=== PATIENT | male | born 1955 | race Caucasian/White ===

== ENCOUNTER → 2016-06-01 | Outpatient (CLI) | payer OTHER ==
[~2016-06-01] MED LIST: AMLO-114 PO; ATOR-22 PO; CEPH500C2 PO; FERR325T18 PO; FURO-85 PO; GABA-113 PO; GLC/500 PO; LBT100 PO; LISI40TA PO; LSX20 PO; MELO7.5T5 PO; MULT-506 PO; MULT-589 PO; POLYSOL4 OP; PRD/1 PO; PRED-301 PO; PRLSR20 PO
[2016-06-01 12:21] LABS: BASO % 0.1 %; BASO ABS # 0.01 K/uL (0-0.2); COMPLETE YES; EOS % 3.1 %; HEMATOCRIT 32.4 % (42-52); IG% 0.1 %; LYMPH % 35.5 %; LYMPH ABS # 2.44 K/uL (1.2-3.4); MEAN CELL VOLUME 89.5 fL (80-100); MEAN CORPUSCULAR HEMOGLOBIN 28.7 pg (25-34); MEAN CORPUSCULAR HGB CONC 32.1 g/dl (32-36); MEAN PLATELET VOLUME 10.7 fL (7.4-10.4); MONO % 9.6 %; NEUT % 51.6 %; PLATELET COUNT 181 K/uL (130-400); RED BLOOD COUNT 3.62 M/uL (4.7-6.1); WHITE BLOOD COUNT 6.88 K/uL (4.8-10.8)
[2016-06-01 12:30] LABS: URINE APPEARANCE CLEAR (CLEAR); URINE BILIRUBIN NEG (NEG); URINE COLOR YELLOW; URINE EPITHELIAL CELL AUTO 0-5 /lpf (0-5); URINE NITRITE NEG (NEG); URINE SPECIFIC GRAVITY 1.018 (1.000-1.030); UROBILINOGEN NEG (NEG); ZZUR CULT IF INDIC CLEAN CATCH NO
[2016-06-01 12:39] LABS: ALT/SGPT 19 U/L (12-78); BLOOD UREA NITROGEN 24 mg/dl (7-18); BUN/CREATININE RATIO 24.2 (10-20); CALCIUM 8.8 mg/dl (8.5-10.1); CARBON DIOXIDE 30 mmol/L (21-32); CHLORIDE 102 mmol/L (98-107); CHOLESTEROL 146 mg/dl (0-200); GLUCOSE 94 mg/dl (70-99); POTASSIUM 4.5 mmol/L (3.5-5.1); SODIUM 138 mmol/L (136-145); TRIGLYCERIDES 91 mg/dl (0-150); VERY LOW DENSITY LIPOPROT CALC 18 mg/dl
[2016-06-01 12:43] LABS: MANUAL MICROSCOPIC REQUIRED? NO; REVIEW REQ? NO
[2016-06-01 12:46] LABS: ESTIMATED AVERAGE GLUCOSE 123 mg/dl; HA1C FLAG Normal (Normal)
[2016-06-01 12:50] LABS: ALB/GLOB RATIO 1.1 (0.9-2); ALKALINE PHOSPHATASE 95 U/L (45-117); AST/SGOT 9 U/L (15-37); CHOLESTEROL/HDL RATIO 2.6; HDL CHOLESTEROL 57 mg/dl; LDL CHOLESTEROL CALCULATED 71 mg/dl; PROSTATE SPECIFIC ANTIGEN 0.506 ng/ml (0.000-4.000)
== END | disposition home or self-care (01) ==
LOC: C.LABBFT 09:03
PROVIDERS: ATTEND Internal Medicine
DX: E78.5 Hyperlipidemia, unspecified (principal); C67.9 Malignant neoplasm of bladder, unspecified; E11.9 Type 2 diabetes mellitus without complications; N52.9 Male erectile dysfunction, unspecified; Z12.5 Encounter for screening for malignant neoplasm of prostate; M35.3 Polymyalgia rheumatica

== ENCOUNTER → 2016-06-08 | Outpatient (CLI) | payer OTHER ==
[2016-06-08 17:35] LABS: RETHE 30.2 PG (28.2-36.6)
[2016-06-08 17:56] LABS: FERRITIN 7.4 ng/ml (8.0-388.0)
== END | disposition home or self-care (01) ==
LOC: C.LABBFT 12:49
PROVIDERS: ATTEND Internal Medicine
DX: D64.9 Anemia, unspecified (principal)

== ENCOUNTER → 2016-06-27 | Outpatient (CLI) | payer OTHER ==
--- NOTE | 2016-06-27 14:42 | DIAGNOSTIC IMAGING REPORT ---
LEFT TIBIA/FIBULA 2 VIEWS ROUTINE CLINICAL HISTORY: M35.3 Polymyalgia [id number] Pain in the shins COMPARISON: None. DISCUSSION: There are vascular calcifications present. No fractures are visualized. No destructive lesions are evident. There are no areas of periostitis. Degenerative changes are present within the knee. IMPRESSION: 1. No evidence of acute fracture 2. No evidence of periostitis. Electronically signed by: Nba Rider M.D. 06/27/2016 2:40 PM Dictated Date/Time: 06/27/2016 2:40 PM
--- NOTE | 2016-06-27 14:47 | DIAGNOSTIC IMAGING REPORT ---
RIGHT TIBIA/FIBULA 2 VIEWS ROUTINE CLINICAL HISTORY: M35.3 Polymyalgia [id number] Pain in the shins Right pain COMPARISON: None. DISCUSSION: The bones and joint spaces appear intact. There is no evidence of fracture, dislocation or bony disease. Minimal pretibial soft tissue edema IMPRESSION: No acute bony abnormality. Minimal soft tissue edema anterior to the tibia Electronically signed by: Vic Deluna M.D. 06/27/2016 2:45 PM Dictated Date/Time: 06/27/2016 2:45 PM
== END | disposition home or self-care (01) ==
LOC: C.RAD1850 14:25
PROVIDERS: ATTEND Internal Medicine Rheumatology
DX: M35.3 Polymyalgia rheumatica (principal); M79.661 Pain in right lower leg; M79.662 Pain in left lower leg; Z79.52 Long term (current) use of systemic steroids

== ENCOUNTER → 2016-07-04 | Outpatient (CLI) | payer OTHER | END | disposition home or self-care (01) | LOC: C.PATHSPEC 14:04 | PROVIDERS: ATTEND Dermatology | DX: L85.8 Other specified epidermal thickening (principal); L30.9 Dermatitis, unspecified ==

== ENCOUNTER → 2016-09-26 | Day surgery (SDC) | payer OTHER ==
[2016-09-20 10:04] VITALS: Ht 172.7 cm; Wt 99.1 kg
[~2016-09-26] VITALS: Ht 172.7 cm; Wt 99.1 kg
[~2016-09-26] MED LIST changes: +ATROPINE SULFATE 0.1 MG/ML 5ML SYR IV PRN; -CEPH500C2 PO; +EpHEDrine SULFATE INJ 50 MG/ML AMP IV PRN; +FENTANYL CITRATE INJ 50 MCG/1 ML 2 ML VIAL ONE; -LBT100 PO; +LIDOCAINE HCL 2% 2 ML VIAL (20MG/ML) ONE; -LSX20 PO; -MULT-589 PO; +PROPOFOL IV EMULSION 10 MG/ML 20 ML VIAL IV ONE; +SODIUM CHLORIDE 0.9% 500ML 500 ML IV ONE
--- NOTE | 2016-09-26 09:02 | Endo History and Physical ---
History & Physical Date of Service: Sep 26, 2016. Chief Complaint: Hx polyps Referring Physician: Omar Diallo History of Present Illness 61 yo CM who presents for colonoscopy secondary to history of colon polyps. Past Medical History Diabetes, Arthritis, Cancer, Hypertension Past Surgical History Hx Cardiac Surgery: No Hx Internal Defibrillator: No Hx Pacemaker: No Hx Abdominal Surgery: Yes (UMBILICAL HERNIA) Hx of Implantable Prosthesis: No Hx Post-Op Nausea and Vomiting: No Hx Cancer Surgery: Yes (BLADDER TUMOR REMOVED) Hx Thoracic Surgery: No Hx Orthopedic: No Hx Urinary Tract Surgery: No Social History Smoking Status: Former Smoker Hx Substance Use: No Hx Alcohol Use: No ("QUIT 12/2015") Allergies Coded Allergies: Sulfamethoxazole w/Trimethoprim (Unverified Allergy, Mild, ITCHY BACK, ) Current Medications Reported Home Medications Medications Dose Route/Sig Max Daily Dose Days Date Category Mobic (Meloxicam) 7.5 Mg Tab 7.5 Mg PO DAILY 09/26/16 Reported Multivitamin (Multivitamins) Tab 1 Tab PO QAM 09/20/16 Reported Systane (Polyethylene Glycol-Propylene) 1 Kate Kate 1 Drops OP QID PRN 09/20/16 Reported Prednisone 5 Mg Tab 5 Mg PO QAM 09/20/16 Reported Prilosec (Omeprazole) 20 Mg Capcr 20 Mg PO QPM 09/20/16 Reported Zestril (Lisinopril) 40 Mg Tab 40 Mg PO QAM 09/20/16 Reported Neurontin (Gabapentin) 300 Mg Cap 300 Mg PO BID 09/20/16 Reported Lasix (Furosemide) 20 Mg Tab 20 Mg PO QAM 09/20/16 Reported Ferrous Gluconate 324 Mg Tab 324 Mg PO 3XWK 09/20/16 Reported Norvasc (Amlodipine Besylate) 10 Mg Tab 10 Mg PO DAILY AFTERNOON 09/20/16 Reported Lipitor (Atorvastatin Calcium) 20 Mg Tab 20 Mg PO HS 01/31/16 Reported Glucophage (Metformin Hcl) 500 Mg Tab 500 Mg PO BID 10/21/12 Reported Vital Signs Weight (Kilograms): 99.09 Height (Feet): 5 Height (Inches): 8 Date Time Temp Pulse Resp B/P (MAP) Pulse Ox O2 Delivery O2 Flow Rate FiO2 09/26/16 08:42 37.3 65 18 159/72 (101) 94 Room Air Physical Exam General Appearance: WD/WN, no apparent distress Respiratory/Chest: Auscultation: breath sounds normal Cardiovascular: Heart Auscultation: RRR Abdomen: Bowel Sounds: normal Inspection & Palpation: soft, non-distended, no tenderness, guarding & rebound Assessment and Plan Assessment: 61 yo CM who presents for colonoscopy secondary to history of colon polyps. Plan: Proceed with colonoscopy.
--- NOTE | 2016-09-26 09:52 | GI REPORT ---
Procedure Date: 09/26/2016 8:56 AM Procedure: Colonoscopy Indications: High risk colon cancer surveillance: Personal history of colonic polyps Medicines: Monitored Anesthesia Care Complications: No immediate complications. Estimated Blood Loss: Estimated blood loss: none. Procedure: Pre-Anesthesia Assessment: - Prior to the procedure, a History and Physical was performed, and patient medications and allergies were reviewed. The patient's tolerance of previous anesthesia was also reviewed. The risks and benefits of the procedure and the sedation options and risks were discussed with the patient. All questions were answered, and informed consent was obtained. Prior Anticoagulants: The patient has taken no previous anticoagulant or antiplatelet agents. ASA Grade Assessment: II - A patient with mild systemic disease. After reviewing the risks and benefits, the patient was deemed in satisfactory condition to undergo the procedure. After I obtained informed consent, the scope was passed under direct vision. Throughout the procedure, the patient's blood pressure, pulse, and oxygen saturations were monitored continuously. The scope was introduced through the anus and advanced to the terminal ileum. The colonoscopy was performed without difficulty. The patient tolerated the procedure well. The quality of the bowel preparation was good. The terminal ileum, ileocecal valve, appendiceal orifice, and rectum were photographed. Findings: Two sessile polyps were found in the sigmoid colon and in the ascending colon. The polyps were 2 to 3 mm in size. These polyps were removed with a cold biopsy forceps. Resection and retrieval were complete. A 4 mm polyp was found in the transverse colon. The polyp was sessile. The polyp was removed with a cold snare. Resection and retrieval were complete. A tattoo was seen in the sigmoid colon. A post-polypectomy scar was found at the tattoo site. Multiple small-mouthed diverticula were found in the sigmoid colon. Non-bleeding internal hemorrhoids were found during retroflexion. The hemorrhoids were small. Impression: - Two 2 to 3 mm polyps in the sigmoid colon and in the ascending colon, removed with a cold biopsy forceps. Resected and retrieved. - One 4 mm polyp in the transverse colon, removed with a cold snare. Resected and retrieved. - A tattoo was seen in the sigmoid colon. A post-polypectomy scar was found at the tattoo site. - Diverticulosis in the sigmoid colon. - Non-bleeding internal hemorrhoids. Recommendation: - Resume previous diet. - Continue present medications. - Repeat colonoscopy for surveillance based on pathology results. - Return to primary care physician as previously scheduled. Collins Marshall, DO 09/26/2016 9:30:09 AM This report has been signed electronically. Note Initiated On: 09/26/2016 8:56 AM I attest to the content of the Intraoperative Record and orders documented therein, exceptions below
[2016-09-26 09:57] VITALS: BP 131/64; PULSE 58; O2SAT 95
--- NOTE | 2016-09-26 09:58 | Discharge Instructions ---
Endoscopy Patient Instructions Date / Procedure(s) Performed Sep 26, 2016. Colonoscopy Allergy Information Coded Allergies: Sulfamethoxazole w/Trimethoprim (Unverified Allergy, Mild, ITCHY BACK, ) Discharge Date / Findings Sep 26, 2016. Colon polyps Diverticulosis Internal hemorrhoids Medication Instructions Stopped Medication(s): Metformin OK to resume all medications today as prescribed Medications Dose Route/Sig Max Daily Dose Days Date Category Mobic (Meloxicam) 7.5 Mg Tab 7.5 Mg PO DAILY 09/26/16 Reported Multivitamin (Multivitamins) Tab 1 Tab PO QAM 09/20/16 Reported Systane (Polyethylene Glycol-Propylene) 1 Kate Kate 1 Drops OP QID PRN 09/20/16 Reported Prednisone 5 Mg Tab 5 Mg PO QAM 09/20/16 Reported Prilosec (Omeprazole) 20 Mg Capcr 20 Mg PO QPM 09/20/16 Reported Zestril (Lisinopril) 40 Mg Tab 40 Mg PO QAM 09/20/16 Reported Neurontin (Gabapentin) 300 Mg Cap 300 Mg PO BID 09/20/16 Reported Lasix (Furosemide) 20 Mg Tab 20 Mg PO QAM 09/20/16 Reported Ferrous Gluconate 324 Mg Tab 324 Mg PO 3XWK 09/20/16 Reported Norvasc (Amlodipine Besylate) 10 Mg Tab 10 Mg PO DAILY AFTERNOON 09/20/16 Reported Lipitor (Atorvastatin Calcium) 20 Mg Tab 20 Mg PO HS 01/31/16 Reported Glucophage (Metformin Hcl) 500 Mg Tab 500 Mg PO BID 10/21/12 Reported Provider Instructions Activity Restrictions - No exercising or heavy lifting for 24 hours. - Do not drink alcohol the day of the procedure. - Do not drive a car or operate machinery until the day after the procedure. - Do not make any important decisions or sign important papers in 24 hours after the procedure. Following Day: - Return to full activity which may include returning to work/school. Diet Start your diet with liquids and light foods (jello, soup, juice, toast). Then eat your usual diet if not nauseated. Treatment For Common After Affects For mild abdominal pain, bloating, or excessive gas: - Rest - Eat lightly - Lie on right side Follow-Up Information Follow-up with Omar Diallo as scheduled Anesthesia Information What You Should Know You have had a procedure that required some medicine to reduce anxiety and discomfort. This treatment is called moderate sedation. After receiving the treatment, you may be sleepy, but you will be able to breathe on your own. The effects of the treatment may last for several hours. Follow these instructions along with Activity/Diet recommendations noted above: * Do NOT do anything where dizziness or clumsiness would be dangerous. * Rest quietly at home today, then you can be up and about tomorrow. * Have a responsible person stay with you the rest of today. * You may have had an I.V. today. If so, you may take the dressing off later today. Recommendations Call your doctor if: * Trouble breathing * Continuous vomiting for more than 24 hours * Temperature above 101 degrees * Severe abdominal pain or bloating * Pain not relieved by pain medicine ordered * There is increased drainage or redness from any incision * A large amount of rectal bleeding greater than 2-3 tablespoons. (If you had a polyp/s removed or have hemorrhoids, a small amount of blood - from the rectum is to be expected.) * You have any unanswered questions or concerns. IN THE EVENT OF A SERIOUS EMERGENCY, GO TO THE NEAREST EMERGENCY ROOM Your discharge instructions were prepared by provider Collins Marshall. Patient Instructions Signature Page Dillon Aguila Patient (or Guardian) Signature/Date: I have read and understand the instructions given to me by my caregivers. Caregiver/RN/Doctor Signature/Date: The above-named patient and/or guardian has received patient instructions on this date. + Original Patient Signature Page (only) stays with chart. Please make copy for patient.
--- NOTE | 2016-09-26 10:02 | Anesthesiology Progress Note ---
Anesthesia Post Op Note Date & Time Sep 26, 2016 at 10:02 Vital Signs Vital Signs Past 12 Hours Date Time Temp Pulse Resp B/P (MAP) Pulse Ox O2 Delivery O2 Flow Rate FiO2 09/26/16 09:57 58 18 131/64 (86) 95 Room Air 09/26/16 09:42 57 18 140/68 (92) 95 Room Air 09/26/16 09:27 37.0 64 18 118/59 (78) 95 Room Air 09/26/16 08:42 37.3 65 18 159/72 (101) 94 Room Air Notes Mental Status: alert / awake / arousable, participated in evaluation Pt Amnestic to Procedure: Yes Nausea / Vomiting: adequately controlled Pain: adequately controlled Airway Patency, RR, SpO2: stable & adequate BP & HR: stable & adequate Hydration State: stable & adequate Anesthetic Complications: no major complications apparent
== END | disposition home or self-care (01) ==
LOC: C.GI 08:16
PROVIDERS: ATTEND Internal Medicine
DX: Z12.11 Encounter for screening for malignant neoplasm of colon (principal); D12.2 Benign neoplasm of ascending colon; D12.3 Benign neoplasm of transverse colon; D12.5 Benign neoplasm of sigmoid colon; K57.30 Diverticulosis of large intestine without perforation or abscess without bleeding; K64.8 Other hemorrhoids; Z86.010 Personal history of colon polyps; I10 Essential (primary) hypertension; E11.9 Type 2 diabetes mellitus without complications; Z87.891 Personal history of nicotine dependence; Z79.84 Long term (current) use of oral hypoglycemic drugs; Z79.899 Other long term (current) drug therapy

== ENCOUNTER → 2016-10-03 | Outpatient (CLI) | payer OTHER ==
[~2016-10-03] MED LIST changes: -ATROPINE SULFATE 0.1 MG/ML 5ML SYR IV PRN; -EpHEDrine SULFATE INJ 50 MG/ML AMP IV PRN; -FENTANYL CITRATE INJ 50 MCG/1 ML 2 ML VIAL ONE; -LIDOCAINE HCL 2% 2 ML VIAL (20MG/ML) ONE; -PROPOFOL IV EMULSION 10 MG/ML 20 ML VIAL IV ONE; -SODIUM CHLORIDE 0.9% 500ML 500 ML IV ONE
[2016-10-03 17:36] LABS: BASO % 0.2 %; BASO ABS # 0.01 K/uL (0-0.2); COMPLETE YES; EOS % 0.8 %; HEMATOCRIT 31.5 % (42-52); IG% 0.5 %; LYMPH % 18.1 %; LYMPH ABS # 1.11 K/uL (1.2-3.4); MEAN CELL VOLUME 92.6 fL (80-100); MEAN CORPUSCULAR HGB CONC 32.4 g/dl (32-36); MEAN PLATELET VOLUME 10.2 fL (7.4-10.4); MONO % 7.3 %; NEUT % 73.1 %; PLATELET COUNT 167 K/uL (130-400); WHITE BLOOD COUNT 6.13 K/uL (4.8-10.8)
[2016-10-03 17:53] LABS: FERRITIN 15.9 ng/ml (8.0-388.0); RHEUMATOID FACTOR < 10.0 U/mL (0-15); TOTAL IRON BINDING CAPACITY 394 mcg/dl (250-450)
[2016-10-04 06:16] LABS: ESTIMATED AVERAGE GLUCOSE 123 mg/dl; HA1C FLAG Normal (Normal)
== END | disposition home or self-care (01) ==
LOC: C.LABBFT 10:15
PROVIDERS: ATTEND Internal Medicine Rheumatology
DX: D64.9 Anemia, unspecified (principal); M35.3 Polymyalgia rheumatica; M25.539 Pain in unspecified wrist; E11.9 Type 2 diabetes mellitus without complications; E55.9 Vitamin D deficiency, unspecified

== ENCOUNTER → 2016-11-23 | Outpatient (CLI) | payer OTHER ==
[~2016-11-23] VITALS: Ht 172.7 cm; Wt 98.6 kg
[~2016-11-23] MED LIST changes: -PRED-301 PO
[2016-11-23 16:10] VITALS: BP 121/68; PULSE 75; Ht 172.7 cm; Wt 98.6 kg
== END | disposition home or self-care (01) ==
LOC: C.NEUR 15:08
PROVIDERS: ATTEND Internal Medicine Pulmonary Disease
DX: G47.33 Obstructive sleep apnea (adult) (pediatric) (principal)

== ENCOUNTER → 2016-11-24 | Day surgery (SDC) | payer OTHER ==
[2016-11-20 10:08] VITALS: Ht 172.7 cm; Wt 99.1 kg
[~2016-11-24] VITALS: Ht 172.7 cm; Wt 99.1 kg
[~2016-11-24] MED LIST changes: +LIDOCAINE HCL 2% 2 ML VIAL (20MG/ML) ONE; +PROPOFOL IV EMULSION 10 MG/ML 20 ML VIAL IV ONE; +SODIUM CHLORIDE 0.9% 500ML 500 ML IV ONE
--- NOTE | 2016-11-24 11:48 | Endo History and Physical ---
History & Physical Date of Service: Nov 24, 2016. Chief Complaint: Anemia Referring Physician: Dr Diallo History of Present Illness 61 yo CM who presents for EGD secondary to anemia. Past Medical History Diabetes, Arthritis, Cancer, Hypertension Past Surgical History Hx Cardiac Surgery: No Hx Internal Defibrillator: No Hx Pacemaker: No Hx Abdominal Surgery: Yes (UMBILICAL HERNIA) Hx of Implantable Prosthesis: No Hx Post-Op Nausea and Vomiting: No Hx Cancer Surgery: Yes (BLADDER TUMOR REMOVED) Hx Thoracic Surgery: No Hx Orthopedic: No Hx Urinary Tract Surgery: No Family History None Social History Smoking Status: Former Smoker Hx Substance Use: No Hx Alcohol Use: No ("QUIT 12/2015") Allergies Coded Allergies: Sulfamethoxazole w/Trimethoprim (Verified Allergy, Mild, ITCHY BACK, ) Current Medications Reported Home Medications Medications Dose Route/Sig Max Daily Dose Days Date Category Prednisone 1 Mg Tab 4 Mg PO QAM 11/20/16 Reported Multivitamin (Multivitamins) Tab 1 Tab PO QAM 09/20/16 Reported Systane (Polyethylene Glycol-Propylene) 1 Kate Kate 1 Drops OP QID PRN 09/20/16 Reported Prilosec (Omeprazole) 20 Mg Capcr 20 Mg PO QPM 09/20/16 Reported Zestril (Lisinopril) 40 Mg Tab 40 Mg PO QAM 09/20/16 Reported Neurontin (Gabapentin) 300 Mg Cap 300 Mg PO BID 09/20/16 Reported Lasix (Furosemide) 20 Mg Tab 20 Mg PO QAM 09/20/16 Reported Ferrous Gluconate 324 Mg Tab 324 Mg PO 3XWK 09/20/16 Reported Norvasc (Amlodipine Besylate) 10 Mg Tab 10 Mg PO DAILY AFTERNOON 09/20/16 Reported Lipitor (Atorvastatin Calcium) 20 Mg Tab 20 Mg PO HS 01/31/16 Reported Glucophage (Metformin Hcl) 500 Mg Tab 500 Mg PO BID 10/21/12 Reported Vital Signs Weight (Kilograms): 99.09 Height (Feet): 5 Height (Inches): 8 Date Time Temp Pulse Resp B/P (MAP) Pulse Ox O2 Delivery O2 Flow Rate FiO2 11/24/16 11:29 36.7 73 20 156/67 (96) 95 Room Air Physical Exam General Appearance: WD/WN, no apparent distress Respiratory/Chest: Auscultation: breath sounds normal Cardiovascular: Heart Auscultation: RRR Abdomen: Bowel Sounds: normal Inspection & Palpation: soft, non-distended, no tenderness, guarding & rebound Assessment and Plan Assessment: 61 yo CM who presents for EGD secondary to anemia. Plan: Proceed with EGD.
--- NOTE | 2016-11-24 12:30 | Discharge Instructions ---
Endoscopy Patient Instructions Date / Procedure(s) Performed Nov 24, 2016. EGD Allergy Information Coded Allergies: Sulfamethoxazole w/Trimethoprim (Verified Allergy, Mild, ITCHY BACK, ) Discharge Date / Findings Nov 24, 2016. Ulcerated gastric mass s/p biopsies Medication Instructions Stopped Medication(s): Metformin OK to resume all medications today as prescribed Reported Home Medications Medications Dose Route/Sig Max Daily Dose Days Date Category Prednisone 1 Mg Tab 4 Mg PO QAM 11/20/16 Reported Multivitamin (Multivitamins) Tab 1 Tab PO QAM 09/20/16 Reported Systane (Polyethylene Glycol-Propylene) 1 Kate Kate 1 Drops OP QID PRN 09/20/16 Reported Prilosec (Omeprazole) 20 Mg Capcr 20 Mg PO QPM 09/20/16 Reported Zestril (Lisinopril) 40 Mg Tab 40 Mg PO QAM 09/20/16 Reported Neurontin (Gabapentin) 300 Mg Cap 300 Mg PO BID 09/20/16 Reported Lasix (Furosemide) 20 Mg Tab 20 Mg PO QAM 09/20/16 Reported Ferrous Gluconate 324 Mg Tab 324 Mg PO 3XWK 09/20/16 Reported Norvasc (Amlodipine Besylate) 10 Mg Tab 10 Mg PO DAILY AFTERNOON 09/20/16 Reported Lipitor (Atorvastatin Calcium) 20 Mg Tab 20 Mg PO HS 01/31/16 Reported Glucophage (Metformin Hcl) 500 Mg Tab 500 Mg PO BID 10/21/12 Reported Provider Instructions Activity Restrictions - No exercising or heavy lifting for 24 hours. - Do not drink alcohol the day of the procedure. - Do not drive a car or operate machinery until the day after the procedure. - Do not make any important decisions or sign important papers in 24 hours after the procedure. Following Day: - Return to full activity which may include returning to work/school. Diet Start your diet with liquids and light foods (jello, soup, juice, toast). Then eat your usual diet if not nauseated. Treatment For Common After Affects For mild abdominal pain, bloating, or excessive gas: - Rest - Eat lightly - Lie on right side Follow-Up Information Follow-up with Dr Diallo as scheduled Anesthesia Information What You Should Know You have had a procedure that required some medicine to reduce anxiety and discomfort. This treatment is called moderate sedation. After receiving the treatment, you may be sleepy, but you will be able to breathe on your own. The effects of the treatment may last for several hours. Follow these instructions along with Activity/Diet recommendations noted above: * Do NOT do anything where dizziness or clumsiness would be dangerous. * Rest quietly at home today, then you can be up and about tomorrow. * Have a responsible person stay with you the rest of today. * You may have had an I.V. today. If so, you may take the dressing off later today. Recommendations Call your doctor if: * Trouble breathing * Continuous vomiting for more than 24 hours * Temperature above 101 degrees * Severe abdominal pain or bloating * Pain not relieved by pain medicine ordered * There is increased drainage or redness from any incision * A large amount of rectal bleeding greater than 2-3 tablespoons. (If you had a polyp/s removed or have hemorrhoids, a small amount of blood - from the rectum is to be expected.) * You have any unanswered questions or concerns. IN THE EVENT OF A SERIOUS EMERGENCY, GO TO THE NEAREST EMERGENCY ROOM Your discharge instructions were prepared by provider Collins Marshall. Patient Instructions Signature Page Dillon Aguila Patient (or Guardian) Signature/Date: I have read and understand the instructions given to me by my caregivers. Caregiver/RN/Doctor Signature/Date: The above-named patient and/or guardian has received patient instructions on this date. + Original Patient Signature Page (only) stays with chart. Please make copy for patient.
--- NOTE | 2016-11-24 12:39 | GI REPORT ---
Procedure Date: 11/24/2016 12:04 PM Procedure: Upper GI endoscopy Indications: Iron deficiency anemia Medicines: Monitored Anesthesia Care Complications: No immediate complications. Estimated Blood Loss: Estimated blood loss: none. Procedure: Pre-Anesthesia Assessment: - Prior to the procedure, a History and Physical was performed, and patient medications and allergies were reviewed. The patient's tolerance of previous anesthesia was also reviewed. The risks and benefits of the procedure and the sedation options and risks were discussed with the patient. All questions were answered, and informed consent was obtained. Prior Anticoagulants: The patient has taken no previous anticoagulant or antiplatelet agents. ASA Grade Assessment: III - A patient with severe systemic disease. After reviewing the risks and benefits, the patient was deemed in satisfactory condition to undergo the procedure. After obtaining informed consent, the endoscope was passed under direct vision. Throughout the procedure, the patient's blood pressure, pulse, and oxygen saturations were monitored continuously. The scope was introduced through the mouth, and advanced to the second part of duodenum. The upper GI endoscopy was accomplished without difficulty. The patient tolerated the procedure well. Findings: The examined esophagus was normal. A medium-sized, ulcerated, non-circumferential mass with no bleeding and no stigmata of recent bleeding was found in the gastric antrum. Biopsies were taken with a cold forceps for histology. The examined duodenum was normal. Impression: - Normal esophagus. - Rule out malignancy, gastric tumor in the gastric antrum. Biopsied. - Normal examined duodenum. Recommendation: - Resume previous diet. - Continue present medications. - Await pathology results. - Return to primary care physician as previously scheduled. - Perform an upper endoscopic ultrasound (UEUS) at appointment to be scheduled. Collins Marshall, 11/24/2016 12:38:23 PM This report has been signed electronically. Note Initiated On: 11/24/2016 12:04 PM I attest to the content of the Intraoperative Record and orders documented therein, exceptions below
--- NOTE | 2016-11-24 12:41 | Anesthesiology Progress Note ---
Anesthesia Post Op Note Date & Time Nov 24, 2016 at 12:40 Vital Signs Pain Intensity: 2 Vital Signs Past 12 Hours Date Time Temp Pulse Resp B/P (MAP) Pulse Ox O2 Delivery O2 Flow Rate FiO2 11/24/16 12:28 70 12 112/41 (64) 95 Room Air 11/24/16 11:29 36.7 73 20 156/67 (96) 95 Room Air Notes Mental Status: alert / awake / arousable, participated in evaluation Pt Amnestic to Procedure: Yes Nausea / Vomiting: adequately controlled Pain: adequately controlled Airway Patency, RR, SpO2: stable & adequate BP & HR: stable & adequate Hydration State: stable & adequate Anesthetic Complications: no major complications apparent
[2016-11-24 13:00] VITALS: BP 146/81; PULSE 66; O2SAT 93
== END | disposition home or self-care (01) ==
LOC: C.GI 11:00
PROVIDERS: ATTEND Internal Medicine
DX: D50.9 Iron deficiency anemia, unspecified (principal); K31.89 Other diseases of stomach and duodenum; E11.9 Type 2 diabetes mellitus without complications; Z87.891 Personal history of nicotine dependence; I10 Essential (primary) hypertension; Z79.899 Other long term (current) drug therapy; M19.90 Unspecified osteoarthritis, unspecified site

== ENCOUNTER → 2016-12-26 | Outpatient (CLI) | payer OTHER ==
[~2016-12-26] MED LIST changes: -LIDOCAINE HCL 2% 2 ML VIAL (20MG/ML) ONE; -MELO7.5T5 PO; -PROPOFOL IV EMULSION 10 MG/ML 20 ML VIAL IV ONE; -SODIUM CHLORIDE 0.9% 500ML 500 ML IV ONE
--- NOTE | 2016-12-26 13:16 | DIAGNOSTIC IMAGING REPORT ---
RIGHT WRIST MIN 3 VIEWS ROUTINE CLINICAL HISTORY: M25.539 Wrist joint painM25.511 Right shoulder [id number] Right COMPARISON: None. DISCUSSION: There is an age-indeterminate fracture of the scaphoid. There is a large cystic lesion within the hamate measuring 11 mm. Arthritic changes are present within the radiocarpal joint. There is borderline widening of the radius scaphoid distance. No radial or ulnar fractures are visualized. IMPRESSION: 1. Arthritic changes within the radiocarpal joint 2. Age-indeterminate scaphoid fracture 3. 11 mm cystic lesion within the hamate 4. Possible disruption of the scapholunate ligament with mild capitate subsidence Electronically signed by: Nba Rider M.D. 12/26/2016 1:15 PM Dictated Date/Time: 12/26/2016 1:08 PM
--- NOTE | 2016-12-26 13:52 | DIAGNOSTIC IMAGING REPORT ---
RIGHT SHOULDER MIN 2 VIEWS ROUTINE CLINICAL HISTORY: Right shoulder pain. COMPARISON: None FINDINGS: Alignment of the right shoulder is anatomic. There is no fracture or suspicious lesion. Multiple calcific densities which measure up to 9 mm are noted along the superolateral aspect of the right humeral head adjacent to the greater tuberosity. There is moderate osteoarthrosis of the right acromioclavicular joint. IMPRESSION: 1. No acute fracture or dislocation of the right shoulder. 2. Calcific tendinitis of the right rotator cuff. 3. Moderate osteoarthritis of the right acromioclavicular joint. Electronically signed by: Javi Decker M.D. 12/26/2016 1:51 PM Dictated Date/Time: 12/26/2016 1:49 PM
== END | disposition home or self-care (01) ==
LOC: C.RAD1850 11:41
PROVIDERS: ATTEND Internal Medicine Rheumatology
DX: M75.31 Calcific tendinitis of right shoulder (principal); M19.011 Primary osteoarthritis, right shoulder; S62.001A Unspecified fracture of navicular [scaphoid] bone of right wrist, initial encounter for closed fracture; M89.8X3 Other specified disorders of bone, forearm; X58.XXXA Exposure to other specified factors, initial encounter

== ENCOUNTER → 2017-01-25 | Outpatient (CLI) | payer OTHER | END | disposition home or self-care (01) | LOC: C.LABBFT 11:11 | PROVIDERS: ATTEND Internal Medicine Rheumatology | DX: M35.3 Polymyalgia rheumatica (principal); Z79.52 Long term (current) use of systemic steroids; M25.539 Pain in unspecified wrist ==

== ENCOUNTER → 2017-05-17 | Outpatient (CLI) | payer OTHER ==
[~2017-05-17] VITALS: Ht 172.7 cm; Wt 100.0 kg
[2017-05-17 10:23] VITALS: BP 122/73; PULSE 75; Ht 172.7 cm; Wt 100.0 kg
== END | disposition home or self-care (01) ==
LOC: C.NEUR 10:08
PROVIDERS: ATTEND Internal Medicine Pulmonary Disease
DX: G47.33 Obstructive sleep apnea (adult) (pediatric) (principal); Z88.1 Allergy status to other antibiotic agents

== ENCOUNTER → 2017-07-18 | Outpatient (CLI) | payer OTHER ==
--- NOTE | 2017-07-18 09:35 | DIAGNOSTIC IMAGING REPORT ---
CT LUNG SCREENING, LOW DOSE WITH COMPUTER-AIDED DETECTION (CAD) CLINICAL HISTORY: 62 years-old Male presenting with PERSONAL HX OF TOBACCO USE. CT DOSE (mGy.cm): The estimated cumulative dose is 91.31 mGy.cm. TECHNIQUE: Multidetector CT imaging of the chest was performed without the use of intravenous contrast. IV contrast: None. A dose lowering technique was used consistent with the principles of ALARA (as low as reasonably achievable). Additional postprocessing was performed on a separate [employer] workstation by the radiologist for computer-aided detection and 3-D volumetric segmentation of pulmonary nodules. COMPARISON: None. FINDINGS: Lace Sewer topogram: Unremarkable. On soft tissue windows, normal thyroid and thoracic inlet. No axillary, supraclavicular, or mediastinal lymphadenopathy. Evaluation of the jennifer limited without intravenous contrast. Atherosclerosis of the aorta. Top normal heart size. Moderate three-vessel coronary artery calcification. Aortic valve calcification. No pericardial or pleural effusion. Upper abdomen normal. On lung windows, minimal dependent changes likely atelectasis. No other focal nodule or infiltrate. Airways patent. On bone windows, degenerative changes of the spine. CAD FINDINGS: Overall Lung RADS Category: 1 Lung RADS Management Recommendation: Continue annual lung cancer screening. Lung RADS Follow Up Date: 2018-07-18 Lung RADS Nodule ID: IMPRESSION: 1. No suspicious pulmonary nodule or mass. Continue annual lung cancer screening. 2. Moderate three-vessel coronary artery calcification. Electronically signed by: Spencer Mckay M.D. 07/18/2017 9:34 AM Dictated Date/Time: 07/18/2017 9:27 AM
== END | disposition home or self-care (01) ==
LOC: C.CTS 09:04
PROVIDERS: ATTEND Internal Medicine
DX: Z87.891 Personal history of nicotine dependence (principal)

== ENCOUNTER → 2017-08-17 | Outpatient (CLI) | payer OTHER ==
[2017-08-17 12:13] LABS: BASO % 0.5 %; BASO ABS # 0.03 K/uL (0-0.2); EOS % 2.2 %; EOS ABS # 0.14 K/uL (0-0.5); HEMATOCRIT 35.4 % (42-52); HEMOGLOBIN 11.2 g/dL (14.0-18.0); IG# 0.02 K/uL (0.00-0.02); LYMPH % 33.3 %; LYMPH ABS # 2.11 K/uL (1.2-3.4); MEAN CELL VOLUME 93.2 fL (80-100); MEAN CORPUSCULAR HEMOGLOBIN 29.5 pg (25-34); MEAN CORPUSCULAR HGB CONC 31.6 g/dl (32-36); MEAN PLATELET VOLUME 10.5 fL (7.4-10.4); MONO % 10.4 %; MONO ABS # 0.66 K/uL (0.11-0.59); NEUT % 53.3 %; NEUT ABS # 3.38 K/uL (1.4-6.5); PLATELET COUNT 174 K/uL (130-400); RED CELL DISTRIBUTION WIDTH SD 47.7 fL (36.4-46.3); WHITE BLOOD COUNT 6.34 K/uL (4.8-10.8)
[2017-08-17 12:37] LABS: HEMOGLOBIN A1C 5.9 % (4.5-5.6)
[2017-08-17 12:43] LABS: ALBUMIN 3.8 gm/dl (3.4-5.0); ALT/SGPT 21 U/L (12-78); AST/SGOT 12 U/L (15-37); BLOOD UREA NITROGEN 27 mg/dl (7-18); CALCIUM 8.8 mg/dl (8.5-10.1); CARBON DIOXIDE 28 mmol/L (21-32); CHOLESTEROL 148 mg/dl (0-200); CREATININE 1.18 mg/dl (0.60-1.40); GLUCOSE 94 mg/dl (70-99); POTASSIUM 4.5 mmol/L (3.5-5.1); SODIUM 140 mmol/L (136-145)
[2017-08-17 12:47] LABS: ALKALINE PHOSPHATASE 86 U/L (45-117); LDL CHOLESTEROL CALCULATED 60 mg/dl; TOTAL PROTEIN 6.9 gm/dl (6.4-8.2); TRANSFERRIN 342 mg/dl (200-360)
[2017-08-17 13:32] LABS: CREATININE RANDOM URINE 90.6 mg/dl
== END | disposition home or self-care (01) ==
LOC: C.LABBFT 08:14
PROVIDERS: ATTEND Internal Medicine
DX: E11.9 Type 2 diabetes mellitus without complications (principal); E78.5 Hyperlipidemia, unspecified; D64.9 Anemia, unspecified; E55.9 Vitamin D deficiency, unspecified; Z12.5 Encounter for screening for malignant neoplasm of prostate

== ENCOUNTER → 2017-10-24 | Outpatient (CLI) | payer OTHER ==
[2017-10-23 11:11] LABS: BLOOD UREA NITROGEN 24 mg/dl (7-18); CREATININE 1.05 mg/dl (0.60-1.40)
[~2017-10-24] MED LIST changes: -AMLO-114 PO; +AMLO10TA3 PO; +OPTIRAY 300 IV PRN
--- NOTE | 2017-10-24 14:23 | DIAGNOSTIC IMAGING REPORT ---
IVP W/OR W/O TOMOGRAMS CLINICAL HISTORY: 62 years-old Male presenting with C67.9. TECHNIQUE: Initially, an abdominal professional sports scout radiograph was obtained. Subsequently, an intravenous pyelogram was performed following administration of 100 mL of Optiray 300 with tomographic images acquired in the corticomedullary and excretory phases of enhancement. Overhead views of the renal collecting system and bladder were obtained in multiple obliquities both pre and post voiding. COMPARISON: None. FINDINGS: Initial professional sports scout radiograph demonstrates calcification projecting over the right upper quadrant likely indicating cholelithiasis. Mild stool burden in the colon. Nonobstructive bowel gas pattern. No gross pneumoperitoneum allowing for supine technique. Allowing for bowel gas and stool, no evidence of nephrolithiasis. No radiographic evidence of ureteral calculi. Degenerative changes of the lumbar spine. After intravenous contrast administration, symmetric enhancement of the kidneys. There is prompt excretion into the bilateral renal collecting systems, which are nondilated. No hydronephrosis or hydroureter. There is suboptimal opacification of the urinary collecting system due to prompt filling of the urinary bladder. Allowing for this, no focal filling defect within the urinary collecting systems. The bladder distends normally. No filling defect within the bladder. Post void imaging demonstrates a small post residual volume. IMPRESSION: 1. No radiographic evidence of renal or ureteral calculi. 2. No suspicious filling defect within the urinary collecting systems or bladder. 3. Small post void residual volume. 4. Suspected cholelithiasis. Electronically signed by: Spencer Mckay M.D. 10/24/2017 2:13 PM Dictated Date/Time: 10/24/2017 2:10 PM
== END | disposition home or self-care (01) ==
LOC: C.RAD 12:13
PROVIDERS: ATTEND Urology
DX: C67.9 Malignant neoplasm of bladder, unspecified (principal); E11.9 Type 2 diabetes mellitus without complications

== ENCOUNTER → 2017-10-26 | Outpatient (CLI) | payer OTHER ==
[~2017-10-26] MED LIST changes: -OPTIRAY 300 IV PRN
[2017-10-26 15:06] LABS: BLOOD UREA NITROGEN 25 mg/dl (7-18); CREATININE 1.02 mg/dl (0.60-1.40)
== END | disposition home or self-care (01) ==
LOC: C.LAB 12:55
PROVIDERS: ATTEND Urology
DX: C67.9 Malignant neoplasm of bladder, unspecified (principal); E11.9 Type 2 diabetes mellitus without complications

== ENCOUNTER 2021-06-25 22:43 | Inpatient (IN) ==
[2021-06-25] MEDS ORDERED: ONDANSETRON INJ 2 MG/ML 2 ML VIAL IV STA (23:06)
[2021-06-25] MEDS ORDERED: HYDROmorphone INJ 0.5 MG/0.5 ML SYR IV STA (23:06)
--- NOTE | 2021-06-25 23:15 | Emergency Department Note ---
Impression & Plan Cellulitis of left lower extremity, Acute kidney injury Admit to the [facility] ED Provider Note NAME: FLORIN GAMBLE AGE: 66 SEX: M ARRIVES VIA: Walk-In INFORMANT: Patient ED PROVIDER(S): Mandi Mishra DO CHIEF COMPLAINT: Left leg edema and pain PLAN: Disposition: Admit to the [facility] Condition: Fair MEDICAL DECISION MAKING: This is a 66-year-old male patient with history of type 2 diabetes who presents to the emergency department with pain, edema, and erythema to the left lower extremity for the past 6 hours. Concerned that he has cellulitis. Patient has mild leukocytosis. Doppler of the left lower extremity is negative for DVT. There is an elevated BUN/creatinine. The patient was treated with IV crystalloid and IV daptomycin. The patient received IV analgesia with significant relief of his pain. I discussed the case with the [facility] Hospitalist and they will evaluate for further management. Triage Nursing notes reviewed and agree with them. Additional history obtained from patient's is at the bedside Vital Signs: reviewed and unremarkable Differential diagnosis: Sepsis, cellulitis, DVT ER treatment provided: IV Dilaudid IV Zofran Diagnostics interpreted by me: Cardiac Monitoring: Normal sinus rhythm at a rate of 64 Laboratory studies: As below Imaging studies: As per stat rad Lower extremity Doppler: No ultrasonographic evidence of DVT of the left lower extremity Lymph nodes in the left inguinal region largest measuring 2.5 cm suggestive of lymphadenopathy, etiology indeterminate. Cystic area seen in the popliteal fossa suggestive of small popliteal cyst measuring 2.7 cm. HPI: 66/M arrives for evaluation of pain and swelling in the left leg. Patient noticed some pain and swelling in the left lower extremity approximately 36 hours while he was doing some work outside. The symptoms seem to worsen and his noticed that the left calf and entire tib-fib area was red tonight. They came to the emergency department for evaluation. The patient has a history of previous episode of cellulitis in his toe was concerned the same thing could be happening. Does complain of some weakness and nausea. The patient is a type II diabetic. He had taken 3 Motrin earlier for the pain. ROS: See above HPI for pertinent positives & negatives. A total of 10 systems reviewed and were otherwise negative. PAST MEDICAL HISTORY:See Below PAST SURGICAL HISTORY:See Below FAMILY HISTORY:See Below SOCIAL HISTORY:See Below HOME MEDICATIONS:See list ALLERGIES:See list VITALS:See Below PHYSICAL EXAMINATION: HEENT: Head - normocephalic and atraumatic. Pupils are equal, round, and reactive to light. Extraocular eye muscles are intact, and sclera are anicteric. Nose - moist nasal mucosa without discharge. Mouth - moist buccal mucosa. Oropharynx is nonerythematous and there is no tonsillar exudate or edema noted. Neck: Supple; no JVD or cervical lymphadenopathy Heart: Regular rate and rhythm. There is a normal S1 and S2 with no 4/6 systolic ejection murmur, no clicks, or gallops appreciated. Lungs: Clear to auscultation bilaterally with no wheezes, rales, or rhonchi. Abdomen: Soft, completely nontender but protuberant. With good bowel sounds. There are no palpable pulsatile masses or hepatosplenomegaly. There is no guarding, rigidity, or rebound noted. Extremities: Significant erythema and edema of the left lower extremity that was quite painful to touch. The erythema outlined and looks consistent with cellulitis Skin: warm and dry with good turgor and no rashes. ED COURSE: Times/Reassessments: 225: The patient was evaluated in room C 11. A complete history and physical was performed including a septic work-up which included blood cultures and lactic acid. An order was placed for continuous cardiac monitoring. The patient was in a normal sinus rhythm at a rate of 64. The patient will go for ultrasound of the left lower extremity to rule out DVT. The patient was given IV Dilaudid and Zofran for his pain and nausea. I reviewed the results of the ultrasound with the patient and his . He had significant relief of his pain with the above IV analgesia. The patient was given a dose of IV daptomycin for the cellulitis. I discussed the case with the [facility] hospitalist. Mandi Mishra DO Past Med/Surg History Medical History (Updated 06/26/21 @ 05:08 by Mandi Mishra DO) Bladder cancer Cervical spine fracture Degenerative joint disease of wrist History of gastric ulcer History of osteomyelitis left foot Surgical History History of cystoscopy History of mandibular surgery History of jaw surgery History of umbilical hernia repair Family History Unknown Diabetes Hypertension Father Bone cancer Mother Hearing loss Sinusitis Other No family history of adverse response to anesthesia No family history of bleeding disorder Denies family history of Colon cancer Ovarian cancer Prostate cancer Myocardial infarction Breast cancer Social History Smoking Status: Former smoker Cigarettes Per Day: 20; Second Hand Exposure: No; Do You Dip or Chew Tobacco: No; Hx Alcohol Use: No Hx Substance Use: No Preferred Language: Citizen Of [place] Communication Ability: Effective Manager Wound Care Required: No Beliefs That Will Affect Care: None marital status: Current Living Situation: Spouse 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al status: employed 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: [employer] Other Information That Helps Us Care for You: No Feels Safe at Home: Yes Safety Concerns: Feels Safe At This Time Assistive Devices: CPAP and Glasses Allergies Allergies Allergy/AdvReac Type Severity Reaction Status Date / Time Bactrim Allergy Mild ITCHY BACK Verified 11/24/16 12:10 sulfamethoxazole Allergy Mild ITCHY BACK Verified 06/25/21 23:11 trimethoprim Allergy Mild ITCHY BACK Verified 06/25/21 23:11 Home Meds Home Medications Medication Instructions Recorded Confirmed aspirin 81 mg tablet,delayed 81 mg PO DAILY 10/25/18 06/25/21 release (Adult Aspirin Regimen) blood sugar diagnostic #10 ea 10/25/18 12/01/20 lancets #50 ea 10/25/18 12/01/20 peg 400-propylene glycol 0.4 %-0.3 1 drops OP DAILY PRN 10/25/18 06/25/21 % eye drops (Systane (propylene glycol)) ferrous sulfate 325 mg (65 mg 325 mg PO 2XWK tab 11/30/20 06/25/21 iron) tablet (Iron (ferrous sulfate)) gabapentin 300 mg capsule 300 mg PO BID cap 11/30/20 06/25/21 furosemide 20 mg tablet 20 mg PO QAM 06/25/21 06/25/21 Previous Rx's Medication Instructions Recorded atorvastatin 40 mg tablet 40 mg PO QPM #30 tab 09/25/19 sildenafil (pulm.hypertension) 20 20 - 100 mg PO ONCE PRN #90 tab 02/04/20 mg tablet prednisone 5 mg tablet 5 mg PO DAILY #90 tab 02/18/20 ketoconazole 2 % topical cream 1 applic TOP BID #30 gm 07/14/20 triamcinolone acetonide 0.1 % 1 applic TOPICAL BID #30 g 07/14/20 topical cream lisinopril 40 mg tablet 40 mg PO DAILY #90 tab 08/23/20 metformin 500 mg tablet 500 mg PO BID #180 tab 09/20/20 amlodipine 10 mg tablet 10 mg PO DAILY #90 tab 11/17/20 Results & Data (ED) Vital Signs Vital Signs - 24 hr 06/25/21 22:44 06/26/21 00:53 Temperature 36.2 C L Temperature Source Temporal Artery Scan Pulse Rate 82 Pulse Rate [Finger] 66 Respiratory Rate 18 20 Respiratory Depth Normal Blood Pressure 111/62 Blood Pressure [Right Arm] 102/49 L Blood Pressure Mean 78 Blood Pressure Mean [Right Arm] 66 Pulse Oximetry 92 97 Oxygen Delivery Method Room Air Nasal Cannula Oxygen Flow Rate 2 Sepsis Recent Fever Within 48 Hours No Sepsis New/Unexplained Change in Mental Status N/A Sepsis Action Taken by Nursing No Action Required Laboratory Data Result diagrams: 06/25/21 23:24 06/25/21 23:24 Lab Results 06/25/21 06/25/21 06/25/21 Range/Units 23:24 23:24 23:24 WBC 12.31 H (4.8-10.8) K/uL RBC 3.19 L (4.7-6.1) M/uL Hgb 10.6 L (14.0-18.0) g/dL Hct 31.3 L (42-52) % MCV 98.1 (80-100) fL MCH 33.2 (25-34) pg MCHC 33.9 (32-36) g/dL RDW Std Deviation 51.7 H (36.4-46.3) fL RDW Coeff of Mikel 14.4 (11.5-14.5) % Plt Count 127 L (130-400) K/uL MPV 10.5 H (7.4-10.4) fL Immature Gran % (Auto) 0.4 % Neut % (Auto) 86.3 % Lymph % (Auto) 8.3 % Ransom % (Auto) 4.1 % Eos % (Auto) 0.8 % Baso % (Auto) 0.1 % Neut # (Auto) 10.63 H (1.4-6.5) K/uL Lymph # (Auto) 1.02 L (1.2-3.4) K/uL Ransom # (Auto) 0.50 (0.11-0.59) K/uL Eos # (Auto) 0.10 (0-0.5) K/uL Baso # (Auto) 0.01 (0-0.2) K/uL Immature Gran # (Auto) 0.05 H (0.00-0.02) K/uL Sodium 135 L (136-145) mmol/L Potassium 4.3 (3.5-5.1) mmol/L Chloride 101 (98-107) mmol/L Carbon Dioxide 26 (21-32) mmol/L Anion Gap 8 (3-11) BUN 42 H (6-23) mg/dl Creatinine 1.72 H (0.6-1.4) mg/dl Est Cr Clr Drug Dosing 43.3 ml/min Est GFR ( Amer) 46.3 ml/min Est GFR (Non-Af Amer) 40.0 ml/min BUN/Creatinine Ratio 24.4 H (10-20) Glucose 101 H (70-99(Fasting)) mg/dl Lactate 0.9 (0.4-2.0) mmol/L Calcium 8.6 (8.5-10.1) mg/dl Total Bilirubin 0.7 (0.2-1.0) mg/dl AST 15 (13-39) U/L ALT 19 (7-52) U/L Alkaline Phosphatase 58 (34-104) U/L Total Protein 5.7 L (6.0-8.3) gm/dl Albumin 3.3 L (3.4-5.0) gm/dl Globulin 2.4 L (2.5-4.0) gm/dl Albumin/Globulin Ratio 1.4 (0.9-2) SARS-CoV-2, RNA, NAAT (NEGATIVE) 06/26/21 Range/Units 01:34 WBC (4.8-10.8) K/uL RBC (4.7-6.1) M/uL Hgb (14.0-18.0) g/dL Hct (42-52) % MCV (80-100) fL MCH (25-34) pg MCHC (32-36) g/dL RDW Std Deviation (36.4-46.3) fL RDW Coeff of Mikel (11.5-14.5) % Plt Count (130-400) K/uL MPV (7.4-10.4) fL Immature Gran % (Auto) % Neut % (Auto) % Lymph % (Auto) % Ransom % (Auto) % Eos % (Auto) % Baso % (Auto) % Neut # (Auto) (1.4-6.5) K/uL Lymph # (Auto) (1.2-3.4) K/uL Ransom # (Auto) (0.11-0.59) K/uL Eos # (Auto) (0-0.5) K/uL Baso # (Auto) (0-0.2) K/uL Immature Gran # (Auto) (0.00-0.02) K/uL Sodium (136-145) mmol/L Potassium (3.5-5.1) mmol/L Chloride (98-107) mmol/L Carbon Dioxide (21-32) mmol/L Anion Gap (3-11) BUN (6-23) mg/dl Creatinine (0.6-1.4) mg/dl Est Cr Clr Drug Dosing ml/min Est GFR ( Amer) ml/min Est GFR (Non-Af Amer) ml/min BUN/Creatinine Ratio (10-20) Glucose (70-99(Fasting)) mg/dl Lactate (0.4-2.0) mmol/L Calcium (8.5-10.1) mg/dl Total Bilirubin (0.2-1.0) mg/dl AST (13-39) U/L ALT (7-52) U/L Alkaline Phosphatase (34-104) U/L Total Protein (6.0-8.3) gm/dl Albumin (3.4-5.0) gm/dl Globulin (2.5-4.0) gm/dl Albumin/Globulin Ratio (0.9-2) SARS-CoV-2, RNA, NAAT NEGATIVE (NEGATIVE) Administered Medications Sodium Chloride (1/2 Nss) 1,000 mls @ 100 mls/hr IV .Q10H ELIER Stop: 06/26/21 14:48 Last Admin: 06/26/21 05:02 Dose: 100 mls/hr Documented by: [id number] Discontinued Medications Hydromorphone HCl (Hydromorphone Inj 0.5 Mg/0.5 Ml Syr) 0.5 mg IV NOW STA Stop: 06/25/21 23:07 Last Admin: 06/25/21 23:31 Dose: 0.5 mg Documented by: [id number] Sodium Chloride (Nss 1000ml) 1,000 mls @ 999 mls/hr IV .Q1H1M ONE Stop: 06/26/21 01:46 Last Infusion: 06/26/21 01:54 Dose: 0 mls/hr Documented by: [id number] Admin: 06/26/21 00:53 Dose: 999 mls/hr Documented by: [id number] Daptomycin 400 mg/ Syringe 8 mls @ 4 mls/min IV ONE ONE; Protocol Stop: 06/26/21 01:15 Last Admin: 06/26/21 01:30 Dose: 4 mls/min Documented by: [id number] Ondansetron HCl (Ondansetron Inj 2 Mg/Ml 2 Ml Vial) 4 mg IV NOW STA Stop: 06/25/21 23:07 Last Admin: 06/25/21 23:31 Dose: 4 mg Documented by: [id number] Discharge Plan Visit Data Chief Complaint: Swelling/Edema to Extremity Stated Complaint: L LEG SWOLLEN AND RED ED Provider: Mandi Mishra Discharge Problem: Cellulitis of left lower extremity, Acute kidney injury Patient Disposition: Admitted As Inpatient Discharge Instructions Interventions: ED Discharge Assessment Last Done: 06/26/21 04:33
[2021-06-25 23:35] LABS: Basophils # (auto) 0.01 K/uL (0-0.2); Basophils % (auto) 0.1 %; Eosinophils % (auto) 0.8 %; Hematocrit (blood only) 31.3 % (42-52); Hemoglobin 10.6 g/dL (14.0-18.0); Immature Granulocytes # (auto) 0.05 K/uL (0.00-0.02); Immature Granulocytes % (auto) 0.4 %; Lymphocytes # (auto) 1.02 K/uL (1.2-3.4); Lymphocytes % (auto) 8.3 %; Mean Corpuscular Hemoglobin 33.2 pg (25-34); Mean Corpuscular Hgb Conc 33.9 g/dL (32-36); Mean Corpuscular Volume 98.1 fL (80-100); Mean Platelet Volume 10.5 fL (7.4-10.4); Monocytes % (auto) 4.1 %; Neutrophils # (auto) 10.63 K/uL (1.4-6.5); Neutrophils % (auto) 86.3 %; Platelet Count 127 K/uL (130-400); RDW Coefficient of Variation 14.4 % (11.5-14.5); RDW Standard Deviation 51.7 fL (36.4-46.3); Red Blood Count 3.19 M/uL (4.7-6.1); White Blood Count 12.31 K/uL (4.8-10.8)
[2021-06-25 23:59] LABS: Albumin Globulin Ratio 1.4 (0.9-2); Albumin Level 3.3 gm/dl (3.4-5.0); BUN Creatinine Ratio 24.4 (10-20); Bilirubin,Total 0.7 mg/dl (0.2-1.0); Calcium 8.6 mg/dl (8.5-10.1); Creatinine Clr Calc Pharmacy 43.3 ml/min; Est GFR (African American) 46.3 ml/min; Globulin 2.4 gm/dl (2.5-4.0); Potassium 4.3 mmol/L (3.5-5.1); Total Protein 5.7 gm/dl (6.0-8.3)
[2021-06-26] MEDS ORDERED: SODIUM CHLORIDE 0.9% 1000ML 1,000 ML IV ONE (00:46)
[2021-06-26] MEDS ORDERED: DAPTOmycin 400 MG in SYRINGE 0 ML IV ONE (01:14)
--- NOTE | 2021-06-26 04:17 | History and Physical Report ---
DATE OF ADMISSION: 06/26/2021. CHIEF COMPLAINT: Left leg cellulitis. HISTORY OF PRESENT ILLNESS: This is a 66-year-old male with past medical history significant for type 2 diabetes, history of hyperlipidemia, sleep apnea on CPAP, hypertension, hemangioma of liver, CAD, asymptomatic stenosis of right carotid artery, moderate aortic stenosis, mitral valve regurgitation, polymyalgia rheumatica on prednisone, osteoarthritis of both knees, bilateral sciatica, history of alcohol abuse in remission, spinal stenosis, history of bladder cancer, lives at home, presents with left leg cellulitis. The patient and were working in the yard on Sunday and after that he noticed pain in the leg, thought he might have pulled his muscle; but on Sunday, he had noticed swelling in the leg and erythematous changes when he came to the hospital. Denies any fevers or chills. He has chronic pains. He is chronically on prednisone 5 mg daily, recently on prednisone taper because of his cervical neck pain. Denies any headache. No blurred visions, no earache, no runny nose, no sore throat, no cough, no difficulty swallowing. Appetite is okay. No chest pain, no shortness of breath, no nausea, no vomiting, no abdominal pain. Normal bowel and bladder movements. Patient state he was able to walk but having lot of pain when he is walking in the left leg. ALLERGIES: BACTRIM. PAST MEDICAL HISTORY: As mentioned above. PAST SURGICAL HISTORY: Colonoscopy, cystoscopy/urethroscopy treated the bladder tumor, EGDs, wisdom tooth removal, umbilical hernia, cataracts, tonsillectomy. MEDICATIONS: The patient is on amlodipine 10 mg p.o. daily, aspirin 81 mg p.o. daily, atorvastatin 40 mg p.o. daily, furosemide 20 mg p.o. a.m., gabapentin 300 mg p.o. b.i.d., lisinopril 40 mg p.o. daily, metformin 500 mg p.o. b.i.d., prednisone 5 mg p.o. daily. FAMILY HISTORY: Significant for mother had brain cancer, eye problems. Father had bone cancer, maternal grandmother had cancer. SOCIAL HISTORY: , former smoker, quit in 2006, smoked 1 pack a day. Quit alcohol in 2015. No drug use. REVIEW OF SYSTEMS: As per HPI. Rest of the review of systems is negative. PHYSICAL EXAMINATION: GENERAL: The patient is of moderate build, not in acute distress. VITAL SIGNS: Temperature 36.2, pulse 66, respiratory rate 20, blood pressure 102/49, oxygen 97% on 2 liters. HEENT: Pupils equal, round and reactive to light. Oral mucosa moist. NECK: No JVD. No neck masses. CARDIOVASCULAR: S1 and S2 heard. Ejection systolic murmur heard. Regular rate and rhythm. RESPIRATORY SYSTEM: Normal AP diameter. No accessory muscle use. No wheezing, no crackles. ABDOMEN: Soft, bowel sounds present, nontender, no distention. CENTRAL NERVOUS SYSTEM: Cranial nerves II-XII grossly nonfocal. EXTREMITIES: Left lower extremity is edematous, erythematous. LABORATORY DATA: WBC 12.3, hemoglobin 10.6, hematocrit 31.3, platelets 127. Sodium 135, potassium 4.3, chloride 101, bicarbonate 26, BUN 42, creatinine 1.72. Serum glucose 101, lactate 0.9, calcium 8.6, total bilirubin 0.7, AST 15, ALT 19, alkaline phosphatase 58. SARS-CoV-2 rapid test negative. IMAGING DATA: Venous Doppler study preliminary report no DVT. ASSESSMENT AND PLAN: This 66-year-old male presents with left leg cellulitis. 1. Left leg cellulitis. ER started daptomycin, which we will continue. We will hold atorvastatin while the patient is on daptomycin. Follow the cultures. Follow the response. Monitor in the medical floor. 2. History of diabetes: Hold his metformin, place him on insulin sliding scale. Follow the blood sugars. 3. History of polymyalgia rheumatica, on prednisone. Follow with Rheumatology. 4. History of hypertension on amlodipine. Holding lisinopril. IV hydralazine p.r.n. Monitor the blood pressure. 5. Acute kidney injury. Current creatinine of 1.7, baseline creatinine around 11.1-1.2. Holding lisinopril and lasix.. Avoid nephrotoxic agents. Getting fluids. , follow the repeat labs in the a.m. 6. History of moderate aortic stenosis, possible diastolic congestive heart failure, holding the Lasix and lisinopril for acute kidney injury, getting gentle fluids, monitor for any volume overload. 7. Hyperlipidemia. Holding statin because of daptomycin. 8. History of coronary artery disease on aspirin. Holding statin for above reasons. 9. History of sleep apnea: CPAP at bedtime. 10.Mild thrombocytopenia platelets of 127. Follow the repeat labs. 11. Anemia, hemoglobin 10.6, he has some chronic anemia possibly from chronic disease. We will follow the repeat labs.Will do hemeoccult.Followup with pcp 12. Deep venous thrombosis prophylaxis: Placed on Lovenox. DISPOSITION: Admit to medical floor. PT/OT prior to discharge. Social service to help with discharge planning. Expect to discharge home and follow with family doctor. Job ID: [id number] MERLY
[2021-06-26] MEDS ORDERED: hydrALAZINE HCL 20 MG/ML VIAL IV PRN (04:49)
[2021-06-26] MEDS ORDERED: SODIUM CHLORIDE 0.45 % 1,000 ML IV SCH (04:49)
[2021-06-26] MEDS ORDERED: POLYETHYLENE (MIRALAX) 17 GM PACK PO PRN (04:49)
[2021-06-26] MEDS ORDERED: ARTIFICIAL TEARS OP PRN (06:10)
[2021-06-26] MEDS ORDERED: DEXTROSE 50% 50 ML SYRINGE IV PRN (06:15)
[2021-06-26] MEDS ORDERED: GLUCAGON FOR INJ 1 MG VIAL IM PRN (06:15)
[2021-06-26] MEDS ORDERED: GLUCOSE 10 TABS/TUBE PO PRN (06:15)
[2021-06-26] MEDS ORDERED: CARBOHYDRATES FOR HYPOGLYCEMIA PO PRN (06:15)
[2021-06-26] MEDS ORDERED: GLUCOSE 40% GEL 15 GM TUBE PO PRN (06:15)
--- NOTE | 2021-06-26 06:21 | Ultrasound Report ---
ULTRASOUND LEFT LOWER EXTREMITY VENOUS CLINICAL HISTORY: Left leg pain. COMPARISON STUDY: Left lower extremity venous ultrasound dated [birth year]/26/1911. TECHNIQUE: Real-time, grayscale, and color Doppler sonography of the deep veins of the left lower ext remity was performed from the inguinal crease to the calf. Compression and augmentation were utilized . FINDINGS: There is no sonographic evidence of deep venous thrombosis identified in the left lower ext remity. The common femoral, superficial femoral, and popliteal veins are patent and normally compress ible. The greater saphenous vein and the profunda femoris vein at the junction with the common femora l vein are clear. The visualized calf veins are patent. Prominent lymph nodes are noted in the left g roin. A popliteal cyst measures 5.7 x 1.7 x 2.8 cm. IMPRESSION: 1. There is no sonographic evidence of deep venous thrombosis identified in the left lower extremity. 2. Popliteal cyst. 3. Prominent left inguinal lymph nodes are likely reactive. Clinical correlation will be required. ACT 112: Negative or not required by law. Electronically signed by: Miguel Eastman M.D. 06/26/2021 6:19 AM
[2021-06-26 07:06] LABS: Basophils # (auto) 0.01 K/uL (0-0.2); Basophils % (auto) 0.1 %; Eosinophils # (auto) 0.09 K/uL (0-0.5); Eosinophils % (auto) 0.9 %; Hematocrit (blood only) 30.3 % (42-52); Immature Granulocytes # (auto) 0.02 K/uL (0.00-0.02); Immature Granulocytes % (auto) 0.2 %; Lymphocytes # (auto) 1.31 K/uL (1.2-3.4); Lymphocytes % (auto) 13.1 %; Mean Platelet Volume 10.1 fL (7.4-10.4); Monocytes # (auto) 0.43 K/uL (0.11-0.59); Monocytes % (auto) 4.3 %; Neutrophils # (auto) 8.17 K/uL (1.4-6.5); Neutrophils % (auto) 81.4 %; Platelet Count 108 K/uL (130-400); RDW Coefficient of Variation 14.7 % (11.5-14.5); RDW Standard Deviation 54.1 fL (36.4-46.3); Red Blood Count 3.03 M/uL (4.7-6.1); White Blood Count 10.03 K/uL (4.8-10.8)
[2021-06-26 07:30] LABS: BUN Creatinine Ratio 24.8 (10-20); Calcium 8.1 mg/dl (8.5-10.1); Creatinine Clr Calc Pharmacy 50.6 ml/min; Est GFR (African American) 50.2 ml/min; Est GFR (Non-African American) 43.3 ml/min; Potassium 4.6 mmol/L (3.5-5.1)
[2021-06-26] MEDS: INSULIN ASPART PER UNIT SC SCH ×4 (08:57→23:09)
[2021-06-26] MEDS ORDERED: FUROSEMIDE 20 MG TAB PO SCH (09:00)
[2021-06-26] MEDS: amLODIPine BESYLATE 5 MG TAB PO SCH (09:21)
[2021-06-26] MEDS: TRIAMCINOLONE ACET 0.1% CR 15 GM TUBE TOP SCH ×2 (09:47→21:18)
[2021-06-26] MEDS: ENOXAPARIN INJ 40 MG/0.4 ML SYR SQ SCH (09:47)
[2021-06-26] MEDS: predniSONE 5 MG TAB PO SCH (09:47)
[2021-06-26] MEDS: GABAPENTIN 300 MG CAP PO SCH ×2 (09:47→21:18)
[2021-06-26] MEDS: ASPIRIN 81 MG ECTAB PO SCH (09:47)
[2021-06-26] MEDS: SODIUM CHLORIDE 0.9% 1000ML 1,000 ML IV SCH (12:14)
[2021-06-26] MEDS: ACETAMINOPHEN 325 MG TAB PO PRN (14:35)
[2021-06-26] MEDS: oxyCODONE HCL IR 5 MG TAB (IMMEDIATE RELEASE) PO PRN (15:23)
--- NOTE | 2021-06-26 15:47 | Hospitalist Progress Note ---
Date of Service June 26, 2021 Assessment & Plan (1) Cellulitis of left lower extremity: Plan: ASSESSMENT AND PLAN: This 66-year-old male presents with left leg cellulitis. 1. Left leg cellulitis. Risk factors: Dry skin, chronic prednisone use Afebrile, leukocytosis resolved CT left lower extremity: Pending Blood cultures: Pending Continue daptomycin IV day #1 Continue to monitor closely 2. History of diabetes: Insulin sliding scale Continue to monitor BSG's 3. History of polymyalgia rheumatica, on prednisone. Follow with Rheumatology. 4. History of hypertension Hold lisinopril in light of acute kidney injury Continue monitoring Monitor BP 5. Acute kidney injury. Current creatinine of 1.7, baseline creatinine around 11.1-1.2. Creatinine 1.6 Hold lisinopril, Lasix Monitor closely 6. History of moderate aortic stenosis, possible diastolic congestive heart failure -- holding the Lasix and lisinopril for acute kidney injury, getting gentle fluids, monitor for any volume overload. 7. Hyperlipidemia. Holding statin because of daptomycin. 8. History of coronary artery disease on aspirin. Holding statin for above reasons. 9. History of sleep apnea: CPAP at bedtime. 10.Mild thrombocytopenia platelets of 127. Platelet 108 No signs of bleeding Monitor 11. Anemia, hemoglobin 10.6, he has some chronic anemia possibly from chronic disease. Hemoglobin 10.0 Monitor 12. Deep venous thrombosis prophylaxis: Placed on Lovenox. Admission and Anticipated Discharge Date Admission Date: June 26, 2021 Subjective Follow-up for left leg cellulitis, etc. Seen resting in bed, comfortable, not distressed States left leg pain and redness about the same as yesterday Denies fevers or chills, nausea vomiting, abdominal pain, headache, dizziness, chest pain, shortness of breath Voiding with no problems No diarrhea Appetite is good No other symptom Review of Systems Review of Systems: all noted and negative except for above Physical Exam Physical Exam: General- oriented x 3, not in distress, speaks in sentences with no effort or accessory muscle use Head- atraumatic Eyes- PERRL, EOMI, anicteric ENT- oropharynx clear Neck- supple, no JVD, no adenopathy, no thyromegaly; carotids +2/2, no bruits appreciated Lungs- clear to auscultation bilaterally, no rales/wheezes Heart- normal rate, regular rhythm; no murmur, no gallop, no rub appreciated Abdomen- normal bowel sounds, nondistended, soft, nontender, no masses or hepatosplenomegaly Extremities- no pretibial edema, no calf tenderness; peripheral pulses intact Left leg: Mild erythema and warmth on the medial aspect of the thigh Moderate erythema, warmth, mild tenderness on the lower leg mostly on the lower 3/4 section Neuro- alert, oriented x 3; CN 2-12 grossly intact; motor 5/5 bilaterally;sensation 100% on all extremities; no other gross focal neurologic deficits Skin- warm & dry Results & Data Results & Data ([facility]) Vital Signs (Past 12 Hours) Vital Signs Temp Pulse Pulse Resp BP Pulse Ox 06/26/21 15:20 37.6 C H 06/26/21 14:28 37.4 C 82 18 114/67 90 06/26/21 08:23 68 108/64 06/26/21 07:31 36.5 C 67 18 95/56 L 95 06/26/21 05:55 79 12 95 06/26/21 04:30 36.5 C 63 16 139/74 100 06/26/21 04:00 60 18 91/57 L 96 all noted and reviewed including below
--- NOTE | 2021-06-26 17:01 | CT Scan Report ---
CT SCAN OF THE LEFT FEMUR WITHOUT IV CONTRAST CLINICAL HISTORY: Cellulitis. COMPARISON STUDY: No priors. TECHNIQUE: CT scan of the left femur is performed from the bony pelvis to the proximal tibia. Images are reviewed in the axial, sagittal, and coronal planes. IV contrast was not administered for this ex amination. A dose lowering technique was utilized adhering to the principles of ALARA. Note that the examination is suboptimal without IV contrast. FINDINGS: The skeletal structures are osteopenic. There is no evidence of left femoral fracture. The visualized left hemipelvis appears intact. There is avascular necrosis of the left femoral head. No l ytic or blastic lesion is seen. There is no bony erosion or periostitis. The hip and knee joints are grossly maintained. There is atherosclerotic calcification of the left femoral artery. Mild subcutane ous soft tissue edema is seen throughout the left thigh. No organized fluid collection is seen to sug gest abscess on this unenhanced examination. Superficial venous varicosities are present in both thig hs, right greater than left. A left popliteal cyst is incidentally noted. There is a small joint effu srinivas of the left knee. The regional musculature is grossly unremarkable noting mild generalized atrop hy. Prominent left inguinal lymph nodes measure up to 15 mm in short axis. These are likely reactive. No soft tissue gas is identified. Partially visualized pelvic viscera is grossly unremarkable. IMPRESSION: 1. No acute bony abnormality is seen involving the left femur. 2. There is avascular necrosis of the left femoral head. 3. Mild diffuse soft tissue edema is present throughout the left thigh. 4. There is no evidence of organized fluid collection on this unenhanced examination. 5. Popliteal cyst and small joint effusion of the left knee. 6. Prominent left inguinal lymph nodes are likely reactive. ACT 112: Negative or not required by law. Dictated: 06/26/2021 11:58 AM Transcribed: 06/26/2021 12:21 PM Yessy [id number] [email or web address] Electronically signed by: Miguel Eastman M.D. 06/26/2021 5:00 PM
--- NOTE | 2021-06-26 17:01 | CT Scan Report ---
CT SCAN OF THE LEFT TIBIA AND FIBULA WITH IV CONTRAST CLINICAL HISTORY: Cellulitis. COMPARISON STUDY: Radiographs of the left tibia and fibula dated 06/27/2016. TECHNIQUE: CT scan of the left tibia and fibula is performed from the knee to the ankle. Images are r eviewed in the axial, sagittal, and coronal planes. IV contrast was not administered for this examina tion. A dose lowering technique was utilized adhering to the principles of ALARA. Note that the exami nation was performed in suboptimal fashion without IV contrast. CT DOSE: 831.32 mGy.cm FINDINGS: The skeletal structures are osteopenic. There is no evidence of left tibial or fibular frac ture. There is no bony erosion or periostitis. The knee and ankle joints are grossly maintained. Ther e is a small joint effusion of the left knee. A small popliteal cyst is incidentally noted. There is atherosclerotic calcification of the regional arteries. The regional musculature is grossly unremarka ble noting generalized atrophy. Soft tissue edema and subcutaneous fluid is seen throughout the left calf. No organized/drainable fluid collection is identified on this unenhanced examination. No soft t issue gas is seen. Superficial venous varicosities are present throughout the calf. IMPRESSION: 1. No acute bony abnormality is seen involving the left tibia or fibula. 2. Soft tissue edema is seen throughout the calf. Correlate clinically for evidence of cellulitis. 3. There is no evidence of organized/drainable fluid collection on this unenhanced examination. ACT 112: Negative or not required by law. Dictated: 06/26/2021 12:04 PM Transcribed: 06/26/2021 12:17 PM Yessy [id number] [email or web address] Electronically signed by: Miguel Eastman M.D. 06/26/2021 5:00 PM
[2021-06-26] MEDS: DAPTOmycin 275 MG in SYRINGE 0 ML IV SCH (21:17)
[2021-06-27] MEDS: SODIUM CHLORIDE 0.9% 1000ML 1,000 ML IV SCH ×2 (00:15→12:41)
[2021-06-27 07:23] LABS: Estimated Average Glucose 123 mg/dl; Hemoglobin A1C 5.9 % (4.5-5.6)
[2021-06-27] MEDS: ACETAMINOPHEN 325 MG TAB PO PRN (07:29)
[2021-06-27] MEDS: INSULIN ASPART PER UNIT SC SCH ×4 (09:06→20:09)
[2021-06-27] MEDS: amLODIPine BESYLATE 5 MG TAB PO SCH (09:07)
[2021-06-27] MEDS: GABAPENTIN 300 MG CAP PO SCH ×2 (09:07→20:04)
[2021-06-27] MEDS: ASPIRIN 81 MG ECTAB PO SCH (09:07)
[2021-06-27] MEDS: predniSONE 5 MG TAB PO SCH (09:07)
[2021-06-27] MEDS: ENOXAPARIN INJ 40 MG/0.4 ML SYR SQ SCH (09:08)
[2021-06-27] MEDS: TRIAMCINOLONE ACET 0.1% CR 15 GM TUBE TOP SCH ×2 (09:08→20:05)
[2021-06-27 10:16] LABS: Basophils # (auto) 0.01 K/uL (0-0.2); Basophils % (auto) 0.1 %; Eosinophils # (auto) 0.08 K/uL (0-0.5); Eosinophils % (auto) 1.1 %; Hematocrit (blood only) 33.1 % (42-52); Hemoglobin 10.8 g/dL (14.0-18.0); Immature Granulocytes # (auto) 0.02 K/uL (0.00-0.02); Immature Granulocytes % (auto) 0.3 %; Lymphocytes # (auto) 1.41 K/uL (1.2-3.4); Lymphocytes % (auto) 19.1 %; Mean Corpuscular Hemoglobin 32.5 pg (25-34); Mean Corpuscular Hgb Conc 32.6 g/dL (32-36); Mean Corpuscular Volume 99.7 fL (80-100); Mean Platelet Volume 10.7 fL (7.4-10.4); Monocytes # (auto) 0.45 K/uL (0.11-0.59); Monocytes % (auto) 6.1 %; Neutrophils # (auto) 5.43 K/uL (1.4-6.5); Neutrophils % (auto) 73.3 %; Platelet Count 119 K/uL (130-400); RDW Coefficient of Variation 14.4 % (11.5-14.5); RDW Standard Deviation 52.2 fL (36.4-46.3); Red Blood Count 3.32 M/uL (4.7-6.1)
[2021-06-27 10:46] LABS: BUN Creatinine Ratio 23.1 (10-20); Calcium 8.6 mg/dl (8.5-10.1); Creatinine Clr Calc Pharmacy 67.3 ml/min; Est GFR (African American) 70.9 ml/min; Est GFR (Non-African American) 61.1 ml/min; Potassium 4.1 mmol/L (3.5-5.1)
[2021-06-27 11:27] LABS: Ferritin 139.5 ng/ml (8-388)
--- NOTE | 2021-06-27 15:22 | Hospitalist Progress Note ---
Date of Service June 27, 2021 Assessment & Plan (1) Cellulitis of left lower extremity: Plan: ASSESSMENT AND PLAN: This 66-year-old male presents with left leg cellulitis. 1. Left leg cellulitis. Risk factors: Dry skin, chronic prednisone use Afebrile, leukocytosis resolved CT left lower extremity: no abscess 1. No acute bony abnormality is seen involving the left femur. 2. There is avascular necrosis of the left femoral head. 3. Mild diffuse soft tissue edema is present throughout the left thigh. 4. There is no evidence of organized fluid collection on this unenhanced examination. 5. Popliteal cyst and small joint effusion of the left knee. 6. Prominent left inguinal lymph nodes are likely reactive. Blood cultures: Pending overall gradually improving Continue daptomycin IV day #2 leg elevation PT Continue to monitor closely 2. History of diabetes: Insulin sliding scale Continue to monitor BSG's 3. History of polymyalgia rheumatica, on prednisone. Follow with Rheumatology. 4. History of hypertension held lisinopril in light of acute kidney injury BP stable monitor 5. Acute kidney injury. Current creatinine of 1.7, baseline creatinine around 11.1-1.2. Creatinine 1.6 Held lisinopril, Lasix given IV fluids crea back to baseline- 1.2 resume Lasix tomorrow 6. History of moderate aortic stenosis, possible diastolic congestive heart failure -- holding the Lasix and lisinopril for acute kidney injury, getting gentle fluids, monitor for any volume overload. -- euvolemic resume Lasix tomorrow 7. Hyperlipidemia. Holding statin because of daptomycin. 8. History of coronary artery disease on aspirin. Holding statin for above reasons. 9. History of sleep apnea: CPAP at bedtime. 10.Mild thrombocytopenia platelets of 127. Platelet 119 No signs of bleeding Monitor 11. Anemia, hemoglobin 10.6, he has some chronic anemia possibly from chronic disease. Hemoglobin 10.8 Monitor 12. Deep venous thrombosis prophylaxis: Placed on Lovenox. plan of care discussed with patient in detail and at length all questions answered he is understanding, agreeable, comfortable with the plan of care Admission and Anticipated Discharge Date Admission Date: June 26, 2021 Subjective ff up for left leg cellulitis, etc seen resting in bed, comfortable states he feels slightly better today left leg pain slightly improved no chest pain, dyspnea, palpitations, dizziness no fever/chills no problems voiding no other symptoms Review of Systems Review of Systems: all noted and negative except for above Physical Exam Physical Exam: General- oriented x 3, not in distress, speaks in sentences with no effort or accessory muscle use Eyes- anicteric Neck- no JVD Lungs- clear breath sounds bilaterally, no rales/wheezes Heart- normal rate, regular rhythm; no murmurs Abdomen- normal bowel sounds, nondistended, soft, nontender Extremities- R LE: essentially normal L LE: less erythema, less edema by at least 25% minimal tenderness Neuro- alert, oriented x 3; no gross focal neurologic deficits Skin- warm & dry Results & Data Results & Data ([facility]) Vital Signs (Past 12 Hours) Vital Signs Temp Pulse Resp BP Pulse Ox 06/27/21 07:59 93 06/27/21 07:27 36.6 C 71 16 107/65 93 all noted and reviewed including below
[2021-06-27] MEDS: oxyCODONE HCL IR 5 MG TAB (IMMEDIATE RELEASE) PO PRN (18:24)
[2021-06-27] MEDS: DAPTOmycin 275 MG in SYRINGE 0 ML IV SCH (20:04)
[2021-06-28] MEDS: amLODIPine BESYLATE 5 MG TAB PO SCH ×2 (09:07→10:00)
[2021-06-28] MEDS: ASPIRIN 81 MG ECTAB PO SCH (09:07)
[2021-06-28] MEDS: GABAPENTIN 300 MG CAP PO SCH ×2 (09:07→19:55)
[2021-06-28] MEDS: predniSONE 5 MG TAB PO SCH (09:07)
[2021-06-28] MEDS: ENOXAPARIN INJ 40 MG/0.4 ML SYR SQ SCH (09:07)
[2021-06-28] MEDS: TRIAMCINOLONE ACET 0.1% CR 15 GM TUBE TOP SCH ×2 (09:08→19:58)
[2021-06-28] MEDS: INSULIN ASPART PER UNIT SC SCH ×4 (09:13→23:14)
[2021-06-28] MEDS: ACETAMINOPHEN 325 MG TAB PO PRN (09:14)
[2021-06-28] MEDS ORDERED: diphenhydrAMINE Capsule 25 MG CAP PO ONE (10:09)
[2021-06-28 10:41] LABS: BUN Creatinine Ratio 17.1 (10-20); Calcium 8.9 mg/dl (8.5-10.1); Creatinine Clr Calc Pharmacy 73.4 ml/min; Est GFR (African American) 78.7 ml/min; Est GFR (Non-African American) 67.9 ml/min; Potassium 4.1 mmol/L (3.5-5.1)
[2021-06-28] MEDS: FUROSEMIDE 20 MG TAB PO SCH (10:44)
--- NOTE | 2021-06-28 18:20 | Hospitalist Progress Note ---
Date of Service June 28, 2021 Assessment & Plan (1) Cellulitis of left lower extremity: Plan: (1) Cellulitis of left lower extremity: Plan: ASSESSMENT AND PLAN: This 66-year-old male presents with left leg cellulitis. 1. Left leg cellulitis. Risk factors: Dry skin, chronic prednisone use Afebrile, leukocytosis resolved CT left lower extremity: no abscess 1. No acute bony abnormality is seen involving the left femur. 2. There is avascular necrosis of the left femoral head. 3. Mild diffuse soft tissue edema is present throughout the left thigh. 4. There is no evidence of organized fluid collection on this unenhanced examination. 5. Popliteal cyst and small joint effusion of the left knee. 6. Prominent left inguinal lymph nodes are likely reactive. Blood cultures: Negative x48 hours overall gradually improving Patient today noted erythematous rash over the anterior neck and upper chest wall with mild pruritus Given Benadryl p.o. Improving Possible daptomycin allergy Transition to cefazolin 2 g IV every 8 hours plus doxycycline milligrams twice daily (antibiotic day #3) Monitor closely leg elevation PT Upon discharge recommend Augmentin twice daily plus doxycycline twice daily to complete 10-day course 2. History of diabetes: Insulin sliding scale Continue to monitor BSG's 3. History of polymyalgia rheumatica, on prednisone. Follow with Rheumatology. 4. History of hypertension held lisinopril in light of acute kidney injury Resume lisinopril tomorrow next 5. Acute kidney injury. Current creatinine of 1.7, baseline creatinine around 11.1-1.2. Creatinine 1.6 Held lisinopril, Lasix given IV fluids crea back to baseline- 1.2 Lasix resumed 6. History of moderate aortic stenosis, possible diastolic congestive heart failure -- holding the Lasix and lisinopril for acute kidney injury, getting gentle fluids, monitor for any volume overload. -- euvolemic Lasix resumed 7. Hyperlipidemia. --Held statin as patient was receiving daptomycin 8. History of coronary artery disease on aspirin. Holding statin for above reasons. 9. History of sleep apnea: CPAP at bedtime. 10.Mild thrombocytopenia platelets of 127. Platelet 119 No signs of bleeding Monitor 11. Anemia, hemoglobin 10.6, he has some chronic anemia possibly from chronic disease. Hemoglobin 10.8 Monitor 12. Deep venous thrombosis prophylaxis: Placed on Lovenox. Disposition Anticipate discharge to home in 1 to 2 days with continued improvement of left lower extremity cellulitis on oral Augmentin and doxycycline plan of care discussed with patient in detail and at length all questions answered he is understanding, agreeable, comfortable with the plan of care Admission and Anticipated Discharge Date Admission Date: June 26, 2021 Subjective Follow-up for left lower extremity cellulitis, etc. Seen resting in bedside chair, not in distress Reports developing rash around his neck after shaving, also has noticed rash on upper chest, with mild pruritus Denies any other rash, itching, tongue or lip swelling, shortness of breath Feels lower extremity swelling and pain is improving No fevers or chills Able to ambulate better Review of Systems Review of Systems: all noted and negative except for above Physical Exam Physical Exam: General- oriented x 3, not in distress, speaks in sentences with no effort or accessory muscle use Eyes- anicteric Neck- no JVD Positive mild erythematous rash on the anterior neck, lower jaw region Lungs- clear breath sounds bilaterally, no rales/wheezes Positive mild small area of erythematous rash on the upper chest wall Heart- normal rate, regular rhythm; no murmurs Abdomen- normal bowel sounds, nondistended, soft, nontender Extremities-left lower extremity: Moderate edema, erythema, warmth-improving compared to yesterday Right lower extremity: Essentially normal Neuro- alert, oriented x 3; no gross focal neurologic deficits Skin- warm & dry Results & Data Results & Data ([facility]) Vital Signs (Past 12 Hours) Vital Signs Temp Pulse Resp BP Pulse Ox 06/28/21 15:05 36.8 C 75 18 132/70 95 06/28/21 07:29 36.9 C 67 18 122/66 95 all noted and reviewed including below
[2021-06-28] MEDS: DOXYCYCLINE HYCLATE 100 MG CAP PO SCH (20:03)
[2021-06-28] MEDS: ceFAZolin 2000MG 2,000 MG/15 ML SYR IV SCH (20:03)
[2021-06-29] MEDS: ceFAZolin 2000MG 2,000 MG/15 ML SYR IV SCH ×3 (03:06→20:09)
[2021-06-29 08:03] LABS: BUN Creatinine Ratio 17.7 (10-20); Calcium 9.2 mg/dl (8.5-10.1); Creatinine Clr Calc Pharmacy 84.9 ml/min; Est GFR (African American) 93.8 ml/min; Est GFR (Non-African American) 80.9 ml/min; Potassium 4.2 mmol/L (3.5-5.1)
[2021-06-29] MEDS: INSULIN ASPART PER UNIT SC SCH ×4 (08:15→20:44)
[2021-06-29] MEDS: ASPIRIN 81 MG ECTAB PO SCH (08:20)
[2021-06-29] MEDS: GABAPENTIN 300 MG CAP PO SCH ×2 (08:20→20:04)
[2021-06-29] MEDS: FUROSEMIDE 20 MG TAB PO SCH (08:20)
[2021-06-29] MEDS: DOXYCYCLINE HYCLATE 100 MG CAP PO SCH ×2 (08:20→20:04)
[2021-06-29] MEDS: ENOXAPARIN INJ 40 MG/0.4 ML SYR SQ SCH (08:20)
[2021-06-29] MEDS: predniSONE 5 MG TAB PO SCH (08:21)
[2021-06-29] MEDS: TRIAMCINOLONE ACET 0.1% CR 15 GM TUBE TOP SCH ×2 (08:21→20:06)
--- NOTE | 2021-06-29 19:20 | Hospitalist Progress Note ---
Date of Service June 29, 2021 Assessment & Plan (1) Cellulitis of left lower extremity: Plan: 1. Left leg cellulitis. Risk factors: Dry skin, chronic prednisone use Afebrile, leukocytosis resolved CT left lower extremity: no abscess 1. No acute bony abnormality is seen involving the left femur. 2. There is avascular necrosis of the left femoral head. 3. Mild diffuse soft tissue edema is present throughout the left thigh. 4. There is no evidence of organized fluid collection on this unenhanced examination. 5. Popliteal cyst and small joint effusion of the left knee. 6. Prominent left inguinal lymph nodes are likely reactive. Blood cultures: Negative x48 hours overall gradually improving, has rash over anterior neck/ pruritus w/ Daptomycin, hence changed to cefazolin 2 g IV Q8H plus doxy PO Benadryl prn for itching/rash c/w ATB, leg elevation, PT/OT. Can use Augmentin twice daily plus doxycycline twice daily to complete 10-day course upon DC. #. IWONA Admitting creatinine of 1.6, resolved. #. Other chronic medical conditions: Diabetes [on sliding scale], PMR [on prednisone], HTN, moderate aortic stenosis/possible diastolic CHF, HLD, CAD on aspirin, sleep apnea on CPAP Continue with/resume home medications as and when appropriate. 10.Mild thrombocytopenia: platelets of 127 at presentation No signs of bleeding Monitor 11. Anemia, hemoglobin 10.6 at presentation, he has some chronic anemia possibly from chronic disease. Hemoglobin around 10, monitor. 12. Deep venous thrombosis prophylaxis: Placed on Lovenox. Disposition Anticipate discharge to home in 1 to 2 days with continued improvement of left lower extremity cellulitis, will be dc on oral Augmentin and doxycycline Admission and Anticipated Discharge Date Admission Date: June 26, 2021 Subjective Patient seen and examined at bedside as a follow-up of left lower extremity cellulitis. Patient was sitting up in chair, on room air, NAD, no new acute events overnight. Patient reports feeling better and also reports his rash getting better. Patient denies any fever/headache/chills/chest pain/palpitations/belly pain/other review of symptoms. Patient reports eating okay. Physical Exam Physical Exam: GENERAL: Alert and oriented x3. NAD, on RA. HEENT: No pallor, no icterus. Pupils equal, round and reactive to light. Oral mucosa moist. NECK: No JVD, no neck masses. HEART: S1 and S2 heard. Regular rate and rhythm. systolic murmur over aortic and pulmonic area, no gallop. RESPIRATORY SYSTEM: Normal AP diameter. No accessory muscle use. No wheezing, no crackles. ABDOMEN: Soft, bowel sounds present, nontender, no distention. CENTRAL NERVOUS SYSTEM: No facial droop. Speech is clear. Obeys simple commands. Moves extremities. EXTREMITIES: No edema, no erythema seen LLE; RLE erythema better per pt. Minimal. RLE w/ varicose veins noted. Results & Data Results & Data ([facility]) Vital Signs (Past 12 Hours) Vital Signs Temp Pulse Resp BP Pulse Ox 06/29/21 16:33 36.7 C 70 16 130/72 96 06/29/21 07:27 36.8 C 67 16 111/65 97
[2021-06-30] MEDS: ceFAZolin 2000MG 2,000 MG/15 ML SYR IV SCH ×2 (03:45→13:19)
[2021-06-30] MEDS ORDERED: lisinopril 40 MG TAB PO SCH (09:00)
[2021-06-30 09:01] LABS: BUN Creatinine Ratio 20.6 (10-20); Calcium 9.3 mg/dl (8.5-10.1); Est GFR (African American) 92.6 ml/min; Est GFR (Non-African American) 79.9 ml/min; Potassium 4.1 mmol/L (3.5-5.1)
[2021-06-30] MEDS: predniSONE 5 MG TAB PO SCH (09:03)
[2021-06-30] MEDS: DOXYCYCLINE HYCLATE 100 MG CAP PO SCH (09:03)
[2021-06-30] MEDS: FUROSEMIDE 20 MG TAB PO SCH (09:03)
[2021-06-30] MEDS: GABAPENTIN 300 MG CAP PO SCH (09:03)
[2021-06-30] MEDS: amLODIPine BESYLATE 5 MG TAB PO SCH (09:03)
[2021-06-30] MEDS: TRIAMCINOLONE ACET 0.1% CR 15 GM TUBE TOP SCH (09:04)
[2021-06-30] MEDS: ENOXAPARIN INJ 40 MG/0.4 ML SYR SQ SCH (09:04)
[2021-06-30] MEDS: INSULIN ASPART PER UNIT SC SCH ×2 (09:06→13:15)
[2021-06-30] MEDS: ACETAMINOPHEN 325 MG TAB PO PRN (09:08)
[2021-06-30] MEDS: ASPIRIN 81 MG ECTAB PO SCH (09:09)
--- NOTE | 2021-06-30 13:24 | Discharge Summary ---
Date of Service June 30, 2021 Admission HPI Per Admitting Provider CHIEF COMPLAINT: Left leg cellulitis. HISTORY OF PRESENT ILLNESS: This is a 66-year-old male with past medical history significant for type 2 diabetes, history of hyperlipidemia, sleep apnea on CPAP, hypertension, hemangioma of liver, CAD, asymptomatic stenosis of right carotid artery, moderate aortic stenosis, mitral valve regurgitation, polymyalgia rheumatica on prednisone, osteoarthritis of both knees, bilateral sciatica, history of alcohol abuse in remission, spinal stenosis, history of bladder cancer, lives at home, presents with left leg cellulitis. The patient and were working in the yard on Sunday and after that he noticed pain in the leg, thought he might have pulled his muscle; but on Sunday, he had noticed swelling in the leg and erythematous changes when he came to the hospital. Denies any fevers or chills. He has chronic pains. He is chronically on prednisone 5 mg daily, recently on prednisone taper because of his cervical neck pain. Denies any headache. No blurred visions, no earache, no runny nose, no sore throat, no cough, no difficulty swallowing. Appetite is okay. No chest pain, no shortness of breath, no nausea, no vomiting, no abdominal pain. Normal bowel and bladder movements. Patient state he was able to walk but having lot of pain when he is walking in the left leg. ALLERGIES: BACTRIM. PAST MEDICAL HISTORY: As mentioned above. PAST SURGICAL HISTORY: Colonoscopy, cystoscopy/urethroscopy treated the bladder tumor, EGDs, wisdom tooth removal, umbilical hernia, cataracts, tonsillectomy. MEDICATIONS: The patient is on amlodipine 10 mg p.o. daily, aspirin 81 mg p.o. daily, atorvastatin 40 mg p.o. daily, furosemide 20 mg p.o. a.m., gabapentin 300 mg p.o. b.i.d., lisinopril 40 mg p.o. daily, metformin 500 mg p.o. b.i.d., prednisone 5 mg p.o. daily. FAMILY HISTORY: Significant for mother had brain cancer, eye problems. Father had bone cancer, maternal grandmother had cancer. SOCIAL HISTORY: , former smoker, quit in 2006, smoked 1 pack a day. Quit alcohol in 2015. No drug use. REVIEW OF SYSTEMS: As per HPI. Rest of the review of systems is negative. Admission Exam Per Admitting Provider GENERAL: The patient is of moderate build, not in acute distress. VITAL SIGNS: Temperature 36.2, pulse 66, respiratory rate 20, blood pressure 102/49, oxygen 97% on 2 liters. HEENT: Pupils equal, round and reactive to light. Oral mucosa moist. NECK: No JVD. No neck masses. CARDIOVASCULAR: S1 and S2 heard. Ejection systolic murmur heard. Regular rate and rhythm. RESPIRATORY SYSTEM: Normal AP diameter. No accessory muscle use. No wheezing, no crackles. ABDOMEN: Soft, bowel sounds present, nontender, no distention. CENTRAL NERVOUS SYSTEM: Cranial nerves II-XII grossly nonfocal. EXTREMITIES: Left lower extremity is edematous, erythematous. Principal Diagnosis Left leg cellulitis Discharge Exam GENERAL: Alert and oriented x3. NAD, on RA. HEENT: No pallor, no icterus. Pupils equal, round and reactive to light. Oral mucosa moist. NECK: No JVD, no neck masses. HEART: S1 and S2 heard. Regular rate and rhythm. systolic murmur over aortic and pulmonic area, no gallop. RESPIRATORY SYSTEM: Normal AP diameter. No accessory muscle use. No wheezing, no crackles. ABDOMEN: Soft, bowel sounds present, nontender, no distention. CENTRAL NERVOUS SYSTEM: No facial droop. Speech is clear. Obeys simple commands. Moves extremities. EXTREMITIES: No edema, no erythema seen RLE; LLE erythema better. Minimal. RLE w/ varicose veins noted. Discharge Data Allergies Allergy/AdvReac Type Severity Reaction Status Date / Time daptomycin Allergy Intermediate RASHES Verified 06/28/21 19:59 Bactrim Allergy Mild ITCHY BACK Verified 11/24/16 12:10 sulfamethoxazole Allergy Mild ITCHY BACK Verified 06/25/21 23:11 trimethoprim Allergy Mild ITCHY BACK Verified 06/25/21 23:11 Consultations 06/26/21 01:20 ED Decision to Admit Stat Ordered Studies 06/25/21 23:05 US venous doppler LE LT Urgent 06/26/21 11:07 CT femur LT wo con Routine CT tib/fib LT wo con Routine Hospital Course (1) Cellulitis of left lower extremity: 66 yo M was managed for the following while in hospital: 1. Left leg cellulitis. Risk factors: Dry skin, chronic prednisone use Afebrile, leukocytosis resolved CT left lower extremity: no abscess 1. No acute bony abnormality is seen involving the left femur. 2. There is avascular necrosis of the left femoral head. 3. Mild diffuse soft tissue edema is present throughout the left thigh. 4. There is no evidence of organized fluid collection on this unenhanced examination. 5. Popliteal cyst and small joint effusion of the left knee. 6. Prominent left inguinal lymph nodes are likely reactive. Blood cultures: Negative x48 hours, negative on the day of Discharge. overall gradually improving, had rash over anterior neck/ pruritus w/ Daptomycin, hence changed to cefazolin 2 g IV Q8H plus doxy PO Benadryl prn for itching/rash. Rash improved. c/w ATB, leg elevation, PT/OT. Compression stockings as discussed at bedside. Augmenting BID, Doxy BID and Probiotic upon DC. #. IWONA Admitting creatinine of 1.6, resolved. #. Other chronic medical conditions: Diabetes [on sliding scale], PMR [on prednisone], HTN, moderate aortic stenosis/possible diastolic CHF, HLD, CAD on aspirin, sleep apnea on CPAP Continue with/resume home medications as and when appropriate. 10.Mild thrombocytopenia: platelets of 127 at presentation No signs of bleeding Monitor 11. Anemia, hemoglobin 10.6 at presentation, he has some chronic anemia possibly from chronic disease. Hemoglobin around 10, monitor. 12. Deep venous thrombosis prophylaxis: Placed on Lovenox. Patient being discharged home with following instructions at the point of discharge: Follow-up with your primary care physician within a week time. Use compression stockings at home as discussed at the bedside. For your chronic on and off left ankle pain, you can use Voltaren gel [id number] when needed. You are being discharged on oral antibiotics for 8 more days, also probiotics has been added for 10 days. Take medications as prescribed. Total Time Total Time Spent Total Time Spent (In Minutes): 35 Discharge Plan Discharge Items Patient Disposition: Home - Self-Care Reason For Visit: L LEG SWOLLEN AND PAIN Discharge Diagnosis: Left leg cellulitis Activity: Resume your previous activity Non-emergency contact: Primary Care Provider Call non-emergency contact if: you have any medication questions, your symptoms worsen, your pain is not controlled and your temperature is above 101 Follow-up/Referrals: Spencer Smith MD [Primary Care Provider] - (Date & Time 07/06/2021 2:40 PM Provider Spencer Smith MD Department [facility] ) Diet: Carb Consistent or DM2 Addtl Attending Provider Instructions: Follow-up with your primary care physician within a week time. Use compression stockings at home as discussed at the bedside. For your chronic on and off left ankle pain, you can use Voltaren gel [id number] when needed. You are being discharged on oral antibiotics for 8 more days, also probiotics has been added for 10 days. Take medications as prescribed. Pending Studies at Discharge: Yes (Admitting blood culture final results.) Stand-Alone Forms: My [facility] [employer], Smoking Cessation Medications and DC Order Prescriptions: New doxycycline hyclate 100 mg Capsule 100 mg PO BID 8 Days Qty: 16 RF: 0 amoxicillin-pot clavulanate 875-125 mg tablet 1 tab PO BID 8 Days Qty: 16 RF: 0 Probiotic 3 billion cell capsule 3,000 mmu cells PO DAILY 10 Days Qty: 10 RF: 0 diclofenac sodium 1 % gel 2 g topical QID Qty: 100 RF: 0 Continued atorvastatin 40 mg tablet 40 mg PO QPM Qty: 30 RF: 6 sildenafil (pulm.hypertension) 20 mg tablet 20 - 100 mg PO ONCE PRN (Reason: sexual activity) Qty: 90 RF: 0 prednisone 5 mg tablet 5 mg PO DAILY Qty: 90 RF: 3 lisinopril 40 mg tablet 40 mg PO DAILY Qty: 90 RF: 1 metformin 500 mg tablet 500 mg PO BID Qty: 180 RF: 0 amlodipine 10 mg tablet 10 mg PO DAILY Qty: 90 RF: 3 aspirin [Adult Aspirin Regimen] 81 mg tablet,delayed release (DR/EC) 81 mg PO DAILY RF: 0 Systane (propylene glycol) 0.4-0.3 % drops 1 drops OP DAILY PRN (Reason: Dry Eyes) RF: 0 (DME) lancets misc See Dose Instructions .ROUTE .MEDSUPPLY Qty: 50 RF: 0 (DME) blood sugar diagnostic strip See Dose Instructions .ROUTE .MEDSUPPLY Qty: 10 RF: 0 ferrous sulfate [Iron (ferrous sulfate)] 325 mg (65 mg iron) tablet 325 mg PO 2XWK RF: 0 gabapentin 300 mg capsule 300 mg PO BID RF: 0 triamcinolone acetonide 0.1 % cream 1 applic topical BID Qty: 30 RF: 1 ketoconazole 2 % cream 1 applic TOP BID Qty: 30 RF: 0 furosemide 20 mg tablet 20 mg PO QAM RF: 0 Discharge Orders: Discharge Order (Routine); Ordered 06/30/21 Ordered By: Malika Bush Admission Data Admit Date/Time: 06/26/21 01:59 Attending Provider: Malika Bush Admit Provider: Fabio Gabriel Primary Care Provider: Spencer Smith Other Providers: Fabio Gabriel
== END 2021-06-30 16:20 | disposition home or self-care (01) | DRG 603 ==
LOC: ED 22:43 → 3W 06-26 01:59 → SUATTDRO 06-26 01:59 → 3W 06-26 04:33

== ENCOUNTER 2023-03-19 08:24 | Observation (INO) ==
--- NOTE | 2023-01-24 10:50 | PAT Medication Instructions ---
Medication Instructions Date of Service January 24, 2023 Home Medications Medication Instructions Recorded atorvastatin 40 mg tablet 40 mg PO QPM #30 tabs 09/25/19 metformin 500 mg tablet 500 mg PO BID #180 tabs 09/20/20 aspirin 81 mg tablet,delayed release (Adult Aspirin Regimen) 81 mg PO QAM peg 400-propylene glycol 0.4 %-0.3 % eye drops (Systane (propylene glycol)) 1 drops ophthalmic (eye) DAILY PRN Dry Eyes atorvastatin 40 mg tablet 40 mg PO QPM metformin 500 mg tablet 500 mg PO BID ferrous sulfate 325 mg (65 mg iron) tablet (Iron (ferrous sulfate)) 325 mg PO UD gabapentin 300 mg capsule 300 mg PO BID furosemide 20 mg tablet 20 mg PO QAM multivitamin 1 tab PO QAM metoprolol succinate 25 mg tablet,extended release 24 hr 25 mg PO QAM triamcinolone acetonide 0.1 % topical cream 1 applic topical BID PRN flaring STOP taking 24 hours before surgery triamcinolone acetonide 0.1 % topical cream 1 applic topical BID PRN flaring DO NOT take the morning of surgery metformin 500 mg tablet 500 mg PO BID ferrous sulfate 325 mg (65 mg iron) tablet (Iron (ferrous sulfate)) 325 mg PO UD furosemide 20 mg tablet 20 mg PO QAM multivitamin 1 tab PO QAM Take morning of surgery With a small sip of water, OTHERWISE NOTHING TO EAT OR DRINK AFTER MIDNIGHT: aspirin 81 mg tablet,delayed release (Adult Aspirin Regimen) 81 mg PO QAM (continue as normal unless told otherwise by surgeon) peg 400-propylene glycol 0.4 %-0.3 % eye drops (Systane (propylene glycol)) 1 drops ophthalmic (eye) DAILY PRN Dry Eyes (if needed) gabapentin 300 mg capsule 300 mg PO BID metoprolol succinate 25 mg tablet,extended release 24 hr 25 mg PO QAM Take evening before surgery peg 400-propylene glycol 0.4 %-0.3 % eye drops (Systane (propylene glycol)) 1 drops ophthalmic (eye) DAILY PRN Dry Eyes (if needed) atorvastatin 40 mg tablet 40 mg PO QPM metformin 500 mg tablet 500 mg PO BID gabapentin 300 mg capsule 300 mg PO BID Other Notes If you have any questions please call us at [phone] or [phone] or [phone] or [phone]
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
[~2023-03-19 08:24] MED LIST changes: +ACETAMINOPHEN 500 MG TAB PO SCH; -AMLO10TA3 PO; -ATOR-22 PO; +BUPIVACAINE 0.25% PF 30 ML VIAL ONE; +BUPIVACAINE 0.5 % 5 MG/1 ML PF 10ML VIAL ONE; +FAMOTIDINE 20 MG TAB PO SCH; -FERR325T18 PO; -FURO-85 PO; -GABA-113 PO; +GABAPENTIN 300 MG CAP PO SCH; -GLC/500 PO; +Ketorolac (*for OR use only*) 30 MG, dexAMETHasone 4 MG, KETAMINE HCL (**OR use only) 1... INFIL SCH; -LISI40TA PO; +LR 500ML BOLUS, THEN 15ML/HR IV SCH; +LR 60ML/HR IV SCH; +MIDAZOLAM HCL 1 MG/ML 2ML VIAL ONE; -MULT-506 PO; +ORTHO JOINT MIX INFIL SCH; -POLYSOL4 OP; -PRD/1 PO; -PRLSR20 PO; +TRANEXAMIC ACID 1,000 MG **IV Intra-op IV SCH; +TRANEXAMIC ACID 1,000 MG **IV Pre-op IV SCH; +ceFAZolin 2000MG 2,000 MG/15 ML SYR IV SCH; +dexAMETHasone 4 MG TAB PO SCH
[2023-03-19] MEDS ORDERED: MIDAZOLAM HCL 1 MG/ML 2ML VIAL ONE (08:32)
[2023-03-19] MEDS ORDERED: PROPOFOL IV EMULSION 10 MG/ML 20 ML VIAL IV ONE ×2 (09:13→10:50)
[2023-03-19] MEDS ORDERED: GLYCOPYRROLATE 0.2 MG/ML VIAL ONE (09:13)
[2023-03-19] MEDS ORDERED: LIDOCAINE 2% 2 ML VIAL/AMP(20MG/ML) INFIL ONE (09:13)
[2023-03-19] MEDS ORDERED: ONDANSETRON INJ 2 MG/ML 2 ML VIAL ONE (09:13)
--- NOTE | 2023-03-19 09:21 | History & Physical Bridge Note ---
Date of Service March 19, 2023 History & Physical Bridge Note I have examined the patient, reviewed the History & Physical and in the interval since the performance of the History & Physical I have noted the following changes of clinical significance: no changes noted
--- OUTSIDE RECORDS SUMMARY | 2023-03-19 09:34 | External Medical Summary | Summary of Care ---
Author Name Unknown Organization [facility] Address [address] [place] [address] Phone [phone] Care Team Providers Care Db2 Dba Name Role Phone Spencer Smith MD Primary Care Provider + Encounter Details Date Type Department Care Team (Late st Contact Info) Description 02/27/2023 Population Health External Data Unspecified Department Allergies Active Allergy Reactions Criticality Noted Date Comments Bactrim 08/22/2013 Itching Daptomycin High 05/18/2022 Other reaction(s): RASHES Trimethoprim Low 05/18/2022 Other reaction(s): ITCHY BACK documented as of this encounter (statuses as of 02/27/2023) Medications Medication Sig Dispensed Refills Start Date End Date Status ONETOUCH ULTRA SYSTEM W/DEVICE KITIndications:DM type 2, goal A1c below 7 Use up to four times a day -Type II diabetes- #250.00 1 Kit 0 04/06/2011 Active SYSTANE 0.4-0.3 % OP SOLN one drop both eyes as needed 0 Active Glucose Blood (ONETOUCH ULTRA BLUE) STRP Dx: E11.9 100 Strip 11 03/21/2016 Active ONETOUCH ULTRASOFT LANCETS MISC Use up to four times a day -Type II diabetes- Dx: E11.9 1 Box Dosing Unit 11 03/21/2016 Active Aspirin 81 MG Oral Tablet Delayed Release Take 1 Tablet by mouth in the morning. 0 Active Multivitamin Adult Oral Tablet Take by mouth. 0 Active CPAP every night at bedtime. 0 Active Famotidine 20 MG Oral Tablet (Pepcid) Take 1 Tablet by mouth in the morning. For 30 days then stop. 30 Tablet 0 09/10/2022 Active Additional Information Patient not taking.Reported on 02/14/2023 Tamsulosin HCl 0.4 MG Oral Capsule (Flomax) Take 1 Capsule by mouth in the morning. 30 Capsule 1 09/10/2022 Active Additional Information Patient not taking.Reported on 02/14/2023 metFORMIN HCl 500 MG Oral Tablet (Glucophage)Indicati ons:Type 2 diabetes mellitus with hemoglobin A1c goal of less than 7.0% (HCC) TAKE ONE TABLET BY MOUTH TWICE A DAY WITH FOOD 180 Tablet 2 08/14/2022 4 Active Furosemide 20 MG Oral Tablet (Lasix)Indications:E rosanne TAKE 1 TABLET BY MOUTH DAILY 100 Tablet 2 07/18/2022 4 Active Atorvastatin Calcium 40 MG Oral Tablet (Lipitor) TAKE ONE TABLET BY MOUTH EVERY DAY 90 Tablet 2 06/28/2022 4 Active Gabapentin 300 MG Oral Capsule (Neurontin)Indicatio ns:Diabetic polyneuropathy associated with type 2 diabetes mellitus (HCC) TAKE 1 CAPSULE BY MOUTH TWICE A DAY 180 Capsule 1 11/03/2022 4 Active Allopurinol 300 MG Oral Tablet (Zyloprim) Take 1 Tablet by mouth in the morning. 30 Tablet 5 12/26/2022 Active Sildenafil Citrate 20 MG Oral Tablet (Revatio) Take 1-5 Tablets by mouth daily as needed for Erectile Dysfunction. 60 Tablet 11 01/23/2023 Active Additional Information Patient not taking.Reported on 02/14/2023 Metoprolol Succinate ER 25 MG Oral Tablet Extended Release 24 Hour (toPROL XL) Take 1 Tablet by mouth in the morning. 100 Tablet 0 02/02/2023 Active documented as of this encounter (statuses as of 02/27/2023) Active Problems Problem Noted Date Diagnosed Date Generalized osteoarthritis 12/26/2022 S/P AVR (aortic valve replacement) 09/20/2022 S/P CABG (coronary artery bypass graft) 09/21/19 23 Gouty arthropathy 03/27/2022 Cervical spinal stenosis 06/30/2021 Overview: 06/28 MRI Erectile dysfunction due to diseases classified elsewhere 07/26/2020 Type 2 diabetes mellitus wit h diabetic neuropathy, without long-term current use of insulin 05/12/2020 Type 2 diabetes mellitus wit h microalbuminuria, without long-term current use of insulin 02/08/2020 Primary osteoarthritis of both knees 02/03/2020 Bilateral sciatica 02/03/2020 Well adult exam 02/03/2020 Overview: Previous Dr Arevalo, then Dr Diallo [facility] PCP (insurance change). 06/08/22 Cardiac cath Severe early-mid RCA stenosis. Dr Rajat Harris @[facility] 05/01 TTE [facility] --Reviewed [facility] TTE 04/12/22. Normal ejection fraction 50-55%, grade 1 diastolic dysfunction, severe valvular aortic stenosis : ALONSO 0.74 centimeter squared, max pg 61 mm per mercury, mean pg 34 mm per mercury, left LV wall motion, moderate concentric LVH, borderline dilated left ventricle, moderate mitral annular calcification, mild mitral regurgitation. 06/27 C5-6 stenosis OA 12/28 colon mult polyps: PATH adenoma dominick 3y 02/26 mammo/US Wnl-dominick May 2020 clinical [facility] uro yearly--considering follow Dr Villauneva to [place]. Request colon, echo, carotid US, reports. Needs DEXA Lung CA screen 10/25 [facility]--rec yearly through 2021. (15y post quit date)_ Colon 10/18/16 [facility] +adenoma dominick 5y. EKGD 11/23 antral mass benign. EUS [facility] 01/23 hyperplastic gastric fold-removal Coronary artery disease invo lving [place] coronary artery of [place] heart with angina pectoris 02/03/2020 Overview: [address]. 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 05/27 History of bladder cancer 01/04/2015 Alcohol abuse, in remission 10/07/2014 Hemangioma of liver 02/25/2014 JACK on CPAP 09/28/2011 Overview: 09/27/11 -- CPAP 10-13 cwp 08/2011 -- CPAP 8-15 cwp 07/2011 PSG -- AHI 55/hr Care Plus Oxygen Type 2 diabetes mellitus wit h hemoglobin A1c goal of less than 7.0% 04/15/2011 Overview: ICD-10 update of inactive term Spinal stenosis of lumbar re gion without neurogenic claudication 07/22/2010 HTN, goal below 140/90 04/15/2010 Dyslipidemia, goal LDL below 100 06/02/2009 5 cm segment right liver mass 11/21/2007 Overview: fna indeterminate documented as of this encounter (statuses as of 02/27/2023) Resolved Problems Problem Noted Date Diagnosed Date Resolved Date Severe aortic stenosis 05/04/202209/20 Malignant neoplasm of urinary bladder 07/26/2020 06/07/2021 Nonrheumatic aortic valve stenosis 02/03/2020 09/20/2022 Benign neoplasm of colon 07/19/201009/2015 Overview: adenomatous/repeat colnooscopy in 3 yra Spasm of muscle 09/01/2009 03/14/2016 TUBULAR ADENOMA POLYP (2) of colon 06/25/2009 02/03/2020 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 10/25/2007 11/21/2007 Elevated blood pressure, situational 10/02/2007 04/15/2010 Joint pain 10/25/2006 03/14/2016 documented as of this encounter (statuses as of 02/27/2023) Immunizations Name Administration Dates Next Due COVID-19 mRNA, LNP-s, No Pre serve, 2-Dose Series (Moderna) 01/31/2021,06/07/2020,05/03/2020 COVID-19, mRNA, LNP-s, PF, B ooster, 100mcg/0.5mg (Moderna) 08/17/2021 Covid-19, Mrna, Lnp-s, Pf, B ivalent, 50 Mcg, IM, 12 yrs and above (Moderna) 01/12/2022 Pneumococcal Conjugate Vacc, 13 Valent (Prevnar) 02/03/2020 Pneumococcal Polysaccharide PPV23 (Pneumovax) 11/10/2020,05/05/2011 Season Influenza, Quad, PF, Adjuvanted, 65+ Yrs, IM (FLUAD) 02/03/2020 Seasonal Influenza, Quadriva lent Hd, 65+ Yrs 01/07/2022,02/21/2021 Seasonal Influenza, Quadriva lent, No Preserve, IM 02/08/2016 Seasonal Influenza, Split, I IV3, With Preserve, Inj 12/11/2014,01/08/2014,04/06/2011,04/15 TDAP (age 11 and older)(Adacel) 08/25/2010 Varicella Zoster Vaccine (Adult) 01/08/2014 documented as of this encounter Social History Tobacco Use Types Packs/Day Years Used Date Smoking Tobacco: Former Cigarettes 1 38 Q uit: 06/07/2006 Passive Smoke Exposure: Never Smokeless Tobacco: Never Comments:starting smoking la te teen, smokes 5-6 cigs per wk; peak use was one ppd , Alcohol Use Standard Drinks/Week Comments No 11.7 (1 standard drink = 0.6 oz pure alcohol) quit 2015 Sex and Gender Information Value Date Recorded Sex Assigned at Male 05/12/2020 12:21 PM EST Gender Identity Male 05/12/2020 12:21 PM EST Sexual Orientation Straight 05/12/2020 12 :21 PM EST Job Start Date Occupation Industry Not on file Not on file Not on file documented as of this encounter Functional Status Functional Status Response Date of Assess ment Are you deaf or do you have serious difficulty h earing? No 09/05/2022 Are you blind or do you have serious difficulty seeing, even when wearing glasses? No 09/05/2022 Do you have serious difficul ty walking or climbing stairs? (5 years old or older) No 09/05/2022 Do you have difficulty dress ing or bathing? (5 years old or older) No 09/05/2022 Because of a physical, menta l, or emotional condition, do you have difficulty doing errands alone such as visiting a doctor s office or shopping? (15 years old or older) No 09/06/19 Cognitive Status Response Date of Assessm ent Because of a physical, menta l, or emotional condition, do you have serious difficulty concentrating, remembering, or making decisions? (5 years old or older) No 09/05/2022 documented as of this encounter Plan of Treatment Upcoming Encounters Date Type Department Care Team (Surekha Contact Info) Description 01/07/2024 10:40 AM EDT Office Visit Rheumatology [facility] [address] [place] [address] William Devine MD [address] [place] [address] Scheduled Procedures Name Priority Associated Diagnoses Date/Ti me COLONOSCOPY FLEXIBLE PROXIMAL DIAGNOSTIC Recall History of colon polyps Health Maintenance Due Date Last Done Comments Hepatitis B (1 of 3 - Risk 3-dose series) 2013 Zoster Vaccines (1 of 2) 03/05/2014 01/08/2014 Depression Screening 03/14/2017 03/14/2016 AAA Screening 2018 08/20/2009 DTaP,Tdap,and Td Vaccines (2 - Td or Tdap) 08/25/2020 08/25/2010, 01/05/2005, 10/07/1997 Diabetic Foot Exam 05/12/2021 05/12/2020, 0 12/11/2014, 01/08/2014, Additional history exists HbA1c 2023 08/17/2022, 03/09, 11/03/2020, Additional history exists B-12 09/21/2023 09/20/2022, 08/07, 03/25/2022, Additional history exists GFR 09/21/2023 09/20/2022, 06/0 07/2022, 09/09/2022, Additional history exists Diabetic Eye Exam 10/13/2023 10/12/2022, , 05/12/2020, Additional history exists COLONOSCOPY-EVERY 3 YRS AGES 18-100 01/01/2024 12/31/2020, 12/31/2020, 03/20/2013, Additional history exists Albumin/Creatinine Ratio 02/23/202402/22/ 023, 02/03/2020, 03/17/2015, Additional history exists Pneumococcal Vaccine: 65+ Years Completed 11/10/2020, 02/03/2020, 05/05/2011 COLONOSCOPY-EVERY 5 YRS AGES 18-100 Discontinued 12/31/2020, 12/31/2020, 03/20/2013, Additional history exists COVID-19 Vaccine Completed 01/11/2023, 09/2021, 08/17/2021, Additional history exists Influenza Vaccine (FLU shot) Completed 02/09/2023, 01/07/2022, 02/21/2021, Additional history exists GARDASIL-HPV IMMUNIZATION SERIES Aged Out No longer eligible based on patient's age to complete this topic MENINGOCOCCAL (MENACTRA/MENVEO) Aged Out No longer eligible based on patient's age to complete this topic documented as of this encounter Medical Devices Implanted Type Area Gas Jockey Device Identifier Shelf Expiration Date Model / Serial / Lot Lens 19.0 Sn60wf - [id number] Implanted:Qty: 1 on 03/11/2014 by Nakul Benz MD at OR [facility] Left: Eye [employer] 12/07/2018 SN60WF.190 / [id number] / Lens 20.0 Sn60wf - [id number] - [id number] Implanted:Qty: 1 on 03/24/2016 by Tommy العلي MD at OR [facility] Right: Eye ERIN : SURGICAL 12/07/2020 SN60WF.2 00 / [id number] / Marker Coronary - [id number] Implanted:Qty: 1 on 09/05/2022 by Bandar Estrada MD [place] [facility] [place]/A: Heart [employer] 07/07/2025 AM-[facility] / / [id number] documented as of this encounter Advance Directives Latest Code Status on File Code Status Date Activated Date Inactivated Comments Full Code 09/05/2022 1:30 PM 09/10/2022 3:16 PM Question Answer Comments Discussion of Advance Directives occurred with: Not Discussed due to patient's condition Code Status History Code Status Date Activated Date Inactivated Comments Full Code 03/24/2016 9:01 AM 03/24/2016 3:15 PM Thi s order reflects the patients wishes and were consensually agreed upon. Full Code 03/11/2014 11:06 AM 03/11/2014 5:17 PM This order reflects the patients wishes and were consensually agreed upon. Full Code 06/08/2010 7:01 AM 06/08/2010 3:26 PM This or jesusita reflects the patients wishes and were consensually agreed upon. Full Code 02/16/2010 9:33 AM 02/16/2010 7:14 PM Thi s order reflects the patients wishes and were consensually agreed upon. Care Teams Db2 Dba Relationship Specialty Start Date End Date Spencer Smith MD [address] [place] [address] PCP - General Family Medicine 02/03/20 documented as of this encounter
--- OUTSIDE RECORDS SUMMARY | 2023-03-19 09:34 | External Medical Summary | Summary of Care ---
Author Name Unknown Organization [facility] Address [address] [place] [address] Phone [phone] Care Team Providers Care Associate Professor Of Literacy Name Role Phone Spencer Smith MD Primary Care Provider + Reason for Visit * Reason Comments Cardiac Rehab Encounter Details Date Type Department Care Team (Late st Contact Info) Description 02/14/2023 8:00 AM EST Telemedicine Cardiac Rehab [facility] Virtual [address] [place] [address] [place] [address] [facility] [address] [place] [address] [place] [address] S/P CABG (coronary artery bypass graft)* Allergies Active Allergy Reactions Criticality Noted Date Comments Bactrim 08/22/2013 Itching Daptomycin High 05/18/2022 Other reaction(s): RASHES Trimethoprim Low 05/18/2022 Other reaction(s): ITCHY BACK documented as of this encounter (statuses as of 02/21/2023) Medications Medication Sig Dispensed Refills Start Date [...] as of this encounter (statuses as of 02/21/2023) Active Problems Problem Noted Date Diagnosed Date Generalized osteoarthritis 12/26/2022 S/P AVR (aortic valve replacement) 09/20/2022 S/P CABG (coronary artery bypass graft) 09/21/19 Gouty arthropathy 03/27/2022 Cervical spinal stenosis 06/30/2021 [...] Overview: Previous Dr Arevalo, then Dr Diallo [facility] PCP (insurance change). 06/08/22 Cardiac cath Severe early-mid RCA stenosis. Dr Rajat Harris @[facility] 05/01 TTE [facility] --Reviewed [facility] TTE 04/12/22. Normal ejection fraction 50-55%, grade 1 diastolic dysfunction, severe valvular aortic stenosis : ALONSO 0.74 centimeter squared, max pg 61 mm per mercury, mean pg 34 mm per mercury, left LV wall motion, moderate concentric LVH, borderline dilated left ventricle, moderate mitral annular calcification, mild mitral regurgitation. 06/27 C5-6 stenosis OA 12/28 colon mult polyps: PATH adenoma dominick 3y 02/26 mammo/US Wnl-domniick May 2020 clinical [facility] uro yearly--considering follow Dr Villanueva to [place]. Request colon, echo, carotid US, reports. Needs DEXA Lung CA screen 10/25 [facility]--rec yearly through 2021. (15y post quit date)_ Colon 10/18/16 [facility] +adenoma dominick 5y. EKGD 11/23 antral mass benign. EUS [facility] 01/23 hyperplastic gastric fold-removal Coronary artery disease invo lving [place] coronary artery of [place] heart with angina pectoris 02/03/2020 Overview: [address]. 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 (5 years old or older) No 09/05/2022 documented as of this encounter Progress Notes * Ramandeep Mendoza EPC - 02/21/2023 9:10 AM EST Session Encounter: Patient is participating in [facility]'s Intensive Cardiac Rehab Program in partnership with [employer] is a specialized [employer] that specializes in providing virtual cardiac rehab services. Session #17 completed. Please refer to scan document for session details. Session type: Exercise Individual Session duration: 35 minutes documented in this encounter Plan of Treatment Upcoming Encounters Date Type Department Care Team (Late st Contact Info) Description 01/07/2024 10:40 AM EDT Office Visit Rheumatology [place] [id number] [place] [address] William Devine MD [address] [place], [place] [address] Scheduled Procedures Name Priority Associated Diagnoses Date/Ti me COLONOSCOPY FLEXIBLE PROXIMAL DIAGNOSTIC Recall History of colon polyps Health Maintenance Due Date Last Done Comments Hepatitis B (1 of 3 - Risk 3-dose series) 2013 Zoster Vaccines (1 of 2) 03/05/2014 01/08/2014 Depression Screening 03/14/2017 03/14/2016 AAA Screening 2018 08/20/2009 DTaP,Tdap,and Td Vaccines (2 - Td or Tdap) 08/25/2020 08/25/2010, 01/05/2005, 10/07/1997 Albumin/Creatinine Ratio 02/02/2021 020, 03/17/2015, 08/20/2013, Additional history exists Diabetic Foot Exam 05/12/2021 05/12/2020, 0 12/11/2014, 01/08/2014, Additional history exists HbA1c 2023 08/17/2022, 03/09, 11/03/2020, Additional history exists B-12 09/21/2023 09/20/2022, 08/07, 03/25/2022, Additional history exists GFR 09/21/2023 09/20/2022, 0607/2022, 09/09/2022, Additional history exists Diabetic Eye Exam 10/13/2023 10/12/2022, , 05/12/2020, Additional history exists COLONOSCOPY-EVERY 3 YRS AGES 18-100 01/01/2024 12/31/2020, 12/31/2020, 03/20/2013, Additional history exists Pneumococcal Vaccine: 65+ Years [...] this encounter Medical Devices Implanted Type Area Medical Van Driver Device Identifier Shelf Expiration Date Model / Serial / Lot Lens 19.0 Sn60wf - [id number] Implanted:Qty: 1 on 03/11/2014 by Nakul Benz MD at OR [facility] Left: Eye [employer] 12/07/2018 SN60WF.190 / [id number] / Lens 20.0 Sn60wf - [id number] - [id number] Implanted:Qty: 1 on 03/24/2016 by Tommy العلي MD at OR [facility] Right: Eye ERIN : SURGICAL 12/07/2020 SN60WF.2 00 / [id number] / Marker Coronary - [id number] Implanted:Qty: 1 on 09/05/2022 by Bandar Estrada MD at OR [facility] N/A: Heart [employer] 07/07/2025 [facility] / / [id number] documented as of this encounter Visit Diagnoses Diagnosis S/P CABG (coronary artery bypass graft)- Primary Postsurgical aortocoronary bypass status documented in this encounter Advance Directives Latest Code Status [...] and were consensually agreed upon. Care Teams Associate Professor Of Literacy Relationship Specialty Start Date End Date Spenecr Smith MD [address] [place] [address] PCP - General Family Medicine 02/03/20 documented as of this encounter
--- OUTSIDE RECORDS SUMMARY | 2023-03-19 09:34 | External Medical Summary | Summary of Care ---
Author Name Unknown Organization [facility] Address [address] [place] [address] Phone [phone] Care Team Providers Care Supervisor Electronics Processing Name Role Phone Spencer Smith MD Primary Care Provider + Reason for Visit * Reason Comments Cardiac Rehab Encounter Details Date Type Department Care Team (Late st Contact Info) Description 03/07/2023 8:00 AM EST Telemedicine Cardiac Rehab [facility] [address] [place] [address] [place] [address] [facility], [facility] Re[facility] [address] [place] [address] [place] [address] S/P CABG (coronary artery bypass graft)* Allergies Active Allergy Reactions Criticality Noted Date Comments Bactrim 08/22/2013 Itching Daptomycin High 05/18/2022 Other reaction(s): RASHES Trimethoprim Low 05/18/2022 Other reaction(s): ITCHY BACK documented as of this encounter (statuses as of 03/13/2023) Medications Medication Sig Dispensed Refills Start Date [...] as of this encounter (statuses as of 03/13/2023) Active Problems Problem Noted Date Diagnosed Date [...] then Dr Diallo [facility] PCP (insurance change). 06/08/22 Cardiac cath Severe early-mid RCA stenosis. Dr Rajat Harris @[facility] 05/01 TTE [facility] --Reviewed [facility] TTE 04/12/22. Normal ejection fraction 50-55%, grade [...] 3y 02/26 mammo/US Wnl-dominick May 2020 clinical [facility] uro yearly--considering follow Dr Villanueva to [place]. Request colon, echo, carotid US, reports. Needs DEXA Lung CA screen 10/25 [facility]--rec yearly through 2021. (15y post quit date)_ Colon 10/18/16 [facility] +adenoma dominick 5y. EKGD 11/23 antral mass benign. EUS [facility] 01/23 hyperplastic gastric fold-removal Coronary artery disease invo lving [place] coronary artery of [place] heart with angina pectoris 02/03/2020 Overview: [address]. Asymptomatic stenosis of right carotid artery Overview: [facility] Nonrheumatic mitral valve regurgitation 02/03/20 20 PMR (polymyalgia rheumatica) 05/27/2015 [facility] current use of systemic steroids 05/27 History [...] as of this encounter (statuses as of 03/13/2023) Resolved Problems Problem Noted Date Diagnosed Date [...] as of this encounter (statuses as of 03/13/2023) Immunizations Name Administration Dates Next Due COVID-19 [...] Progress Notes * Ramandeep Mendoza EPC - 03/13/2023 8:50 PM EST Session Encounter: Patient is participating in [facility]'s Intensive Cardiac Rehab Program in partnership with [employer] is a specialized [employer] that specializes in providing virtual cardiac rehab services. Session #21 completed. Please refer to scan document for session details. Session type: Exercise Individual Session duration: 35 minutes documented in this encounter Plan of Treatment Upcoming Encounters Date Type Department Care Team (Late st Contact Info) Description 01/07/2024 10:40 AM EDT Office Visit Rheumatology [place] [phone] [place], [place] [address] William Devine MD [address] [place], [place] [address] Scheduled Procedures Name Priority Associated Diagnoses Date/Ti [...] 12/31/2020, 03/20/2013, Additional history exists Albumin/Creatinine Ratio 02/23/2024 023, 02/03/2020, 03/17/2015, Additional history exists Pneumococcal [...] this encounter Medical Devices Implanted Type Area Radio Program Director Device Identifier Shelf Expiration Date Model / Serial / Lot Lens 19.0 Sn60wf - [id number] Implanted:Qty: 1 on 03/11/2014 by Nakul Benz MD at OR [facility] Left: Eye [employer] 12/07/2018 SN60WF.190 / [id number] / Lens 20.0 Sn60wf - [id number] - [id number] Implanted:Qty: 1 on 03/24/2016 by Tommy العلي MD at OR [facility] Right: Eye ERIN : SURGICAL 12/07/2020 SN60WF.2 00 / [id number] / Marker Coronary - [id number] Implanted:Qty: 1 on 09/05/2022 by Bandar Estrada [place] [facility]A: Heart [employer] 07/07/2025 [facility] / / [id number] documented as of this encounter Visit Diagnoses [...] and were consensually agreed upon. Care Teams Supervisor Electronics Processing Relationship Specialty Start Date End Date Spencer Smith MD [address] [place] [address] PCP - General Family Medicine 02/03/20 documented as of this encounter
--- OUTSIDE RECORDS SUMMARY | 2023-03-19 09:34 | External Medical Summary | Summary of Care ---
Author Name Unknown Organization [facility] Address [address] [place] [address] Phone [phone] Care Team Providers Care Correctional Supervisor Name Role Phone Spencer Smith MD Primary Care Provider + Reason for Visit * Reason Comments Cardiac Rehab Encounter Details Date Type Department Care Team (Late st Contact Info) Description 03/05/2023 8:00 AM EST Telemedicine Cardiac Rehab Advanced, Virtual [address] [place] [address] [place] [address] Advanced, Virtual Cardiac Rehab [address] [place] [address] [place] [address] S/P CABG (coronary artery bypass graft)* Allergies [...] Overview: Previous Dr Arevalo, then Dr Diallo [facility] PCP (insurance change). 06/08/22 Cardiac cath Severe early-mid RCA stenosis. Dr Rajat Harris @[facility] 05/01 TTE [facility] --Reviewed [facility] TTE 04/12/22. Normal ejection fraction 50-55%, grade [...] 3y 02/26 mammo/US Wnl-dominick May 2020 clinical [facility] uro yearly--considering follow Dr Villanueva to [place]. Request colon, echo, carotid US, reports. Needs DEXA Lung CA screen 10/25 [facility]--rec yearly through 2021. 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 EKGD 11/23 antral mass benign. 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 Asymptomatic stenosis of right carotid artery Overview: [facility] Nonrheumatic mitral valve regurgitation 02/03/20 20 PMR (polymyalgia rheumatica) 05/27/2015 [facility] current use of systemic steroids 05/27 History [...] Notes * Ramandeep Mendoza EPC - 03/13/2023 8:51 PM EST Session Encounter: Patient is participating in [facility]'s Intensive Cardiac Rehab Program in partnership with [employer] is a specialized [employer] that specializes in providing virtual cardiac rehab services. Session #20 completed. Please refer to scan document for session details. Session type: Exercise Individual Session duration: 35 minutes documented in this encounter Plan of Treatment Upcoming Encounters Date Type Department Care Team (Late st Contact Info) Description 01/07/2024 10:40 AM EDT Office Visit Rheumatology [place] [id number] [place], [place] [address] William Devine MD [address] [employer] [place], [place] [address] Scheduled Procedures Name Priority Associated Diagnoses Date/Ti [...] this encounter Medical Devices Implanted Type Area Special Delivery Mail Carrier Device Identifier Shelf Expiration Date Model / Serial / Lot Lens 19.0 Sn60wf - [id number] Implanted:Qty: 1 on 03/11/2014 by Nakul Benz MD at OR [facility] Left: Eye [employer] 12/07/2018 SN60WF.190 / [id number] / Lens 20.0 Sn60wf - [id number] - [id number] Implanted:Qty: 1 on 03/24/2016 by Tommy العلي MD at OR [facility] Right: Eye ERIN : SURGICAL 12/07/2020 SN60WF.2 00 / [id number] / Marker Coronary - [id number] Implanted:Qty: 1 on 09/05/2022 by Bandar Estrada [place] [facility] [place]/A: Heart [employer] 07/07/2025 [facility] / / [id number] documented as of this encounter Visit Diagnoses [...] and were consensually agreed upon. Care Teams Correctional Supervisor Relationship Specialty Start Date End Date Spencer Smith MD [address] [place] [address] PCP - General Family Medicine 02/03/20 documented as of this encounter
--- OUTSIDE RECORDS SUMMARY | 2023-03-19 09:34 | External Medical Summary | Summary of Care ---
Author Name Unknown Organization [facility] Address [address] [place] [address] Phone [phone] Care Team Providers Care Vp Product Marketing Name Role Phone Spencer Smith MD Primary Care Provider + Reason for Visit * Reason Comments Outpatient Testing Encounter Details Date Type Department Care Team (Late st Contact Info) Description 02/22/2023 11:00 AM EST Laboratory Laboratory, [facility] [address] [place] [place] [address] [facility] [address] [facility] [address] Elevated TSH; HTN, goal below 140/90 Allergies Active Allergy Reactions Criticality Noted Date Comments Bactrim 08/22/2013 Itching Daptomycin High 05/18/2022 Other reaction(s): RASHES Trimethoprim Low 05/18/2022 Other reaction(s): ITCHY BACK documented as of this encounter (statuses as of 02/22/2023) Medications Medication Sig Dispensed Refills Start Date End Date Status SideTourTOUCH ULTRA SYSTEM W/DEVICE KITIndications:DM type 2, goal [...] as of this encounter (statuses as of 02/22/2023) Active Problems Problem Noted Date Diagnosed Date [...] Overview: Previous Dr Arevalo, then Dr Diallo [facility] PCP (insurance change). 06/08/22 Cardiac cath Severe early-mid RCA stenosis. Dr Rjaat Harris @[facility] 05/01 TTE [facility] --Reviewed [facility] TTE 04/12/22. Normal ejection fraction 50-55%, grade [...] 3y 02/26 mammo/US Wnl-dominick May 2020 clinical [facility] uro yearly--considering follow Dr Villanueva to [place]. Request colon, echo, carotid US, reports. Needs DEXA Lung CA screen 10/25 [facility]--rec yearly through 2021. (15y post quit date)_ Colon 10/18/16 [facility] +adenoma dominick 5y. EKGD 11/23 antral mass benign. 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 Asymptomatic stenosis of right carotid artery Overview: [facility] Nonrheumatic mitral valve regurgitation 02/03/20 20 PMR (polymyalgia rheumatica) 05/27/2015 [employer] current use of systemic steroids 05/27 History [...] as of this encounter (statuses as of 02/22/2023) Resolved Problems Problem Noted Date Diagnosed Date [...] as of this encounter (statuses as of 02/22/2023) Immunizations Name Administration Dates Next Due COVID-19 [...] 01/07/2024 10:40 AM EDT Office Visit Rheumatology [facility] [address] [place] [address] William Devine MD [address] [place] [address] Pending Results Name Type Priority Associated Diagnoses Date /Time TSH WITH FREE T4 IF INDICATED Lab Routine Elevated TSH 02/22/2023 11:05 AM EST ALBUMIN / CREATININE RATIO, URINE Lab Routine HTN, goal below 140/90 02/22/2023 11:08 AM EST Scheduled Procedures Name Priority Associated Diagnoses Date/Ti [...] 03/25/2022, Additional history exists GFR 09/21/2023 09/20/2022, 07/2022, 09/09/2022, Additional history exists Diabetic Eye [...] this encounter Medical Devices Implanted Type Area Recordist Chief Device Identifier Shelf Expiration Date Model / Serial / Lot Lens 19.0 Sn60wf - [id number] Implanted:Qty: 1 on 03/11/2014 by Nakul Benz MD at OR [facility] Left: Eye [employer] 12/07/2018 SN60WF.190 / [id number] / Lens 20.0 Sn60wf - [id number] - [id number] Implanted:Qty: 1 on 03/24/2016 by Tommy العلي MD at OR [facility] Right: Eye ERIN : SURGICAL 12/07/2020 SN60WF.2 00 / [id number] / Marker Coronary - [id number] Implanted:Qty: 1 on 09/05/2022 by Bandar Estrada MD at [place] [facility] N/A: Heart [employer] 07/07/2025 [facility] / / [id number] documented as of this encounter Visit Diagnoses Diagnosis Elevated TSH Other abnormal blood chemistry HTN, goal below 140/90 Unspecified essential hypertension documented in this encounter Advance Directives Latest [...] and were consensually agreed upon. Care Teams Vp Product Marketing Relationship Specialty Start Date End Date Spencer Smith MD [address] [facility] [place] [address] PCP - General Family Medicine 02/03/20 documented as of this encounter
--- OUTSIDE RECORDS SUMMARY | 2023-03-19 09:34 | External Medical Summary | Summary of Care ---
Author Name Unknown Organization [facility] Address [address] [place] [address] Phone [phone] Care Team Providers Care Cutting Tool Sharpener Name Role Phone Spencer Smith MD Primary Care Provider + Reason for Visit * Reason Comments Cardiac Rehab Encounter Details Date Type Department Care Team (Late st Contact Info) Description 02/19/2023 8:00 AM EST Telemedicine Cardiac Rehab Advanced, Virtual [address] [place] [address] [place] [address] Advanced, Virtual Cardiac Rehab [address] [place] [address] [place] [address] S/P CABG (coronary artery bypass graft)* Allergies Active Allergy Reactions Criticality Noted Date Comments Bactrim 08/22/2013 Itching Daptomycin High 05/18/2022 Other reaction(s): RASHES Trimethoprim Low 05/18/2022 Other reaction(s): ITCHY BACK documented as of this encounter (statuses as of 02/28/2023) Medications Medication Sig Dispensed Refills Start Date [...] as of this encounter (statuses as of 02/28/2023) Active Problems Problem Noted Date Diagnosed Date [...] Overview: Previous Dr Arevalo, then Dr Diallo [facility] PCP (insurance change). 06/08/22 Cardiac cath Severe early-mid RCA stenosis. Dr Rajat Harris @[facility] 05/01 TTE [facility] --Reviewed [facility] TTE 04/12/22. Normal ejection fraction 50-55%, [...] 3y 02/26 mammo/US Wnl-dominick May 2020 clinical [facility] uro yearly--considering follow Dr Villanueva to [place]. Request colon, echo, carotid US, reports. Needs DEXA Lung CA screen 10/25 [facility]--rec yearly through 2021. (15y post quit date)_ Colon 10/18/16 [facility] +adenoma dominick 5y. EKGD 11/23 antral mass benign. 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 Asymptomatic stenosis of right carotid artery Overview: [facility] Nonrheumatic mitral valve regurgitation 02/03/20 20 [...] as of this encounter (statuses as of 02/28/2023) Resolved Problems Problem Noted Date Diagnosed Date [...] as of this encounter (statuses as of 02/28/2023) Immunizations Name Administration Dates Next Due COVID-19 [...] Progress Notes * Ramandeep Mendoza EPC - 02/28/2023 10:58 AM EST Session Encounter: Patient is participating in [facility]'s Intensive Cardiac Rehab Program in partnership with [employer] is a specialized [employer] that specializes in providing virtual cardiac rehab services. Session #18 completed. Please refer to scan document for session details. Session type: Exercise Individual Session duration: 35 minutes documented in this encounter Plan of Treatment Upcoming Encounters Date Type Department Care Team (Late st Contact Info) Description 01/07/2024 10:40 AM EDT Office Visit Rheumatology [place] [address] [employer] [place], [place] [address] William Devine MD [address] [place], [place] [address] Scheduled Procedures Name Priority Associated Diagnoses Date/Ti [...] this encounter Medical Devices Implanted Type Area Xray Tech Device Identifier Shelf Expiration Date Model / Serial / Lot Lens 19.0 Sn60wf - [id number] Implanted:Qty: 1 on 03/11/2014 by Nakul Benz MD at OR [facility] Left: Eye [employer] 12/07/2018 SN60WF.190 / [id number] / Lens 20.0 Sn60wf - [id number] - [id number] Implanted:Qty: 1 on 03/24/2016 by Tommy العلي MD at OR [facility] Right: Eye ERIN : SURGICAL 12/07/2020 SN60WF.2 00 / [id number] / Marker Coronary - [id number] Implanted:Qty: 1 on 09/05/2022 by Bandar Estrada MD at OR [facility] N/A: Heart [employer] 07/07/2025 [facility] / / [id number] documented as of this encounter Visit Diagnoses [...] and were consensually agreed upon. Care Teams Cutting Tool Sharpener Relationship Specialty Start Date End Date Spencer Smith MD [address] [place] [address] PCP - General Family Medicine 02/03/20 documented as of this encounter
--- OUTSIDE RECORDS SUMMARY | 2023-03-19 09:34 | External Medical Summary | Summary of Care ---
Author Name Unknown Organization [facility] Address [address] [place] [address] Phone [phone] Care Team Providers Care Interpretive Program Coordinator Name Role Phone Spencer Smith MD Primary Care Provider + Reason for Visit * Reason Comments Cardiac Rehab Encounter Details Date Type Department Care Team (Late st Contact Info) Description 02/21/2023 8:00 AM EST Telemedicine Cardiac Rehab Advanced, Virtual [address] [place] [address] [place] [address] Advanced, Virtual Cardiac Rehab [address] [place] [address] [place] [address] S/P CABG (coronary artery bypass graft)* Allergies [...] Overview: Previous Dr Arevalo, then Dr Diallo [facility] PCP (insurance change). 06/08/22 Cardiac cath Severe early-mid RCA stenosis. Dr Rajat Harris @[facility] 05/01 TTE [facility] --Reviewed [facility] TTE 04/12/22. Normal ejection fraction [...] 3y 02/26 mammo/US Wnl-dominick May 2020 clinical [facility] uro yearly--considering follow Dr Villanueva to [place]. Request colon, echo, carotid US, reports. Needs DEXA Lung CA screen 10/25 [facility]--rec yearly through 2021. (15y post quit date)_ Colon 10/18/16 [facility] +adenoma dominick 5y. EKGD 11/23 antral mass benign. 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 Asymptomatic stenosis of right carotid artery Overview: [facility] Nonrheumatic mitral valve regurgitation 02/03/20 20 PMR (polymyalgia rheumatica) 05/27/2015 [employer] current use of systemic steroids 05/27 History [...] Notes * Ramandeep Mendoza EPC - 02/28/2023 10:57 AM EST Session Encounter: Patient is participating in [facility]'s Intensive Cardiac Rehab Program in partnership with [employer] is a specialized [employer] that specializes in providing virtual cardiac rehab services. Session #19 completed. Please refer to scan document for session details. Session type: Exercise Individual Session duration: 35 minutes documented in this encounter Plan of Treatment Upcoming Encounters Date Type Department Care Team (Late st Contact Info) Description 01/07/2024 10:40 AM EDT Office Visit Rheumatology [place] [id number] [employer] [place], [place] [address] William Devine MD [address] [place], [place] [address] Scheduled Procedures Name Priority Associated Diagnoses Date/Ti [...] this encounter Medical Devices Implanted Type Area Civil Drafter Device Identifier Shelf Expiration Date Model / Serial / Lot Lens 19.0 Sn60wf - [id number] Implanted:Qty: 1 on 03/11/2014 by Nakul Benz MD at OR [facility] Left: Eye [employer] 12/07/2018 SN60WF.190 / [id number] / Lens 20.0 Sn60wf - [id number] - [id number] Implanted:Qty: 1 on 03/24/2016 by Tommy العلي MD at OR [facility] Right: Eye ERIN : SURGICAL 12/07/2020 SN60WF.2 00 / [id number] / Marker Coronary - [id number] Implanted:Qty: 1 on 09/05/2022 by Bandar Estrada MD at OR [facility] N/A: Heart [employer] 07/07/2025 [facility] / / [id number] documented as of this encounter Visit Diagnoses [...] and were consensually agreed upon. Care Teams Interpretive Program Coordinator Relationship Specialty Start Date End Date Spencer Smith MD [address] [place] [address] PCP - General Family Medicine 02/03/20 documented as of this encounter
--- OUTSIDE RECORDS SUMMARY | 2023-03-19 09:34 | External Medical Summary ---
Author Name Unknown Address Unknown Organization K01:[facility] [address] [place] [address] Laboratory Report Ordering Provider Test Date Status KONSTANTIN LEDEZMA 02/22/2023 11:05:35 Final Observation Date Value Abnormality Reference (Units ) Status TSH 02/22/2023 11:05:35 3.18 0.27-4.20 (uIU/mL) Final Performing Location LABORATORY C - [address] [place] [address]
--- OUTSIDE RECORDS SUMMARY | 2023-03-19 09:35 | External Medical Summary | Summary of Care ---
Author Name Unknown Organization [facility] Address [address] [place] [address] Phone [phone] Care Team Providers Care Sales Facilitator Name Role Phone Spencer Smith MD Primary Care Provider + Reason for Visit * Reason Comments Medication Discussion Encounter Details Date Type Department Care Team (Late st Contact Info) Description 02/14/2023 9:30 AM [facility] Pharmacy Pharmacy Call Center [address] [place] [address] Wb, Ccps [phone] [place] [address] Encounter for medication review* Allergies Active Allergy Reactions Criticality Noted Date Comments Bactrim 08/22/2013 Itching Daptomycin High 05/18/2022 Other reaction(s): RASHES Trimethoprim Low 05/18/2022 Other reaction(s): ITCHY BACK documented as of this encounter (statuses as of 02/14/2023) Medications Medication Sig Dispensed Refills Start Date [...] as of this encounter (statuses as of 02/14/2023) Active Problems Problem Noted Date Diagnosed Date [...] then Dr Diallo [facility] PCP (insurance change). 06/08/22 Cardiac cath Severe early-mid RCA stenosis. Dr Rajat Harris @[facility] 05/01 TTE [facility] --Reviewed [facility] TTE 04/12/22. Normal ejection fraction 50-55%, grade [...] May 2020 clinical [facility] uro yearly--considering follow Dr Villanueva to [place]. Request colon, echo, carotid US, reports. Needs DEXA Lung CA screen 10/25 [facility]--rec yearly through 2021. 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 EKGD 11/23 antral mass benign. 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 (5 years old or older No 09/05/2022 documented as of this encounter Progress Notes * Rebekah Fung [facility] - 02/14/2023 2:36 PM EST Agree with plan as documented. Rebekah Fung [facility] Clinical Pharmacist 02/14/2023, 2:37 PM * Carole Bey, PHARM Student - 02/14/2023 2:14 PM EST Images from the original note were not included. PHARMACY MTM PROGRESS NOTE [facility] ([facility]) [address] [place] [address] Unless the attending has added an attestation supporting use of this note to document a billable service, the signature of the Licensed Professional on this note only acknowledges the presence of thestudent's note within the patient record and the Licensed Professional's note should be referred tofor clinical information and recommendations. Service Delivery Delivery Method: Phone Outcome: [facility] Completed Health Profile Current Conditions: Diabetes, Gout, High Blood Pressure, and High Cholesterol Drug allergies & side effects: Review of patient's allergies indicates: Allergen Reactions Daptomycin Other reaction(s): RASHES Bactrim Itching Trimethoprim Other reaction(s): ITCHY BACK Med List Home Medications Provider Allopurinol 300 MG Oral Tablet (Zyloprim) William Devine MD Take 1 Tablet by mouth in the morning. Associated Diagnoses: -- Aspirin 81 MG Oral Tablet Delayed Release Patient, History Per Associated Diagnoses: -- Atorvastatin Calcium 40 MG Oral Tablet (Lipitor) Spencer Smith MD TAKE ONE TABLET BY MOUTH EVERY DAY Associated Diagnoses: -- CPAP Patient, History Per Associated Diagnoses: -- Furosemide 20 MG Oral Tablet (Lasix) Spencer Smith MD TAKE 1 TABLET BY MOUTH DAILY Associated Diagnoses: Edema Gabapentin 300 MG Oral Capsule (Neurontin) Spencer Smith MD TAKE 1 CAPSULE BY MOUTH TWICE A DAY Associated Diagnoses: Diabetic polyneuropathy associated with type 2 diabetes mellitus (HCC) Glucose Blood (ONETOUCH ULTRA BLUE) STRP Jocy Arevalo MD Dx: E11.9 Associated Diagnoses: -- metFORMIN HCl 500 MG Oral Tablet (Glucophage) Spencer Smith MD TAKE ONE TABLET BY MOUTH TWICE A DAY WITH FOOD Associated Diagnoses: Type 2 diabetes mellitus with hemoglobin A1c goal of less than 7.0% (HCC) Metoprolol Succinate ER 25 MG Oral Tablet Extended Release 24 Hour (toPROL XL) Spencer Smith MD Take 1 Tablet by mouth in the morning. Associated Diagnoses: -- Multivitamin Adult Oral Tablet Patient, History Per Associated Diagnoses: -- ONETOUCH ULTRA SYSTEM W/DEVICE KIT Jocy Arevalo MD Use up to four times a day -Type II diabetes- #250.00 Associated Diagnoses: DM type 2, goal A1c below 7 ONETOUCH ULTRASOFT LANCETS MISC Jocy Arevalo MD Use up to four times a day -Type II diabetes- Dx: E11.9 Associated Diagnoses: -- TIPs None Action Plan 1. What type of item is this? Patient needs drug therapy Describe the item for the patient takeaway: Shingles vaccine Describe what the patient should do (for the patient takeaway): Getting the shingles shot is a great way to protect yourself against the shingles virus. The shingles virus is contagious and causes painful blisters on your body. The CDC recommends adults over 50 years old should get this vaccine to stay healthy. If you had or did not have the chicken pox, it is still recommended to get the shot tostay well. talk to your doctor or pharmacist about getting this vaccine. Takeaway Service Information Date CMR was completed: 02/14/2023 Who was the recipient of the CMR service: Patient Was the patient in a correction care (LTC) facility when the CMR was completed? No Pharmacist's availability for questions: Sunday-Sunday 8:00am-4:30pm Takeaway Information Will the Patient Takeaway be sent to the Patient or someone else? Patient Language Template for the Patient Takeaway: Bhutanese Additional notes for the Patient Takeaway (optional): none I attest that I have reviewed and updated the patient's conditions, allergies, and medications to the best of my ability. Patient Access: Is patient utilizing [facility]? Yes Is patient utilizing [facility]? Yes Additional Call Notes 20 minute CMR Patient appears to be adherent and addresses no concerns TSH was high in September of 2022 will order repeat lab. Also due for albumin/creatinine will order. Carole Bey, PHARM Student [facility] ([facility]) 02/14/2023, 2:14 PM * Karie Nieves, PHARM Student - 02/14/2023 9:34 AM EST Images from the original note were not included. PHARMACY MTM PROGRESS NOTE [facility] ([facility]) [address] [place] [address] Unless the attending has added an attestation supporting use of this note to document a billable service, the signature of the Licensed Professional on this note only acknowledges the presence of thestudent's note within the patient record and the Licensed Professional's note should be referred tofor clinical information and recommendations. Health Profile Current Conditions: Drug allergies & side effects: Review of patient's allergies indicates: Allergen Reactions Daptomycin Other reaction(s): RASHES Bactrim Itching Trimethoprim Other reaction(s): ITCHY BACK Med List Home Medications Provider Aspirin 81 MG Oral Tablet Delayed Release Patient, History Per Take 1 tablet by mouth once daily Associated Diagnoses: -Heart Avery Atorvastatin Calcium 40 MG Oral Tablet (Lipitor) Spencer Smith MD TAKE ONE TABLET BY MOUTH EVERY DAY Associated Diagnoses: Cholesterol CPAP Patient, History Per Associated Diagnoses: Sleep Apnea Furosemide 20 MG Oral Tablet (Lasix) Spencer Smith MD TAKE 1 TABLET BY MOUTH DAILY Associated Diagnoses: Water Retention Gabapentin 300 MG Oral Capsule (Neurontin) Spencer Smith MD TAKE 1 CAPSULE BY MOUTH TWICE A DAY Associated Diagnoses: Diabetic polyneuropathy Glucose Blood (ONETOUCH ULTRA BLUE) STRP Jocy Arevalo MD Dx: E11.9 Patient not taking: Reported on 09/20/2022 Associated Diagnoses: -- metFORMIN HCl 500 MG Oral Tablet (Glucophage) Spencer Smith MD TAKE ONE TABLET BY MOUTH TWICE A DAY WITH FOOD Associated Diagnoses: Type 2 diabetes mellitus Metoprolol Succinate ER 25 MG Oral Tablet Extended Release 24 Hour (toPROL XL) Spencer Smith MD Take 1 Tablet by mouth in the morning. Associated Diagnoses: Blood pressure Multivitamin Adult Oral Tablet Patient, History Per Take 1 tablet by mouth once daily Associated Diagnoses: General Health ONETOUCH ULTRA SYSTEM W/DEVICE KIT Jocy Arevalo MD Use up to four times a day -Type II diabetes- #250.00 Patient not taking: Reported on 09/20/2022 Associated Diagnoses: DM type 2, goal A1c below 7 ONETOUCH ULTRASOFT LANCETS MISC Jocy Arevalo MD Use up to four times a day -Type II diabetes- Dx: E11.9 Patient not taking: Reported on 09/20/2022 Associated Diagnoses: -- Allopurinol 300 MG Oral Tablet (Zyloprim) William Devine MD Take 1 Tablet by mouth in the morning. Associated Diagnoses: Gout Additional Call Notes 10 minute CMR Spoke with patient about shingles vaccine Karie Nieves, PHARM Student Clinical Pharmacist [facility] ([facility]) 02/14/2023, 9:35 AM documented in this encounter Plan of Treatment Upcoming Encounters Date Type Department Care Team (Late st Contact Info) Description 01/07/2024 10:40 AM EDT Office Visit Rheumatology [address] [place] [address] William Devine MD [facility] [place] [address] Scheduled Procedures Name Priority Associated Diagnoses Date/Ti [...] this encounter Medical Devices Implanted Type Area Cad Manager Device Identifier Shelf Expiration Date Model / Serial / Lot Lens 19.0 Sn60wf - [id number] Implanted:Qty: 1 on 03/11/2014 by Nakul Benz MD at OR [facility] Left: Eye [employer] 12/07/2018 SN60WF.190 / [id number] / Lens 20.0 Sn60wf - [id number] - [id number] Implanted:Qty: 1 on 03/24/2016 by Tommy العلي MD at OR [facility] Right: Eye ERIN : SURGICAL 12/07/2020 SN60WF.2 00 / [id number] / Marker Coronary - [id number] Implanted:Qty: 1 on 09/05/2022 by Bandar Estrada MD at OR [facility] N/A: Heart [employer] 07/07/2025 [facility] / / [id number] documented as of this encounter Visit Diagnoses Diagnosis Encounter for medication review- Primary Encounter for long-term (current) use of other medications documented in this encounter Advance Directives Latest [...] and were consensually agreed upon. Care Teams Sales Facilitator Relationship Specialty Start Date End Date Spencer Smith MD [address] [place] [address] PCP - General Family Medicine 02/03/20 documented as of this encounter
--- OUTSIDE RECORDS SUMMARY | 2023-03-19 09:35 | External Medical Summary | Summary of Care ---
Author Name Unknown Organization [facility] Address [address] [place] [address] Phone [phone] Care Team Providers Care Fiscal Manager Name Role Phone Spencer Smith MD Primary Care Provider + Encounter Details Date Type Department Care Team (Late st Contact Info) Description 02/14/2023 Telephone Pharmacy Call Center [address] [place] [address] [facility] [address] [place] [address] Allergies Active Allergy Reactions Criticality Noted Date [...] Overview: Previous Dr Arevalo, then Dr Diallo [facility] PCP (insurance change). 06/08/22 Cardiac cath Severe early-mid RCA stenosis. Dr Rajat Harris @[facility] 05/01 TTE [facility] --Reviewed [facility] TTE 04/12/22. Normal ejection fraction 50-55%, [...] 1y 02/26 mammo/US Wnl-dominick May 2020 clinical [facility] uro yearly--considering follow Dr Villanueva to [place]. Request colon, echo, carotid US, reports. Needs DEXA Lung CA screen 10/25 [facility]--rec yearly through 2021. (15y post quit date)_ Colon 10/18/16 [facility] +adenoma dominick 5y. EKGD 11/23 antral mass benign. 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 Ok to eat * Telephone Encounter - Rebekah Fung RPh - 02/14/2023 2:[address] Smith, I completed an annual medication review for Mr. Aguila today and he is due for a repeat TSH, givenlast was elevated, along with UACR. Pended below. Thanks! documented in this encounter Plan of Treatment Upcoming Encounters Date Type Department Care Team (Late st Contact Info) Description 01/07/2024 10:40 AM EDT Office Visit Rheumatology [address] [place] [address] William Devine MD [address] [place] [address] [place] [address] Scheduled Orders Name Type Priority Associated Diagnoses Orde r Schedule TSH WITH FREE T4 IF INDICATED Lab Routine Elevated TSH Expected: 03/16/2023, Expires: 02/15/2024 ALBUMIN / CREATININE RATIO, URINE Lab Routine HTN, goal below 140/90 Expected: 03/16/2023, Expires: 02/15/2024 Scheduled Procedures Name Priority Associated Diagnoses Date/Ti [...] this encounter Medical Devices Implanted Type Area Specialist Physicians Device Identifier Shelf Expiration Date Model / Serial / Lot Lens 19.0 Sn60wf - [id number] Implanted:Qty: 1 on 03/11/2014 by Nakul Benz MD at OR [facility] Left: Eye [employer] 12/07/2018 SN60WF.190 / [id number] / Lens 20.0 Sn60wf - [id number] - [id number] Implanted:Qty: 1 on 03/24/2016 by Tommy العلي MD at OR [facility] Right: Eye ERIN : SURGICAL 12/07/2020 SN60WF.2 00 / [id number] / Marker Coronary - [id number] Implanted:Qty: 1 on 09/05/2022 by Bandar Estrada MD at [place] [facility] N/A: Heart [employer] 07/07/2025 [facility] / / [id number] documented as of this encounter Visit Diagnoses Diagnosis Elevated TSH- Primary Other abnormal blood chemistry HTN, goal below [...] and were consensually agreed upon. Care Teams Fiscal Manager Relationship Specialty Start Date End Date Spencer Smith MD [address] [place] [address] PCP - General Family Medicine 02/03/20 documented as of this encounter
--- OUTSIDE RECORDS SUMMARY | 2023-03-19 09:35 | External Medical Summary | Summary of Care ---
Author Name Unknown Organization [facility] Address [address] [place] [address] Phone [phone] Care Team Providers Care Scheduling Coordinator Name Role Phone Spencer Smith MD Primary Care Provider + Encounter Details Date Type Department Care Team (Late st Contact Info) Description 02/14/2023 Telephone Pharmacy Call Center [address] [place] [address] [facility] [address] [place] [address] Allergies Active Allergy Reactions Criticality Noted Date [...] Overview: Previous Dr Arevalo, then Dr Diallo [facility] PCP (insurance change). 06/08/22 Cardiac cath Severe early-mid RCA stenosis. Dr Rajat Harris @[facility] 05/01 TTE [facility] --Reviewed [facility] TTE 04/12/22. Normal ejection fraction [...] 1y 02/26 mammo/US Wnl-dominick May 2020 clinical [facility] uro yearly--considering follow Dr Villanueva to [place]. Request colon, echo, carotid US, reports. Needs DEXA Lung CA screen 10/25 [facility]--rec yearly through 2021. (15y post quit date)_ Colon 10/18/16 [facility] +adenoma dominick 3y. EKGD 11/23 antral mass benign. 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 Pt said he recently had labs done that were ordered by hisortho provider. He will check with their office and see about having the results sent over. I gave him the specific labs we are ordering, if he didn't do them already, he agreed to come in and get them done at our lab. * Telephone Encounter - Spencer Smith MD [...] 01/07/2024 10:40 AM EDT Office Visit Rheumatology [place] [id number] [facility] [place] [address] William Devine MD [address] [facility] [place] [address] Scheduled Orders Name Type Priority Associated Diagnoses [...] this encounter Medical Devices Implanted Type Area Record Changer Tester Device Identifier Shelf Expiration Date Model / Serial / Lot Lens 19.0 Sn60wf - [id number] Implanted:Qty: 1 on 03/11/2014 by Nakul Benz MD at OR [facility] Left: Eye [employer] 12/07/2018 SN60WF.190 / [id number] / Lens 20.0 Sn60wf - [id number] - [id number] Implanted:Qty: 1 on 03/24/2016 by Tommy العلي MD at OR [facility] Right: Eye ERIN : SURGICAL 12/07/2020 SN60WF.2 00 / [id number] / Marker Coronary - [id number] Implanted:Qty: 1 on 09/05/2022 by Bandar Estrada [place] [facility] N/A: Heart [employer] 07/07/2025 [facility] / / [id number] documented as of this encounter Visit Diagnoses [...] and were consensually agreed upon. Care Teams Scheduling Coordinator Relationship Specialty Start Date End Date Spencer Smith MD [address] [place] [address] PCP - General Family Medicine 02/03/20 documented as of this encounter
--- OUTSIDE RECORDS SUMMARY | 2023-03-19 09:35 | External Medical Summary | Summary of Care ---
Author Name Unknown Organization [facility] Address [address] [place] [address] Phone [phone] Care Team Providers Care Marketing Communication Manager Name Role Phone Spencer Smith MD Primary Care Provider + Reason for Visit * Reason Comments Cardiac Rehab Encounter Details Date Type Department Care Team (Late st Contact Info) Description 02/07/2023 8:00 AM EDT Telemedicine Cardiac Rehab [facility], Virtual [address] [place] [address] [place] [address] Advanced, Virtual Cardiac Rehab [address] [place] [address] [place] [address] S/P CABG (coronary artery bypass graft)* Allergies [...] Previous Dr Arevalo, then Dr Diallo [facility] PCP (insurance change). 06/08/22 Cardiac cath Severe early-mid RCA stenosis. Dr Rajat Harris @[facility] 05/01 TTE [facility] --Reviewed [facility] TTE 04/12/22. Normal ejection fraction 50-55%, grade [...] 02/26 mammo/US Wnl-dominick May 2020 clinical [facility] uro yearly--considering follow Dr Villanueva to [place]. Request colon, echo, carotid US, reports. Needs DEXA Lung CA screen 10/25 [facility]--rec yearly through 2021. (15y post quit date)_ Colon 10/18/16 [facility] +adenoma dominick 5y. EKGD 11/23 antral mass benign. 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 Session #15 completed. Please refer to scan document for session details. Session type: Exercise Individual Session duration: 35 minutes documented in this encounter Plan of Treatment Upcoming Encounters Date Type Department Care Team (Late st Contact Info) Description 01/07/2024 10:40 AM EDT Office Visit Rheumatology [place] [address] [place] [address] William Devine MD [address] [place] [address] Scheduled Procedures Name Priority Associated Diagnoses Date/Ti [...] this encounter Medical Devices Implanted Type Area Barbering Teacher Device Identifier Shelf Expiration Date Model / Serial / Lot Lens 19.0 Sn60wf - [id number] Implanted:Qty: 1 on 03/11/2014 by Nakul Benz MD at OR [facility] Left: Eye [employer] 12/07/2018 SN60WF.190 / [id number] / Lens 20.0 Sn60wf - [id number] - [id number] Implanted:Qty: 1 on 03/24/2016 by Tommy العلي MD at OR [facility] Right: Eye ERIN : SURGICAL 12/07/2020 SN60WF.2 00 / [id number] / Marker Coronary - [id number] Implanted:Qty: 1 on 09/05/2022 by Bandar Estrada MD at OR [facility] N/A: Heart [employer] 07/07/2025 [facility] / / [id number] documented as of this encounter Visit Diagnoses [...] and were consensually agreed upon. Care Teams Marketing Communication Manager Relationship Specialty Start Date End Date Spencer Smith MD [address] [place] [address] PCP - General Family Medicine 02/03/20 documented as of this encounter
--- OUTSIDE RECORDS SUMMARY | 2023-03-19 09:35 | External Medical Summary | Summary of Care ---
Author Name Unknown Organization [facility] Address [address] [place] [address] Phone [phone] Care Team Providers Care Acquisition Marketing Manager Name Role Phone Spencer Smith MD Primary Care Provider + Reason for Visit * Reason Comments Cardiac Rehab Encounter Details Date Type Department Care Team (Late st Contact Info) Description 02/05/2023 8:00 AM EDT Telemedicine Cardiac Rehab Advanced, Virtual [address] [place] [address] [place] [address] Advanced, Virtual Cardiac Rehab [address] [place] [address] [place] [address] S/P CABG (coronary artery bypass graft)* Allergies Active Allergy Reactions Criticality Noted Date Comments Bactrim 08/22/2013 Itching Daptomycin High 05/18/2022 Other reaction(s): RASHES Trimethoprim Low 05/18/2022 Other reaction(s): ITCHY BACK documented as of this encounter (statuses as of 02/14/2023) Medications Medication Sig Dispensed Refills Start Date End Date Status NetskopeTOUCH ULTRA SYSTEM W/DEVICE KITIndications:DM type 2, goal A1c below 7 Use up to four times a day -Type II diabetes- #250.00 1 Kit 0 04/06/2011 Active Additional Information Patient not taking.Reported on 09/20/2022 SYSTANE 0.4-0.3 % OP SOLN one drop both eyes as needed 0 Active Glucose Blood (ONETOUCH ULTRA BLUE) STRP Dx: E11.9 100 Strip 11 03/21/2016 Active Additional Information Patient not taking.Reported on 09/20/2022 ONETOUCH ULTRASOFT LANCETS MISC Use up to four times a day -Type II diabetes- Dx: E11.9 1 Box Dosing Unit 11 03/21/2016 Active Additional Information Patient not taking.Reported on 09/20/2022 Aspirin 81 MG Oral Tablet Delayed Release Take 1 Tablet by mouth in the morning. 0 Active Multivitamin Adult Oral Tablet Take by mouth. 0 Active CPAP every night at bedtime. 0 Active Famotidine 20 MG Oral Tablet (Pepcid) Take 1 Tablet by mouth in the morning. For 30 days then stop. 30 Tablet 0 09/10/2022 Active Tamsulosin HCl 0.4 MG Oral Capsule (Flomax) Take 1 Capsule by mouth in the morning. 30 Capsule 1 09/10/2022 Active metFORMIN HCl 500 MG Oral Tablet (Glucophage)Indicati [...] Erectile Dysfunction. 60 Tablet 11 01/23/2023 Active Metoprolol Succinate ER 25 MG Oral Tablet [...] Overview: Previous Dr Arevalo, then Dr Diallo [facility] PCP (insurance change). 06/08/22 Cardiac cath Severe early-mid RCA stenosis. Dr Rajat Harris @[facility] 05/01 TTE [facility] --Reviewed [facility] TTE 04/12/22. Normal ejection fraction 50-55%, grade [...] 3y 02/26 mammo/US Wnl-dominick May 2020 clinical [facility] uro yearly--considering follow Dr Villanueva to [place]. Request colon, echo, carotid US, reports. Needs DEXA Lung CA screen 10/25 [facility]--rec yearly through 2021. (15y post quit date)_ Colon 10/18/16 [facility] +adenoma dominick 5y. EKGD 11/23 antral mass benign. 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 Asymptomatic stenosis of right carotid artery Overview: [facility] Nonrheumatic mitral valve regurgitation 02/03/20 20 PMR (polymyalgia rheumatica) 05/27/2015 longterm current use of systemic steroids 05/27 History [...] Notes * Ramandeep Mendoza EPC - 02/14/2023 8:02 AM EST Session Encounter: Patient is participating in [facility]'s Intensive Cardiac Rehab Program in partnership with [employer] is a specialized [employer] that specializes in providing virtual cardiac rehab services. Session #14 completed. Please refer to scan document for session details. Session type: Exercise Individual Session duration: 35 minutes documented in this encounter Plan of Treatment Upcoming Encounters Date Type Department Care Team (Late st Contact Info) Description 01/07/2024 10:40 AM EDT Office Visit Rheumatology [place] [id number] [place] [address] William Devine MD [address] [place] [address] Scheduled Procedures Name Priority Associated Diagnoses Date/Ti [...] this encounter Medical Devices Implanted Type Area Finisher Machine Device Identifier Shelf Expiration Date Model / Serial / Lot Lens 19.0 Sn60wf - [id number] Implanted:Qty: 1 on 03/11/2014 by Nakul Benz MD at OR [facility] Left: Eye [employer] 12/07/2018 SN60WF.190 / [id number] / Lens 20.0 Sn60wf - [id number] - [id number] Implanted:Qty: 1 on 03/24/2016 by Tommy العلي MD at OR [facility] Right: Eye ERIN : SURGICAL 12/07/2020 SN60WF.2 00 / [id number] / Marker Coronary - [id number] Implanted:Qty: 1 on 09/05/2022 by Bandar Estrada MD at [place] [facility] N/A: Heart [employer] 07/07/2025 [facility] / / [id number] documented as of this encounter Visit Diagnoses [...] and were consensually agreed upon. Care Teams Acquisition Marketing Manager Relationship Specialty Start Date End Date Spencer Smith MD [address] [place] [address] PCP - General Family Medicine 02/03/20 documented as of this encounter
--- OUTSIDE RECORDS SUMMARY | 2023-03-19 09:35 | External Medical Summary | Summary of Care ---
Author Name Unknown Organization [facility] Address [address] [place] [address] Phone [phone] Care Team Providers Care Boiler Plant Worker Name Role Phone Spencer Smith MD Primary Care Provider + Reason for Visit * Reason Comments Cardiac Rehab Encounter Details Date Type Department Care Team (Late st Contact Info) Description 02/12/2023 8:00 AM EST Telemedicine Cardiac Rehab Advanced, Virtual [address] [place] [address] [place] Owens [address] Advanced, Virtual Cardiac Rehab [address] [place] [address] [place] Dacosta [address] S/P CABG (coronary artery bypass graft)* Allergies [...] Overview: Previous Dr Arevalo, then Dr Diallo [facility] PCP (insurance change). 06/08/22 Cardiac cath Severe early-mid RCA stenosis. Dr Rajat Harris @[facility] 05/01 TTE [facility] --Reviewed [facility] TTE 04/12/22. Normal ejection fraction [...] 3y 02/26 mammo/US Wnl-dominick May 2020 clinical [facility] uro yearly--considering follow Dr Villanueva to [place]. Request colon, echo, carotid US, reports. Needs DEXA Lung CA screen 10/25 [facility]--rec yearly through 2021. (15y post quit date)_ Colon 10/18/16 [facility] +adenoma dominick 5y. EKGD 11/23 antral mass benign. 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 Session #16 completed. Please refer to scan document for session details. Session type: Exercise Individual Session duration: 35 minutes documented in this encounter Plan of Treatment Upcoming Encounters Date Type Department Care Team (Late st Contact Info) Description 01/07/2024 10:40 AM EDT Office Visit Rheumatology [place] [address] [place] [address] William Devine MD [address] [place], [place] [address] Scheduled Procedures Name Priority Associated Diagnoses Date/Ti [...] this encounter Medical Devices Implanted Type Area Financial Sales Advisor Device Identifier Shelf Expiration Date Model / Serial / Lot Lens 19.0 Sn60wf - [id number] Implanted:Qty: 1 on 03/11/2014 by Nakul Benz MD at OR [facility] Left: Eye [employer] 12/07/2018 SN60WF.190 / [id number] / Lens 20.0 Sn60wf - [id number] - [id number] Implanted:Qty: 1 on 03/24/2016 by Tommy العلي MD at OR [facility] Right: Eye ERIN : SURGICAL 12/07/2020 SN60WF.2 00 / [id number] / Marker Coronary - [id number] Implanted:Qty: 1 on 09/05/2022 by Bandar Estrada MD at OR [facility] N/A: Heart [employer] 07/07/2025 [facility] / / [id number] documented as of this encounter Visit Diagnoses [...] and were consensually agreed upon. Care Teams Boiler Plant Worker Relationship Specialty Start Date End Date Spencer Smith MD [address] [place] [address] PCP - General Family Medicine 02/03/20 documented as of this encounter
--- OUTSIDE RECORDS SUMMARY | 2023-03-19 09:36 | External Medical Summary | Summary of Care ---
Author Name Unknown Organization [facility] Address [address] [place] [address] Phone [phone] Care Team Providers Care Cardiac Technologist Name Role Phone Spencer Smith MD Primary Care Provider + Reason for Visit * Reason Comments Cardiac Rehab Encounter Details Date Type Department Care Team Description 01/17/2023 Telemedicine Cardiac Rehab Advanced, Virtual [address] [place] [address] [place] Owens [address] Advanced, Virtual Cardiac Rehab [address] [place] [address] [place]ac[place] [address] S/P CABG (coronary artery bypass graft)* Allergies Active Allergy Reactions Severity Noted Date Comments Bactrim 08/22/2013 Itching Daptomycin High 05/18/2022 Other reaction(s): RASHES Trimethoprim Low 05/18/2022 Other reaction(s): ITCHY BACK documented as of this encounter (statuses as of 01/24/2023) Medications Medication Sig Dispensed Refills Start Date [...] not taking.Reported on 09/20/2022 [facility]FT [facility]ETS [facility] Use up to four times a day [...] DAY 90 Tablet 2 06/28/2022 4 Active Metoprolol Succinate ER 25 MG Oral Tablet Extended Release 24 Hour (toPROL XL) Take 1 Tablet by mouth in the morning. 100 Tablet 0 10/31/2022 Active Gabapentin 300 MG Oral Capsule (Neurontin)Indicatio ns:Diabetic polyneuropathy associated with type 2 diabetes mellitus (HCC) TAKE 1 CAPSULE BY MOUTH TWICE A DAY 180 Capsule 1 11/03/2022 4 Active Allopurinol 300 MG Oral Tablet (Zyloprim) Take 1 Tablet by mouth in the morning. 30 Tablet 5 12/26/2022 Active documented as of this encounter (statuses as of 01/24/2023) Active Problems Problem Noted Date Generalized osteoarthritis 12/26/2022 S/P AVR (aortic valve replacement) 09/20 S/P CABG (coronary artery bypass graft) 09/20/2022 Gouty arthropathy 03/27/2022 Cervical spinal stenosis 06/30/2021 Overview: 06/28 MRI Erectile dysfunction due to diseases cla ssified elsewhere 07/26/2020 Type 2 diabetes mellitus wit h diabetic neuropathy, without long-term current use of insulin 05/12/2020 Type 2 diabetes mellitus wit h microalbuminuria, without long-term current use of insulin 02/08/2020 Primary osteoarthritis of both knees Bilateral sciatica 02/03/2020 Well adult exam 02/03/2020 Overview: Previous Dr Arevalo, then Dr Diallo [facility] PCP (insurance change). 06/08/22 Cardiac cath Severe early-mid RCA stenosis. Dr Rajat Harris @[facility] 05/01 TTE [facility] --Reviewed [facility] TTE 04/12/22. Normal ejection fraction 50-55%, grade [...] 3y 02/26 mammo/US Wnl-dominick May 2020 clinical [facility] uro yearly--considering follow Dr Villanueva to [place]. Request colon, echo, carotid US, reports. Needs DEXA Lung CA screen 10/25 [facility]--rec yearly through 2021. (15y post quit date)_ Colon 10/18/16 [facility] +adenoma dominick 5y. EKGD 11/23 antral mass benign. 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 05/27/2015 History of bladder cancer 01/04/2015 Alcohol abuse, in remission 10/07/2014 Hemangioma of liver 02/25/2014 JACK on CPAP 09/28/2011 Overview: 09/27/11 -- CPAP 10-13 cwp 08/2011 -- CPAP 8-15 cwp 07/2011 PSG -- AHI 55/hr Care Plus Oxygen Type 2 diabetes mellitus with hemoglobin A1c goal of less than 7.0% 04/15/2011 Overview: ICD-10 update of inactive term Spinal stenosis of lumbar region without neurogenic claudication 07/22/2010 HTN, goal below 140/90 04/15/2010 Dyslipidemia, goal LDL below 100 010 5 cm segment right liver mass 008 Overview: fna indeterminate documented as of this encounter (statuses as of 01/24/2023) Resolved Problems Problem Noted Date Resolved Date Severe aortic stenosis 05/04/2022 Malignant neoplasm of urinary bladder 07/26/2020 06/07/2021 Nonrheumatic aortic valve stenosis 02/03/2020 09/20/2022 Benign neoplasm of colon 07/19/2010 016 Overview: adenomatous/repeat colnooscopy in 3 yra Spasm of muscle 09/01/2009 03/14/2016 TUBULAR ADENOMA POLYP (2) of colon 06/25/2009 02/03/2020 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 10/25/2007 11/21/2007 Elevated blood pressure, situational 10/02/2007 04/15/2010 Joint pain 10/25/2006 03/14/2016 documented as of this encounter (statuses as of 01/24/2023) Immunizations Name Administration Dates Next Due COVID-19 [...] 0.6 oz pure alcohol) quit 2015 Sex Assigned at Date Recorded Male 05/12/2020 12:21 PM EST Job Start Date Occupation Industry [...] as of this encounter Progress Notes * CHELY Garza - 01/24/2023 8:56 AM EDT Session Encounter: Patient is participating in [facility]'s Intensive Cardiac Rehab Program in partnership with [employer] is a specialized company that specializes in providing virtual cardiac rehab services. Session #12 completed. Please refer to scan document for session details. Session type: Exercise Individual Session duration: 35 minutes documented in this encounter Plan of Treatment Upcoming Encounters Date Type Specialty Care Team Description 01/07/2024 Office Visit Rheumatology William Devine MD [address] [place] [address] Scheduled Procedures Name Priority Associated Diagnoses Date/Ti me COLONOSCOPY FLEXIBLE PROXIMAL DIAGNOSTIC Recall History of colon polyps Health Maintenance Due Date Last Done Comments Zoster Vaccines (1 of 2) 03/05/2014 01/08/2014 Depression Screening 03/14/2017 03/14/2016 AAA Screening 2018 08/20/2009 DTaP,Tdap,and Td Vaccines (2 - Td or Tdap) 08/25/2020 08/25/2010, 01/05/2005, 10/07/1997 Albumin/Creatinine Ratio 02/02/2021 020, 03/17/2015, 08/20/2013, Additional history exists Diabetic Foot Exam 05/12/2021 05/12/2020, 0 12/11/2014, 01/08/2014, Additional history exists Influenza Vaccine (FLU shot) (#1) 2022 01/07/2022, 02/21/2021, 02/03/2020, Additional history exists HbA1c 2023 08/17/2022, 03/09, 11/03/2020, Additional history exists B-12 09/21/2023 09/20/2022, 08/07, 03/25/2022, Additional history exists GFR 09/21/2023 09/20/2022, 06/0 07/2022, 09/09/2022, Additional history exists DIABETES-EYE EXAM 10/13/2023 10/12/2022, , 05/12/2020, Additional history exists COLONOSCOPY-EVERY 3 YRS AGES 18-100 01/01/2024 12/31/2020, 12/31/2020, 03/20/2013, Additional history exists Pneumococcal Vaccine: 65+ Years Completed 11/10/2020, 02/03/2020, 05/05/2011 COLONOSCOPY-EVERY 5 YRS AGES 18-100 Discontinued 12/31/2020, 12/31/2020, 03/20/2013, Additional history exists COVID-19 Vaccine Completed 01/11/2023, 09/2021, 08/17/2021, Additional history exists GARDASIL-HPV IMMUNIZATION SERIES Aged Out No longer eligible based on patient's age to complete this topic Hepatitis B Aged Out No longer eligi ble based on patient's age to complete this topic MENINGOCOCCAL (MENACTRA/MENVEO) Aged Out No longer eligible based on patient's age to complete this topic documented as of this encounter Medical Devices Implanted Type Area Tie Carrier Device Identifier Shelf Expiration Date Model / Serial / Lot Lens 19.0 Sn60wf - [id number] Implanted:Qty: 1 on 03/11/2014 by Nakul Benz MD at OR [facility] Left: Eye [employer] 12/07/2018 SN60WF.190 / [id number] / Lens 20.0 Sn60wf - [id number] - [id number] Implanted:Qty: 1 on 03/24/2016 by Tommy العلي MD at OR [facility] Right: Eye ERIN : SURGICAL 12/07/2020 SN60WF.2 00 / [id number] / Marker Coronary - [id number] Implanted:Qty: 1 on 09/05/2022 by Bandar Estrada MD at [place] [facility] N/A: Heart [employer] 07/07/2025 [facility] / / [id number] documented as of this encounter Visit Diagnoses [...] and were consensually agreed upon. Care Teams Cardiac Technologist Relationship Specialty Start Date End Date Spencer Smith MD [address] [place] [address] PCP - General Family Medicine 02/03/20 documented as of this encounter
--- OUTSIDE RECORDS SUMMARY | 2023-03-19 09:36 | External Medical Summary | Summary of Care ---
Author Name Unknown Organization [facility] Address [address] [place] [address] Phone [phone] Care Team Providers Care Production Quality Manager Name Role Phone Spencer Smith MD Primary Care Provider + Reason for Visit * Reason Onset Date Comments Test Results 01/12/2023 IVP scheduled @ [facility], obtain results prior to office visit Encounter Details Date Type Department Care Team Description 01/12/2023 Telephone Urology, [facility] [address] [facility] [place] [address] Patric Villanueva MD 27 [facility] [address] [place] [address] Test Results (IVP scheduled 01/17 @ [facility], ... Allergies Active Allergy Reactions Severity Noted Date Comments Bactrim 08/22/2013 Itching Daptomycin High 05/18/2022 Other reaction(s): RASHES Trimethoprim Low 05/18/2022 Other reaction(s): ITCHY BACK documented as of this encounter (statuses as of 01/18/2023) Medications Medication Sig Dispensed Refills Start Date End Date Status [employer] SYSTEM W/DEVICE KITIndications:DM type 2, goal A1c [...] CPAP every night at bedtime. 0 Active Sildenafil Citrate 20 MG Oral Tablet (Revatio) Take by mouth 1-5 Tablets daily as needed for Erectile Dysfunction. 60 Tablet 6 01/17/2022 Active Additional Information Patient not taking.Reported on 09/20/2022 Famotidine 20 MG Oral Tablet (Pepcid) Take [...] as of this encounter (statuses as of 01/18/2023) Active Problems Problem Noted Date Generalized osteoarthritis [...] Overview: Previous Dr Arevalo, then Dr Diallo [facility] PCP (insurance change). 06/08/22 Cardiac cath Severe early-mid RCA stenosis. Dr Rajat Harris @[facility] 05/01 TTE [facility] --Reviewed [facility] TTE 04/12/22. Normal ejection fraction 50-55%, [...] 3y 02/26 mammo/US Wnl-dominick May 2020 clinical [facility] uro yearly--considering follow Dr Rich Stoo. Request colon, echo, carotid US, reports. Needs DEXA Lung CA screen 10/25 [facility]--rec yearly through 2021. (15y post quit date)_ Colon 10/18/16 [facility] +adenoma dominick 5y. EKGD 11/23 antral mass benign. 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 Kulwant (radiology, [facility]) will push images over. * Telephone Encounter - Vicki Lara LPN - 01/17/2023 9:09 AM EDT IVP is scheduled today, 01/17 at 1PM will contact [facility] tomorrow for results. * Telephone Encounter - JACK Hansen - 01/15/2023 2:47 PM EDT Test scheduled for tomorrow * Telephone Encounter - JACK Conway - 01/15/2023 1:38 PM EDT Shaheen Hurley called back to speak to Jozef concerning XR LVP. They received orders and are waiting for a call to schedule. * Telephone Encounter - JACK Hansen - 01/12/2023 9:51 AM EDT Spoke with patient and he will call [facility] Central Scheduling to schedule XR IVP. Order has been faxed to [facility] again and phone number was provide for scheduling to the patient. * Telephone Encounter - Vicki Lara LPN - 01/12/2023 9:28 AM EDT Patient was to have IVP prior to upcoming appointment. Checked [facility], test was not done or scheduled at [facility]. Please contact patient to help arrange. Thank you Belkis documented in this encounter Plan of Treatment Upcoming Encounters Date Type Specialty Care Team Description 01/23/2023 Procedure Only Urology Patric Villanueva MD [address] [facility] [address] [place] [phone] 01/07/2024 Office Visit Rheumatology William Devine MD [address] [place] [address] Scheduled Procedures Name Priority Associated Diagnoses Date/Ti [...] 09/21/2023 09/20/2022, 07/2022, 09/09/2022, Additional history exists DIABETES-EYE EXAM [...] this encounter Medical Devices Implanted Type Area Cullet Washer Device Identifier Shelf Expiration Date Model / Serial / Lot Lens 19.0 Sn60wf - [id number] Implanted:Qty: 1 on 03/11/2014 by Nakul Benz MD at OR [facility] Left: Eye [employer] 12/07/2018 SN60WF.190 / [id number] / Lens 20.0 Sn60wf - [id number] - [id number] Implanted:Qty: 1 on 03/24/2016 by Tommy العلي MD at OR [facility] Right: Eye ERIN : SURGICAL 12/07/2020 SN60WF.2 00 / [id number] / Marker Coronary - [id number] Implanted:Qty: 1 on 09/05/2022 by Bandar Estrada MD at OR [facility] N/A: Heart [employer] 07/07/2025 [facility] / / [id number] documented as of this encounter Advance Directives [...] and were consensually agreed upon. Care Teams Production Quality Manager Relationship Specialty Start Date End Date Spencer Smith MD [address] [place] [address] PCP - General Family Medicine 02/03/20 documented as of this encounter
--- OUTSIDE RECORDS SUMMARY | 2023-03-19 09:36 | External Medical Summary | Summary of Care ---
Author Name Unknown Organization [facility] Address [address] [place] [address] Phone [phone] Care Team Providers Care Vice President Of Procurement Name Role Phone Spencer Smith MD Primary Care Provider + Reason for Visit * Reason Onset Date Comments Test Results 01/12/2023 IVP scheduled @ [facility], obtain results prior to office visit Encounter Details Date Type Department Care Team Description 01/12/2023 Telephone Urology, [facility] [address] [facility] [place] [address] Patric Villanueva MD 27 [facility] [address] [place] [address] Test Results (IVP scheduled 01/17 @ [facility], ... Allergies Active Allergy Reactions Severity Noted Date Comments Bactrim 08/22/2013 Itching Daptomycin High 05/18/2022 Other reaction(s): RASHES Trimethoprim Low 05/18/2022 Other reaction(s): ITCHY BACK documented as of this encounter (statuses as of 01/17/2023) Medications Medication Sig Dispensed Refills Start Date End Date Status QBE SYSTEM W/DEVICE KITIndications:DM type 2, goal A1c [...] as of this encounter (statuses as of 01/17/2023) Active Problems Problem Noted Date Generalized osteoarthritis [...] Previous Dr Arevalo, then Dr Diallo [facility] PCP (insurance change). 06/08/22 Cardiac cath Severe early-mid RCA stenosis. Dr Rajat Harris @[facility] 05/01 TTE [facility] --Reviewed [facility] TTE 04/12/22. Normal ejection fraction 50-55%, grade [...] 02/26 mammo/US Wnl-dominick May 2020 clinical [facility] uro yearly--considering follow Dr Rich Soto. Request colon, echo, carotid US, reports. Needs DEXA Lung CA screen 10/25 [facility]--rec yearly through 2021. 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 EKGD 11/23 antral mass benign. 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 * Telephone Encounter - JACK Hansen - 01/15/2023 2:47 PM EDT Test scheduled for tomorrow * Telephone Encounter - JACK Conway - 01/15/2023 1:38 PM EDT Mo Xavi called back to speak to Jozef concerning XR LVP. They received orders and are waiting for a call to schedule. * Telephone Encounter - JACK Hansen - 01/12/2023 9:51 AM EDT Spoke with patient and he will call [facility] Central Scheduling to schedule XR IVP. Order has been faxed to [facility] again and phone number was provide for scheduling to the patient. * Telephone Encounter - Vicki Lara LPN - 01/12/2023 9:28 AM EDT Patient was to have IVP prior to upcoming appointment. Checked meditech, test was not done or scheduled at [facility]. Please contact patient to help arrange. Thank you Belkis documented in this encounter Plan of Treatment Upcoming Encounters Date Type Specialty Care Team Description 01/23/2023 Procedure Only Urology Patric Villanueva MD [address] [place] [address] 01/07/2024 Office Visit Rheumatology William Devine MD [address] [place] [address] Scheduled Procedures Name Priority Associated Diagnoses [...] 03/25/2022, Additional history exists GFR 09/21/2023 09/20/2022, 06/07/2022, 09/09/2022, Additional history exists DIABETES-EYE EXAM 10/13/2023 [...] encounter Medical Devices Implanted Type Area Finisher Accordion Device Identifier Shelf Expiration Date Model / Serial / Lot Lens 19.0 Sn60wf - [id number] Implanted:Qty: 1 on 03/11/2014 by Nakul Benz MD at OR [facility] Left: Eye [employer] 12/07/2018 SN60WF.190 / [id number] / Lens 20.0 Sn60wf - [id number] - [id number] Implanted:Qty: 1 on 03/24/2016 by Tommy العلي MD at OR [facility] Right: Eye ERIN : SURGICAL 12/07/2020 SN60WF.2 00 / [id number] / Marker Coronary - [id number] Implanted:Qty: 1 on 09/05/2022 by Bandar Estrada MD at OR [facility] N/A: Heart [employer] 07/07/2025 [facility] / / [id number] documented as of this encounter Advance Directives [...] and were consensually agreed upon. Care Teams Vice President Of Procurement Relationship Specialty Start Date End Date Spencer Smith MD [address] [place] [address] PCP - General Family Medicine 02/03/20 documented as of this encounter
--- OUTSIDE RECORDS SUMMARY | 2023-03-19 09:36 | External Medical Summary | Summary of Care ---
Author Name Unknown Organization [facility] Address [address] [place] [address] Phone [phone] Care Team Providers Care Lapel Baster Name Role Phone Spencer Smith MD Primary Care Provider + Reason for Visit * Reason Comments Cardiac Rehab Encounter Details Date Type Department Care Team (Late st Contact Info) Description 01/24/2023 8:00 AM EDT Telemedicine Cardiac Rehab Advanced, Virtual [address] [place] [address] [place] [address] Advanced, Virtual Cardiac Rehab [address] [place] [address] [place] [address] S/P CABG (coronary artery bypass graft)* Allergies Active Allergy Reactions Criticality Noted Date Comments Bactrim 08/22/2013 Itching Daptomycin High 05/18/2022 Other reaction(s): RASHES Trimethoprim Low 05/18/2022 Other reaction(s): ITCHY BACK documented as of this encounter (statuses as of 01/30/2023) Medications Medication Sig Dispensed Refills Start Date End Date Status MemberPassTOUCH ULTRA SYSTEM W/DEVICE KITIndications:DM type 2, goal [...] Erectile Dysfunction. 60 Tablet 11 01/23/2023 Active documented as of this encounter (statuses as of 01/30/2023) Active Problems Problem Noted Date Diagnosed Date [...] Overview: Previous Dr Arevalo, then Dr Diallo [facility] PCP (insurance change). 06/08/22 Cardiac cath Severe early-mid RCA stenosis. Dr Rajat Harris @[facility] 05/[address] [facility] --Reviewed [facility] TTE 04/12/22. Normal ejection fraction 50-55%, [...] 3y 02/26 mammo/US Wnl-dominick May [address] [facility] uro yearly--considering follow Dr Villanueva to [place]. Request colon, echo, carotid US, reports. Needs DEXA Lung CA screen 10/25 [facility]--rec yearly through 2021. 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 +adenoma dominick 5y. EKGD 11/23 antral mass benign. 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 Asymptomatic stenosis of right carotid artery Overview: [facility] Nonrheumatic mitral valve regurgitation 02/03/20 20 PMR (polymyalgia rheumatica) 05/27/2015 assisted current use of systemic steroids 05/27 History [...] as of this encounter (statuses as of 01/30/2023) Resolved Problems Problem Noted Date Diagnosed Date [...] as of this encounter (statuses as of 01/30/2023) Immunizations Name Administration Dates Next Due COVID-19 [...] encounter Progress Notes * CHELY Garza - 01/30/2023 10:32 PM EDT Session Encounter: Patient is participating in [facility]'s Intensive Cardiac Rehab Program in partnership with [employer] is a specialized [employer] that specializes in providing virtual cardiac rehab services. Session #13 completed. Please refer to scan document for session details. Session type: Exercise Individual Session duration: 35 minutes documented in this encounter Plan of Treatment Upcoming Encounters Date Type Department Care Team (Late st Contact Info) Description 01/07/2024 10:40 AM EDT Office Visit Rheumatology [address] [place] [address] William Devine MD [address] [place] [address] Scheduled Procedures Name Priority Associated Diagnoses Date/Ti [...] 09/21/2023 09/20/2022, 0607/2022, 09/09/2022, Additional history exists DIABETES-EYE EXAM 10/13/2023 [...] this encounter Medical Devices Implanted Type Area Plant Science Professor Device Identifier Shelf Expiration Date Model / Serial / Lot Lens 19.0 Sn60wf - [id number] Implanted:Qty: 1 on 03/11/2014 by Nakul Benz MD at OR [facility] Left: Eye [employer] 12/07/2018 SN60WF.190 / [id number] / Lens 20.0 Sn60wf - [id number] - [id number] Implanted:Qty: 1 on 03/24/2016 by Tommy العلي MD at OR [facility] Right: Eye ERIN : SURGICAL 12/07/2020 SN60WF.2 00 / [id number] / Marker Coronary - [id number] Implanted:Qty: 1 on 09/05/2022 by Bandar Estrada MD at [place] [facility] N/A: Heart [employer] 07/07/2025 [facility] / / [id number] documented as of this encounter Visit Diagnoses [...] and were consensually agreed upon. Care Teams Lapel Baster Relationship Specialty Start Date End Date Spencer Smith MD [address] [place] [address] PCP - General Family Medicine 02/03/20 documented as of this encounter
--- OUTSIDE RECORDS SUMMARY | 2023-03-19 09:36 | External Medical Summary | Summary of Care ---
Author Name Unknown Organization [facility] Address [address] [place] [address] Phone [phone] Care Team Providers Care Emergency Services Director Name Role Phone Spencer Smith MD Primary Care Provider + Reason for Visit * Reason Onset Date Comments Test Results 01/12/2023 IVP scheduled @ [facility], obtain results prior to office visit Encounter Details Date Type Department Care Team Description 01/12/2023 Telephone Urology, [facility] 132 [facility] [place] [address] Patric Villanueva MD 27 [facility] [address] [place] [address] Test Results (IVP scheduled 01/17 @ [facility], ... Allergies Active Allergy Reactions Severity Noted Date Comments Bactrim 08/22/2013 Itching Daptomycin High 05/18/2022 Other reaction(s): RASHES Trimethoprim Low 05/18/2022 Other reaction(s): ITCHY BACK documented as of this encounter (statuses as of 01/18/2023) Medications Medication Sig Dispensed Refills Start Date End Date Status Bsmark SYSTEM W/DEVICE KITIndications:DM type 2, goal A1c [...] Previous Dr Arevalo, then Dr Diallo [facility] PCP (insurance change). 06/08/22 Cardiac cath Severe early-mid RCA stenosis. Dr Rajat Harris @[facility] 05/01 TTE [facility] --Reviewed [facility] TTE 04/12/22. Normal ejection fraction 50-55%, [...] 02/26 mammo/US Wnl-dominick May 2020 clinical [facility] uro yearly--considering follow Dr Rich Soto. Request colon, echo, carotid US, reports. Needs DEXA Lung CA screen 10/25 [facility]--rec yearly through 2021. 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 EKGD 11/23 antral mass benign. 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 * Telephone Encounter - JACK Hansen - 01/15/2023 2:47 PM EDT Test scheduled for tomorrow * Telephone Encounter - JACK Conway - 01/15/2023 1:38 PM EDT Mi Xavi called back to speak to Jozef concerning XR LVP. They received orders and are waiting for a call to schedule. * Telephone Encounter - JACK Hansen - 01/12/2023 9:51 AM EDT Spoke with patient and he will call [facility] Central Scheduling to schedule XR IVP. Order has been faxed to [facility] again and phone number was provide for scheduling to the patient. * Telephone Encounter - Vicki Lara LPN - 01/12/2023 9:28 AM EDT Patient was to have IVP prior to upcoming appointment. Checked meditech, test was not done or scheduled at [facility]. Please contact patient to help arrange. Thank you Belkis documented in this encounter Plan of Treatment Upcoming Encounters Date Type Specialty Care Team Description 01/23/2023 Procedure Only Urology Patric Villanueva MD [address] [place] [address] 01/07/2024 Office Visit Rheumatology William Devine MD [address] [place] [address] Scheduled Procedures Name Priority Associated Diagnoses [...] this encounter Medical Devices Implanted Type Area Photogrammetric Stereo Compiler Device Identifier Shelf Expiration Date Model / Serial / Lot Lens 19.0 Sn60wf - [id number] Implanted:Qty: 1 on 03/11/2014 by Nakul Benz MD at OR [facility] Left: Eye [employer] 12/07/2018 SN60WF.190 / [id number] / Lens 20.0 Sn60wf - [id number] - [id number] Implanted:Qty: 1 on 03/24/2016 by Tommy العلي MD at OR [facility] Right: Eye ERIN : SURGICAL 12/07/2020 SN60WF.2 00 / [id number] / Marker Coronary - [id number] Implanted:Qty: 1 on 09/05/2022 by Bandar Estrada MD at [place] [facility] N/A: Heart [employer] 07/07/2025 [facility] / / [id number] documented as of this encounter Advance Directives [...] and were consensually agreed upon. Care Teams Emergency Services Director Relationship Specialty Start Date End Date Spencer Smith MD [address] [place] [address] PCP - General Family Medicine 02/03/20 documented as of this encounter
--- OUTSIDE RECORDS SUMMARY | 2023-03-19 09:36 | External Medical Summary | Summary of Care ---
Author Name Unknown Organization [facility] Address [address] [place] [address] Phone [phone] Care Team Providers Care Lard Renderer Name Role Phone Spencer Smith MD Primary Care Provider + Encounter Details Date Type Department Care Team Description 01/17/2023 Orders Only Urology [place] [address] [place] [address] Patric Villanueva MD [address] [place] [address] Allergies Active Allergy Reactions Severity Noted Date Comments Bactrim 08/22/2013 Itching Daptomycin High 05/18/2022 Other reaction(s): RASHES Trimethoprim Low 05/18/2022 Other reaction(s): ITCHY BACK documented as of this encounter (statuses as of 01/19/2023) Medications Medication Sig Dispensed Refills Start Date [...] Active Furosemide 20 MG Oral Tablet (Lasix)Indications:E rosnane TAKE 1 TABLET BY MOUTH DAILY 100 [...] as of this encounter (statuses as of 01/19/2023) Active Problems Problem Noted Date Generalized osteoarthritis [...] Overview: Previous Dr Arevalo, then Dr Diallo [facility] PCP (insurance change). 06/08/22 Cardiac cath Severe early-mid RCA stenosis. Dr Rajat Harris @[facility] 05/01 TTE [facility] --Reviewed [facility] TTE 04/12/22. Normal ejection [...] 3y 02/26 mammo/US Wnl-dominick May 2020 clinical [facility] uro yearly--considering follow Dr Villanueva to [place]. Request colon, echo, carotid US, reports. Needs DEXA Lung CA screen 10/25 [facility]--rec yearly through 2021. 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 EKGD 11/23 antral mass benign. 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 05/27/2015 [...] as of this encounter (statuses as of 01/19/2023) Resolved Problems Problem Noted Date Resolved Date [...] as of this encounter (statuses as of 01/19/2023) Immunizations Name Administration Dates Next Due COVID-19 [...] [address] [place] [address] 01/07/2024 Office Visit Rheumatology William Devine MD [address] [facility] [place] [address] Scheduled Procedures Name Priority Associated Diagnoses Date/Ti [...] this encounter Medical Devices Implanted Type Area Motor Room Controller Device Identifier Shelf Expiration Date Model / Serial / Lot Lens 19.0 Sn60wf - [id number] Implanted:Qty: 1 on 03/11/2014 by Nakul Benz MD at OR [facility] Left: Eye [employer] 12/07/2018 SN60WF.190 / [id number] / Lens 20.0 Sn60wf - [id number] - [id number] Implanted:Qty: 1 on 03/24/2016 by Tommy العلي MD at OR [facility] Right: Eye ERIN : SURGICAL 12/07/2020 SN60WF.2 00 / [id number] / Marker Coronary - [id number] Implanted:Qty: 1 on 09/05/2022 by Bandar Estrada MD at OR [facility] N/A: Heart [employer] 07/07/2025 [facility] / / [id number] documented as of this encounter Procedures Procedure Name Priority Date/Time Associated Diagnosis Comments RADIOLOGY EXAM - GENERAL RAD (IMAGES ONLY,NO REPORT) Routine 01/17/2023 1:15 PM EDT documented in this encounter Results * RADIOLOGY EXAM - GENERAL RAD (IMAGES ONLY,NO REPORT) (01/17/2023 1:15 PM EDT) 01/17/2023 1:11 PM EDT Narrative Scheduling, Silent - 01/19/2023 10:28 AM EDT This is an imaging study not interpreted or resulted by a [facility] or [facility] contracted radiologist. Patric Villanueva MD RADIOLOGY (RAD G ENERAL) documented in this encounter Advance Directives Latest [...] and were consensually agreed upon. Care Teams Lard Renderer Relationship Specialty Start Date End Date Spencer Smith MD [address] [place] [address] PCP - General Family Medicine 02/03/20 documented as of this encounter
--- OUTSIDE RECORDS SUMMARY | 2023-03-19 09:36 | External Medical Summary | Summary of Care ---
Author Name Unknown Organization [facility] Address [address] [place] [address] Phone [phone] Care Team Providers Care Solar Crew Member Name Role Phone Spencer Smith MD Primary Care Provider + Encounter Details Date Type Department Care Team Description 01/17/2023 Hospital Encounter Radiology Film File [address] [place] [address] Arrived Allergies Active Allergy Reactions Severity Noted Date Comments Bactrim 08/22/2013 Itching Daptomycin High 05/18/2022 Other reaction(s): RASHES Trimethoprim Low 05/18/2022 Other reaction(s): ITCHY BACK documented as of this encounter (statuses as of 01/20/2023) Medications Medication Sig Dispensed Refills Start Date [...] as of this encounter (statuses as of 01/20/2023) Active Problems Problem Noted Date Generalized osteoarthritis [...] Overview: Previous Dr Arevalo, then Dr Diallo [facility] PCP (insurance change). 06/08/22 Cardiac cath Severe early-mid RCA stenosis. Dr Rajat Harris @[facility] 05/01 TTE [facility] --Reviewed [facility] TTE 04/12/22. Normal ejection fraction 50-55%, [...] 3y 02/26 mammo/US Wnl-dominick May 2020 clinical [facility] uro yearly--considering follow Dr Villanueva to [place]. Request colon, echo, carotid US, reports. Needs DEXA Lung CA screen 10/25 [facility]--rec yearly through 2021. 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 EKGD 11/23 antral mass benign. 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 Asymptomatic stenosis of right carotid a rtery 02/03/2020 Overview: [facility] Nonrheumatic mitral valve regurgitation 02/03/2020 PMR (polymyalgia rheumatica) 05/27/2015 snf current use of systemic steroi ds 05/27/2015 [...] as of this encounter (statuses as of 01/20/2023) Resolved Problems Problem Noted Date Resolved Date [...] as of this encounter (statuses as of 01/20/2023) Immunizations Name Administration Dates Next Due COVID-19 [...] MD [address] [place] [address] 01/07/2024 Office Visit Rheumatology William Devine MD [address] [place] [address] Scheduled Procedures Name Priority Associated Diagnoses Date/Ti [...] this encounter Medical Devices Implanted Type Area Grommet Machine Operator Device Identifier Shelf Expiration Date Model / Serial / Lot Lens 19.0 Sn60wf - [id number] Implanted:Qty: 1 on 03/11/2014 by Nakul Benz MD at OR [facility] Left: Eye [employer] 12/07/2018 SN60WF.190 / [id number] / Lens 20.0 Sn60wf - [id number] - [id number] Implanted:Qty: 1 on 03/24/2016 by Tommy العلي MD at OR [facility] Right: Eye ERIN : SURGICAL 12/07/2020 SN60WF.2 00 / [id number] / Marker Coronary - [id number] Implanted:Qty: 1 on 09/05/2022 by Bandar Estrada MD at [place] [facility] N/A: Heart [employer] 07/07/2025 [facility] / / [id number] documented as of this encounter Procedures Procedure [...] study not interpreted or resulted by a [facility] or [facility] contracted radiologist. Patric Villanueva MD RADIOLOGY (RAD [...] and were consensually agreed upon. Care Teams Solar Crew Member Relationship Specialty Start Date End Date Spencer Smith MD [address] [place] [address] PCP - General Family Medicine 02/03/20 documented as of this encounter
--- OUTSIDE RECORDS SUMMARY | 2023-03-19 09:36 | External Medical Summary | Summary of Care ---
Author Name Unknown Organization [facility] Address [address] [place] [address] Phone [phone] Care Team Providers Care Christian Ministries Professor Name Role Phone Spencer Smith MD Primary Care Provider + Reason for Visit * Reason Comments Cardiac Rehab Encounter Details Date Type Department Care Team Description 01/15/2023 Telemedicine Cardiac Rehab Advanced, Virtual [address] [place] [address] [place] [id number] Advanced, Virtual Cardiac Rehab [address] [place] [address] [place] [address] S/P CABG (coronary artery bypass graft)* Allergies [...] not taking.Reported on 09/20/2022 ONETOUCH ULTRASOFT LANCETS [facility] Use up to four times a day [...] Overview: Previous Dr Arevalo, then Dr Diallo [facility] PCP (insurance change). 06/08/22 Cardiac cath Severe early-mid RCA stenosis. Dr Rajat Harris @[facility] 05/01 TTE [facility] --Reviewed [facility] TTE 04/12/22. Normal ejection fraction [...] 3y 02/26 mammo/US Wnl-dominick May 2020 clinical [facility] uro yearly--considering follow Dr Villanueva to [place]. Request colon, echo, carotid US, reports. Needs DEXA Lung CA screen 10/25 [facility]--rec yearly through 2021. (15y post quit date)_ Colon 10/18/16 [facility] +adenoma dominick 5y. EKGD 11/23 antral mass benign. EUS 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 Session #11 completed. Please refer to scan document for session details. Session type: Exercise Individual Session duration: 35 minutes documented in this encounter Plan of Treatment Upcoming Encounters Date Type Specialty Care Team Description 01/07/2024 Office Visit Rheumatology William Devine MD [address] [place] [address] Scheduled Procedures Name Priority Associated Diagnoses [...] this encounter Medical Devices Implanted Type Area Chemical Plant Operator Device Identifier Shelf Expiration Date Model / Serial / Lot Lens 19.0 Sn60wf - [id number] Implanted:Qty: 1 on 03/11/2014 by Nakul Benz MD at OR [facility] Left: Eye [employer] 12/07/2018 SN60WF.190 / [id number] / Lens 20.0 Sn60wf - [id number] - [id number] Implanted:Qty: 1 on 03/24/2016 by Tommy العلي MD at OR [facility] Right: Eye ERIN : SURGICAL 12/07/2020 SN60WF.2 00 / [id number] / Marker Coronary - [id number] Implanted:Qty: 1 on 09/05/2022 by Bandar Estrada MD at OR [facility] N/A: Heart [employer] 07/07/2025 [facility] / / [id number] documented as of this encounter Visit Diagnoses [...] and were consensually agreed upon. Care Teams Christian Ministries Professor Relationship Specialty Start Date End Date Spencer Smith MD [address] [place] [address] PCP - General Family Medicine 02/03/20 documented as of this encounter
--- OUTSIDE RECORDS SUMMARY | 2023-03-19 09:36 | External Medical Summary | Summary of Care ---
Author Name Unknown Organization [facility] Address [address] [place] [address] Phone [phone] Care Team Providers Care Account Resolution Specialist Name Role Phone Spencer Pryor MD Primary Care Provider + Reason for Visit * Reason Comments Medication Refill Encounter Details Date Type Department Care Team (Late st Contact Info) Description 02/02/2023 Refill Family Practice [facility] [address] [place] [address] Spencer Pryor MD [address] [place] [address] Allergies Active Allergy Reactions Criticality Noted Date Comments Bactrim 08/22/2013 Itching Daptomycin High 05/18/2022 Other reaction(s): RASHES Trimethoprim Low 05/18/2022 Other reaction(s): ITCHY BACK documented as of this encounter (statuses as of 02/02/2023) Medications Medication Sig Dispensed Refills Start Date [...] Active metFORMIN HCl 500 MG Oral Tablet (Glucophage)Indicat ions:Type 2 diabetes mellitus with hemoglobin A1c goal of less than 7.0% (HCC) TAKE ONE TABLET BY MOUTH TWICE A DAY WITH FOOD 180 Tablet 2 08/14/2022 08/14/19 24 Active Furosemide 20 MG Oral Tablet (Lasix)Indications: Edema TAKE 1 TABLET BY MOUTH DAILY 100 Tablet 2 07/18/2022 07/18/19 24 Active Atorvastatin Calcium 40 MG Oral Tablet (Lipitor) TAKE ONE TABLET BY MOUTH EVERY DAY 90 Tablet 2 06/28/2022 06/28/19 24 Active Gabapentin 300 MG Oral Capsule (Neurontin)Indicati ons:Diabetic polyneuropathy associated with type 2 diabetes mellitus (HCC) TAKE 1 CAPSULE BY MOUTH TWICE A DAY 180 Capsule 1 11/03/2022 11/03/19 24 Active Allopurinol 300 MG Oral Tablet (Zyloprim) [...] the morning. 100 Tablet 0 02/02/2023 Active Metoprolol Succinate ER 25 MG Oral Tablet Extended Release 24 Hour (toPROL XL) Take 1 Tablet by mouth in the morning. 100 Tablet 0 10/31/2022 02/03/20 23 Discontinu ed(Refill) documented as of this encounter (statuses as of 02/02/2023) Active Problems Problem Noted Date Diagnosed Date [...] Overview: Previous Dr Arevalo, then Dr Diallo [facility] PCP (insurance change). 06/08/22 Cardiac cath Severe early-mid RCA stenosis. Dr Rajat Harris @[facility] 05/01 TTE [facility] --Reviewed [facility] TTE 04/12/22. Normal ejection fraction 50-55%, [...] 3y 02/26 mammo/US Wnl-dominick May 2020 clinical [facility] uro yearly--considering follow Dr Villanueva to [place]. Request colon, echo, carotid US, reports. Needs DEXA Lung CA screen 10/25 [facility]--rec yearly through 2021. 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 EKGD 11/23 antral mass benign. 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 Asymptomatic stenosis of right carotid artery Overview: [facility] Nonrheumatic mitral valve regurgitation 02/03/20 20 PMR (polymyalgia rheumatica) 05/27/2015 halfway current use of systemic steroids 05/27 History [...] as of this encounter (statuses as of 02/02/2023) Resolved Problems Problem Noted Date Diagnosed Date [...] as of this encounter (statuses as of 02/02/2023) Immunizations Name Administration Dates Next Due COVID-19 [...] encounter Miscellaneous Notes * Telephone Encounter - Sariah Bustos [facility] - 02/02/2023 5:36 AM EDT Signed Prescriptions: Disp Refills Metoprolol Succinate ER 25 MG Oral Tablet *100 Ta*0 Sig: Take 1 Tablet by mouth in the morning.Authorizing Provider: SPENCER PRYOR User: SARIAH BUSTOS documented in this encounter Plan of Treatment Upcoming Encounters Date Type Department Care Team (Late st Contact Info) Description 01/07/2024 10:40 AM EDT Office Visit Rheumatology [address] [place] [address] William Devine MD [address] [place] [address] [place] [address] Scheduled Procedures Name Priority Associated Diagnoses Date/Ti [...] this encounter Medical Devices Implanted Type Area Court Supervisor Device Identifier Shelf Expiration Date Model / Serial / Lot Lens 19.0 Sn60wf - [id number] Implanted:Qty: 1 on 03/11/2014 by Nakul Benz MD at OR [facility] Left: Eye [employer] 12/07/2018 SN60WF.190 / [id number] / Lens 20.0 Sn60wf - [id number] - [id number] Implanted:Qty: 1 on 03/24/2016 by Tommy العلي MD at OR [facility] Right: Eye ERIN : SURGICAL 12/07/2020 SN60WF.2 00 / [id number] / Marker Coronary - [id number] Implanted:Qty: 1 on 09/05/2022 by Bandar Estrada MD at OR [facility] N/A: Heart [employer] 07/07/2025 [facility] / / [id number] documented as of this encounter Advance Directives [...] and were consensually agreed upon. Care Teams Account Resolution Specialist Relationship Specialty Start Date End Date Spencer Pryor MD [address] [facility] [place] [address] PCP - General Family Medicine 02/03/20 documented as of this encounter
--- OUTSIDE RECORDS SUMMARY | 2023-03-19 09:36 | External Medical Summary | Summary of Care ---
Author Name Unknown Organization [facility] Address [address] [place] [address] Phone [phone] Care Team Providers Care Crew Scheduler Name Role Phone Spencer Smith MD Primary Care Provider + Reason for Visit * Reason Onset Date Comments Test Results 01/12/2023 IVP scheduled @ [facility], obtain results prior to office visit Encounter Details Date Type Department Care Team Description 01/12/2023 Telephone Urology, [facility] [address] [facility] [place] [address] Patric Villanueva MD [address] [facility] [place] [address] Test Results (IVP scheduled 01/17 @ [facility], ... Allergies Active Allergy Reactions Severity Noted Date Comments Bactrim 08/22/2013 Itching Daptomycin High 05/18/2022 Other reaction(s): RASHES Trimethoprim Low 05/18/2022 Other reaction(s): ITCHY BACK documented as of this encounter (statuses as of 01/18/2023) Medications Medication Sig Dispensed Refills Start Date End Date Status DotProduct SYSTEM W/DEVICE KITIndications:DM type 2, goal A1c [...] Previous Dr Arevalo, then Dr Diallo [facility] PCP (insurance change). 06/08/22 Cardiac cath Severe early-mid RCA stenosis. Dr Rajat Harris @[facility] 05/01 TTE [facility] --Reviewed [facility] TTE 04/12/22. Normal ejection fraction 50-55%, [...] 02/26 mammo/US Wnl-dominick May 2020 clinical [facility] uro yearly--considering follow Dr Rich Soto. Request colon, echo, carotid US, reports. Needs DEXA Lung CA screen 10/25 [facility]--rec yearly through 2021. 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 EKGD 11/23 antral mass benign. EUS 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 * Telephone Encounter - JACK Hansen - 01/15/2023 2:47 PM EDT Test scheduled for tomorrow * Telephone Encounter - JACK Conway - 01/15/2023 1:38 PM EDT Ca Xavi called back to speak to Jozef concerning XR LVP. They received orders and are waiting for a call to schedule. * Telephone Encounter - JACK Hansen - 01/12/2023 9:51 AM EDT Spoke with patient and he will call [facility] Central Scheduling to schedule XR IVP. Order has been faxed to [facility] again and phone number was provide for scheduling to the patient. * Telephone Encounter - Vicki Lraa LPN - 01/12/2023 9:28 AM EDT Patient was to have IVP prior to upcoming appointment. Checked meditech, test was not done or scheduled at [facility]. Please contact patient to help arrange. Thank you Belkis documented in this encounter Plan of Treatment Upcoming Encounters Date Type Specialty Care Team Description 01/23/2023 Procedure Only Urology Patric Villanueva MD [address] [employer] [address] [place] [address] 01/07/2024 Office Visit Rheumatology William Devine MD [address] [place] [address] Scheduled Procedures Name Priority Associated Diagnoses [...] this encounter Medical Devices Implanted Type Area Senior Director Device Identifier Shelf Expiration Date Model / Serial / Lot Lens 19.0 Sn60wf - [id number] Implanted:Qty: 1 on 03/11/2014 by Nakul Benz MD at OR [facility] Left: Eye [employer] 12/07/2018 SN60WF.190 / [id number] / Lens 20.0 Sn60wf - [id number] - [id number] Implanted:Qty: 1 on 03/24/2016 by Tommy العلي MD at OR [facility] Right: Eye ERIN : SURGICAL 12/07/2020 SN60WF.2 00 / [id number] / Marker Coronary - [id number] Implanted:Qty: 1 on 09/05/2022 by Bandar Estrada MD at [place] [facility] N/A: Heart [employer] 07/07/2025 [facility] / / [id number] documented as of this encounter Advance Directives [...] and were consensually agreed upon. Care Teams Crew Scheduler Relationship Specialty Start Date End Date Spencer Smith MD [address] [place] [address] PCP - General Family Medicine 02/03/20 documented as of this encounter
--- OUTSIDE RECORDS SUMMARY | 2023-03-19 09:36 | External Medical Summary | Summary of Care ---
Author Name Unknown Organization [facility] Address [address] [place] [address] Phone [phone] Care Team Providers Care Aircraft Structural Fitter Name Role Phone Spencer Pryor MD Primary Care Provider + Reason for Visit * Reason Comments Cystoscopy Encounter Details Date Type Department Care Team Description 01/23/2023 Procedure Only Urology, [facility] [address] [facility] [place] [address] Patric Villanueva MD [address] [place] [address] [facility] [place] [address] Malignant neoplasm of urinary bladder, unspecified site (HCC)*; Erectile dysfunction due to diseases classified elsewhere Allergies Active Allergy Reactions Severity Noted Date Comments Bactrim 08/22/2013 Itching Daptomycin High 05/18/2022 Other reaction(s): RASHES Trimethoprim Low 05/18/2022 Other reaction(s): ITCHY BACK documented as of this encounter (statuses as of 01/23/2023) Medications Medication Sig Dispensed Refills Start Date End Date Status Guess Your Songs ULTRA SYSTEM W/DEVICE KITIndications:DM type 2, goal [...] 90 Tablet 2 06/28/2022 06/28/19 24 Active Metoprolol Succinate ER 25 MG Oral Tablet Extended Release 24 Hour (toPROL XL) Take 1 Tablet by mouth in the morning. 100 Tablet 0 10/31/2022 Active Gabapentin 300 MG Oral Capsule (Neurontin)Indicati [...] Erectile Dysfunction. 60 Tablet 11 01/23/2023 Active Sildenafil Citrate 20 MG Oral Tablet (Revatio) Take by mouth 1-5 Tablets daily as needed for Erectile Dysfunction. 60 Tablet 6 01/17/2022 01/24/20 23 Discontinu ed(Refill) Hospital, Clinic, or Other Facility Administered Medication Ordered Dose Route Frequency Start Date End Date Status ciprofloxacin (Cipro) tab 500 mgIndications:Malignant neoplasm of urinary bladder, unspecified site (HCC) 500 mg OR ONCE 01/23/2023 01/23/2023 Ended documented as of this encounter (statuses as of 01/23/2023) Active Problems Problem Noted Date Generalized osteoarthritis [...] Overview: Previous Dr Arevalo, then Dr Diallo [facility] PCP (insurance change). 06/08/22 Cardiac cath Severe early-mid RCA stenosis. Dr Rajat Harris @[facility] 05/01 TTE [facility] --Reviewed [facility] TTE 04/12/22. Normal ejection fraction 50-55%, [...] 3y 02/26 mammo/US Wnl-dominick May 2020 clinical [facility] uro yearly--considering follow Dr Villanueva to [place]. Request colon, echo, carotid US, reports. Needs DEXA Lung CA screen 10/25 [facility]--rec yearly through 2021. (15y post quit date)_ Colon 10/18/16 [facility] +adenoma dominick 5y. EKGD 11/23 antral mass benign. EUS [facility] 01/23 hyperplastic gastric fold-removal Coronary artery disease invo lving muscogee coronary artery of muscogee heart with angina pectoris 02/03/2020 Overview: [address]. 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 Patient's past notes reviewed. IVP images are personally reviewed. These demonstrate poor opacification of the patient's renal collecting system. Patient notes occasions of slow stream but denies significant urinary bother. Patient notes an aortic valve repair, stenosis found on preopera tive evaluation for knee surgery which is pending in February. Bladder Cancer: Presented to service Jul 2020. Presentation in 2009. IVP 2018 wnl. BCG treatments in the past. Has a prescription for tamsulosin. ED: Uses PRN sildenafil with good effect. PSA Results: Lab Results Component Value Date/Time PSA - [facility] 0.51 09/20/2022 03:23 PM PSA - [facility] 0.76 11/03/2020 09:09 AM PSA SCREENING 0.41 08/20/2013 02:27 PM PSA SCREENING 0.46 06/01/2009 10:56 AM PSA SCREENING RESULTS RECHECKED 06/01/2009 10:56 AM Creatinine Results: Lab Results Component Value Date/Time CREATININE - [facility] 1.3 (H) 09/20/2022 03:23 PM CREATININE - [facility] 1.3 (H) 09/10/2022 05:03 AM CREATININE - [facility] 1.2 09/09/2022 04:52 AM CREATININE - [facility] 1.1 02/03/2020 03:56 PM CREATININE - [facility] 1.4 (H) 09/18/2019 04:26 PM CREATININE - [facility] 0.9 12/07/2015 11:16 AM CREATININE POCT - [facility] 1.5 (H) 06/22/2022 10:38 AM CREATININE, RANDOM URINE - [facility] 25 02/03/2020 03:56 PM CREATININE, RANDOM URINE - [facility] 35 03/17/2015 03:00 PM CREATININE, RANDOM URINE - [facility] 97 08/20/2013 02:06 PM CREATININE-[facility] 1.72 (A) 06/25/2021 12:00 AM CREATININE-[facility] 1.18 10/22/2018 12:00 AM Current Outpatient Medications Medication Sig Dispense Refill iCabbi SYSTEM W/DEVICE KIT Use up to four times a day -Type II diabetes- #250.00 (Patient not taking: Reported on 09/20/2022) 1 Kit 0 SYSTANE 0.4-0.3 % OP SOLN one drop both eyes as needed (Patient not taking: Reported on 10/19/2022) Glucose Blood (BomodaUCH ULTRA BLUE) STRP Dx: E11.9 (Patient not taking: Reported on 09/20/2022) 100 Strip 11 ActianceTOUCH ULTRASOFT LANCETS MISC Use up to four times a day -Type II diabetes- Dx: E11.9 (Patient not taking: Reported on 09/20/2022) 1 Box Dosing Unit 11 Aspirin 81 MG Oral Tablet Delayed Release Take 1 Tablet by mouth in the morning. Multivitamin Adult Oral Tablet Take by mouth. CPAP every night at bedtime. Sildenafil Citrate 20 MG Oral Tablet (Revatio) Take by mouth 1-5 Tablets daily as needed for Erectile Dysfunction. (Patient not taking: Reported on 09/20/2022) 60 Tablet 6 Famotidine 20 MG Oral Tablet (Pepcid) Take 1 Tablet by mouth in the morning. For 30 days then stop.30 Tablet 0 Tamsulosin HCl 0.4 MG Oral Capsule (Flomax) Take 1 Capsule by mouth in the morning. 30 Capsule 1 metFORMIN HCl 500 MG Oral Tablet (Glucophage) TAKE ONE TABLET BY MOUTH TWICE A DAY WITH FOOD 180 Tablet 2 Furosemide 20 MG Oral Tablet (Lasix) TAKE 1 TABLET BY MOUTH DAILY 100 Tablet 2 Atorvastatin Calcium 40 MG Oral Tablet (Lipitor) TAKE ONE TABLET BY MOUTH EVERY DAY 90 Tablet 2 Metoprolol Succinate ER 25 MG Oral Tablet Extended Release 24 Hour (toPROL XL) Take 1 Tablet by mouth in the morning. 100 Tablet 0 Gabapentin 300 MG Oral Capsule (Neurontin) TAKE 1 CAPSULE BY MOUTH TWICE A DAY 180 Capsule 1 Allopurinol 300 MG Oral Tablet (Zyloprim) Take 1 Tablet by mouth in the morning. 30 Tablet 5 No current facility-administered medications for this visit. Review of patient's allergies indicates: Allergen Reactions Daptomycin Other reaction(s): RASHES Bactrim Itching Trimethoprim Other reaction(s): ITCHY BACK Social History: Social History Tobacco Use Smoking status: Former Packs/day: 1.00 Years: 38.00 Pack years: 38.00 Types: Cigarettes Quit date: 06/07/2006 Years since quittin.6 Passive exposure: Never Smokeless tobacco: Never Tobacco comments: starting smoking late teen, smokes 5-6 cigs per wk; peak use was one ppd , Substance Use Topics Alcohol use: No Alcohol/week: 11.7 standard drinks Types: 14 1.5 oz of liquor per week Comment: quit 2015 Vaping/E-Cigarette Use Vaping/E-Cigarette Substances Vaping/E-Cigarette Devices Past Surgical History: Procedure Laterality Date BCG FOR TB, LIVE, PERCU 05/05/2010 6 treatments CARDIAC CATH-CARDIOLOGY ONLY 06/08/2022 Cardiac cath Severe early-mid RCA stenosis. Dr Rajat Harris @[facility] COLONOSCOPY W/ LESION REMOVAL, SNARE 06/23/2009 15 mm polyp adenomatous polyp repeat in 1 year COLONOSCOPY, DIAGNOSTIC (RECTUM) 03/20/2013 repeat in 5 years COLONOSCOPY, DIAGNOSTIC (RECTUM) 12/31/2020 hemorrhoids, diverticulosis in sigmoid, 3- 2 to 3 mm in sigmoid & transverse /biopsies benign adenomatous polyps / 3 year recall / COLONOSCOPY FLEXIBLE PROXIMAL DIAGNOSTIC performed by Clay Peña MD at ENDOSCOPY [facility] COLONOSCOPY/REMOVE LESION 07/19/2010 adenomatous/repeat colnooscopy in 3 yra CORONARY ARTERY BYPASS, SINGLE N/A 09/05/2022 CORONARY ARTERY BYPASS GRAFT WITH 1 VEIN GRAFT performed by Bandar Estrada MD at [place] [facility] CYSTOSCOPY 01/04/2010 tumor found CYSTOSCOPY 09/20/2010 ansong CYSTOSCOPY 01/03/2011 neg CYSTOSCOPY 04/20/2011 CYSTOSCOPY 07/18/2011 no recurrence CYSTOSCOPY 11/21/2011 CYSTOSCOPY 03/19/2012 CYSTOSCOPY 07/16/2012 CYSTOSCOPY CYSTOSCOPY 03/25/2013 CYSTOSCOPY 10/13/2013 CYSTOSCOPY 05/25/2014 CYSTOSCOPY 01/04/[address] Worley [facility] CYSTOSCOPY/TREAT LGE BLADDER TUMOR 02/16/2010 CYSTOURETHROSCOPY WITH FULGURATION LARGE BLADDER TUMOR performed by RUSS BRAVO at [facility] CYSTOSCOPY/TREAT SML BLADDER TUMOR 06/08/2010 CYSTOURETHROSCOPY WITH FULGURATION SMALL BLADDER TUMOR performed by RUSS BRAVO at [facility] EGD, FLEXIBLE, DIAGNOSTIC 03/20/2013 UPPER GI ENDOSCOPY DIAGNOSTIC performed by Micky Edwards MD at ENDOSCOPY [facility],VIDEO ASSIST HARVEST NOHEMI N/A 09/05/2022 ENDOSCOPY VIDEO ASSISTED HARVEST VEIN performed by Bandar Estrada MD at [facility] EXERCISE ECHO 10/07/2002 No evidence for ischemic changes IMPACT TOOTH REMOV PART BONY early 20's wisdom teeth INFORMATION 02/07/2011 bcg x3 doses maintence per DANELLA INFORMATION 10/25/2012 repair of umbilical hernia with mesh at [facility] on 10/25/[address] Manrique with Annabelle Minor PA-C assisting IOF CT GUIDED NEEDLE BIOPSY 10/25/2007 CT GUIDED NEEDLE ASPIRATION BIOPSY performed by RUSS TOLENTINO at RADIOLOGY [facility] REMOVAL OF BLADDER TUMOR 01/12/2010 Cystotomy, Excision Bladder Tumor high grade muscle involved REMOVAL OF TONSILS, UNDER AGE 10 age 4 REMOVE CATARACT, INSERT LENS PROSTH Left 03/11/2014 EXTRACAPSULAR CATARACT REMOVAL WITH INTRAOCULAR LENS performed by Nakul Benz MD at OR [facility] REPAIR NECK SPINE FX/DISLOCATION 04/09/1988 C-1 fracture; mandibular/dental fractures REPLACEMENT AORTIC VALVE, BYPASS WITH PROSTHETIC VALVE N/A 09/05/2022 WITH REPLACEMENT AORTIC VALVE performed by Bandar Estrada MD at OR [facility] REVISE UPPER EYELID 11/07/2013 Past Medical History: Diagnosis Date 5 cm segment right liver mass 11/21/2007 fna indeterminate Asymptomatic stenosis of right carotid artery 02/03/2020 [facility] Benign neoplasm of colon 06/23/2009 15 mm polyp adenomatous polyp repeat in 1 yea Benign neoplasm of colon 07/19/10 adenomatous/repeat colnooscopy in 3 yra Bilateral sciatica 02/03/2020 Bladder cancer (HCC) 2011 had chemo tx's Bladder neoplasm 02/10/2010 Cervical spinal stenosis 06/30/202106/28 MRI Coronary artery disease involving muscogee coronary artery of muscogee heart without angina pectoris 02/03/[address] 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 Harshal Monge JACK on CPAP 09/28/2011 09/27/11 -- CPAP 10-13 cwp 08/2011 -- CPAP 8-15 cwp 07/2011 PSG -- AHI 55/hr Care Plus Oxygen Primary osteoarthritis of both knees 02/03/2020 Ptosis OU Sciatica Severe aortic stenosis 05/04/2022 Sleep apnea, obstructive Spasm of muscle 09/01/2009 Patient Active Problem List Diagnosis Code 5 cm segment right liver mass D37.6 Dyslipidemia, goal LDL below 100 E78.5 HTN, goal below 140/90 I10 Spinal stenosis of lumbar region without neurogenic claudication M48.061 Type 2 diabetes mellitus with hemoglobin A1c goal of less than 7.0% (HCC) E11.9 JACK on CPAP G47.33 Hemangioma of liver D18.03 Alcohol abuse, 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 History of bladder cancer Z85.51 PMR (polymyalgia rheumatica) (HCC) M35.3 long-term current use of systemic steroids Z79.52 Primary osteoarthritis of both knees M17.0 Bilateral sciatica M54.31, M54.32 Well adult exam Z00.00 Coronary artery disease involving mus[place]ee coronary artery of mus[place]ogee heart with angina pectoris (HCC)I25.119 Asymptomatic stenosis of right carotid artery I65.21 Nonrheumatic mitral valve regurgitation I34.0 Type 2 diabetes mellitus with microalbuminuria, without long-term current use of insulin E11.29, R80.9 Type 2 diabetes mellitus with diabetic neuropathy, without long-term current use of insulin (HCC) E11.40 Erectile dysfunction due to diseases classified elsewhere N52.1 Cervical spinal stenosis M48.02 Gouty arthropathy M10.9 S/P AVR (aortic valve replacement) Z95.2 S/P CABG (coronary artery bypass graft) Z95.1 Generalized osteoarthritis M15.9 Male : See HPI Physical Exam Nursing note reviewed. Exam conducted with a director of pulmonary unit present. Constitutional: General: He is not in acute distress. Appearance: He is obese. He is not toxic-appearing. Cystoscopy Procedure Note: Patient was properly identified and appropriate consent was confirmed. Risks and benefits of the procedure were reviewed and the patient was prepped and draped in the standard fashion for the procedure. A well lubricated 16 [place] flexible cystoscope was introduced through the meatus into the urethra. Urethra demonstrated no abnormalities. Prostatic urethra demonstrated prior TUR defect and prostatic regrowth. Bladder neck was visualized and bladder was entered. Sterile saline irrigation was used to distend the bladder which was noted to have no tumors, stones or mucosal abnormalities with grade 3 trabeculation. Bladder was completely inspected including retroflexion of the scope. Ureteral o rifices were noted to be in the normal anatomic position bilaterally. After this was completed the cystoscope was removed. Patient tolerated the procedure well without complications or difficulties. Orthotics Assistant was present for entire procedure. Perioperative ciprofloxacin was provided. Impression/Plan: 67-year-old male with a history of bladder cancer, RIC x 12 years. We are pleased with the lack of recurrence. Will move out to 18 month cystoscopy seen time since initial resection. Patient can certainly contact us sooner with any urinary issues or hematuria. Refill of sildenafil provided, patient will review with Cardiology before usage. Patric Villanueva MD 11:40 AM 01/23/2023 documented in this encounter Nursing Notes * Hailee Harrison LPN - 01/23/2023 11:38 AM EDT 1 yr ret with IVP (tele enc sent), cystoscopy consent signed Hx bladder cancer, ED Tamsulosin, sildenafil PSA Results: Lab Results Component Value Date/Time PSA - [facility] 0.51 09/20/2022 03:23 PM PSA - [facility] 0.76 11/03/2020 09:09 AM PSA SCREENING 0.41 08/20/2013 02:27 PM PSA SCREENING 0.46 06/01/2009 10:56 AM PSA SCREENING RESULTS RECHECKED 06/01/2009 10:56 AM documented in this encounter Plan of Treatment Upcoming Encounters Date Type Specialty Care Team Description 01/07/2024 Office Visit Rheumatology William Devine MD [address] [place] [address] Scheduled Orders Name Type Priority Associated Diagnoses Orde r Schedule CYSTOSCOPY Procedures Routine Malignant neoplasm of urinary bladder, unspecified site (HCC) Ordered: 01/23/2023 Scheduled Procedures Name Priority Associated Diagnoses Date/Ti me COLONOSCOPY FLEXIBLE PROXIMAL DIAGNOSTIC Recall History of colon polyps Health Maintenance Due Date Last Done Comments Zoster Vaccines (1 of 2) 03/05/2014 01/08/2014 Depression Screening 03/14/2017 03/14/2016 AAA Screening 2018 08/20/2009 DTaP,Tdap,and Td Vaccines (2 - Td or Tdap) 08/25/2020 08/25/2010, 01/05/2005, 10/07/1997 Albumin/Creatinine Ratio 02/02/202102/02/ 020, 03/17/2015, 08/20/2013, Additional history exists Diabetic [...] this encounter Medical Devices Implanted Type Area Hand Sole Sewer Device Identifier Shelf Expiration Date Model / Serial / Lot Lens 19.0 Sn60wf - [id number] Implanted:Qty: 1 on 03/11/2014 by Nakul Benz MD at OR [facility] Left: Eye [employer] 12/07/2018 SN60WF.190 / [id number] / Lens 20.0 Sn60wf - [id number] - [id number] Implanted:Qty: 1 on 03/24/2016 by Tommy العلي MD at OR [facility] Right: Eye ERIN : SURGICAL 12/07/2020 SN60WF.2 00 / [id number] / Marker Coronary - [id number] Implanted:Qty: 1 on 09/05/2022 by Bandar Estrada MD at [place] [facility] N/A: Heart [employer] 07/07/2025 [facility] / / [id number] documented as of this encounter Visit Diagnoses Diagnosis Malignant neoplasm of urinary bladder, unspecified site (HCC)- Primary Erectile dysfunction due to diseases classified elsewhere documented in this encounter Administered Medications Inactive Administered Medications - up to 3 most recent administrations Medication Order MAR Action Action Date Dose Rate Site ciprofloxacin (Cipro) tab 500 mg 500 mg, Oral, ONCE, On Sun01/23/23 at 1215, For 1 dose, Hold antacids and iron for 3-4 hours before and after administration. Given 01/23/2023 12:04 PM EDT 500 mg documented in this encounter Advance Directives Latest [...] and were consensually agreed upon. Care Teams Aircraft Structural Fitter Relationship Specialty Start Date End Date Spencer Pryor MD [address] [place] [address] PCP - General Family Medicine 02/03/20 documented as of this encounter
--- OUTSIDE RECORDS SUMMARY | 2023-03-19 09:36 | External Medical Summary | Summary of Care ---
Author Name Unknown Organization [facility] Address [address] [place] [address] Phone [phone] Care Team Providers Care Research Contracts Supervisor Name Role Phone Spencer Smtih MD Primary Care Provider + Reason for Visit * Reason Onset Date Comments Test Results 01/12/2023 IVP scheduled @ [facility], obtain results prior to office visit Encounter Details Date Type Department Care Team Description 01/12/2023 Telephone Urology, [facility] [address] [facility] [place] [address] Patric Villanueva MD [address] [facility] [address] [place] [address] Test Results (IVP scheduled 01/16 @ [facility], ... Allergies Active Allergy Reactions Severity Noted Date Comments Bactrim 08/22/2013 Itching Daptomycin High 05/18/2022 Other reaction(s): RASHES Trimethoprim Low 05/18/2022 Other reaction(s): ITCHY BACK documented as of this encounter (statuses as of 01/16/2023) Medications Medication Sig Dispensed Refills Start Date End Date Status Pairy SYSTEM W/DEVICE KITIndications:DM type 2, goal A1c [...] as of this encounter (statuses as of 01/16/2023) Active Problems Problem Noted Date Generalized osteoarthritis [...] Overview: Previous Dr Arevalo, then Dr Diallo [facility] PCP (insurance change). 06/08/22 Cardiac cath Severe early-mid RCA stenosis. Dr Rajat Harris @[facility] 05/01 TTE [facility] --Reviewed [facility] TTE 04/12/22. Normal ejection fraction [...] 3y 02/26 mammo/US Wnl-dominick May 2020 clinical [facility] uro yearly--considering follow Dr Rich Soto. Request colon, echo, carotid US, reports. Needs DEXA Lung CA screen 10/25 [facility]--rec yearly through 2021. (15y post quit date)_ Colon 10/18/16 [facility] +adenoma dominick 5y. EKGD 11/23 antral mass benign. EUS [facility] 01/23 hyperplastic gastric fold-removal Coronary artery disease invo lving upper [place] coronary artery of [place] heart with angina pectoris 02/03/2020 Overview: [address]. 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 They received orders and are waiting for a call to schedule. * Telephone Encounter - JACK Hansen - 01/12/2023 9:51 AM EDT Spoke with patient and he will call [facility] Central Scheduling to schedule XR IVP. Order has been faxed to [facility] again and phone number was provide for scheduling to the patient. * Telephone Encounter - Vicki Lara LPN - 01/12/2023 9:28 AM EDT Patient was to have IVP prior to upcoming appointment. Checked [employer], test was not done or scheduled at [facility]. Please contact patient to help arrange. Thank you Belkis documented in this encounter Plan of Treatment Upcoming Encounters Date Type Specialty Care Team Description 01/23/2023 Procedure Only Urology Patric Villanueva MD [address] [place] [address] 01/07/2024 Office Visit Rheumatology William Devine MD [address] [place] [address] Scheduled Procedures Name Priority Associated Diagnoses Date/Ti [...] this encounter Medical Devices Implanted Type Area Field Auto Appraiser Device Identifier Shelf Expiration Date Model / Serial / Lot Lens 19.0 Sn60wf - [id number] Implanted:Qty: 1 on 03/11/2014 by Nakul Benz MD at OR [facility] Left: Eye [employer] 12/07/2018 SN60WF.190 / [id number] / Lens 20.0 Sn60wf - [id number] - [id number] Implanted:Qty: 1 on 03/24/2016 by Tommy العلي MD at OR [facility] Right: Eye ERIN : SURGICAL 12/07/2020 SN60WF.2 00 / [id number] / Marker Coronary - [id number] Implanted:Qty: 1 on 09/05/2022 by Bandar Estrada MD at OR [facility] N/A: Heart [employer] 07/07/2025 [facility] / / [id number] documented as of this encounter Advance Directives [...] and were consensually agreed upon. Care Teams Research Contracts Supervisor Relationship Specialty Start Date End Date Spencer Smith MD [address] [place] [address] PCP - General Family Medicine 02/03/20 documented as of this encounter
--- OUTSIDE RECORDS SUMMARY | 2023-03-19 09:36 | External Medical Summary | Summary of Care ---
Author Name Unknown Organization [facility] Address [address] [place] [address] Phone [phone] Care Team Providers Care Health Services Rn Name Role Phone Spencer Smith MD Primary Care Provider + Reason for Visit * Reason Comments Cardiac Rehab Encounter Details Date Type Department Care Team Description 01/10/2023 Telemedicine Cardiac Rehab Advanced, Virtual [address] [place] [address] [place] [address] Advanced, Virtual Cardiac Rehab [address] [place] [address] [place] [address] S/P CABG (coronary artery bypass graft)* Allergies [...] not taking.Reported on 09/20/2022 ONETOUCH ULTRASOFT LANCETS [facility] Use up to four times a day [...] gastric fold-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 Asymptomatic stenosis of right carotid a rtery 02/03/2020 Overview: [facility] Nonrheumatic mitral valve regurgitation 02/03/2020 PMR (polymyalgia rheumatica) 05/27/2015 longterm current use of systemic steroi ds 05/27/2015 [...] encounter Progress Notes * CHELY Garza - 01/20/2023 12:18 AM EDT Session Encounter: Patient is participating in [facility]'s Intensive Cardiac Rehab Program in partnership with [employer]. [employer] is a specialized [employer] that specializes in providing virtual cardiac rehab services. Session #10 completed. Please refer to scan document for session details. Session type: Exercise Individual Session duration: 35 minutes documented in this encounter Plan of Treatment Upcoming Encounters Date Type Specialty Care Team Description 01/23/2023 Procedure Only Urology Patric Villanueva MD [address] [place] [address] 01/07/2024 Office Visit Rheumatology William Devine MD [address] [place] [address] Scheduled Procedures Name Priority Associated Diagnoses Date/Ti [...] this encounter Medical Devices Implanted Type Area Retail Merchandising Manager Device Identifier Shelf Expiration Date Model / Serial / Lot Lens 19.0 Sn60wf - [id number] Implanted:Qty: 1 on 03/11/2014 by Nakul Benz MD at OR [facility] Left: Eye [employer] 12/07/2018 SN60WF.190 / [id number] / Lens 20.0 Sn60wf - [id number] - [id number] Implanted:Qty: 1 on 03/24/2016 by Tommy العلي MD at OR [facility] Right: Eye ERIN : SURGICAL 12/07/2020 SN60WF.2 00 / [id number] / Marker Coronary - [id number] Implanted:Qty: 1 on 09/05/2022 by Bandar Estrada [place] [facility] [place]: Heart [employer] 07/07/2025 [facility] / / [id number] documented as of this encounter Visit Diagnoses [...] and were consensually agreed upon. Care Teams Health Services Rn Relationship Specialty Start Date End Date Spencer Smith MD [address] [facility] [place] [address] PCP - General Family Medicine 02/03/20 documented as of this encounter
--- OUTSIDE RECORDS SUMMARY | 2023-03-19 09:37 | External Medical Summary | Summary of Care ---
Author Name Unknown Organization [facility] Address [address] [place] [address] Phone [phone] Care Team Providers Care Commissioned Security Officer Name Role Phone Spencer Smith MD Primary Care Provider + Reason for Visit * Reason Comments Cardiac Rehab Encounter Details Date Type Department Care Team Description 12/25/2022 Telemedicine Cardiac Rehab Advanced, Virtual [address] [place] [address] [place] Owens [phone] Advanced, Virtual Cardiac Rehab [address] [place] [address] [place] [address] S/P CABG (coronary artery bypass graft)* Allergies Active Allergy Reactions Severity Noted Date Comments Bactrim 08/22/2013 Itching Daptomycin High 05/18/2022 Other reaction(s): RASHES Trimethoprim Low 05/18/2022 Other reaction(s): ITCHY BACK documented as of this encounter (statuses as of 01/04/2023) Medications Medication Sig Dispensed Refills Start Date [...] not taking.Reported on 09/20/2022 ONETOUCH ULTRASOFT LANCETS [facility] [place] Use up to four times a day [...] DAY 180 Capsule 1 11/03/2022 4 Active documented as of this encounter (statuses as of 01/04/2023) Active Problems Problem Noted Date Generalized osteoarthritis [...] Overview: Previous Dr Arevalo, then Dr Diallo [facility] PCP (insurance change). 06/08/22 Cardiac cath Severe early-mid RCA stenosis. Dr Rajta Harris @[facility] 05/01 TTE [facility] --Reviewed [facility] TTE 04/12/22. Normal ejection fraction 50-55%, grade [...] 3y 02/26 mammo/US Wnl-dominick May 2020 clinical [facility] uro yearly--considering follow Dr Villanueva to [place]. Request colon, echo, carotid US, reports. Needs DEXA Lung CA screen 10/25 [facility]--rec yearly through 2021. 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 EKGD 11/23 antral mass benign. 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 Asymptomatic stenosis of right carotid a rtery 02/03/2020 Overview: [facility] Nonrheumatic mitral valve regurgitation 02/03/2020 PMR (polymyalgia rheumatica) 05/27/2015 emt intermediate current use of systemic steroi ds 05/27/2015 [...] as of this encounter (statuses as of 01/04/2023) Resolved Problems Problem Noted Date Resolved Date [...] as of this encounter (statuses as of 01/04/2023) Immunizations Name Administration Dates Next Due COVID-19 [...] encounter Progress Notes * CHELY Garza - 01/04/2023 11:39 AM EDT Session Encounter: Patient is participating in [facility] in partnership with [employer] is a specialized company that specializes in providing virtual cardiac rehab services. Session #6 completed. Please refer to scan document for session details. Session type: Exercise Individual Session duration: 35 minutes documented in this encounter Plan of Treatment Upcoming Encounters Date Type Specialty Care Team Description 01/23/2023 Procedure Only Urology Patric Villanueva MD [address] [place] [address] 01/07/2024 Office Visit [facility]umat[facility] [address] [facility] [address] Scheduled Procedures Name Priority Associated Diagnoses [...] 03/20/2013, Additional history exists COVID-19 Vaccine Completed 01/12/2022, 02/2022, 01/31/2021, Additional history exists GARDASIL-HPV IMMUNIZATION SERIES Aged Out No longer eligible based on patient's age to complete this topic Hepatitis B Aged Out No longer eligi ble based on patient's age to complete this topic MENINGOCOCCAL (MENACTRA/MENVEO) Aged Out No longer eligible based on patient's age to complete this topic documented as of this encounter Medical Devices Implanted Type Area Tobacco Drier Operator Device Identifier Shelf Expiration Date Model / Serial / Lot Lens 19.0 Sn60wf - [id number] Implanted:Qty: 1 on 03/11/2014 by Nakul Benz MD at OR [facility] Left: Eye [employer] 12/07/2018 SN60WF.190 / [id number] / Lens 20.0 Sn60wf - [id number] - [id number] Implanted:Qty: 1 on 03/24/2016 by Tommy العلي MD at OR [facility] Right: Eye ERIN : SURGICAL 12/07/2020 SN60WF.2 00 / [id number] / Marker Coronary - [id number] Implanted:Qty: 1 on 09/05/2022 by Bandar Estrada MD at OR [facility] [place] [place] N/A: Heart [employer] 07/07/2025 [facility] / / [id number] documented as of this encounter Visit Diagnoses [...] and were consensually agreed upon. Care Teams Commissioned Security Officer Relationship Specialty Start Date End Date Spencer Smith MD [address] [place] [address] PCP - General Family Medicine 02/03/20 documented as of this encounter
--- OUTSIDE RECORDS SUMMARY | 2023-03-19 09:37 | External Medical Summary | Summary of Care ---
Author Name Unknown Organization [facility] Address [address] [place] [address] Phone [phone] Care Team Providers Care Stock Lifter Name Role Phone Spencer Smith MD Primary Care Provider + Encounter Details Date Type Department Care Team Description 01/12/2023 Telephone Urology, [facility] [address] [facility] [place] [address] Patric Villanueva MD [address] [place] [id number] Allergies Active Allergy Reactions Severity Noted Date Comments Bactrim 08/22/2013 Itching Daptomycin High 05/18/2022 Other reaction(s): RASHES Trimethoprim Low 05/18/2022 Other reaction(s): ITCHY BACK documented as of this encounter (statuses as of 01/15/2023) Medications Medication Sig Dispensed Refills Start Date [...] as of this encounter (statuses as of 01/15/2023) Active Problems Problem Noted Date Generalized osteoarthritis [...] Previous Dr Arevalo, then Dr Diallo [facility] PCP (insurance change). 06/08/22 Cardiac cath Severe early-mid RCA stenosis. Dr Rajat Harris @[facility] 05/01 TTE [facility] --Reviewed [facility] TTE 04/12/22. Normal ejection fraction [...] 02/26 mammo/US Wnl-dominick May 2020 clinical [facility] uro yearly--considering follow Dr Villanueva to [place]. Request colon, echo, carotid US, reports. Needs DEXA Lung CA screen 10/25 [facility]--rec yearly through 2021. 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 EKGD 11/23 antral mass benign. 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 They received orders and are waiting for a call to schedule. * Telephone Encounter - JACK Hansen - 01/12/2023 9:51 AM EDT Spoke with patient and he will call [facility] Central Scheduling to schedule XR IVP. Order has been faxed to [facility] again and phone number was provide for scheduling to the patient. * Telephone Encounter - Vicki Lara LPN - 01/12/2023 9:28 AM EDT Patient was to have IVP prior to upcoming appointment. Checked Teran[employer], test was not done or scheduled at [facility]. Please contact patient to help arrange. Thank you Belkis documented in this encounter Plan of Treatment Upcoming Encounters Date Type Specialty Care Team Description 01/23/2023 Procedure Only Urology Patric Villanueva MD [address] [place] [address] 01/07/2024 Office Visit Rheumatology [facility] Dev[facility] [phone] [facility] [facility] [phone] Scheduled Procedures Name Priority Associated Diagnoses Date/Ti [...] this encounter Medical Devices Implanted Type Area Commander Internal Affairs Device Identifier Shelf Expiration Date Model / Serial / Lot Lens 19.0 Sn60wf - [id number] Implanted:Qty: 1 on 03/11/2014 by Nakul Benz MD at OR [facility] Left: Eye [employer] 12/07/2018 SN60WF.190 / [id number] / Lens 20.0 Sn60wf - [id number] - [id number] Implanted:Qty: 1 on 03/24/2016 by Tommy العلي MD at OR [facility] Right: Eye ERIN : SURGICAL 12/07/2020 SN60WF.2 00 / [id number] / Marker Coronary - [id number] Implanted:Qty: 1 on 09/05/2022 by Bandar Estrada MD at [place] [facility] [place] N/A: Heart [employer] 07/07/2025 [facility] / / [id number] documented as of this encounter Advance Directives [...] and were consensually agreed upon. Care Teams Stock Lifter Relationship Specialty Start Date End Date Spencer Smith MD [address] [place] [address] PCP - General Family Medicine 02/03/20 documented as of this encounter
--- OUTSIDE RECORDS SUMMARY | 2023-03-19 09:37 | External Medical Summary | Summary of Care ---
Author Name Unknown Organization [facility] Address [address] [place] [address] Phone [phone] Care Team Providers Care Vendor Analyst Name Role Phone Spencer Smith MD Primary Care Provider + Reason for Visit * Reason Comments Cardiac Rehab Encounter Details Date Type Department Care Team Description 01/01/2023 Telemedicine Cardiac Rehab Advanced, Virtual [address] [place] [address] [place] [address] Advanced, Virtual Cardiac Rehab [address] [place] [address] [place] [address] S/P CABG (coronary artery bypass graft)* Allergies Active Allergy Reactions Severity Noted Date Comments Bactrim 08/22/2013 Itching Daptomycin High 05/18/2022 Other reaction(s): RASHES Trimethoprim Low 05/18/2022 Other reaction(s): ITCHY BACK documented as of this encounter (statuses as of 01/08/2023) Medications Medication Sig Dispensed Refills Start Date [...] not taking.Reported on 09/20/2022 ONETOUCH ULTRASOFT LANCETS [facility] [place] Use up to four times a day [...] 180 Capsule 1 11/03/2022 4 Active Allopurinol 100 MG Oral Tablet (Zyloprim) Take 100mg daily for 1 week, 200mg daily for 1 week then start 300mg tabs 21 Tablet 0 12/26/2022 Active Allopurinol 300 MG Oral Tablet (Zyloprim) Take 1 Tablet by mouth in the morning. 30 Tablet 5 12/26/2022 Active documented as of this encounter (statuses as of 01/08/2023) Active Problems Problem Noted Date Generalized osteoarthritis [...] 11/23 antral mass benign. 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 Session #8 completed. Please refer to scan document for session details. Session type: Exercise Individual Session duration: 35 minutes documented in this encounter Plan of Treatment Upcoming Encounters Date Type Specialty Care Team Description 01/23/2023 Procedure Only Urology Patric Villanueva MD [address] [place] [address] 01/07/2024 Office Visit Rheumatology William Devine MD [address] [place] [address] Scheduled Procedures Name Priority Associated Diagnoses Date/Ti [...] this encounter Medical Devices Implanted Type Area Bioassayist Device Identifier Shelf Expiration Date Model / Serial / Lot Lens 19.0 Sn60wf - [id number] Implanted:Qty: 1 on 03/11/2014 by Nakul Benz MD at OR [facility] Left: Eye [employer] 12/07/2018 SN60WF.190 / [id number] / Lens 20.0 Sn60wf - [id number] - [id number] Implanted:Qty: 1 on 03/24/2016 by Tommy العلي MD at OR [facility] Right: Eye ERIN : SURGICAL 12/07/2020 SN60WF.2 00 / [id number] / Marker Coronary - [id number] Implanted:Qty: 1 on 09/05/2022 by Bandar Estrada MD at [place] [facility] [place] N/A: Heart [employer] 07/07/2025 [facility] / / [id number] documented as of this encounter Visit Diagnoses [...] and were consensually agreed upon. Care Teams Vendor Analyst Relationship Specialty Start Date End Date Spencer Smith MD [address] [place] [address] PCP - General Family Medicine 02/03/20 documented as of this encounter
--- OUTSIDE RECORDS SUMMARY | 2023-03-19 09:37 | External Medical Summary | Summary of Care ---
Author Name Unknown Organization [facility] Address [address] [place] [address] Phone [phone] Care Team Providers Care Director Of Aviation Name Role Phone Spencer Smith MD Primary Care Provider + Reason for Visit * Reason Comments eRx-Medication Refill Encounter Details Date Type Department Care Team Description 01/06/2023 Refill Rheumatology [place] [address] [address] [place] [address] William Devine MD [facility] [employer] [place] [address] Allergies Active Allergy Reactions Severity Noted Date Comments Bactrim 08/22/2013 Itching Daptomycin High 05/18/2022 Other reaction(s): RASHES Trimethoprim Low 05/18/2022 Other reaction(s): ITCHY BACK documented as of this encounter (statuses as of 01/09/2023) Medications Medication Sig Dispensed Refills Start Date [...] the morning. 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 05/27/2015 [...] as of this encounter (statuses as of 01/09/2023) Resolved Problems Problem Noted Date Resolved Date [...] as of this encounter (statuses as of 01/09/2023) Immunizations Name Administration Dates Next Due COVID-19 [...] encounter Miscellaneous Notes * Telephone Encounter - [facility] - 01/09/2023 1:31 PM EDTRefused Prescriptions: Disp Refills Allopurinol 100 MG Oral Tablet (Zyloprim) 21 Tab*0 Sig: take 1 tablet by mouth once daily for 1 week then take 2 tablets once daily for 1 week then START 300 MG TABLETSRefused By: Mignon MACK for Refusal: Refill Not AppropriateReason for Refusal Comment: script for taper only * Telephone Encounter - Belle [place] lithograph press operator [employer] - 01/08/2023 2:29 PM EDTPending Prescriptions: Disp Refills Allopurinol 100 MG Oral Tablet [Pharmacy M*21 Tab*0 Sig: take 1 tablet by mouth once daily for 1 week then take 2 tablets once daily for 1 week then START 300 MG TABLETS * Telephone Encounter - Belle Castro lithograph press operator [employer] - 01/08/2023 2:29 PM EDT Patient is up to date for office visits. Pending Prescriptions: Disp Refills Allopurinol 100 MG Oral Tablet (Zyloprim)*21 Tab*0 Sig: take 1 tablet by mouth once daily for 1 week then take 2 tablets once daily for 1 week then START 300 MG TABLETS Last Visit: 12/26/2022 (in office), 09/09/2019 (telemedicine) Next Visit: Visit date not found If no future appointments scheduled, and last appointment is greater than a year ago, please schedule patient for a follow-up appointment Last date the medication was ordered: 12/26 Pharmacy: [id number] [facility] Is this request for a controlled substance?No it is not controlled. Urine Drug Screen:No results found. However, due to the size of the patient record, not all encounters were searched. Please check Results Review for a complete set of results. Patient Phone Numbers Labs: Lab Results Component Value Date/Time CREAT 1.3 (H) 09/20/2022 03:23 PM CREAT 1.5 (H) 06/22/2022 10:38 AM CREAT 1.72 (A) 06/25/2021 12:00 AM CREAT 1.1 02/03/2020 03:56 PM POTASSIUM 4.8 09/20/2022 03:23 PM POTASSIUM 4.6 09/05/2022 01:40 PM POTASSIUM 4.3 06/25/2021 12:00 AM POTASSIUM 4.8 02/03/2020 03:56 PM TSH 7.18 (H) 09/20/2022 03:23 PM TSH 3.12 09/09/2014 12:21 PM LDLCALC 63 11/03/2020 09:09 AM LDLCALC 74 10/22/2018 12:00 AM LDLCALC 54 12/07/2015 11:16 AM LDLDIRECT 71 06/06/2022 08:47 AM LDLDIRECT 71 02/03/2020 03:56 PM LDLDIRECT 140 (H) 02/25/2014 10:08 AM ALT 25 08/17/2022 01:04 PM ALT 23 09/18/2019 04:26 PM HGBA1C 5.9 (H) 08/17/2022 01:04 PM HGBA1C 6.1 (H) 02/03/2020 03:56 PM documented in this encounter Plan of Treatment Upcoming Encounters Date Type Specialty Care Team Description 01/23/2023 Procedure Only Urology Patric Villanueva MD [address] [place] [address] 01/07/2024 Office Visit Rheumatology William Devine MD [address] [employer] [facility], [place] [address] Scheduled Procedures Name Priority Associated Diagnoses Date/Ti [...] 05/12/2020, 0 12/11/2014, 01/08/2014, Additional history exists COVID-19 Vaccine ( season) 2022 01/12/2022, 08/17/2021, 01/31/2021, Additional history exists Influenza Vaccine (FLU shot) [...] Discontinued 12/31/2020, 12/31/2020, 03/20/2013, Additional history exists GARDASIL-HPV IMMUNIZATION SERIES Aged Out No longer eligible based on patient's age to complete this topic Hepatitis B Aged Out No longer eligi ble based on patient's age to complete this topic MENINGOCOCCAL (MENACTRA/MENVEO) Aged Out No longer eligible based on patient's age to complete this topic documented as of this encounter Medical Devices Implanted Type Area Photo Producer Device Identifier Shelf Expiration Date Model / Serial / Lot Lens 19.0 Sn60wf - [id number] Implanted:Qty: 1 on 03/11/2014 by Nakul Benz MD at OR [facility] Left: Eye [employer] 12/07/2018 SN60WF.190 / [id number] / Lens 20.0 Sn60wf - [id number] - [id number] Implanted:Qty: 1 on 03/24/2016 by Tommy العلي MD at OR [facility] Right: Eye ERIN : SURGICAL 12/07/2020 SN60WF.2 00 / [id number] / Marker Coronary - [id number] Implanted:Qty: 1 on 09/05/2022 by Bandar Estrada [place] [facility] [place]/A: Heart [employer] 07/07/2025 [facility] / / [id number] documented as of this encounter Advance Directives [...] and were consensually agreed upon. Care Teams Director Of Aviation Relationship Specialty Start Date End Date Spencer Smith MD [address] [place] [address] PCP - General Family Medicine 02/03/20 documented as of this encounter
--- OUTSIDE RECORDS SUMMARY | 2023-03-19 09:37 | External Medical Summary | Summary of Care ---
Author Name Unknown Organization [facility] Address [address] [place] [address] Phone [phone] Care Team Providers Care Peanut Butter Maker Name Role Phone Spencer Smith MD Primary Care Provider + Encounter Details Date Type Department Care Team Description 01/12/2023 Telephone Urology, [facility] 132 [facility] [place] [address] Patric Villanueva MD [address] [place] [address] [place] [phone] Allergies Active Allergy Reactions Severity Noted Date Comments Bactrim 08/22/2013 Itching Daptomycin High 05/18/2022 Other reaction(s): RASHES Trimethoprim Low 05/18/2022 Other reaction(s): ITCHY BACK documented as of this encounter (statuses as of 01/12/2023) Medications Medication Sig Dispensed Refills Start Date [...] as of this encounter (statuses as of 01/12/2023) Active Problems Problem Noted Date Generalized osteoarthritis [...] Previous Dr Arevalo, then Dr Diallo [facility] PCP (insurance change). 06/08/22 Cardiac cath Severe early-mid RCA stenosis. Dr Rajat Harris @[facility] 05/[address] [facility] --Reviewed [facility] TTE 04/12/22. Normal ejection fraction 50-55%, [...] 02/26 mammo/US Wnl-dominick May [address] [facility] uro yearly--considering follow Dr Villanueva to [place]. Request colon, echo, carotid US, reports. Needs DEXA Lung CA screen 10/25 [facility]--rec yearly through 2021. 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 EKGD 11/23 antral mass benign. 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 Asymptomatic stenosis of right carotid a rtery 02/03/2020 Overview: [facility] Nonrheumatic mitral valve regurgitation 02/03/2020 PMR (polymyalgia rheumatica) 05/27/2015 [facility] current use of systemic steroi ds 05/27/2015 [...] as of this encounter (statuses as of 01/12/2023) Resolved Problems Problem Noted Date Resolved Date [...] as of this encounter (statuses as of 01/12/2023) Immunizations Name Administration Dates Next Due COVID-19 [...] Spoke with patient and he will call [facility] Central Scheduling to schedule XR IVP. Order has been faxed to [facility] again and phone number was provide for scheduling to the patient. * Telephone Encounter - Vicki Lara LPN - 01/12/2023 9:28 AM EDT Patient was to have IVP prior to upcoming appointment. Checked [employer], test was not done or scheduled at [facility]. Please contact patient to help arrange. Thank you Belkis documented in this encounter Plan of Treatment Upcoming Encounters Date Type Specialty Care Team Description 01/23/2023 Procedure Only Urology Patric Villanueva MD [address] [place] [address] [place] [address] 01/07/2024 Office Visit [facility]umatology [facility] [address] [facility] [address] Scheduled Procedures Name Priority Associated [...] this encounter Medical Devices Implanted Type Area Web Designer Device Identifier Shelf Expiration Date Model / Serial / Lot Lens 19.0 Sn60wf - [id number] Implanted:Qty: 1 on 03/11/2014 by Naukl Benz MD at [facility] Left: Eye [employer] 12/07/2018 SN60WF.190 / [id number] / Lens 20.0 Sn60wf - [id number] - [id number] Implanted:Qty: 1 on 03/24/2016 by Tomym العلي MD at OR [facility] Right: Eye ERIN : SURGICAL 12/07/2020 SN60WF.2 00 / [id number] / Marker Coronary - [id number] Implanted:Qty: 1 on 09/05/2022 by Bandar Estrada MD at OR [facility] N/A: Heart [employer] 07/07/2025 [facility] / / [id number] documented as of this encounter Advance Directives [...] and were consensually agreed upon. Care Teams Peanut Butter Maker Relationship Specialty Start Date End Date Spencer Smith MD [address] [place] [address] PCP - General Family Medicine 02/03/20 documented as of this encounter
--- OUTSIDE RECORDS SUMMARY | 2023-03-19 09:37 | External Medical Summary | Summary of Care ---
Author Name Unknown Organization [facility] Address [address] [place] [address] Phone [phone] Care Team Providers Care Print Production Associate Name Role Phone Spencer Smith MD Primary Care Provider + Reason for Visit * Reason Comments Cardiac Rehab Encounter Details Date Type Department Care Team Description 01/03/2023 Telemedicine Cardiac Rehab [facility], Virtual [address] [place] [address] [place] [address] Advanced, Virtual Cardiac Rehab [address] [place] [address] [place] [address] S/P CABG (coronary artery bypass graft)* Allergies [...] not taking.Reported on 09/20/2022 ONETOUCH ULTRASOFT LANCETS [facility] Use up to four [...] Severe early-mid RCA stenosis. Dr Rajat Harris @[facility] 05/01 TTE [...] gastric fold-removal Coronary artery disease invo lving [place] coronary artery of [place] heart with angina pectoris 02/03/2020 Overview: [address]. 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 Session #9 completed. Please refer to scan document for session details. Session type: Exercise Individual Session duration: 35 minutes documented in this encounter Plan of Treatment Upcoming Encounters Date Type Specialty Care Team Description 01/23/2023 Procedure Only Urology Patric Villanueva MD [address] [place] [address] [place] [address] 01/07/2024 Office Visit Rheumatology William Devine MD [address] [place] [address] Scheduled Procedures Name Priority Associated Diagnoses Date/Ti [...] this encounter Medical Devices Implanted Type Area Electron Beam Machine Welder Setter Device Identifier Shelf Expiration Date Model / Serial / Lot Lens 19.0 Sn60wf - [id number] Implanted:Qty: 1 on 03/11/2014 by Nakul Benz MD at OR [facility] Left: Eye [employer] 12/07/2018 SN60WF.190 / [id number] / Lens 20.0 Sn60wf - [id number] - [id number] Implanted:Qty: 1 on 03/24/2016 by Tommy العلي MD at OR [facility] Right: Eye ERIN : SURGICAL 12/07/2020 SN60WF.2 00 / [id number] / Marker Coronary - [id number] Implanted:Qty: 1 on 09/05/2022 by Bandar Estrada MD at [place] [facility] N/A: Heart [employer] 07/07/2025 [facility] / / [id number] documented as of this encounter Visit Diagnoses [...] and were consensually agreed upon. Care Teams Print Production Associate Relationship Specialty Start Date End Date Spencer Smith MD [address] [place] [address] PCP - General Family Medicine 02/03/20 documented as of this encounter
--- OUTSIDE RECORDS SUMMARY | 2023-03-19 09:37 | External Medical Summary | Summary of Care ---
Author Name Unknown Organization [facility] Address [address] [place] [address] Phone [phone] Care Team Providers Care Loss Prevention Detective Name Role Phone Spencer Smith MD Primary Care Provider + Encounter Details Date Type Department Care Team Description 01/12/2023 Telephone Urology, [facility] 132 [facility] [place] [address] Patric Villanueva MD [address] [place] [address] [place] [phone] Allergies Active Allergy Reactions Severity Noted Date [...] Overview: Previous Dr Arevalo, then Dr Diallo [facility] PCP (insurance change). 06/08/22 Cardiac cath Severe early-mid RCA stenosis. Dr Rajat Harris @[facility] 05/01 TTE [facility] --Reviewed [facility] TTE 04/12/22. Normal ejection fraction [...] 3y 02/26 mammo/US Wnl-dominick May 2020 clinical [facility] uro yearly--considering follow Dr Villanueva to [place]. Request colon, echo, carotid US, reports. Needs DEXA Lung CA screen 10/25 [facility]--rec yearly through 2021. 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 EKGD 11/23 antral mass benign. 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 Asymptomatic stenosis of right carotid a rtery 02/03/2020 Overview: [facility] Nonrheumatic mitral valve regurgitation 02/03/2020 PMR (polymyalgia rheumatica) 05/27/2015 [facility] current use of systemic steroi ds 05/27/2015 [...] Spoke with patient and he will call [facility] Central Scheduling to schedule XR IVP. Order has been faxed to [facility] again and phone number was provide for scheduling to the patient. * Telephone Encounter - Vicki Lara LPN - 01/12/2023 9:28 AM EDT Patient was to have IVP prior to upcoming appointment. Checked [employer], test was not done or scheduled at [facility]. Please contact patient to help arrange. Thank you Belkis documented in this encounter Plan of Treatment Upcoming Encounters Date Type Specialty Care Team Description 01/23/2023 Procedure Only Urology Patric Villanueva MD 27 [facility] [address] [place] [address] 01/07/2024 Office Visit Rheumatology William Devine MD [address] [facility], [place] [address] Scheduled Procedures Name Priority Associated Diagnoses Date/Ti [...] this encounter Medical Devices Implanted Type Area Circuit Manager Device Identifier Shelf Expiration Date Model / Serial / Lot Lens 19.0 Sn60wf - [id number] Implanted:Qty: 1 on 03/11/2014 by Nakul Benz MD at OR [facility] Left: Eye [employer] 12/07/2018 SN60WF.190 / [id number] / Lens 20.0 Sn60wf - [id number] - [id number] Implanted:Qty: 1 on 03/24/2016 by Tommy العلي MD at OR [facility] Right: Eye ERIN : SURGICAL 12/07/2020 SN60WF.2 00 / [id number] / Marker Coronary - [id number] Implanted:Qty: 1 on 09/05/2022 by Bandar Estrada [place] [facility] N/A: Heart [employer] 07/07/2025 [facility] / / [id number] documented as of this encounter Advance Directives [...] and were consensually agreed upon. Care Teams Loss Prevention Detective Relationship Specialty Start Date End Date Spencer Smith MD 132 [facility] [place] [address] PCP - General Family Medicine 02/03/20 documented as of this encounter
--- OUTSIDE RECORDS SUMMARY | 2023-03-19 09:37 | External Medical Summary | Summary of Care ---
Author Name Unknown Organization [facility] Address [address] [place] [address] Phone [phone] Care Team Providers Care Ludlow Machine Operator Name Role Phone Spencer Smith MD Primary Care Provider + Encounter Details Date Type Department Care Team Description 01/12/2023 Telephone Urology, [facility] 132 [facility] [place] [address] Patric Villanueva MD [address] [place] [address] [place] [phone] Allergies Active Allergy Reactions Severity Noted Date [...] Overview: Previous Dr Arevalo, then Dr Diallo [facility] PCP (insurance change). 06/08/22 Cardiac cath Severe early-mid RCA stenosis. Dr Rajat Harris @[facility] 05/01 TTE [facility] --Reviewed [facility] TTE 04/12/22. Normal ejection fraction 50-55%, grade [...] 3y 02/26 mammo/US Wnl-dominick May 2020 clinical [facility] uro yearly--considering follow Dr Villanueva to [place]. Request colon, echo, carotid US, reports. Needs DEXA Lung CA screen 10/25 [facility]--rec yearly through 2021. 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 EKGD 11/23 antral mass benign. 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 Asymptomatic stenosis of right carotid a rtery 02/03/2020 Overview: [facility] Nonrheumatic mitral valve regurgitation 02/03/2020 PMR (polymyalgia rheumatica) 05/27/2015 [facility] current use of systemic steroi ds 05/27/2015 [...] Spoke with patient and he will call [facility] Central Scheduling to schedule XR IVP. Order has been faxed to [facility] again and phone number was provide for scheduling to the patient. * Telephone Encounter - Vicki Lara LPN - 01/12/2023 9:28 AM EDT Patient was to have IVP prior to upcoming appointment. Checked [employer], test was not done or scheduled at [facility]. Please contact patient to help arrange. Thank you Belkis documented in this encounter Plan of Treatment Upcoming Encounters Date Type Specialty Care Team Description 01/23/2023 Procedure Only Urology Patric Villanueva MD [address] [place] [address] [place] [address] 01/07/2024 Office Visit Rheumatology William Devine MD [address] [employer] [facility] [id number] Scheduled Procedures Name Priority Associated Diagnoses Date/Ti [...] this encounter Medical Devices Implanted Type Area Flyer Maker Device Identifier Shelf Expiration Date Model / Serial / Lot Lens 19.0 Sn60wf - [id number] Implanted:Qty: 1 on 03/11/2014 by Nakul Benz MD at OR [facility] Left: Eye [employer] 12/07/2018 SN60WF.190 / [id number] / Lens 20.0 Sn60wf - [id number] - [id number] Implanted:Qty: 1 on 03/24/2016 by Tommy العلي MD at OR [facility] Right: Eye ERIN : SURGICAL 12/07/2020 SN60WF.2 00 / [id number] / Marker Coronary - [id number] Implanted:Qty: 1 on 09/05/2022 by Bandar Estrada MD at [place] [facility] N/A: Heart [employer] 07/07/2025 [facility] / / [id number] documented as of this encounter Advance Directives [...] and were consensually agreed upon. Care Teams Ludlow Machine Operator Relationship Specialty Start Date End Date Spencer Simth MD [address] [place] [address] PCP - General Family Medicine 02/03/20 documented as of this encounter
--- OUTSIDE RECORDS SUMMARY | 2023-03-19 09:37 | External Medical Summary | Summary of Care ---
Author Name Unknown Organization [facility] Address [address] [place] [address] Phone [phone] Care Team Providers Care Automotive Product Engineer Name Role Phone pSencer Smith MD Primary Care Provider + Reason for Visit * Reason Comments Cardiac Rehab Encounter Details Date Type Department Care Team Description 12/27/2022 Telemedicine Cardiac Rehab Advanced, Virtual [address] [place] [address] [place] [address] Advanced, Virtual Cardiac Rehab [address] [place] [address] [place] [address] S/P CABG (coronary artery bypass graft)* Allergies [...] not taking.Reported on 09/20/2022 ONETOUCH ULTRASOFT LANCETS [facility] Use up to four [...] Overview: Previous Dr Arevalo, then Dr Diallo [facility] PCP (insurance change). 06/08/22 Cardiac cath Severe early-mid RCA stenosis. Dr Rajat Harris @[facility] 05/01 TTE [facility] --Reviewed [facility] TTE 04/12/22. Normal ejection fraction [...] 3y 02/26 mammo/US Wnl-dominick May 2020 clinical [facility] uro yearly--considering follow Dr Villanueva to [place]. Request colon, echo, carotid US, reports. Needs DEXA Lung CA screen 10/25 [facility]--rec yearly through 2021. 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 EKGD 11/23 antral mass benign. 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 Asymptomatic stenosis of right carotid a rtery 02/03/2020 Overview: [facility] Nonrheumatic mitral valve regurgitation 02/03/2020 PMR (polymyalgia rheumatica) 05/27/2015 [facility] current use of systemic steroi ds 05/27/2015 [...] Progress Notes * CHELY Garza - 01/04/2023 11:41 AM EDT Session Encounter: Patient is participating in [facility] Intensive Cardiac Rehab Program in partnership with [employer] is a specialized company that specializes in providing virtual cardiac rehab services. Session #7 completed. Please refer to scan document for session details. Session type: Exercise Individual Session duration: 35 minutes documented in this encounter Plan of Treatment Upcoming Encounters Date Type Specialty Care Team Description 01/23/2023 Procedure Only Urology Patric Villanueva MD [address] [place] [address] [place] [address] 01/07/2024 Office Visit Rheumatology William Devine MD [address] [place] [address] Scheduled Procedures Name Priority Associated Diagnoses Date/Ti [...] this encounter Medical Devices Implanted Type Area Associate Vice President Device Identifier Shelf Expiration Date Model / Serial / Lot Lens 19.0 Sn60wf - [id number] Implanted:Qty: 1 on 03/11/2014 by Nakul Benz MD at OR [facility] Left: Eye [employer] 12/07/2018 SN60WF.190 / [id number] / Lens 20.0 Sn60wf - [id number] 010 - [id number] Implanted:Qty: 1 on 03/24/2016 by Tommy العلي MD at OR [facility] Right: Eye ERIN : SURGICAL 12/07/2020 SN60WF.2 00 / [id number] 010 / Marker Coronary - [id number] Implanted:Qty: 1 on 09/05/2022 by Bandar Estrada MD [place] [facility] N/A: Heart [employer] 07/07/2025 [facility] / / [id number] documented as of this encounter Visit Diagnoses [...] and were consensually agreed upon. Care Teams Automotive Product Engineer Relationship Specialty Start Date End Date Spencer Smith MD [address] [place] [address] PCP - General Family Medicine 02/03/20 documented as of this encounter
--- OUTSIDE RECORDS SUMMARY | 2023-03-19 09:38 | External Medical Summary | Summary of Care ---
Author Name Unknown Organization [facility] Address [address] [place] [address] Phone [phone] Care Team Providers Care Graphite Grinder Name Role Phone Spencer Smith MD Primary Care Provider + Reason for Visit * Reason Comments Cardiac Rehab Encounter Details Date Type Department Care Team Description 12/18/2022 Telemedicine Cardiac Rehab Advanced, Virtual [address] [place] [address] [place] [address] Advanced, Virtual Cardiac Rehab [address] [place] [address] [place] [address] S/P CABG (coronary artery bypass graft)* Allergies Active Allergy Reactions Severity Noted Date Comments Bactrim 08/22/2013 Itching Daptomycin High 05/18/2022 Other reaction(s): RASHES Trimethoprim Low 05/18/2022 Other reaction(s): ITCHY BACK documented as of this encounter (statuses as of 01/02/2023) Medications Medication Sig Dispensed Refills Start Date [...] not taking.Reported on 09/20/2022 ONETOUCH ULTRASOFT LANCETS [facility] Use up to four times a day [...] as of this encounter (statuses as of 01/02/2023) Active Problems Problem Noted Date Generalized osteoarthritis [...] fold-removal Coronary artery disease invo lving [place] coronary artery of [place] heart with angina pectoris 02/03/2020 Overview: [address]. 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 Session #4 completed. Please refer to scan document for session details. Session type: Exercise Individual Session duration: 35 minutes documented in this encounter Plan of Treatment Upcoming Encounters Date Type Specialty Care Team Description 01/23/2023 Procedure Only Urology Patric Villanueva MD [address] [address] [place] [address] 01/07/2024 Office Visit Rheumatology William Devine [facility] [address] [facility] [address] Scheduled Procedures Name Priority Associated [...] this encounter Medical Devices Implanted Type Area Tube Balancer Device Identifier Shelf Expiration Date Model / Serial / Lot Lens 19.0 Sn60wf - [id number] Implanted:Qty: 1 on 03/11/2014 by Nakul Benz MD at OR [facility] Left: Eye [employer] 12/07/2018 SN60WF.190 / [id number] / Lens 20.0 Sn60wf - [id number] 010 - [id number] Implanted:Qty: 1 on 03/24/2016 by Tommy العلي MD at OR [facility] Right: Eye ERIN : SURGICAL 12/07/2020 SN60WF.2 00 / [id number] 010 / Marker Coronary - [id number] Implanted:Qty: 1 on 09/05/2022 by Bandar Estrada MD at OR [facility] N/A: Heart [employer] 07/07/2025 [facility] / / [id number] documented as of this encounter Visit Diagnoses [...] and were consensually agreed upon. Care Teams Graphite Grinder Relationship Specialty Start Date End Date Spencer Smith MD [address] [place] [address] PCP - General Family Medicine 02/03/20 documented as of this encounter
--- OUTSIDE RECORDS SUMMARY | 2023-03-19 09:38 | External Medical Summary | Summary of Care ---
Author Name Unknown Organization [facility] Address [address] [place] [address] Phone [phone] Care Team Providers Care Citrus Fruit Colorer Name Role Phone Spencer Smith MD Primary Care Provider + Reason for Visit * Reason Comments Cardiac Rehab Encounter Details Date Type Department Care Team Description 12/13/2022 Telemedicine Cardiac Rehab Advanced, Virtual [address] [place] [address] [place] [id number] Advanced, Virtual Cardiac Rehab [address] [place] [address] [place]acosta [address] S/P CABG (coronary artery bypass graft)* Allergies [...] not taking.Reported on 09/20/2022 ONETOUCH ULTRASOFT LANCETS [facility] Use up to four times [...] Overview: Previous Dr Arevalo, then Dr Diallo [facility] PCP (insurance change). 06/08/22 Cardiac cath Severe early-mid RCA stenosis. Dr Rajat Harris @[facility] 05/01 TTE [facility] --Reviewed [facility] TTE 04/12/22. Normal ejection fraction [...] 3y 02/26 mammo/US Wnl-dominick May 2020 clinical [facility] uro yearly--considering follow Dr Villanueva to [place]. Request colon, echo, carotid US, reports. Needs DEXA Lung CA screen 10/25 [facility]--rec yearly through 2021. (15y post quit date)_ Colon 10/18/16 [facility] +adenoma dominick 5y. EKGD 11/23 antral mass benign. 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 Session #3 completed. Please refer to scan document for session details. Session type: Exercise Individual Session duration: 35 minutes documented in this encounter Plan of Treatment Upcoming Encounters Date Type Specialty Care Team Description 01/23/2023 Procedure Only Urology Patric Villanueva MD [address] [place] [address] 01/07/2024 Office Visit [facility]umat[facility] [address] [facility] [address] Scheduled Procedures Name Priority Associated [...] this encounter Medical Devices Implanted Type Area Script Writer Device Identifier Shelf Expiration Date Model / Serial / Lot Lens 19.0 Sn60wf - [id number] Implanted:Qty: 1 on 03/11/2014 by Nakul Benz MD at OR [facility] Left: Eye [employer] 12/07/2018 SN60WF.190 / [id number] / Lens 20.0 Sn60wf - [id number] - [id number] Implanted:Qty: 1 on 03/24/2016 by Tommy العلي MD at OR [facility] Right: Eye ERIN : SURGICAL 12/07/2020 SN60WF.2 00 / [id number] / Marker Coronary - [id number] Implanted:Qty: 1 on 09/05/2022 [place] Bandar Estrada [place] [facility] [place]A: Heart [employer] 07/07/2025 [facility] / / [id number] documented as of this encounter Visit Diagnoses [...] and were consensually agreed upon. Care Teams Citrus Fruit Colorer Relationship Specialty Start Date End Date Spencer Smith MD [address] [place] [address] PCP - General Family Medicine 02/03/20 documented as of this encounter
--- OUTSIDE RECORDS SUMMARY | 2023-03-19 09:38 | External Medical Summary | Summary of Care ---
Author Name Unknown Organization [facility] Address [address] [place] [address] Phone [phone] Care Team Providers Care Residential Treatment Staff Name Role Phone Spencer Smith MD Primary Care Provider + Reason for Visit * Reason Comments Cardiac Rehab Encounter Details Date Type Department Care Team Description 12/20/2022 Telemedicine Cardiac Rehab Advanced, Virtual [address] [place] [address] [place] Owens [address] Advanced, Virtual Cardiac Rehab [address] [place] [address] [place] Dacosta [address] S/P CABG (coronary artery bypass graft)* Allergies [...] not taking.Reported on 09/20/2022 ONETOUCH ULTRASOFT LANCETS [facility] Use up to four times a day [...] Previous Dr Arevalo, then Dr Diallo [facility] PCP (insurance change). 06/08/22 Cardiac cath Severe early-mid RCA stenosis. Dr Rajat Harris @[facility] 05/01 TTE [facility] --Reviewed [facility] TTE 04/12/22. Normal ejection fraction 50-55%, grade [...] 02/26 mammo/US Wnl-dominick May 2020 clinical [facility] uro yearly--considering follow Dr Villanueva to [place]. Request colon, echo, carotid US, reports. Needs DEXA Lung CA screen 10/25 [facility]--rec yearly through 2021. (15y post quit date)_ Colon 10/18/16 [facility] +adenoma dominick 5y. EKGD 11/23 antral mass benign. 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 Session #5 completed. Please refer to scan document for session details. Session type: Exercise Individual Session duration: 35 minutes documented in this encounter Plan of Treatment Upcoming Encounters Date Type Specialty Care Team Description 01/23/2023 Procedure Only Urology Patric Villanueva MD [address] [place] [address] 01/07/2024 Office Visit [facility]umat[facility] [address] [facility] [address] Scheduled Procedures Name Priority Associated [...] this encounter Medical Devices Implanted Type Area Mutuel Clerk Device Identifier Shelf Expiration Date Model / Serial / Lot Lens 19.0 Sn60wf - [id number] Implanted:Qty: 1 on 03/11/2014 by Nakul Benz MD at OR [facility] Left: Eye [employer] 12/07/2018 SN60WF.190 / [id number] / Lens 20.0 Sn60wf - [id number] - [id number] Implanted:Qty: 1 on 03/24/2016 by Tommy العلي MD at OR [facility] Right: Eye ERIN : SURGICAL 12/07/2020 SN60WF.2 00 / [id number] / Marker Coronary - [id number] Implanted:Qty: 1 on 09/05/2022 by Bandar Estrada MD at OR [facility] N/A: Heart [employer] 07/07/2025 [facility] / / [id number] documented as of this encounter Visit Diagnoses [...] and were consensually agreed upon. Care Teams Residential Treatment Staff Relationship Specialty Start Date End Date Spencer Smith MD [address] [place] [address] PCP - General Family Medicine 02/03/20 documented as of this encounter
--- OUTSIDE RECORDS SUMMARY | 2023-03-19 09:39 | External Medical Summary | Summary of Care ---
Author Name Unknown Organization [facility] Address [address] [place] [address] Phone [phone] Care Team Providers Care Bricklayer Sewer Name Role Phone Spencer Pryor MD Primary Care Provider + Reason for Visit * Reason Comments Medication Refill Encounter Details Date Type Department Care Team Description 11/02/2022 Refill Family Practice [facility] [address] [facility] [place] [id number] Spencer Pryor MD [address] [facility] [place] [address] Diabetic polyneuropathy associated with type 2 diabetes mellitus (HCC) Allergies Active Allergy Reactions Severity Noted Date Comments Bactrim 08/22/2013 Itching Daptomycin High 05/18/2022 Other reaction(s): RASHES Trimethoprim Low 05/18/2022 Other reaction(s): ITCHY BACK documented as of this encounter (statuses as of 11/03/2022) Medications Medication Sig Dispensed Refills Start Date End Date Status PureLiFiTOUCH ULTRA SYSTEM W/DEVICE KITIndications:DM type 2, goal [...] the morning. 30 Capsule 1 09/10/2022 Active Apixaban 5 MG Oral Tablet (Eliquis) TAKE ONE TABLET BY MOUTH TWO TIMES A DAY 180 Tablet 3 10/05/2022 10/05/19 24 Active metFORMIN HCl 500 MG Oral Tablet [...] 180 Capsule 1 11/03/2022 11/03/19 24 Active Gabapentin 300 MG Oral Capsule (Neurontin)Indicati ons:Diabetic polyneuropathy associated with type 2 diabetes mellitus (HCC) TAKE 1 CAPSULE BY MOUTH TWICE A DAY 180 Capsule 1 05/02/2022 11/03/19 23 Discontinu ed(Refill) documented as of this encounter (statuses as of 11/03/2022) Active Problems Problem Noted Date S/P AVR (aortic valve replacement) 09/20 S/P [...] clinical [facility] uro yearly--considering follow Dr Rich Soto. Request colon, echo, carotid US, reports. Needs DEXA Lung CA screen 10/25 [facility]--rec yearly through 2021. (15y post quit date)_ Colon 10/18/16 [facility] +adenoma dominick 5y. EKGD 11/23 antral mass benign. 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 05/27/2015 [...] as of this encounter (statuses as of 11/03/2022) Resolved Problems Problem Noted Date Resolved Date [...] as of this encounter (statuses as of 11/03/2022) Immunizations Name Administration Dates Next Due COVID-19 mRNA, LNP-s, No Pre serve, 2-Dose Series (Moderna) 01/31/2021,06/07/2020,05/03/2020 Covid-19 Mrna, Lnp-s, No Pre serve, Booster (Moderna) 08/17/2021 Covid-19, Mrna, Lnp-s, Pf, B ivalent, 50 Mcg, IM, 12 yrs and above (Moderna) 01/12/2022 Pneumococcal Conjugate Vacc, 13 Valent (Prevnar) 02/03/2020 Pneumococcal Polysaccharide PPV23 (Pneumovax) 11/10/2020,05/05/2011 Seasonal Influenza, Quadriva lent Hd, 65+ Yrs 01/07/2022,02/21/2021 Seasonal Influenza, Quadriva lent, No Preserve, Adjuvanted, 65+ Yrs, IM 02/03/2020 Seasonal Influenza, Quadriva lent, No Preserve, IM [...] Miscellaneous Notes * Telephone Encounter - Spencer Pryor MD - 11/03/2022 10:32 AM EDTSigned Prescriptions: Disp Refills Gabapentin 300 MG Oral Capsule (Neurontin) 180 Ca*1 Sig: TAKE 1 CAPSULE BY MOUTH TWICE A DAY Authorizing Provider: SPENCER PRYOR * Telephone Encounter - MELVINA Boss Smartvue - 11/03/2022 7:58 AM EDT Pending Prescriptions: Disp Refills Gabapentin 300 MG Oral Capsule (Neurontin) 180 Ca*1 Sig: TAKE 1 CAPSULE BY MOUTH TWICE A DAY * Telephone Encounter - MELVINA Boss ASSIST - 11/03/2022 7:57 AM EDT Did you pend patient's preferred pharmacy and medication before forwarding?yes Pharmacy: [facility] Pending Prescriptions: Disp Refills Gabapentin 300 MG Oral Capsule (Neurontin)180 Ca*1 Sig: TAKE 1 CAPSULE BY MOUTH TWICE A DAY Last Visit: 09/20/2022 (in office), 03/24/2022 (telemedicine) Next Visit: Visit date not found If no future appointments scheduled, and last appointment is greater than a year ago, please schedule patient for a follow-up appointment Last date the medication was ordered: 05/02/2022 Is this request for a controlled substance?No Urine Drug Screen:No results found. However, due [...] PM HGBA1C 6.1 (H) 02/03/2020 03:56 PM * Telephone Encounter - Virginia Aragon - 11/02/2022 10:40 PM EDTPending Prescriptions: Disp Refills Gabapentin 300 MG Oral Capsule (Neurontin) 180 Ca*1 Sig: TAKE 1CAPSULE BY MOUTH TWICE A DAY documented in this encounter Plan of Treatment Upcoming Encounters Date Type Specialty Care Team Description 12/26/2022 Office Visit Rheumatology William Devine MD [address] [employer] [facility] [place] [address] 01/23/2023 Procedure Only Urology Patric Villanueva MD [address] [place] [address] Scheduled Procedures Name Priority Associated Diagnoses Date/Ti me COLONOSCOPY FLEXIBLE PROXIMAL DIAGNOSTIC Recall History of colon polyps Health Maintenance Due Date Last Done Comments Zoster Vaccines (1 of 2) 03/05/2014 01/08/2014 Depression Screening, Annual for Pts 12 and Over 03/14/2017 03/14/2016 AAA Screening 2018 08/20/2009 DTaP,Tdap,and Td Vaccines (2 - Td or Tdap) 08/25/2020 08/25/2010, 01/05/2005, 10/07/1997 Albumin/Creatinine Ratio 02/02/2021 020, 03/17/2015, 08/20/2013, Additional history exists DIABETES-FOOT EXAM 05/12/2021 05/12/2020, 0 12/11/2014, 01/08/2014, Additional history [...] this encounter Medical Devices Implanted Type Area Er Medical Technician Device Identifier Shelf Expiration Date Model / Serial / Lot Lens 19.0 Sn60wf - [id number] Implanted:Qty: 1 on 03/11/2014 by Nakul Benz MD at OR [facility] Left: Eye [employer] 12/07/2018 SN60WF.190 / [id number] / Lens 20.0 Sn60wf - [id number] - [id number] Implanted:Qty: 1 on 03/24/2016 by Tommy العلي MD at OR [facility] Right: Eye ERIN : SURGICAL 12/07/2020 SN60WF.2 00 / [id number] / Marker Coronary - [id number] Implanted:Qty: 1 on 09/05/2022 [place] Bandar Estrada [place] [facility] [place]: Heart [employer] 07/07/2025 [facility] / / [id number] documented as of this encounter Visit Diagnoses Diagnosis Diabetic polyneuropathy associated with type 2 diabetes mellitus (HCC) documented in this encounter Advance Directives Latest [...] and were consensually agreed upon. Care Teams Bricklayer Sewer Relationship Specialty Start Date End Date Spencer Pryor MD [address] [place] [address] PCP - General Family Medicine 02/03/20 documented as of this encounter
--- OUTSIDE RECORDS SUMMARY | 2023-03-19 09:39 | External Medical Summary | Summary of Care ---
Author Name Unknown Organization [facility] Address [address] [place] [address] Phone [phone] Care Team Providers Care Boiler Shop Mechanic Name Role Phone Spencer Smith MD Primary Care Provider + Encounter Details Date Type Department Care Team Description 12/12/2022 Orders Only Family [facility] [address] [place] [address] Spencer Smith MD [address] [facility] [place] [address] Allergies Active Allergy Reactions Severity Noted Date Comments Bactrim 08/22/2013 Itching Daptomycin High 05/18/2022 Other reaction(s): RASHES Trimethoprim Low 05/18/2022 Other reaction(s): ITCHY BACK documented as of this encounter (statuses as of 12/12/2022) Medications Medication Sig Dispensed Refills Start Date [...] 180 Capsule 1 11/03/2022 11/03/19 24 Active Apixaban 5 MG Oral Tablet (Eliquis) TAKE ONE TABLET BY MOUTH TWO TIMES A DAY 180 Tablet 3 10/05/2022 12/13/19 23 Discontinu ed(Medicat ion List Clean Up) documented as of this encounter (statuses as of 12/12/2022) Active Problems Problem Noted Date S/P AVR [...] Overview: Previous Dr Arevalo, then Dr Diallo [facility] PCP (insurance change). 06/08/22 Cardiac cath Severe early-mid RCA stenosis. Dr Rajat Harris @[facility] 05/01 TTE [facility] --Reviewed [facility] TTE 04/12/22. Normal ejection fraction 50-55%, [...] 3y 02/26 mammo/US Wnl-dominick May 2020 clinical [facility] uro yearly--considering follow Dr Rich Soto. Request colon, echo, carotid US, reports. Needs DEXA Lung CA screen 10/25 [facility]--rec yearly through 2021. (15y post quit date)_ Colon 10/18/16 [facility] +adenoma dominick 5y. EKGD 11/23 antral mass benign. 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 current use of systemic steroi ds 05/27/2015 [...] as of this encounter (statuses as of 12/12/2022) Resolved Problems Problem Noted Date Resolved Date [...] as of this encounter (statuses as of 12/12/2022) Immunizations Name Administration Dates Next Due COVID-19 [...] 12/26/2022 Office Visit Rheumatology William Devine MD [address] [place] [address] 01/23/2023 Procedure Only Urology Patric Villanueva MD [...] this encounter Medical Devices Implanted Type Area Tipple Boss Device Identifier Shelf Expiration Date Model / Serial / Lot Lens 19.0 Sn60wf - [id number] Implanted:Qty: 1 on 03/11/2014 by Nakul Benz MD at OR [facility] Left: Eye [employer] 12/07/2018 SN60WF.190 / [id number] / Lens 20.0 Sn60wf - [id number] - [id number] Implanted:Qty: 1 on 03/24/2016 by Tommy العلي MD at OR [facility] Right: Eye ERIN : SURGICAL 12/07/2020 SN60WF.2 00 / [id number] / Marker Coronary - [id number] Implanted:Qty: 1 on 09/05/2022 by Bandar Estrada MD at [place] [facility] [place] N/A: Heart [employer] 07/07/2025 [facility] / / [id number] documented as of this encounter Advance Directives [...] were consensually agreed upon. Care Teams Boiler Shop Mechanic Relationship Specialty Start Date End Date Spencer Smith MD [address] [place] [address] PCP - General Family Medicine 02/03/20 documented as of this encounter
--- OUTSIDE RECORDS SUMMARY | 2023-03-19 09:39 | External Medical Summary | Summary of Care ---
Author Name Unknown Organization [facility] Address [address] [place] [address] Phone [phone] Care Team Providers Care Psychology Fellow Name Role Phone Spencer Smith MD Primary Care Provider + Reason for Visit * Reason Onset Date Comments Test Results 10/07/2022 Encounter Details Date Type Department Care Team Description 10/07/[address] [facility] [address] [place] [id number] Spencer Smith MD [address] [place] [id number] Test Results Allergies Active Allergy Reactions Severity Noted Date Comments Bactrim 08/22/2013 Itching Daptomycin High 05/18/2022 Other reaction(s): RASHES Trimethoprim Low 05/18/2022 Other reaction(s): ITCHY BACK documented as of this encounter (statuses as of 10/09/2022) Medications Medication Sig Dispensed Refills Start Date End Date Status MDLIVETOUCH ULTRA SYSTEM W/DEVICE KITIndications:DM type 2, goal [...] Additional Information Patient not taking.Reported on 09/20/2022 Gabapentin 300 MG Oral Capsule (Neurontin)Indicatio ns:Diabetic polyneuropathy associated with type 2 diabetes mellitus (HCC) TAKE ONE CAPSULE BY MOUTH TWICE A DAY 180 Capsule 1 05/02/2022 Active Atorvastatin Calcium 40 MG Oral Tablet (Lipitor) TAKE ONE TABLET BY MOUTH EVERY DAY 90 Tablet 2 06/28/2022 Active Furosemide 20 MG Oral Tablet (Lasix)Indications:E rosanne TAKE ONE TABLET BY MOUTH EVERY DAY 100 Tablet 2 07/18/2022 Active metFORMIN HCl 500 MG Oral Tablet (Glucophage)Indicati ons:Type 2 diabetes mellitus with hemoglobin A1c goal of less than 7.0% (HCC) TAKE ONE TABLET BY MOUTH TWICE A DAY WITH FOOD 180 Tablet 2 08/14/2022 Active Amiodarone HCl 200 MG Oral Tablet (Cordarone) Take 1 Tablet by mouth in the morning. For 30 days then stop. 30 Tablet 0 09/10/2022 Active Famotidine 20 MG Oral Tablet (Pepcid) Take 1 Tablet by mouth in the morning. For 30 days then stop. 30 Tablet 0 09/10/2022 Active Metoprolol Succinate ER 25 MG Oral Tablet Extended Release 24 Hour (toPROL XL) Take 1 Tablet by mouth in the morning. 30 Tablet 5 09/10/2022 Active oxyCODONE HCl 5 MG Oral Tablet (Oxy IR) Take 1 Tablet by mouth every 4 hours as needed for Pain, Moderate. 20 Tablet 0 09/10/2022 Active Tamsulosin HCl 0.4 MG Oral Capsule (Flomax) Take 1 Capsule by mouth in the morning. 30 Capsule 1 09/10/2022 Active documented as of this encounter (statuses as of 10/09/2022) Active Problems Problem Noted Date S/P AVR [...] [facility] uro yearly--considering follow Dr Rich Soto. Request colon, echo, carotid US, reports. Needs DEXA Lung CA screen 10/25 [facility]--rec yearly through 2021. 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 +adenoma dominick 5y. EKGD 11/23 antral mass benign. 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 Asymptomatic stenosis of right carotid a rtery 02/03/2020 Overview: 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 (15 years old or older) No 05/30/20 23 Cognitive Status Response Date of Assessm ent Because of a physical, menta l, or emotional condition, do you have serious difficulty concentrating, remembering, or making decisions? (5 years old or older No 09/05/2022 documented as of this encounter Miscellaneous Notes * Telephone Encounter - Kyra Bragg LPN - 10/09/2022 11:40 AM EDT Faxed to Dr. Cordoba office per request. * Telephone Encounter - Spencer Smith MD - 10/07/2022 9:54 AM EDT Nursing-please fax Zio results to [facility] Cardiology attn: Dr Rajat Harris, and ask him to let me knowif any med adjustment needed. documented in this encounter Plan of Treatment Upcoming Encounters Date Type Specialty Care Team Description 10/19/2022 Office Visit Cardiothoracic Surgery Bandar Estrada MD [address] [place] [address] 12/26/2022 Office Visit Rheumatology William Devine MD [address] [place] [address] 01/23/2023 Procedure Only Urology Patric Villanueva MD [address] [place] [address] Scheduled Procedures Name Priority Associated Diagnoses Date/Ti me COLONOSCOPY FLEXIBLE PROXIMAL DIAGNOSTIC Recall History of colon polyps Health Maintenance Due Date Last Done Comments Zoster Vaccines (1 of 2) 03/05/2014 01/08/2014 Depression Screening, Annual for Pts 12 and Over 03/14/2017 03/14/2016 DTaP,Tdap,and Td Vaccines (2 - Td or Tdap) 08/25/2020 08/25/2010, 01/05/2005, 10/07/1997 Albumin/Creatinine Ratio 02/02/2021 020, 03/17/2015, 08/20/2013, Additional history exists DIABETES-FOOT EXAM 05/12/2021 05/12/2020, 0 12/11/2014, 01/08/2014, Additional history exists DIABETES-EYE EXAM 05/02/2022 05/02/2021, , 11/01/2015, Additional history exists Influenza Vaccine (FLU shot) (#1) 2022 01/07/2022, 02/21/2021, 02/03/2020, Additional history exists HbA1c 2023 08/17/2022, 03/09, 11/03/2020, Additional history exists GFR 09/21/2023 09/20/2022, 07/2022, 09/09/2022, Additional history exists Yearly B-12 09/21/2023 09/20/2022, 08/07, 03/25/2022, Additional history exists COLONOSCOPY-EVERY 3 YRS AGES [...] this encounter Medical Devices Implanted Type Area Aquatic Centre Manager Device Identifier Shelf Expiration Date Model / Serial / Lot Lens 19.0 Sn60wf - [id number] Implanted:Qty: 1 on 03/11/2014 by Nakul Benz MD at OR [facility] Left: Eye [employer] 12/07/2018 SN60WF.190 / [id number] / Lens 20.0 Sn60wf - [id number] - [id number] Implanted:Qty: 1 on 03/24/2016 by Tommy العلي MD at OR [facility] Right: Eye ERIN : SURGICAL 12/07/2020 SN60WF.2 00 / [id number] / Marker Coronary - [id number] Implanted:Qty: 1 on 09/05/2022 by Bandar Estrada MD at OR [facility] N/A: Heart [employer] 07/07/2025 [facility] / / [id number] documented as of this encounter Advance Directives [...] and were consensually agreed upon. Care Teams Psychology Fellow Relationship Specialty Start Date End Date Spencer Smith MD [address] [place] [address] PCP - General Family Medicine 02/03/20 documented as of this encounter
--- OUTSIDE RECORDS SUMMARY | 2023-03-19 09:39 | External Medical Summary | Summary of Care ---
Author Name Unknown Organization [facility] Address [address] [facility] [address] Phone [phone] Care Team Providers Care Licensed Social Worker Name Role Phone Spencer Smith MD Primary Care Provider + Encounter Details Date Type Department Care Team Description 10/17/2022 Orders Only Family [facility] [address] [place] [address] Spencer Smith MD [address] [place] [address] Allergies Active Allergy Reactions Severity Noted Date Comments Bactrim 08/22/2013 Itching Daptomycin High 05/18/2022 Other reaction(s): RASHES Trimethoprim Low 05/18/2022 Other reaction(s): ITCHY BACK documented as of this encounter (statuses as of 10/17/2022) Medications Medication Sig Dispensed Refills Start Date [...] Additional Information Patient not taking.Reported on 09/20/2022 Amiodarone HCl 200 MG Oral Tablet (Cordarone) [...] TIMES A DAY 180 Tablet 3 10/05/2022 4 Active metFORMIN HCl 500 MG Oral Tablet [...] TWICE A DAY 180 Capsule 1 05/02/2022 4 Active predniSONE 10 MG Oral Tablet (Deltasone) Take 5 tabs for 2 days, 4 tabs for 2 days, 3 tabs for 2 days, 2 tabs for 2 days 1 tab for 2 days 30 Tablet 0 10/16/2022 Active documented as of this encounter (statuses as of 10/17/2022) Active Problems Problem Noted Date S/P AVR [...] [facility]considering follow Dr Rich Soto. Request colon, echo, carotid US, reports. Needs DEXA Lung CA screen 10/25 [facility]--rec yearly through 2021. (15y post quit date)_ Colon 10/18/16 [facility] +adenoma dominick 5y. EKGD 11/23 antral mass benign. 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 Asymptomatic stenosis of right carotid a rtery 02/03/2020 Overview: [facility] Nonrheumatic mitral valve regurgitation 02/03/2020 PMR (polymyalgia rheumatica) 05/27/2015 halfway current use of systemic steroi ds 05/27/2015 [...] as of this encounter (statuses as of 10/17/2022) Resolved Problems Problem Noted Date Resolved Date [...] as of this encounter (statuses as of 10/17/2022) Immunizations Name Administration Dates Next Due COVID-19 [...] Cardiothoracic Surgery Bandar Estrada MD [address] [place] [address] 12/26/2022 Office Visit Rheumatology William Devine MD [address], [place] [id number] 01/23/2023 Procedure Only Urology Patric Villanueva MD [address] [facility] [address] [place] [address] Scheduled Procedures Name Priority Associated Diagnoses Date/Ti me COLONOSCOPY FLEXIBLE PROXIMAL DIAGNOSTIC Recall History of colon polyps Health Maintenance Due Date Last Done Comments B-12 1971 Zoster Vaccines (1 of 2) 03/05/2014 01/08/2014 Depression Screening, Annual for Pts 12 and Over 03/14/2017 03/14/2016 DTaP,Tdap,and Td Vaccines (2 - Td or Tdap) 08/25/2020 08/25/2010, 01/05/2005, 10/07/1997 Albumin/Creatinine Ratio 02/02/2021 020, 03/17/2015, 08/20/2013, Additional history exists DIABETES-FOOT EXAM 05/12/2021 05/12/2020, 0 12/11/2014, 01/08/2014, Additional history exists DIABETES-EYE EXAM 05/02/2022 10/12/2022, , 05/12/2020, Additional history exists Influenza Vaccine (FLU shot) (#1) 2022 01/07/2022, 02/21/2021, 02/03/2020, Additional history exists HbA1c 2023 08/17/2022, 03/09, 11/03/2020, Additional history exists GFR 09/21/2023 09/20/2022, 07/2022, 09/09/2022, Additional history exists COLONOSCOPY-EVERY 3 YRS AGES [...] this encounter Medical Devices Implanted Type Area Hanging Flags Decorator Device Identifier Shelf Expiration Date Model / Serial / Lot Lens 19.0 Sn60wf - [id number] Implanted:Qty: 1 on 03/11/2014 by Nakul Benz MD at OR [facility] Left: Eye [employer] 12/07/2018 SN60WF.190 / [id number] / Lens 20.0 Sn60wf - [id number] - [id number] Implanted:Qty: 1 on 03/24/2016 by Tommy العلي MD at OR [facility] Right: Eye ERIN : SURGICAL 12/07/2020 SN60WF.2 00 / [id number] / Marker Coronary - [id number] Implanted:Qty: 1 on 09/05/2022 by Bandar Estrada MD at OR [facility] N/A: Heart [employer] 07/07/2025 [facility] / / [id number] documented as of this encounter Procedures Procedure Name Priority Date/Time Associated Diagnosis Comments DIABETIC EYE EXAM Routine 10/12/2022 documented in this encounter Results * DIABETIC EYE EXAM (10/12/2022) 10/12/2022 History Per Patient OTHER OUTSIDE LAB (SEE SCANNED REPORT) documented in this encounter Advance Directives Latest [...] and were consensually agreed upon. Care Teams Licensed Social Worker Relationship Specialty Start Date End Date Spencer Smith MD [address] [place] [address] PCP - General Family Medicine 02/03/20 documented as of this encounter
--- OUTSIDE RECORDS SUMMARY | 2023-03-19 09:39 | External Medical Summary | Summary of Care ---
Author Name Unknown Organization [facility] Address [address] [place] [address] Phone [phone] Care Team Providers Care Scrum Coach Name Role Phone Spencer Smith MD Primary Care Provider + Reason for Visit * Reason Comments Follow Up Encounter Details Date Type Department Care Team Description 10/19/2022 Office Visit Cardiothoracic Surg [facility] [address], [place] [id number] Bandar Estrada MD [address] [place], [place] [id number] S/P AVR (aortic valve replacement)* Allergies Active Allergy Reactions Severity Noted Date Comments Bactrim 08/22/2013 Itching Daptomycin High 05/18/2022 Other reaction(s): RASHES Trimethoprim Low 05/18/2022 Other reaction(s): ITCHY BACK documented as of this encounter (statuses as of 10/20/2022) Medications Medication Sig Dispensed Refills Start Date [...] the morning. 30 Tablet 5 09/10/2022 Active Tamsulosin HCl 0.4 MG Oral [...] TWICE A DAY 180 Capsule 1 05/02/2022 05/02/19 24 Active Amiodarone HCl 200 MG Oral Tablet (Cordarone) Take 1 Tablet by mouth in the morning. For 30 days then stop. 30 Tablet 0 09/10/2022 10/20/19 23 Discontinu ed(Medicat ion/Dose Changed) oxyCODONE HCl 5 MG Oral Tablet (Oxy IR) Take 1 Tablet by mouth every 4 hours as needed for Pain, Moderate. 20 Tablet 0 09/10/2022 10/20/19 Discontinu ed(Medicat ion/Dose Changed) predniSONE 10 MG Oral Tablet (Deltasone) Take 5 tabs for 2 days, 4 tabs for 2 days, 3 tabs for 2 days, 2 tabs for 2 days 1 tab for 2 days 30 Tablet 0 10/16/2022 10/20/19 Discontinu ed(Medicat ion/Dose Changed) documented as of this encounter (statuses as of 10/20/2022) Active Problems Problem Noted Date S/P AVR [...] Overview: Previous Dr Arevalo, then Dr Diallo [facility] PCP (insurance change). 06/08/22 Cardiac cath Severe early-mid RCA stenosis. Dr Rajat Harris @[facility] 05/01 TTE [facility] --Reviewed [facility] TTE 04/12/22. Normal ejection fraction 50-55%, grade [...] 3y 02/26 mammo/US Wnl-dominick May 2020 clinical [facility] uro yearly--considering follow Dr Rich Soto. Request colon, echo, carotid US, reports. Needs DEXA Lung CA screen 10/25 [facility]--rec yearly through 2021. (15y post quit date)_ Colon 10/18/16 [facility] +adenoma dominick 5y. EKGD 11/23 antral mass benign. 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 Asymptomatic stenosis of right carotid a rtery 02/03/2020 Overview: [facility] Nonrheumatic mitral valve regurgitation 02/03/2020 PMR (polymyalgia rheumatica) 05/27/2015 USP current use of systemic steroi ds 05/27/2015 [...] as of this encounter (statuses as of 10/20/2022) Resolved Problems Problem Noted Date Resolved Date [...] as of this encounter (statuses as of 10/20/2022) Immunizations Name Administration Dates Next Due COVID-19 [...] on file documented as of this encounter Last Filed Vital Signs Vital Sign Reading Time Taken Comments Blood Pressure 114/62 10/19/2022 9:33 AM EDT Pulse 80 10/19/2022 9:33 AM EDT Temperature - - Respiratory Rate - - Oxygen Saturation 97% 10/19/2022 9:33 AM EDT Inhaled Oxygen Concentration - - Weight 97.3 kg (214 lb 8 oz) 10/19/2022 9:33 AM EDT Height 165.1 cm (5' 5") 10/19/2022 9:33 AM EDT Body Mass Index 35.69 10/19/2022 9:33 AM EDT documented in this encounter Functional Status Functional Status Response [...] as of this encounter Progress Notes * Amina Dickinson RN - 10/19/2022 10:39 AM EDT I have educated patient on and provided a SBE prophylaxis card. Patient verbalizes understanding. Amina Dickinson RN 10/19/2022 10:39 AM * Bandar Estrada MD - 10/19/2022 10:17 AM EDT ATTENDING STAFF I have seen and examined the patient. Doing well s/p AVR/CAB. Back in sinus rhythm. He was placed on eliquis for a retinal issue after surgery. He has been ambulating without difficulty in his breathing is nearly back to normal. On exam, lungs are clear, regular rate and rhythm, sternal wound healing well. Heron has done well and can proceed with orthopedic surgery within 3 months of surgery. He is on Eliquis for the retinal issue which was started by his brick stacker. I will defer regarding length of therapy. He can follow up with us as needed. Bandar Estrada M.D. Associate, Cardiac Surgery [facility] [address] [place] [address] Office [phone] * Omar Adams PA-C - 10/19/2022 9:45 AM EDT Post-Op Visit 10/19/2022 Heron Aguila is a 67 year old male s/p Operations & Procedures:1. CABG x 1(Ao-PDA with reversed saphenous vein graft) 2. Endoscopic saphenous vein harvest 3. Aortic valve replacement #23 Avalus bioprosthetic valve Complications:afib and thrombocytopenia Discharge date: 09/10/2022 Discharge destination: home EF: 50% PCP visit date:y started eliquis after afib in hospital and then left eye visual field change ,followed by retinologist who feels he Does not need eliquis for his eye Cardiology visit date: y, and started eliquis ED/Admission visit: No Social History Tobacco Use Smoking status: Former Packs/day: 1.00 Years: 38.00 Pack years: 38.00 Types: Cigarettes Quit date: 06/07/2006 Years since quittin.3 Passive exposure: Never Smokeless tobacco: Never Tobacco comments: starting smoking late teen, smokes 5-6 cigs per wk; peak use was one ppd , Substance Use Topics Alcohol use: No Alcohol/week: 11.7 standard drinks Types: 14 1.5 oz of liquor per week Comment: quit 2016 Drug use: No Comment: pot for a few years. Social History Substance and Sexual Activity Drug Use No Comment: pot for a few years. Cardiac Symptoms: no angina, no dyspnea and no symptomatic dysrhythmias Still a little sore with deep breathing Physical Exam: Vitals: BP 114/62 (BP Site: Left Arm, BP Position: Sitting, BP Cuff Size: Regular) | Pulse 80 | Ht 1.651 m (5' 5") | Wt 97.3 kg (214 lb 8 oz) | SpO2 97% | BMI 35.69 kg/m | BSA 2.11 m Cardiac: regular rate and rhythm Lungs: Lungs are clear to auscultation. Edema:1-2+, left > right Incisions: healing ,sternum stable Current Outpatient Medications Medication Sig Dispense Refill Aspirin 81 MG Oral Tablet Delayed Release Take 1 Tablet by mouth in the morning. Multivitamin Adult Oral Tablet Take by mouth. CPAP every night at bedtime. Famotidine 20 MG Oral Tablet (Pepcid) Take 1 Tablet by mouth in the morning. For 30 days then stop. 30 Tablet 0 Metoprolol Succinate ER 25 MG Oral Tablet Extended Release 24 Hour (toPROL XL) Take 1 Tablet bymouth in the morning. 30 Tablet 5 Tamsulosin HCl 0.4 MG Oral Capsule (Flomax) Take 1 Capsule by mouth in the morning. 30 Capsule 1 Apixaban 5 MG Oral Tablet (Eliquis) TAKE ONE TABLET BY MOUTH TWO TIMES A DAY 180 Tablet 3 metFORMIN HCl 500 MG Oral Tablet (Glucophage) TAKE ONE TABLET BY MOUTH TWICE A DAY WITH FOOD 180 Tablet 2 Furosemide 20 MG Oral Tablet (Lasix) TAKE 1 TABLET BY MOUTH DAILY 100 Tablet 2 Atorvastatin Calcium 40 MG Oral Tablet (Lipitor) TAKE ONE TABLET BY MOUTH EVERY DAY 90 Tablet 2 Gabapentin 300 MG Oral Capsule (Neurontin) TAKE 1 CAPSULE BY MOUTH TWICE A DAY 180 Capsule 1 [employer] Generation [employer]ing SYSTEM W/DEVICE KIT Use up to four times a day -Type II diabetes- #250.00 (Patient not taking: Reported on 09/20/2022) 1 Kit 0 SYSTANE 0.4-0.3 % OP SOLN one drop both eyes as needed (Patient not taking: Reported on 10/19/2022) Glucose Blood ([employer] ULTRA BLUE) STRP Dx: E11.9 (Patient not taking: Reported on 09/20/2022) 100 Strip 11 [employer] SystemsTOUCH ULTRASOFT LANCETS MISC Use up to four times a day -Type II diabetes- Dx: E11.9 (Patient not taking: Reported on 09/20/2022) 1 Box Dosing Unit 11 Sildenafil Citrate 20 MG Oral Tablet (Revatio) Take by mouth 1-5 Tablets daily as needed for Erectile Dysfunction. (Patient not taking: Reported on 09/20/2022) 60 Tablet 6 No current facility-administered medications for this visit. Assessment/Plan:doing reasonably well Follow up with cardiology re eliquis need Medications reviewed Lifting restrictions and sternal precautions reviewed. Enforce restrictions for full eight weeks from hospital discharge date continue lasix RTC as needed Omar Adams PA-C 10/19/2022 Cardiothoracic Surg [facility] [address] [address] documented in this encounter Plan of Treatment Upcoming Encounters Date Type Specialty Care Team Description 12/26/2022 Office Visit Rheumatology William Devine MD [address] [place] [address] 01/23/2023 Procedure Only Urology Patric Villanueva MD 27 [facility] [address] [facility] [place] [address] Scheduled Procedures Name Priority Associated Diagnoses [...] this encounter Medical Devices Implanted Type Area Marsh Buggy Operator Device Identifier Shelf Expiration Date Model / Serial / Lot Lens 19.0 Sn60wf - [id number] Implanted:Qty: 1 on 03/11/2014 by Nakul Benz MD at OR [facility] Left: Eye [employer] 12/07/2018 SN60WF.190 / [id number] / Lens 20.0 Sn60wf - [id number] - [id number] Implanted:Qty: 1 on 03/24/2016 by Tommy العلي MD at OR [facility] Right: Eye ERIN : SURGICAL 12/07/2020 SN60WF.2 00 / [id number] / Marker Coronary - [id number] Implanted:Qty: 1 on 09/05/2022 by Bandar Estrada [place] [facility] [place]A: Heart [employer] 07/07/2025 [facility] / / [id number] documented as of this encounter Visit Diagnoses Diagnosis S/P AVR (aortic valve replacement)- Primary Heart valve replaced by other means documented in this encounter Advance Directives Latest [...] and were consensually agreed upon. Care Teams Scrum Coach Relationship Specialty Start Date End Date Spencer Smith MD [address] [place] [address] PCP - General Family Medicine 02/03/20 documented as of this encounter
--- OUTSIDE RECORDS SUMMARY | 2023-03-19 09:39 | External Medical Summary | Summary of Care ---
Author Name Unknown Organization [facility] Address [address] [place] [address] Phone [phone] Care Team Providers Care It Operations Specialist Name Role Phone Spencer Smith MD Primary Care Provider + Reason for Referral * Evaluate & Treat - Unlimited Visits (Within 10 days (routine)) - Authorized Specialty Diagnoses / Procedures Referred By Contac t Referred To Contact CARDIAC REHAB / Cardiology Diagnoses S/P CABG (coronary artery bypass graft) Bunny Valdez DO [address] [place] [id number] Referral ID Status Reason Start Date Expiration Date Visits Requested Visits Authorized [id number] Authorized Specialty Services Required 11/13/2022 999 999 Question Answer Referral Priority Within 10 days (routine) Cardiac Rehabilitation Modality No Preference, either is clinically appropriate Comments Outpatient Cardiac Rehabilitation Referral placed for pending enrollment in [facility] Virtual Cardiac Rehab program in partnership with [facility] Encounter Details Date Type Department Care Team Description 11/13/2022 Orders Only Cardiac Rehab Advanced, Virtual [address] [place] [address] [place] [id number] Bunny Valdez DO [address] [place] [id number] S/P CABG (coronary artery bypass graft)* Allergies Active Allergy Reactions Severity Noted Date Comments Bactrim 08/22/2013 Itching Daptomycin High 05/18/2022 Other reaction(s): RASHES Trimethoprim Low 05/18/2022 Other reaction(s): ITCHY BACK documented as of this encounter (statuses as of 11/13/2022) Medications Medication Sig Dispensed Refills Start Date [...] as of this encounter (statuses as of 11/13/2022) Active Problems Problem Noted Date S/P AVR [...] Overview: Previous Dr Arevalo, then Dr Diallo [facility] PCP (insurance change). 06/08/22 Cardiac cath Severe early-mid RCA stenosis. Dr Rajat Harris @[facility] 05/01 TTE [facility] --Reviewed [facility] TTE 04/12/22. Normal ejection fraction 50-55%, [...] 3y 02/26 mammo/US Wnl-dominick May 2020 clinical [facility] uro yearly--considering follow Dr Rich Soto. Request colon, echo, carotid US, reports. Needs DEXA Lung CA screen 10/25 [facility]--rec yearly through 2021. 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 EKGD 11/23 antral mass benign. 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 Asymptomatic stenosis of right carotid a rtery 02/03/2020 Overview: [facility] Nonrheumatic mitral valve regurgitation 02/03/2020 PMR [...] as of this encounter (statuses as of 11/13/2022) Resolved Problems Problem Noted Date Resolved Date [...] as of this encounter (statuses as of 11/13/2022) Immunizations Name Administration Dates Next Due COVID-19 [...] of this encounter Progress Notes * CHELY Polanco - 11/13/2022 10:04 AM EDT Good Afternoon, We would like to let you know that your patient has chosen to participate in [facility] Virtual Cardiac Rehab program in partnership with [employer]. [employer] is a specialized company that specializes in providing cardiac rehab service. Our program is supervised by [facility] clinicians and includes all the kary of our in-person rehab programs, such as exercise training and heart healthy education. During the 12-week program, patients meet with an corn sheller operator over video to work on their recovery 2-3 times per week to help support them and strengthen their heart. To begin the process of enrollment, Dr. Bunny Valdez, [facility] Floorleader has placed an outpatient cardiac rehabilitation referral for your patient to participate in our virtual program with [employer]. If you have any questions or concerns about this program, please contact Eliza Desai [facility], [email or web address]. Thank you, Cardiac Rehabilitation Staff [facility] [address] [place] [address] [email or web address] documented in this encounter Plan of Treatment Upcoming Encounters Date Type Specialty Care Team Description 11/13/2022 Imaging Radiology 12/26/2022 Office Visit Rheumatology William Devine MD [address] [employer] [place] [address] 01/23/2023 Procedure Only Urology Patric Villanueva MD [address] [place] [address] Scheduled Procedures Name Priority Associated Diagnoses Date/Ti me COLONOSCOPY FLEXIBLE PROXIMAL DIAGNOSTIC Recall History of colon polyps Scheduled Referrals Name Type Priority Associated Diagnoses Orde r Schedule CARDIAC REHAB REFERRAL OP Referral Within 10 days (routine) S/P CABG (coronary artery bypass graft) Ordered: 11/13/2022 Health Maintenance Due Date Last Done Comments [...] encounter Medical Devices Implanted Type Area Associate Professor Of Archaeology Device Identifier Shelf Expiration Date Model / Serial / Lot Lens 19.0 Sn60wf - [id number] Implanted:Qty: 1 on 03/11/2014 by Nakul Benz MD at OR [facility] Left: Eye [employer] 12/07/2018 SN60WF.190 / [id number] / Lens 20.0 Sn60wf - [id number] - [id number] Implanted:Qty: 1 on 03/24/2016 by Tommy العلي MD at OR [facility] Right: Eye ERIN : SURGICAL 12/07/2020 SN60WF.2 00 / [id number] / Marker Coronary - [id number] Implanted:Qty: 1 on 09/05/2022 by Bandar Estrada MD at OR [facility] N/A: Heart [employer] 07/07/2025 [facility] / / [id number] documented as of this encounter Visit Diagnoses [...] and were consensually agreed upon. Care Teams It Operations Specialist Relationship Specialty Start Date End Date Spencer Smith MD [address] [place] [address] PCP - General Family Medicine 02/03/20 documented as of this encounter
--- OUTSIDE RECORDS SUMMARY | 2023-03-19 09:39 | External Medical Summary | Summary of Care ---
Author Name Unknown Organization [facility] Address [address] [place] [address] Phone [phone] Care Team Providers Care Mission Coordinator Name Role Phone Spencer Smith MD Primary Care Provider + Reason for Visit * Reason Comments Rheum Follow Up PMR Encounter Details Date Type Department Care Team Description 12/26/2022 Office Visit Rheumatology [place] [address] [place] [address] William Devine MD [facility] [place] [address] PMR (polymyalgia rheumatica) ([facility])*; S/P AVR (aortic valve replacement); S/P CABG (coronary artery bypass graft); Generalized osteoarthritis; Impingement syndrome of right shoulder Allergies Active Allergy Reactions Severity Noted Date Comments Bactrim 08/22/2013 Itching Daptomycin High 05/18/2022 Other reaction(s): RASHES Trimethoprim Low 05/18/2022 Other reaction(s): ITCHY BACK documented as of this encounter (statuses as of 12/26/2022) Medications Medication Sig Dispensed Refills Start Date [...] the morning. 30 Tablet 5 12/26/2022 Active Hospital, Clinic, or Other Facility Administered Medication Ordered Dose Route Frequency Start Date End Date Status Lidocaine (PF) 2 % (PF) inj 20 mgIndications:Impingement syndrome of right shoulder 20 mg IX ONCE 12/26/2022 3 Ended methylPREDNISolone acetate (Depo-Medrol) 40 MG/ML inj 40 mgIndications:Impingement syndrome of right shoulder 40 mg IX ONCE 12/26/2022 3 Ended documented as of this encounter (statuses as of 12/26/2022) Active Problems Problem Noted Date Generalized osteoarthritis [...] gastric fold-removal Coronary artery disease invo lving [place] coronary artery of [place] heart with angina pectoris 02/03/2020 Overview: [address]. 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 05/27/2015 [...] as of this encounter (statuses as of 12/26/2022) Resolved Problems Problem Noted Date Resolved Date [...] as of this encounter (statuses as of 12/26/2022) Immunizations Name Administration Dates Next Due COVID-19 [...] Passive Smoke Exposure: Never Smokeless Tobacco: Never Tobacco Cessation:Counseling Given: Not Answered Comments:starting smoking late teen, smokes 5-6 cigs per [...] Sign Reading Time Taken Comments Blood Pressure 128/64 12/26/2022 10:49 AM EDT Pulse - - Temperature - - Respiratory Rate - - Oxygen Saturation - - Inhaled Oxygen Concentration - - Weight 98 kg (216 lb) 12/26/2022 10:49 AM EDT Height - - Body Mass Index 35.94 10/19/2022 9:33 AM EDT documented in this [...] as of this encounter Progress Notes * William Devine MD - 12/26/2022 10:57 AM EDTAssociated Order(s): LG Joint Inj/Arthro: R subacromial bursa Post-Procedure Diagnose(s): Impingement syndrome of right shoulder Subjective: Patient seen today for further follow up evaluation of osteoarthritis, polymyalgia rheumatica. Since the last visit he reports that he tapered off steroids for his cardiac surgery (aortic valve repair and CABG). He was doing well until the last 3 weeks or so. Noting more pain in knees, right shoulder, hands/wrists. He discussed with ortho and was given steroid taper - medrol dose pack. This did help overall maybe 25% but higher doses helped the most. Notes some puffiness to both wrists. Having a lot of right shoulder pain with lack or ROM. Knees are the worse 6 to 8. He is scheduled for rightknee replacement in Feb. Knees bother him all the time. He does have a history of gout but is not on uric acid lowering meds. He reports he had a gout attack prior to surgery and then after surgery. Most recent uric acids have been above 7. He does use colchicine which helps. Musculoskeletal ROS: . Abnormal: joint pain, back pain and joint swelling . AM stiffness (hours): 0 . Pain scale (0-10): 8 Other ROS: . Constitutional: trouble sleeping . Head normal . Eyes: change in vision in left eye - strated after hospitalization . Ears, nose, throat, mouth: normal . Cardiovascular: see above . Respiratory: normal . Gastrointestinal: normal . Genitourinary: normal All other ros reviewed and negative Social History: Social History Tobacco Use Smoking status: Former Packs/day: 1.00 Years: 38.00 Pack years: 38.00 Types: Cigarettes Quit date: 06/07/2006 Years since quittin.5 Passive exposure: Never Smokeless tobacco: Never Tobacco comments: starting smoking late teen, smokes 5-6 cigs per wk; peak use was one ppd , Substance Use Topics Alcohol use: No Alcohol/week: 11.7 standard drinks Types: 14 1.5 oz of liquor per week Comment: quit 2015 Vaping/E-Cigarette Use Vaping/E-Cigarette Substances Vaping/E-Cigarette Devices Current Outpatient Medications Medication Sig Dispense Refill [employer] ULTRA SYSTEM W/DEVICE KIT Use up to four times a day -Type II diabetes- #250.00 (Patient not taking: Reported on 09/20/2022) 1 Kit 0 SYSTANE 0.4-0.3 % OP SOLN one drop both eyes as needed (Patient not taking: Reported on 10/19/2022) Glucose Blood (Booster.lyTOUCH ULTRA BLUE) STRP Dx: E11.9 (Patient not taking: Reported on 09/20/2022) 100 Strip 11 ONETOUCH ULTRASOFT LANCETS MISC Use up to [...] MOUTH TWICE A DAY 180 Capsule 1 No current facility-administered medications for this visit. Physical Exam: BP 128/64 | Wt 98 kg (216 lb) | BMI 35.94 kg/m | BSA 2.12 m General: alert, healthy, no distress, and well nourished Neck: supple, no adenopathy, thyroid normal size, non-tender, without nodularity Lymph: no palpable lymphadenopathy Heart: regular rate & rhythm and no gallops Lungs: clear to auscultation , no rales, wheezes or rhonchi Abdomen: abdomen soft, non-tender, and normal bowel sounds Extremities: no clubbing, no cyanosis Musculoskeletal Exam: No gouty tophi appreciated Fullness noted to both wrists with mild discomfort on exam Positive Rodriguez and Neer testing right shoulder Crepitus on exam of both knees with pain Assessment: (M35.3) PMR (polymyalgia rheumatica) ([facility]) (primary encounter diagnosis) (Z95.2) S/P AVR (aortic valve replacement) (Z95.1) S/P CABG (coronary artery bypass graft) (M15.9) Generalized osteoarthritis (M75.41) Impingement syndrome of right shoulder Discussed several things with the patient. Discussed right shoulder injection, he agreed and procedure note is below. Will 1st treat him for gout before reinstituting prednisone or a different DMARD treatment. Await knee surgery as well. Plan: 1. Start allopurinol and titrate up to 300 mg daily 2. Colchicine for flares 3. Check labs in 1 month 4. See procedure note below 5. Await knee replacement surgery 6. Hold off on prednisone or DMARD treatment for now 7. Return to clinic 1 year sooner pending course William Devine MD Department of Rheumatology Heron Aguila is a 67 year old male patient. ICD-10-CM 1. PMR (polymyalgia rheumatica) ([facility]) M35.3 2. S/P AVR (aortic valve replacement) Z95.2 3. S/P CABG (coronary artery bypass graft) Z95.1 4. Generalized osteoarthritis M15.9 5. Impingement syndrome of right shoulder M75.41 Past Medical History: Diagnosis Date 5 cm segment right liver mass 11/21/2007 fna indeterminate Asymptomatic stenosis of right carotid artery 02/03/2020 [facility] Benign neoplasm of colon 06/23/2009 15 mm polyp adenomatous polyp repeat in 1 yea Benign neoplasm of colon 07/19/10 adenomatous/repeat colnooscopy in 3 yra Bilateral sciatica 02/03/2020 Bladder cancer ([facility]) 2010 had chemo tx's Bladder neoplasm 02/10/2010 Cervical spinal stenosis 06/30/202106/28 MRI Coronary artery disease involving [place] coronary artery of [place] heart without angina pectoris 02/03/[address] 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 Harshal Monge JACK on CPAP 09/28/2011 09/27/11 -- CPAP 10-13 cwp 08/2011 -- CPAP 8-15 cwp 07/2011 PSG -- AHI 55/hr Care Plus Oxygen Primary osteoarthritis of both knees 02/03/2020 Ptosis OU Sciatica Severe aortic stenosis 05/04/2022 Sleep apnea, obstructive Spasm of muscle 09/01/2009 Blood pressure 128/64, weight 98 kg (216 lb). LG Joint Inj/Arthro: R subacromial bursa on 12/26/2022 12:23 PM Indications: pain Details: 25 G needle, posterior approach Medications: (40 mg of Depo-Medrol and 1 mL 2% lidocaine) Outcome: tolerated well, no immediate complications Procedure, treatment alternatives, risks and benefits explained, specific risks discussed. Consent was given by the patient. Immediately prior to procedure a time out was called to verify the correctpatient, procedure, equipment, network support administrator and site/side marked as required. Patient was prepped and draped in the usual sterile fashion. William Devine MD 12/26/2022 documented in this encounter Nursing Notes * Socorro Gunn LPN - 12/26/2022 10:51 AM EDT Chief Complaint Patient presents with Rheum Follow Up PMR documented in this encounter Plan of Treatment Upcoming Encounters Date Type Specialty Care Team Description 01/23/2023 Procedure Only Urology Patric Villanueva MD [address] [facility] [address] [place] [address] 01/07/2024 Office Visit Rheumatology William Devine MD [address] [facility], [place] [address] Scheduled Procedures Name Priority Associated Diagnoses Date/Ti [...] this encounter Medical Devices Implanted Type Area Barn Hand Device Identifier Shelf Expiration Date Model / Serial / Lot Lens 19.0 Sn60wf - [id number] Implanted:Qty: 1 on 03/11/2014 by Nakul Benz MD at OR [facility] Left: Eye [employer] 12/07/2018 SN60WF.190 / [id number] / Lens 20.0 Sn60wf - [id number] - [id number] Implanted:Qty: 1 on 03/24/2016 by Tommy العلي MD at OR [facility] Right: Eye ERIN : SURGICAL 12/07/2020 SN60WF.2 00 / [id number] / Marker Coronary - [id number] Implanted:Qty: 1 on 09/05/2022 by Bandar Estrada MD at OR [facility] N/A: Heart [employer] 07/07/2025 [facility] / / [id number] documented as of this encounter Procedures Procedure Name Priority Date/Time Associated Diagnosis Comments IN ARTHROCENTESIS ASPIR&/INJ MAJOR JT/BURSA W/O US Routine 12/26/2022 12:23 PM EDT Impingement syndrome of right shoulder documented in this encounter Results * IN ARTHROCENTESIS ASPIR&/INJ MAJOR JT/BURSA W/O US (12/26/2022 12:23 PM EDT) Narrative William Devine MD - 12/26/2022 12:23 PM EDT William Devine MD 12/26/2022 12:27 PM LG Joint Inj/Arthro: R subacromial bursa on 12/26/2022 12:23 PM Indications: pain Details: 25 G needle, posterior approach Medications: (40 mg of Depo-Medrol and 1 mL 2% lidocaine) Outcome: tolerated well, no immediate complications Procedure, treatment alternatives, risks and benefits explained, specific risks discussed. Consent was given by the patient. Immediately prior to procedure a time out was called to verify the correct patient, procedure, equipment, network support administrator and site/side marked as required. Patient was prepped and draped in the usual sterile fashion. William Devine MD PROCDOC FORM documented in this encounter Visit Diagnoses Diagnosis PMR (polymyalgia rheumatica) ([facility])- Primary Polymyalgia rheumatica S/P AVR (aortic valve replacement) Heart valve replaced by other means S/P CABG (coronary artery bypass graft) Postsurgical aortocoronary bypass status Generalized osteoarthritis Generalized osteoarthrosis, unspecified site Impingement syndrome of right shoulder Other affections of shoulder region, not elsewhere classified documented in this encounter Administered Medications Inactive Administered Medications - up to 3 most recent administrations Medication Order MAR Action Action Date Dose Rate Site Lidocaine (PF) 2 % (PF) inj 20 mg 20 mg, Intra-Articular, ONCE, On Sun12/26/22 at 1200, For 1 dose Given 12/26/2022 11:24 AM EDT 20 mg Shoulder Right methylPREDNISolone acetate (Depo-Medrol) 40 MG/ML inj 40 mg 40 mg, Intra-Articular, ONCE, On Sun12/26/22 at 1200, For 1 dose Given 12/26/2022 11:25 AM EDT 40 mg Shoulder Right documented in this encounter Advance Directives Latest [...] and were consensually agreed upon. Care Teams Mission Coordinator Relationship Specialty Start Date End Date Spencer Smith MD [address] [place] [address] PCP - General Family Medicine 02/03/20 documented as of this encounter"
--- OUTSIDE RECORDS SUMMARY | 2023-03-19 09:39 | External Medical Summary | Summary of Care ---
Author Name Unknown Organization [facility] Address [address] [place] [address] Phone [phone] Care Team Providers Care Bleacher Operator Name Role Phone Spencer Smith MD Primary Care Provider + Reason for Visit * Reason Comments Cardiac Rehab Encounter Details Date Type Department Care Team Description 12/07/2022 Telemedicine Cardiac Rehab Advanced, Virtual [address] [place] [address] [place] [address] Advanced, Virtual Cardiac Rehab [address] [place] [address] [place] [address] S/P CABG (coronary artery bypass graft)* Allergies Active Allergy Reactions Severity Noted Date Comments Bactrim 08/22/2013 Itching Daptomycin High 05/18/2022 Other reaction(s): RASHES Trimethoprim Low 05/18/2022 Other reaction(s): ITCHY BACK documented as of this encounter (statuses as of 12/17/2022) Medications Medication Sig Dispensed Refills Start Date [...] as of this encounter (statuses as of 12/17/2022) Active Problems Problem Noted Date S/P AVR [...] Previous Dr Arevalo, then Dr Diallo [facility] PCP (insurance change). 06/08/22 Cardiac cath Severe early-mid RCA stenosis. Dr Rajat Harris @[facility] 05/01 TTE [facility] --Reviewed [facility] TTE 04/12/22. Normal ejection fraction 50-55%, grade [...] 02/26 mammo/US Wnl-dominick May 2020 clinical [facility] uro yearly--considering follow Dr Rich Soto. Request colon, echo, carotid US, reports. Needs DEXA Lung CA screen 10/25 [facility]--rec yearly through 2021. (15y post quit date)_ Colon 10/18/16 [facility] +adenoma dominick 5y. EKGD 11/23 antral mass benign. 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 Session #1 completed. Please refer to scan document for session details. Session type: Education Individual Session duration: 35 minutes documented in this encounter Plan of Treatment Upcoming Encounters Date Type Specialty Care Team Description 12/26/2022 Office Visit Rheumatology William Devine MD [address] [facility], [place] [address] 01/23/2023 Procedure Only Urology Patric Villanueva MD [address] [facility] [address] [place] [id number] Scheduled Orders Name Type Priority Associated Diagnoses Orde r Schedule CARDIAC REHAB,INTENSE W/EXERCISE,1 SESSION Procedures Routine S/P CABG (coronary artery bypass graft) 36 Occurrences starting 12/17/2022 until 12/18/2023 Scheduled Procedures Name Priority Associated Diagnoses Date/Ti [...] this encounter Medical Devices Implanted Type Area Trust Operations Assistant Device Identifier Shelf Expiration Date Model / Serial / Lot Lens 19.0 Sn60wf - [id number] Implanted:Qty: 1 on 03/11/2014 by Nakul Benz MD at OR [facility] Left: Eye [employer] 12/07/2018 SN60WF.190 / [id number] / Lens 20.0 Sn60wf - [id number] - [id number] Implanted:Qty: 1 on 03/24/2016 by Tommy العلي MD at OR [facility] Right: Eye ERIN : SURGICAL 12/07/2020 SN60WF.2 00 / [id number] / Marker Coronary - [id number] Implanted:Qty: 1 on 09/05/2022 by Bandar Estrada [place] [facility] N/A: Heart [employer] 07/07/2025 [facility] / / [id number] documented as of this encounter Visit Diagnoses [...] and were consensually agreed upon. Care Teams Bleacher Operator Relationship Specialty Start Date End Date Spencer Smith MD [address] [place] [address] PCP - General Family Medicine 02/03/20 documented as of this encounter
--- OUTSIDE RECORDS SUMMARY | 2023-03-19 09:39 | External Medical Summary | Summary of Care ---
Author Name Unknown Organization [facility] Address [address] [place] [address] Phone [phone] Care Team Providers Care Sales Representative Advertising Name Role Phone Spencer Smith MD Primary Care Provider + Reason for Visit * Reason Comments Cardiac Rehab Encounter Details Date Type Department Care Team Description 12/07/2022 Telemedicine Cardiac Rehab Advanced, Virtual [address] [place] [address] [place] Owesn [address] Advanced, Virtual Cardiac Rehab [address] [place] [address] [place] [address] S/P CABG (coronary artery bypass graft)* Allergies [...] Overview: Previous Dr Arevalo, then Dr Diallo [facility] PCP (insurance change). 06/08/22 Cardiac cath Severe early-mid RCA stenosis. Dr Rajat Harris @[facility] 05/01 TTE [facility] --Reviewed [facility] TTE 04/12/22. Normal ejection fraction 50-55%, grade [...] 3y 02/26 mammo/US Wnl-dominick May 2020 clinical [facility] uro yearly--considering follow Dr Rich Soto. Request colon, echo, carotid US, reports. Needs DEXA Lung CA screen 10/25 [facility]--rec yearly through 2021. (15y post quit date)_ Colon 10/18/16 [facility] +adenoma dominick 5y. EKGD 11/23 antral mass benign. 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 Session #2 completed. Please refer to scan document for session details. Session type: Education Group Session duration: 60 minutes documented in this encounter Plan of Treatment Upcoming Encounters Date Type Specialty Care Team Description 12/26/2022 Office Visit Rheumatology William Devine [facility] [address] [facility] [address] 01/23/2023 Procedure Only Urology Patric Villanueva MD [address] [place] [phone] Scheduled Orders Name Type Priority Associated Diagnoses Orde r Schedule CARDIAC REHAB,INTENSE W/O EXCERSISE,1SESSIO Procedures Routine S/P CABG (coronary artery bypass [...] this encounter Medical Devices Implanted Type Area Lace Mender Device Identifier Shelf Expiration Date Model / Serial / Lot Lens 19.0 Sn60wf - [id number] Implanted:Qty: 1 on 03/11/2014 by Nakul Benz MD at OR [facility] Left: Eye [employer] 12/07/2018 SN60WF.190 / [id number] / Lens 20.0 Sn60wf - [id number] - [id number] Implanted:Qty: 1 on 03/24/2016 by Tommy العلي MD at OR [facility] Right: Eye ERIN : SURGICAL 12/07/2020 SN60WF.2 00 / [id number] / Marker Coronary - [id number] Implanted:Qty: 1 on 09/05/2022 by Bandar Estrada [place] [facility] [place]A: Heart [employer] 07/07/2025 [facility] / / [id number] documented as of this encounter Visit Diagnoses [...] were consensually agreed upon. Care Teams Sales Representative Advertising Relationship Specialty Start Date End Date Spencer Smith MD [address] [place] [address] PCP - General Family Medicine 02/03/20 documented as of this encounter
--- OUTSIDE RECORDS SUMMARY | 2023-03-19 09:39 | External Medical Summary | Summary of Care ---
Author Name Unknown Organization [facility] Address [address] [place] [address] Phone [phone] Care Team Providers Care Script Worker Name Role Phone Spencer Pryor MD Primary Care Provider + Reason for Visit * Reason Onset Date Comments Medication Refill 10/30/2022 Encounter Details Date Type Department Care Team Description 10/30/2022 Refill [facility] [address] [place] [address] Spencer Pryor MD [address] [place] [address] Allergies Active Allergy Reactions Severity Noted Date Comments Bactrim 08/22/2013 Itching Daptomycin High 05/18/2022 Other reaction(s): RASHES Trimethoprim Low 05/18/2022 Other reaction(s): ITCHY BACK documented as of this encounter (statuses as of 10/31/2022) Medications Medication Sig Dispensed Refills Start Date End Date Status [employer]Montage[employer]CH ULTRA SYSTEM W/DEVICE KITIndications:DM type 2, goal [...] 180 Capsule 1 05/02/2022 05/02/19 24 Active Metoprolol Succinate ER 25 MG Oral Tablet Extended Release 24 Hour (toPROL XL) Take 1 Tablet by mouth in the morning. 100 Tablet 0 10/31/2022 Active Metoprolol Succinate ER 25 MG Oral Tablet Extended Release 24 Hour (toPROL XL) Take 1 Tablet by mouth in the morning. 30 Tablet 5 09/10/2022 10/31/19 23 Discontinu ed(Refill) documented as of this encounter (statuses as of 10/31/2022) Active Problems Problem Noted Date S/P AVR [...] Previous Dr Arevalo, then Dr Diallo [facility] PCP (insurance change). 06/08/22 Cardiac cath Severe early-mid RCA stenosis. Dr Rajat Harris @[facility] 05/01 TTE [facility] --Reviewed [facility] TTE 04/12/22. Normal ejection fraction 50-55%, [...] 02/26 mammo/US Wnl-dominick May 2020 clinical [facility] uro yearly--considering follow Dr Villanueva to [place]. Request colon, echo, carotid US, reports. Needs DEXA Lung CA screen 10/25 [facility]--rec yearly through 2021. 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 EKGD 11/23 antral mass benign. 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 05/27/2015 [...] as of this encounter (statuses as of 10/31/2022) Resolved Problems Problem Noted Date Resolved Date [...] as of this encounter (statuses as of 10/31/2022) Immunizations Name Administration Dates Next Due COVID-19 [...] encounter Miscellaneous Notes * Telephone Encounter - Perry Mcgarry RP - 10/31/2022 3:16 PM EDT Signed Prescriptions: Disp Refills Metoprolol Succinate ER 25 MG Oral Tablet *100 Ta*0 Sig: Take 1 Tablet by mouth in the morning.Authorizing Provider: SPENCER PRYOR User: PERRY MCGARRY * Telephone Encounter - Perry Mcgarry RPh - 10/31/2022 3:13 PM EDT Reissued balance of refills on current medication order(s) as a 100 day script. Thank you, Perry Mcgarry PharmD, RUIZ Clinical Pharmacist [facility] ([facility]) (formerly Telepharmacy) 10/31/22 3:15 PM [phone] documented in this encounter Plan of Treatment Upcoming Encounters Date Type Specialty Care Team Description 12/26/2022 Office Visit Rheumatology William Devine MD [address] [facility], [place] [id number] 01/23/2023 Procedure Only Urology Patric Villanueva MD [address] [facility] [address] [place] [address] Scheduled Procedures Name Priority Associated Diagnoses [...] this encounter Medical Devices Implanted Type Area Solution Director Device Identifier Shelf Expiration Date Model / Serial / Lot Lens 19.0 Sn60wf - [id number] Implanted:Qty: 1 on 03/11/2014 by Nakul Benz MD at OR [facility] Left: Eye [employer] 12/07/2018 SN60WF.190 / [id number] / Lens 20.0 Sn60wf - [id number] - [id number] Implanted:Qty: 1 on 03/24/2016 by Tommy العلي MD at OR [facility] Right: Eye ERIN : SURGICAL 12/07/2020 SN60WF.2 00 / [id number] / Marker Coronary - [id number] Implanted:Qty: 1 on 09/05/2022 by Bandar Estrada MD [place] [facility] N/A: Heart [employer] 07/07/2025 [facility] / / [id number] documented as of this encounter Advance Directives [...] and were consensually agreed upon. Care Teams Script Worker Relationship Specialty Start Date End Date Spencer Pryor MD [address] [place] [address] PCP - General Family Medicine 02/03/20 documented as of this encounter
--- OUTSIDE RECORDS SUMMARY | 2023-03-19 09:39 | External Medical Summary | Summary of Care ---
Author Name Unknown Organization [facility] Address [address] [facility] [address] Phone [phone] Care Team Providers Care Steffen House Supervisor Name Role Phone Spencer Smith MD Primary Care Provider + Encounter Details Date Type Department Care Team Description 09/19/2022 Telephone Pharmacy, [facility] [address] [place] [address] Spencer Smith MD [address] [place] [address] Allergies Active Allergy Reactions Severity Noted Date Comments Bactrim 08/22/2013 Itching Daptomycin High 05/18/2022 Other reaction(s): RASHES Trimethoprim Low 05/18/2022 Other reaction(s): ITCHY BACK documented as of this encounter (statuses as of 09/20/2022) Medications Medication Sig Dispensed Refills Start Date [...] as of this encounter (statuses as of 09/20/2022) Active Problems Problem Noted Date S/P AVR [...] Overview: Previous Dr Arevalo, then Dr Diallo [facility] PCP (insurance change). 06/08/22 Cardiac cath Severe early-mid RCA stenosis. Dr Rajat Harris @[facility] 05/01 TTE [facility] --Reviewed [facility] TTE 04/12/22. Normal ejection [...] 3y 02/26 mammo/US Wnl-dominick May 2020 clinical [facility] uro yearly--considering follow Dr Rich Soto. Request colon, echo, carotid US, reports. Needs DEXA Lung CA screen 10/25 [facility]--rec yearly through 2021. 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 EKGD 11/23 antral mass benign. EUS 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 Asymptomatic stenosis of right carotid a rtery 02/03/2020 Overview: [facility] Nonrheumatic mitral valve regurgitation [...] as of this encounter (statuses as of 09/20/2022) Resolved Problems Problem Noted Date Resolved Date [...] as of this encounter (statuses as of 09/20/2022) Immunizations Name Administration Dates Next Due COVID-19 [...] encounter Miscellaneous Notes * Telephone Encounter - MELVINA Ayers - 09/20/2022 3:54 PM EDT Appts scheduled. * Telephone Encounter - Kiley Barraza - 09/20/2022 11:52 AM EDT Please call to relay message below in case any questions. Most likely they will reach out to patient to schedule appointment. * Telephone Encounter - Spencer Smith MD - 09/19/2022 4:17 PM EDT Scheduling--please call Dr Omar Harris's office ([facility] Cardiology) with note below from Ophtho--could they see him this week for eval? 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 Mr Aguila did have post operative bleeding with low plt count (67816 at discharge) but had converted to NSR by time of discharge and therefor coumadin was not started. If he could get an ECG /CBC this might help direct need and role for coumadin. Obviously,if he is in AFIB and his plts are recovering then he should be on coumadin,but I will defer to his PCP and net front end developer. documented in this encounter Plan of Treatment Upcoming Encounters Date Type Specialty Care Team Description 10/19/2022 Office Visit Cardiothoracic Surgery Bandar Estrada MD [address] [place] [address] 12/26/2022 Office Visit Rheumatology William Devine MD [address] [place] [address] 01/23/2023 Procedure Only Urology Patric Villanueva MD [address] [place] [address] Scheduled Procedures Name Priority Associated Diagnoses Date/Ti [...] 05/02/2022 05/02/2021, , 11/01/2015, Additional history exists HbA1c 2023 08/17/2022, 03/09, 11/03/2020, Additional history exists Yearly B-12 08/18/2023 08/17/2022, 03/09, 11/03/2020, Additional history exists GFR 09/11/2023 09/10/2022, 06/0 06/2022, 09/08/2022, Additional history exists COLONOSCOPY-EVERY 3 YRS AGES 18-100 01/01/2024 12/31/2020, 12/31/2020, 03/20/2013, Additional history exists Pneumococcal Vaccine: 65+ Years Completed 11/10/2020, 02/03/2020, 05/05/2011 COLONOSCOPY-EVERY 5 YRS AGES 18-100 Discontinued 12/31/2020, 12/31/2020, 03/20/2013, Additional history exists Influenza Vaccine (FLU shot) Completed 01/07/2022, 02/21/2021, 02/03/2020, Additional history exists COVID-19 Vaccine Completed 01/12/2022, [...] this encounter Medical Devices Implanted Type Area District Manager Major Accounts Sales Device Identifier Shelf Expiration Date Model / Serial / Lot Lens 19.0 Sn60wf - [id number] Implanted:Qty: 1 on 03/11/2014 by Nakul Benz MD at OR [facility] Left: Eye [employer] 12/07/2018 SN60WF.190 / [id number] / Lens 20.0 Sn60wf - [id number] - [id number] Implanted:Qty: 1 on 03/24/2016 by Tommy العلي MD at OR [facility] Right: Eye ERIN : SURGICAL 12/07/2020 SN60WF.2 00 / [id number] / Marker Coronary - [id number] Implanted:Qty: 1 on 09/05/2022 by Bandar Estrada MD [place] [facility] N/A: Heart [employer] 07/07/2025 [facility] / / [id number] documented as of this encounter Advance Directives [...] and were consensually agreed upon. Care Teams Steffen House Supervisor Relationship Specialty Start Date End Date Spencer Smith MD [address] [place] [address] PCP - General Family Medicine 02/03/20 documented as of this encounter
--- OUTSIDE RECORDS SUMMARY | 2023-03-19 09:40 | External Medical Summary | Summary of Care ---
Author Name Unknown Organization [facility] Address [address] [facility] [place] [address] Phone [phone] Care Team Providers Care Skein Yard Drier Name Role Phone Spencer Smith MD Primary Care Provider + Reason for Visit * Reason Comments Outpatient Testing Encounter Details Date Type Department Care Team Description 09/20/2022 Laboratory [facility], [facility] [address] [facility] [facility] [address] [employer] [address] [place] [address] Paroxysmal atrial fibrillation (HCC) Allergies Active Allergy Reactions Severity Noted [...] Overview: Previous Dr Arevalo, then Dr Diallo [facility] PCP (insurance change). 06/08/22 Cardiac cath Severe early-mid RCA stenosis. Dr Rajat Harris @[facility] 05/01 TTE [facility] --Reviewed [facility] TTE 04/12/22. Normal ejection fraction [...] 3y 02/26 mammo/US Wnl-dominick May 2020 clinical [facility] uro yearly--considering follow Dr Villanueva to [place]. Request colon, echo, carotid US, reports. Needs DEXA Lung CA screen 10/25 [facility]--rec yearly through 2021. 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 EKGD 11/23 antral mass benign. 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 [...] Cardiothoracic Surgery Bandar Estrada MD [address] [place] [address] 12/26/2022 Office Visit Rheumatology William Devine MD [address] [place] [address] 01/23/2023 Procedure Only Urology Patric Villanueva MD [address] [place] [address] Pending Results Name Type Priority Associated Diagnoses Date /Time CBC WITH WBC DIFFERENTIAL AND ANEMIA REFLEX WORKUP Lab Routine Paroxysmal atrial fibrillation ([facility]) 09/20/2022 3:23 PM EDT BASIC METABOLIC PANEL Lab Routine Paroxysmal atrial fibrillation ([facility]) 09/20/2022 3:23 PM EDT ANEMIA CBC Lab Routine Paroxysmal atrial fibrillation ([facility]) 09/20/2022 3:23 PM EDT DIFFERENTIAL, AUTOMATED Lab Routine Paroxysmal atrial fibrillation ([facility]) 09/20/2022 3:23 PM EDT ANEMIA REFLEX CHEMISTRY HOLD Lab Routine Paroxysmal atrial fibrillation ([facility]) 09/20/2022 3:23 PM EDT Scheduled Procedures Name Priority Associated Diagnoses Date/Ti [...] this encounter Medical Devices Implanted Type Area Reinforced Ironworker Device Identifier Shelf Expiration Date Model / Serial / Lot Lens 19.0 Sn60wf - [id number] Implanted:Qty: 1 on 03/11/2014 by Nakul Benz MD at OR [facility] Left: Eye [employer] 12/07/2018 SN60WF.190 / [id number] / Lens 20.0 Sn60wf - [id number] 010 - [id number] Implanted:Qty: 1 on 03/24/2016 by Tommy العلي MD at OR [facility] Right: Eye ERIN : SURGICAL 12/07/2020 SN60WF.2 00 / [id number] 010 / Marker Coronary - [id number] Implanted:Qty: 1 on 09/05/2022 by Bandar Estrada MD at [facility] N/A: Heart [employer] 07/07/2025 [facility] / / [id number] documented as of this encounter Visit Diagnoses Diagnosis Paroxysmal atrial fibrillation (HCC) Atrial fibrillation documented in this encounter Advance Directives Latest [...] and were consensually agreed upon. Care Teams Skein Yard Drier Relationship Specialty Start Date End Date Spencer Smith MD [address] [place] [address] PCP - General Family Medicine 02/03/20 documented as of this encounter
--- OUTSIDE RECORDS SUMMARY | 2023-03-19 09:40 | External Medical Summary ---
Author Name Unknown Address Unknown Organization K01:[facility] [address] [place] [address] Laboratory Report Ordering Provider Test Date Status KONSTANTIN LEDEZMA 09/20/2022 15:23:33 Final Observation Date Value Abnormality Reference (Units ) Status Ferritin 09/20/2022 15:23:33 467 Above high normal 30 -400 (ng/mL) Final Performing Location [facility] [address] [place] [address]
--- OUTSIDE RECORDS SUMMARY | 2023-03-19 09:40 | External Medical Summary ---
Author Name Unknown Address Unknown Organization K01:[facility] - [address] [place] [address] Laboratory Report Ordering Provider Test Date Status SHAINA HAYES 09/20/2022 15:23:33 Final Observation Date Value Abnormality Reference (Units ) Status PSA 09/20/2022 15:23:33 0.51 <4.10 (ng/ mL) Final Performing Location [facility] - [address] [place] [address]
--- OUTSIDE RECORDS SUMMARY | 2023-03-19 09:40 | External Medical Summary ---
Author Name Unknown Address Unknown Organization K01:LABORATORY [facility] [place] - [address] [place] [address] Laboratory Report Ordering Provider Test Date Status KONSTANTIN LEDEZMA 09/20/2022 15:23:33 Final Observation Date Value Abnormality Reference (Units ) Status Iron 09/20/2022 15:23:33 64 45-176 (ug /dL) Final Iron-binding capacity 09/20/2022 15:23:33 338 250-425 (ug/dL) Final Transferrin Sat % 09/20/2022 15:23:33 19 15 -55 (%) Final Performing Location LAB[facility]ATORY [facility] - [address] [place] [address]
--- OUTSIDE RECORDS SUMMARY | 2023-03-19 09:40 | External Medical Summary ---
Author Name Unknown Address Unknown Organization K01:[facility] - [address] [place] [address] Laboratory Report Ordering Provider Test Date Status KONSTANTIN LEDEZMA 09/20/2022 15:23:33 Final Observation Date Value Abnormality Reference (Units ) Status TSH 09/20/2022 15:23:33 7.18 Above high normal 0. 27-4.20 (uIU/mL) Final Performing Location [facility] - [address] [place] [address]
--- OUTSIDE RECORDS SUMMARY | 2023-03-19 09:40 | External Medical Summary ---
Author Name Unknown Address Unknown Organization K01:LABORATORY [facility] [place] - [facility] [address] [place] [address] Laboratory Report Ordering Provider Test Date Status KONSTANTIN LEDEZMA 09/20/2022 15:23:33 Final Observation Date Value Abnormality Reference (Units ) Status BUN 09/20/2022 15:23:33 23 Above high normal 6-20 (mg/dL) Final Creatinine 09/20/2022 15:23:33 1.3 Above high normal 0.6-1.2 (mg/dL) Final Glomerular filtration rate/1.73 sq M.predicted [Volume Rate/Area] in Serum, Plasma or Blood by Creatinine-based formula (CKD-EPI) 09/20/2022 15:23:33 60 >=60 (mL/min) Final eGFR is calculated based on the CKD-EPI 2020 equation SODIUM 09/20/2022 15:23:33 142 135-146 (m mol/L) Final Potassium 09/20/2022 15:23:33 4.8 3.5-5.1 (m mol/L) Final Cl 09/20/2022 15:23:33 105 98-107 (mm ol/L) Final CO2 09/20/2022 15:23:33 24 22-32 (mmo l/L) Final Anion gap 09/20/2022 15:23:33 13 7-15 (mmol /L) Final Glucose 09/20/2022 15:23:33 96 70-120 (mg /dL) Final Calcium 09/20/2022 15:23:33 9.2 8.4-10.2 ( mg/dL) Final Performing Location LABORATORY [facility] - [facility] [address] [place] [address]
--- OUTSIDE RECORDS SUMMARY | 2023-03-19 09:40 | External Medical Summary ---
Author Name Unknown Address Unknown Organization K01:[facility] - [address] [place] [address] Laboratory Report Ordering Provider Test Date Status KONSTANTIN LEDEZMA 09/20/2022 15:23:33 Final Observation Date Value Abnormality Reference (Units ) Status Folic Acid 09/20/2022 15:23:33 15.5 >4.5 (ng/ mL) Final Performing Location [facility] - [address] [place] [address]
--- OUTSIDE RECORDS SUMMARY | 2023-03-19 09:40 | External Medical Summary ---
Author Name Unknown Address Unknown Organization K01:LABORATORY [facility] [place] - [address] [place] [address] Laboratory Report Ordering Provider Test Date Status KONSTANTIN LEDEZMA 09/20/2022 15:23:33 Final Observation Date Value Abnormality Reference (Units ) Status Retic, % (auto) 09/20/2022 15:23:33 4.65 Above high normal 0.80-1.90 (%) Final Reticulocytes, Absolute 09/20/2022 15:23:33 138.6 Above high normal 31.3-100.1 (K/uL) Final Reticulocyte fraction, immature 09/20/2022 15:23:33 23.7 Above high normal 2.5-20.6 (%) Final Reticulocyte HGB 09/20/2022 15:23:33 34.7 29.7-37.4 (pg) Final Performing Location LAB[facility]ATORY [facility] - [address] [place] [address]
--- OUTSIDE RECORDS SUMMARY | 2023-03-19 09:40 | External Medical Summary ---
Author Name Unknown Address Unknown Organization K01:[facility] - [address] [place] [address] Laboratory Report Ordering Provider Test Date Status KONSTANTIN LEDEZMA 09/20/2022 15:23:33 Final Observation Date Value Abnormality Reference (Units ) Status Vitamin B12 09/20/2022 15:23:33 320 722-9751 (pg/mL) Final Performing Location [facility] - [address] [place] [address]
--- OUTSIDE RECORDS SUMMARY | 2023-03-19 09:40 | External Medical Summary | Summary of Care ---
Author Name Unknown Organization [facility] Address [address] [address] Phone [phone] Care Team Providers Care Camp Coordinator Name Role Phone Spencer Smith MD Primary Care Provider + Reason for Visit * Reason Comments Hospital Follow-Up Aortic valve replace ment and bypass 09/05/2022 Encounter Details Date Type Department Care Team Description 09/20/2022 Office Visit [facility] [address] [place] [address] Spencer Smith MD [address] [place] [address] Paroxysmal atrial fibrillation (HCC)*; S/P CABG (coronary artery bypass graft); S/P AVR (aortic valve replacement); Vision changes; HTN, goal below 140/90 Allergies Active Allergy Reactions Severity Noted Date Comments Bactrim 08/22/2013 Itching Daptomycin High 05/18/2022 Other reaction(s): RASHES Trimethoprim Low 05/18/2022 Other reaction(s): ITCHY BACK documented as of this encounter (statuses as of 09/20/2022) Medications Medication Sig Dispensed Refills Start Date End Date Status Globitel SYSTEM W/DEVICE KITIndications:DM type 2, goal A1c [...] then Dr Diallo [facility] PCP (insurance change). 06/08/22 Cardiac cath Severe early-mid RCA stenosis. Dr Lamont Harris @[facility] 05/01 TTE [facility] --Reviewed [facility] TTE 04/12/22. Normal ejection fraction 50-55%, grade [...] May 2020 clinical [facility] uro yearly--considering follow Dr Villanueva to [place]. Request colon, echo, carotid US, reports. Needs DEXA Lung CA screen 10/25 [facility]--rec yearly through 2021. (15y post quit date)_ Colon 10/18/16 [facility] +adenoma dominick 5y. EKGD 11/23 antral mass benign. [facility] 01/23 hyperplastic gastric fold-removal Coronary artery disease invo lving caddo coronary artery of caddo heart with angina pectoris 02/03/2020 Overview: [address]. 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 [...] Sign Reading Time Taken Comments Blood Pressure 118/54 09/20/2022 1:54 PM EDT Pulse 76 09/20/2022 1:54 PM EDT Temperature 36.9 C (98.4 F) 09/20/2022 1:54 PM ED T Respiratory Rate 16 09/20/2022 1:54 PM EDT Oxygen Saturation - - Inhaled Oxygen Concentration - - Weight 95.7 kg (210 lb 14.4 oz) 09/20/2022 1:54 PM EDT Height - - Body Mass Index 33.03 09/05/2022 5:36 AM EDT documented in this encounter Functional [...] as of this encounter Progress Notes * Spencer Smith MD - 09/20/2022 2:50 PM EDT SUBJECTIVE: Heron Aguila is a 67 year old male here for Hospital Follow-Up (Aortic valve replacement and bypass 09/05/2022) . Here w/ Chayo. S/p scheduled AVR & CABG 09/05/[address] Estrada. Hospital notes reviewed. Required blood transfusion, blood products, IV iron. Had postop AFib. He developed postop thrombocytopenia. Heparin antibody was negative. [place] [id number]. He was started on amiodarone. Reverted to sinus rhythm. He was not discharged on anticoagulation because of his low platelets and postop bleeding history. He had his postop visit September 15. Went well. He did develop left persistent vision change and so was seen the same day by Dr Askew at [facility]. She thought he had a small infarct in his retina, referred to Dr De Leon at [facility]--saw him 09/18/22. I don't have his report, but per pt he wasn't sure if had infarct or not. No fever, chills, chest pain,headache, nausea, vomit, diarrhea, constipation Fatigue post op. Mild BURRIS Sleeping in recliner, still feels some pressure chest w/reclining at night Has had some redness around his left vein harvesting sites. Redness tends to go away overnight. No discharge. ROS: Negative except above. Past Medical History: Diagnosis Date 5 cm segment right liver mass 11/21/2007 fna indeterminate Asymptomatic stenosis of right carotid artery 02/03/2020 [facility] Benign neoplasm of colon 06/23/2009 15 mm polyp adenomatous polyp repeat in 1 yea Benign neoplasm of colon 07/19/10 adenomatous/repeat colnooscopy in 3 yra Bilateral sciatica 02/03/2020 Bladder cancer (HCC) 2010 had chemo tx's Bladder neoplasm 02/10/2010 Cervical spinal stenosis 06/30/202106/28 MRI Coronary artery disease involving caddo coronary artery of caddo heart without angina pectoris 02/03/2020 2019 noted [...] Sleep apnea, obstructive Spasm of muscle 09/01/2009 Past Surgical History: Procedure Laterality Date BCG FOR TB, LIVE, PERCU 05/05/2010 6 treatments CARDIAC CATH-CARDIOLOGY ONLY 06/08/2022 Cardiac cath Severe early-mid RCA stenosis. Dr Lamont Harris @[facility] COLONOSCOPY W/ LESION REMOVAL, SNARE 06/23/2009 15 mm polyp adenomatous polyp repeat in 1 year COLONOSCOPY, DIAGNOSTIC (RECTUM) 03/20/2013 repeat in 5 years COLONOSCOPY, DIAGNOSTIC (RECTUM) 12/31/2020 hemorrhoids, diverticulosis in sigmoid, 3- 2 to 3 mm in sigmoid & transverse /biopsies benign adenomatous polyps / 3 year recall / COLONOSCOPY FLEXIBLE PROXIMAL DIAGNOSTIC performed by Clay Peña MD at ENDOSCOPY [facility] COLONOSCOPY/REMOVE LESION 07/19/2010 adenomatous/repeat colnooscopy in 3 yra CORONARY ARTERY BYPASS, SINGLE N/A 09/05/2022 CORONARY ARTERY BYPASS GRAFT WITH 1 VEIN GRAFT performed by Bandar Estrada MD [place] [facility] [place] 01/04/2010 tumor found CYSTOSCOPY 09/20/2010 ansong CYSTOSCOPY 01/03/2011 neg CYSTOSCOPY 04/20/2011 CYSTOSCOPY 07/18/2011 no recurrence CYSTOSCOPY 11/21/2011 CYSTOSCOPY 03/19/2012 CYSTOSCOPY 07/16/2012 CYSTOSCOPY CYSTOSCOPY 03/25/2013 CYSTOSCOPY 10/13/2013 CYSTOSCOPY 05/25/2014 CYSTOSCOPY 01/04/[address] Worley [facility] CYSTOSCOPY/TREAT LGE BLADDER TUMOR 02/16/2010 CYSTOURETHROSCOPY WITH FULGURATION LARGE BLADDER TUMOR performed by RUSS BRAVO at [facility] CYSTOSCOPY/TREAT SML BLADDER TUMOR 06/08/2010 CYSTOURETHROSCOPY WITH FULGURATION SMALL BLADDER TUMOR performed by RUSS BRAVO at [place] [facility] [place] EGD, FLEXIBLE, DIAGNOSTIC 03/20/2013 UPPER GI ENDOSCOPY DIAGNOSTIC performed by Micky Edwards MD at ENDOSCOPY [facility] END[facility],VIDEO ASSIST HARVEST NOHEMI N/A 09/05/2022 ENDOSCOPY VIDEO ASSISTED HARVEST VEIN performed by Bandar Estrada MD at [place] [facility] [place]ERC[place]CHO 10/07/2002 No evidence for ischemic changes IMPACT TOOTH REMOV PART BONY early wisdom teeth INFORMATION 02/07/2011 bcg x3 doses maintence per DANELLA INFORMATION 10/25/2012 repair of umbilical hernia with mesh at [facility] on 10/25/[address] Manrique with Annabelle Minor PA-C assisting IOF CT GUIDED NEEDLE BIOPSY 10/25/2007 CT GUIDED NEEDLE ASPIRATION BIOPSY performed by RUSS TOLENTINO at [place] [facility] REMOVAL OF BLADDER TUMOR 01/12/2010 Cystotomy, Excision Bladder Tumor high grade muscle involved REMOVAL OF TONSILS, UNDER AGE 10 age 4 REMOVE CATARACT, INSERT LENS PROSTH Left 03/11/2014 EXTRACAPSULAR CATARACT REMOVAL WITH INTRAOCULAR LENS performed by Nakul Benz MD at OR [facility] REPAIR NECK SPINE FX/DISLOCATION 04/09/1988 C-1 fracture; mandibular/dental fractures REPLACEMENT AORTIC VALVE, BYPASS WITH PROSTHETIC VALVE N/A 09/05/2022 WITH REPLACEMENT AORTIC VALVE performed by Bandar Estrada MD at [place] [facility] [place] REVISE UPPER EYELID 11/07/2013 Social History Socioeconomic History Marital status: Spouse name: Chayo Number of children: 0 Years of education: 16 Highest education level: Not on file Occupational History 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 Sexual activity: Yes Partners: Female Comment: 44y 2019 no kids. Other Topics Concern Service Not Asked Blood Transfusions Not Asked Caffeine Concern Not Asked Occupational Exposure No Hobby Hazards Not Asked Sleep Concern Not Asked Stress Concern Not Asked Weight Concern Not Asked Special Diet Not Asked Back Care Not Asked Exercise Not Asked Bike Helmet Not Asked Seat Belt Not Asked Self-Exams Not Asked Social History Narrative Has 30K records, 10K books. Enjoys playing music. 1 dog. Social Determinants of Health Financial Resource Strain: Not on file Food Insecurity: Not on file Transportation Needs: Not on file Physical Activity: Not on file Stress: Not on file Social Connections: Not on file Intimate Partner Violence: Not on file Housing Stability: Not on file Family History Problem Relation Age of Onset Cancer Father age 47- bone cancer No Past Hx Mother 2019 Eye Problems Mother glaucoma Brain cancer Mother 2019 unsure malignant or not Other (fibromyalgia) Sister good health. in [place] Cancer Grandmother (Maternal) unsure type Diabetes None Thyroid Disorder None Hypertension None Heart Disorder None Stroke None Eye Problems None Denies FH: AMD, Glaucoma, RD's or Blindness Current Outpatient Medications Medication Sig Dispense Refill SYSTANE 0.4-0.3 % OP SOLN one drop both eyes as needed Aspirin 81 MG Oral Tablet Delayed Release Take 1 Tablet by mouth in the morning. Multivitamin Adult Oral Tablet Take by mouth. CPAP every night at bedtime. Gabapentin 300 MG Oral Capsule (Neurontin) TAKE ONE CAPSULE BY MOUTH TWICE A DAY 180 Capsule 1 Atorvastatin Calcium 40 MG Oral Tablet (Lipitor) TAKE ONE TABLET BY MOUTH EVERY DAY 90 Tablet 2 Furosemide 20 MG Oral Tablet (Lasix) TAKE ONE TABLET BY MOUTH EVERY DAY 100 Tablet 2 metFORMIN HCl 500 MG Oral Tablet (Glucophage) TAKE ONE TABLET BY MOUTH TWICE A DAY WITH FOOD 180 Tablet 2 Amiodarone HCl 200 MG Oral Tablet (Cordarone) Take 1 Tablet by mouth in the morning. For 30 days then stop. 30 Tablet 0 Famotidine 20 MG Oral Tablet (Pepcid) Take 1 Tablet by mouth in the morning. For 30 days then stop. 30 Tablet 0 Metoprolol Succinate ER 25 MG Oral Tablet Extended Release 24 Hour (toPROL XL) Take 1 Tablet bymouth in the morning. 30 Tablet 5 oxyCODONE HCl 5 MG Oral Tablet (Oxy IR) Take 1 Tablet by mouth every 4 hours as needed for Pain, Moderate. 20 Tablet 0 Tamsulosin HCl 0.4 MG Oral Capsule (Flomax) Take 1 Capsule by mouth in the morning. 30 Capsule 1 Globitel SYSTEM W/DEVICE KIT Use up to four times a day -Type II diabetes- #250.00 (Patient not taking: Reported on 09/20/2022) 1 Kit 0 Glucose Blood (TreedomUCH ULTRA BLUE) STRP Dx: E11.9 (Patient not taking: Reported on 09/20/2022) 100 Strip 11 TreedomUCH ULTRASOFT LANCETS MISC Use up to four times a day -Type II diabetes- Dx: E11.9 (Patient not taking: Reported on 09/20/2022) 1 Box Dosing Unit 11 Sildenafil Citrate 20 MG Oral Tablet (Revatio) Take by mouth 1-5 Tablets daily as needed for Erectile Dysfunction. (Patient not taking: Reported on 09/20/2022) 60 Tablet 6 No current facility-administered medications for this visit. Physical: BP 118/54 (BP Site: Left Arm, BP Position: Sitting, BP Cuff Size: Regular) | Pulse 76 | Temp 36.9 C (98.4 F) (Tympanic) | Resp 16 | Wt 95.7 kg (210 lb 14.4 oz) | BMI 33.03 kg/m | BSA 2.13 m General-No apparent Distress Head, Eyes, Ears, Nose, Throat--Normocephalic, atraumatic Neck-Supple Lymph-no lymphadenopathy Lungs-Clear to Auscultation bilaterally Cardiovascular--Regular rate & Rhythm, +s1, s2, no murmur Abdomen-soft, nontender, nondistended + bowel sounds Extremities--non pitting b/l LE edema Lvkf-aabdc-azkyiasfl CDI LLE--some general redness no increased warmth left anterior medial christianson. Incisions CDI. Neuro-alert & oriented x3 (I48.0) Paroxysmal atrial fibrillation (HCC) (primary encounter diagnosis) Plan: EKG, CBC WITH WBC DIFFERENTIAL AND ANEMIA REFLEX WORKUP, BASIC METABOLIC PANEL, EXTERNAL EKG 2 TO 7 DAYS Post op. EKG today NSR with PAC. Will ck 7d Zio Cont current meds F/u cards, CT surg, cardiac rehab as sched ER if acute worsening No sign cellulitis. Monitor redness (Z95.1) S/P CABG (coronary artery bypass graft) Plan: as above (Z95.2) S/P AVR (aortic valve replacement) Plan: as above (H53.9) Vision changes Plan: f/u retinal team (I10) HTN, goal below 140/90 Plan: at goal Cc: Dr Lamont Harris [facility] Cards Dr Estrada[place] [facility] [place] [facility] [place] Dr De Leon-retina Dr Monge-optom I spent a total of Greater than 55 mins (exact time 57 mins) on the date of service in preparation,delivery, and documentation of the care provided to Heron Aguila excluding any time spent in the performance of separately billed services. (This note was completed using the dictation program Fluency Direct. As such, there may be misspellings, word substitutions, or other variations that should not change the essence of the clinical content of this encounter note.If there is need for further clarification, please direct questions to the provider listed above.) Spencer Smith MD documented in this encounter Nursing Notes * Ruben Contreras RN - 09/20/2022 3:08 PM EDT Zio XT patch applied per order. Patient will wear for 7 days. Went through instruction booklet with patient and patient's spouse and allowed time for any questions to be asked and answered. Patient tolerated application process well. Will wear patch #[id number] until 09/27/2022 at approximately 02:57 PM. * Ruben Contreras RN - 09/20/2022 1:52 PM EDT Chief Complaint Patient presents with Hospital Follow-Up Aortic valve replacement and bypass 09/05/2022 documented in this encounter Plan of Treatment Upcoming Encounters Date Type Specialty Care Team Description 09/20/2022 Laboratory Laboratory [facility], [facility] [address] [place] [address] 10/19/2022 Office Visit Cardiothoracic Surgery Bandar Estrada MD [address] [place] [address] 12/26/2022 Office Visit Rheumatology William Devine MD [address] [place] [address] 01/23/2023 Procedure Only Urology Patric Villanueva MD [address] [facility] [address] [place] [address] Scheduled Orders Name Type Priority Associated Diagnoses Orde r Schedule EKG EKG Routine Paroxysmal atrial fibrillation (HCC) Ordered: 09/20/2022 CBC WITH WBC DIFFERENTIAL AND ANEMIA REFLEX WORKUP Lab Routine Paroxysmal atrial fibrillation (HCC) Expected: 09/20/2022 (Approximate), Expires: 09/21/2023 BASIC METABOLIC PANEL Lab Routine Paroxysmal atrial fibrillation (HCC) Expected: 09/20/2022 (Approximate), Expires: 09/20/2023 EXTERNAL EKG 2 TO 7 DAYS Holter Routine Paroxysmal atrial fibrillation (HCC) Expected: 09/21/2022 (Approximate), Expires: 09/21/2023 Scheduled Procedures Name Priority Associated Diagnoses Date/Ti [...] this encounter Medical Devices Implanted Type Area 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 Device Identifier Shelf Expiration Date Model / Serial / Lot Lens 19.0 Sn60wf - [id number] Implanted:Qty: 1 on 03/11/2014 by Nakul Benz MD at OR [facility] Left: Eye [employer] 12/07/2018 SN60WF.190 / [id number] / Lens 20.0 Sn60wf - [id number] - [id number] Implanted:Qty: 1 on 03/24/2016 by Tommy العلي MD at OR [facility] Right: Eye [employer]IN : SURGICAL 12/07/2020 SN60WF.2 00 / [id number] / Marker Coronary - [id number] Implanted:Qty: 1 on 09/05/2022 by Bandar Estrada MD [place] [facility] [place] N/A: Heart [employer] 07/07/2025 AM-SD / / [id number] documented as of this encounter Visit Diagnoses Diagnosis Paroxysmal atrial fibrillation (HCC)- Primary Atrial fibrillation S/P CABG (coronary artery bypass graft) Postsurgical aortocoronary bypass status S/P AVR (aortic valve replacement) Heart valve replaced by other means Vision changes Unspecified visual disturbance HTN, goal below 140/90 Unspecified essential hypertension [...] and were consensually agreed upon. Care Teams Camp Coordinator Relationship Specialty Start Date End Date Spencer Smith MD [address] [place] [address] PCP - General Family Medicine 02/03/20 documented as of this encounter"
--- OUTSIDE RECORDS SUMMARY | 2023-03-19 09:40 | External Medical Summary ---
Author Name Unknown Address Unknown Organization K01:LABORATORY [address] [place] [address] Laboratory Report Ordering Provider Test Date Status KONSTANTIN LEDEZMA 09/20/2022 15:23:33 Final Observation Date Value Abnormality Reference (Units ) Status WBC, Total 09/20/2022 15:23:33 7.31 4.00-10.8 0 (K/uL) Final RBC 09/20/2022 15:23:33 2.94 4.50-5.25 (M/uL) Final Hemoglobin 09/20/2022 15:23:33 9.3 Below low normal 14 .0-16.8 (g/dL) Final Anemia reflex testing trigge rs on a HGB < 12.0 for Females and HGB < 13.0 for Males in accordance with the WHO Anemia Guidelines
Anemia reflex testing triggers on a HGB < 12.0 for Females and HGB < 13.0 for Males in accordance with the WHO Anemia Guidelines HCT 09/20/2022 15:23:33 29.6 Below low normal 40. 0-48.4 (%) Final MCV 09/20/2022 15:23:33 100.7 82.0-99.5 (fL) Final MCH 09/20/2022 15:23:33 31.6 27.0-34.0 (pg) Final MCHC 09/20/2022 15:23:33 31.4 32.0-36.0 (g/dL) Final RDW 09/20/2022 15:23:33 18.5 11.5-15.5 (%) Final Platelets 09/20/2022 15:23:33 250 140-400 (K /uL) Final MPV 09/20/2022 15:23:33 9.8 6.6-11.1 ( fL) Final Nucleated erythrocytes/100 leukocytes [Ratio] in Blood by Automated count 09/20/2022 15:23:33 0 <=0 (/100 WBCs) Jermain lee Performing Location LABORATORY [facility] - [address] [facility] [address]
--- OUTSIDE RECORDS SUMMARY | 2023-03-19 09:40 | External Medical Summary | Summary of Care ---
Author Name Unknown Organization [facility] [address] [address] Phone [phone] Care Team Providers Care Collections Clerk Name Role Phone Spencer Smith MD Primary Care Provider + Reason for Visit * Reason Comments Hospital Follow-Up Aortic valve replace ment and bypass 09/05/2022 Encounter Details Date Type Department Care Team Description 09/20/2022 Office Visit [facility] [address] [place] [id number] Spencer Smith MD [address] [place] [address] Paroxysmal atrial fibrillation (HCC)*; S/P CABG (coronary [...] Dispensed Refills Start Date End Date Status Jump On It SYSTEM W/DEVICE KITIndications:DM type 2, goal A1c [...] Overview: Previous Dr Arevalo, then Dr Diallo [facility] PCP (insurance change). 06/08/22 Cardiac cath Severe early-mid RCA stenosis. Dr Lamont Harris @[facility] 05/01 TTE [facility] --Reviewed [facility] TTE 04/12/22. Normal ejection fraction 50-55%, grade [...] 3y 02/26 mammo/US Wnl-dominick May 2020 clinical [facility] uro yearly--considering follow Dr Villanueva to [place]. Request colon, echo, carotid US, reports. Needs DEXA Lung CA screen 10/25 [facility]--rec yearly through 2021. (15y post quit date)_ Colon 10/18/16 [facility] +adenoma dominick 5y. EKGD 11/23 antral mass benign. [facility]US [facility] 01/23 hyperplastic gastric fold-removal Coronary artery disease invo lving kiana coronary artery of kiana heart with angina pectoris 02/03/2020 Overview: [address]. 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 [place] [id number]. He was started on amiodarone. Reverted to sinus rhythm. He was not discharged on anticoagulation because of his low platelets and postop bleeding history. He had his postop visit September 15. Went well. He did develop left persistent vision change and so was seen the same day by Dr Askew at [facility]. She thought he had a small infarct in his retina, referred to Dr De Leon at [facility]--saw him 09/18/22. I don't have his report, [...] Asymptomatic stenosis of right carotid artery 02/03/2020 [facility] Benign neoplasm of colon 06/23/2009 15 mm polyp adenomatous polyp repeat in 1 yea Benign neoplasm of colon 07/19/10 adenomatous/repeat colnooscopy in 3 yra Bilateral sciatica 02/03/2020 Bladder cancer (HCC) 2010 had chemo tx's Bladder neoplasm 02/10/2010 Cervical spinal stenosis 06/30/202106/28 MRI Coronary artery disease involving kiana coronary artery of kiana heart without angina pectoris 02/03/2020 2019 noted [...] Severe early-mid RCA stenosis. Dr Lamont Harris @[facility] COLONOSCOPY W/ LESION REMOVAL, SNARE 06/23/2009 15 mm polyp adenomatous polyp repeat in 1 year COLONOSCOPY, DIAGNOSTIC (RECTUM) 03/20/2013 repeat in 5 years COLONOSCOPY, DIAGNOSTIC (RECTUM) 12/31/2020 hemorrhoids, diverticulosis in sigmoid, 3- 2 to 3 mm in sigmoid & transverse /biopsies benign adenomatous polyps / 3 year recall / COLONOSCOPY FLEXIBLE PROXIMAL DIAGNOSTIC performed by Clay Peña MD at ENDOSCOPY [facility] COLONOSCOPY/REMOVE LESION 07/19/2010 adenomatous/repeat colnooscopy in 3 yra CORONARY ARTERY BYPASS, SINGLE N/A 09/05/2022 CORONARY ARTERY BYPASS GRAFT WITH 1 VEIN GRAFT performed by Bandar Estrada MD at OR [facility] CYSTOSCOPY 01/04/2010 tumor found CYSTOSCOPY 09/20/2010 ansong CYSTOSCOPY 01/03/2011 neg CYSTOSCOPY 04/20/2011 CYSTOSCOPY 07/18/2011 no recurrence CYSTOSCOPY 11/21/2011 CYSTOSCOPY 03/19/2012 CYSTOSCOPY 07/16/2012 CYSTOSCOPY CYSTOSCOPY 03/25/2013 CYSTOSCOPY 10/13/2013 CYSTOSCOPY 05/25/2014 CYSTOSCOPY 01/04/[address] Worley [facility] CYSTOSCOPY/TREAT LGE BLADDER TUMOR 02/16/2010 CYSTOURETHROSCOPY WITH FULGURATION LARGE BLADDER TUMOR performed by RUSS BRAVO at [facility] [address] CYSTOSCOPY/TREAT SML BLADDER TUMOR 06/08/2010 CYSTOURETHROSCOPY WITH FULGURATION SMALL BLADDER TUMOR performed by RUSS BRAVO at OR [facility] EGD, FLEXIBLE, DIAGNOSTIC 03/20/2013 UPPER GI ENDOSCOPY DIAGNOSTIC performed by Micky Edwards MD at ENDOSCOPY [facility] ENDO,VIDEO ASSIST HARVEST NOHEMI N/A 09/05/2022 ENDOSCOPY VIDEO ASSISTED HARVEST VEIN performed by Bandar Estrada MD at OR [facility] EXERCISE ECHO 10/07/2002 No evidence for ischemic changes IMPACT TOOTH REMOV PART BONY early wisdom teeth INFORMATION 02/07/2011 bcg x3 doses maintence per DANELLA INFORMATION 10/25/2012 repair of umbilical hernia with mesh at [facility] on 10/25/[address] Manrique with Annabelle Minor PA-C assisting IOF CT GUIDED NEEDLE BIOPSY 10/25/2007 CT GUIDED NEEDLE ASPIRATION BIOPSY performed by RUSS TOLENTINO at RADIOLOGY [facility] REMOVAL OF BLADDER TUMOR 01/12/2010 Cystotomy, Excision Bladder Tumor high grade muscle involved REMOVAL OF TONSILS, UNDER AGE 10 age 4 REMOVE CATARACT, INSERT LENS PROSTH Left 03/11/2014 EXTRACAPSULAR CATARACT REMOVAL WITH INTRAOCULAR LENS performed by Nakul Benz MD at OR [facility] REPAIR NECK SPINE FX/DISLOCATION 04/09/1988 C-1 fracture; mandibular/dental fractures REPLACEMENT AORTIC VALVE, BYPASS WITH PROSTHETIC VALVE N/A 09/05/2022 WITH REPLACEMENT AORTIC VALVE performed by Bandar Estrada MD at OR [facility] REVISE UPPER EYELID 11/07/2013 Social History Socioeconomic History Marital status: Spouse name: Chayo Number of children: 0 Years of education: 16 Highest education level: Not on file Occupational History 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 30 Capsule 1 Jump On It SYSTEM W/DEVICE KIT Use up to four times a day -Type II diabetes- #250.00 (Patient not taking: Reported on 09/20/2022) 1 Kit 0 Glucose Blood (ImpulseSaveUCH ULTRA BLUE) STRP Dx: E11.9 (Patient not taking: Reported on 09/20/2022) 100 Strip 11 ImpulseSaveUCH ULTRASOFT LANCETS MISC Use up to four [...] bowel sounds Extremities--non pitting b/l LE edema Ewua-svctf-iuedknxgc CDI LLE--some general redness no increased warmth [...] Plan: at goal Cc: Dr Lamont Harris [facility] Cards Dr Estrada- [facility] CT surg Dr De Leon-retina Dr Monge-optom [...] tolerated application process well. Will wear patch #[id number] until 09/27/2022 at approximately 02:57 PM. * Ruben Contreras RN - 09/20/2022 1:52 PM EDT Chief Complaint Patient presents with Hospital Follow-Up Aortic valve replacement and bypass 09/05/2022 documented in this encounter Plan of Treatment Upcoming Encounters Date Type Specialty Care Team Description 09/20/2022 Laboratory Laboratory [facility], [facility] [address] [place] [address] Arrived 10/19/2022 Office Visit Cardiothoracic Surgery Bandar Estrada MD [address] [place] [address] 12/26/2022 Office Visit Rheumatology William Devine MD [address] [place] [address] 01/23/2023 Procedure Only Urology Patric Villanueva MD [address] [facility] [address] [place] [address] Scheduled Orders Name [...] 11/03/2020, Additional history exists GFR 09/11/2023 09/10/2022, 06/06/2022, 09/08/2022, Additional history exists COLONOSCOPY-EVERY 3 YRS [...] encounter Medical Devices Implanted Type Area Special Police Device Identifier Shelf Expiration Date Model / Serial / Lot Lens 19.0 Sn60wf - [id number] Implanted:Qty: 1 on 03/11/2014 by Nakul Benz MD at OR [facility] Left: Eye [employer] 12/07/2018 SN60WF.190 / [id number] / Lens 20.0 Sn60wf - [id number] - [id number] Implanted:Qty: 1 on 03/24/2016 by Tommy العلي MD at OR [facility] Right: Eye ERIN : SURGICAL 12/07/2020 SN60WF.2 00 / [id number] / Marker Coronary - [id number] Implanted:Qty: 1 on 09/05/2022 by Bandar Estrada MD at OR [facility] N/A: Heart [employer] 07/07/2025 [facility] / / [id number] documented as of this encounter Visit Diagnoses [...] and were consensually agreed upon. Care Teams Collections Clerk Relationship Specialty Start Date End Date Spencer Smith MD [address] [place] [address] PCP - General Family Medicine 02/03/20 documented as of this encounter"
[2023-03-19] MEDS ORDERED: ORTHO JOINT ANESTHETIC ONE (09:46)
[2023-03-19] MEDS ORDERED: ePHEDrine sulfate 50 MG/ML AMP IV PRN (09:58)
[2023-03-19] MEDS ORDERED: ATROPINE SULFATE 0.1 MG/ML 10ML SYR IV PRN (09:58)
[2023-03-19] MEDS ORDERED: fentaNYL citrate PF 100 MCG/2 ML VIAL IV PRN (09:58)
[2023-03-19] MEDS ORDERED: ONDANSETRON INJ 2 MG/ML 2 ML VIAL IV PRN ×2 (09:58→13:39)
[2023-03-19] MEDS ORDERED: KETOROLAC 30 MG/ML VIAL ONE (10:48)
--- NOTE | 2023-03-19 12:01 | Operative Report ---
PG Post Operative Report Pre & Post Diagnosis Operation Date: 03/19/23 10:00 Pre-Op Diagnosis: right knee degenerative joint disease Post-Op Diagnosis: right knee degenerative joint disease I identified the patient and participated in the time-out.: Yes Procedure Operation Date: 03/19/23 10:00 Actual Procedures p Right Total Knee Arthroplasty(Right) - William Leslie DO Surgeon William Leslie DO Administrative Judge Del Loomis PA-C Estimated Blood Loss 30 Findings Consistent with Post-Op Diagnosis Specimens Right femoral tibial bone Description of Procedure Implants used: I used a Ester Persona total knee arthroplasty system with a size 8 standard femur, D tibia, 28 oval patella, and a size 16 medial congruent polyethylene bearing. All components were cemented in place with Biomet cement. Herno manning [facility] for the above procedure. He was seen in the preoperative holding area and the operative extremity was identified and signed. He was given a preoperative antibiotic, TXA, a spinal anesthetic and an adductor nerve block. He was taken back to the operating room and laid on the table in supine position. He was given basic sedation. The operative knee was then prepped and draped in sterile fashion. A timeout was done, and the patient and the operative extremity was properly identified. A midline incision was made directly over the patella. Dissection was taken down to the extensor mechanism. A midvastus arthrotomy was used. The medial retinaculum was released and the fat pad was mostly excised. The knee was flexed and the ACL, PCL, and meniscus were removed. A drill was sent down the center of the femoral canal followed by an intramedullary kandice. Off that kandice a distal femoral cutting block was placed. 9 mm was resected off the distal femur at 5 of valgus. A posterior referencing AP sizing guide was then placed on the distal femur. The femur measured to be a size 8. 2 drill holes were placed in 3 of external rotation. A 4-in-1 cutting block was then impacted into place. Anterior, posterior, and chamfer cuts were then made. The proximal tibia was then exposed. An external tibial alignment guide was placed. A tibial cut guide was then anchored in place and the proximal tibia was then resected. The posterior aspect of the knee was then opened up and any additional meniscus fragments and osteophytes were removed. The tibia measured to be a size D. The tibial plate was then placed in the appropriate rotation and the tibia was drilled and punched. Trial components were then placed. I used a size 16 medial congruent polyethylene insert. The knee was brought through a full range of motion and felt to be stable. The peg holes for the femoral component were then drilled. The patella was then everted and 9 mm was resected off the posterior aspect of the patella. The patella measured to be a size 28 oval. 3 peg holes were then drilled. A trial patella was placed. The knee was once again brought through a full range of motion and felt to be stable. Trial components were then removed. The surrounding soft tissues were injected with 100 cc of an orthopedic pain control cocktail. All components were then cemented into place with Biomet cement. The final polyethylene insert was then snapped into place. Once cement was dry the tourniquet was deflated. Hemostasis was obtained. A dilute betadyne lavage was then done for 3 minutes. The joint was then irrigated with normal saline solution. The midvastus arthrotomy was then closed with #1 Vicryl suture. The skin was closed with 2-0 Vicryl, 3-0V lock suture, and kary. A soft compressive dressing was placed. He was then transferred to a hospital bed and taken to the postanesthesia care unit in stable condition. He tolerated the procedure well. Del Loomis PA-C, was present for the entire procedure. He was critical for patient positioning, prepping, draping, retraction exposure, wound closure and application of sterile dressing. I attest to the content of the Intraoperative Record and any orders documented therein. Any exceptions are noted below.
--- NOTE | 2023-03-19 12:03 | Anesthesiology Progress Note ---
Date of Service March 19, 2023 Anesthesia Post Procedure Vital Signs Vital Signs: Temp Pulse Pulse Resp BP BP Pulse Ox 03/19/23 12:00 72 14 110/71 94 03/19/23 11:50 65 12 118/60 95 03/19/23 11:40 67 16 121/57 L 99 03/19/23 11:32 36.2 C L 70 15 100/59 L 95 03/19/23 08:53 37.1 C 76 18 166/81 H 94 O2 Del Method O2 Flow Rate 03/19/23 12:00 Nasal Cannula 2 03/19/23 11:50 Oxymask 4 03/19/23 11:40 Oxymask 4 03/19/23 11:32 Oxymask 6 03/19/23 08:53 Room Air Transfer of Care Handoff Completed per policy Notes Mental Status: alert / awake / arousable Patient Amnestic to Procedure: Yes Nausea / Vomiting: adequately controlled Pain: adequately controlled Airway Patency, RR, SpO2: stable & adequate BP & HR: stable & adequate Hydration State: stable & adequate Neuraxial Anesthesia: was administered and sensory block is resolving Anesthetic Complications: no major complications apparent and Pt Satisfied with anesthetic care
--- NOTE | 2023-03-19 12:10 | XRay Report ---
XR knee RT 1 or 2V routine HISTORY: 68 years-old Male Surgical Post Op right knee arthroplasty COMPARISON: 12/19/2022 TECHNIQUE: 2 views of the right knee FINDINGS: Total joint arthroplasty with patellar resurfacing. Anterior midline skin kary are noted along wit h expected postoperative soft tissue swelling with deep tissue air. Arterial calcifications. Lower ex tremity varicosities. IMPRESSION: Total joint arthroplasty with expected postoperative changes. ACT 112: Negative or not required by law. The above report was generated using voice recognition software. It may contain grammatical, syntax o r spelling errors. Electronically signed by: Jozef Quick M.D. 03/19/2023 12:09 PM
[2023-03-19] MEDS ORDERED: NALOXONE HCL 0.4 MG/1 ML VIAL/CARP IV PRN (13:39)
[2023-03-19] MEDS ORDERED: bisacodyL 10 MG SUPP PR PRN (13:39)
[2023-03-19] MEDS ORDERED: MAGNESIUM HYDROXIDE SUSP 30 ML UDC PO PRN (13:39)
[2023-03-19] MEDS ORDERED: HYDROmorphone INJ 0.5 MG/0.5 ML SYR IV PRN (13:39)
[2023-03-19] MEDS ORDERED: PHARMACY GLYCEMIC MGMT CONSULT PRN (13:39)
[2023-03-19] MEDS ORDERED: METOCLOPRAMIDE HCL INJ 5 MG/ML 2 ML VIAL IV PRN (13:39)
[2023-03-19] MEDS ORDERED: traMADol HCL 50 MG TABLET PO PRN (13:39)
--- NOTE | 2023-03-19 14:16 | Pharmacy Report ---
Pharmacy Glycemic Short Note 2 - Date of Service March 19, 2023 - Glycemic Short BSG Results (Last 24 hours): 03/19/23 03/19/23 08:58 11:41 POC Glucose 108 H 112 H OUTPATIENT ANTIDIABETIC REGIMEN: * metformin 500mg PO BID * HbA1c 6.2% ASSESSMENT: * Dillon is a 68 YOM admitted status right total knee arthoplasty with a history of Type II diabetes. Pharmacy has been consulted for glycemic management while inpatient. * Fasting BSG this AM acceptable, received dexamethasone 8mg PO this AM, will hold off on basal insulin for now and reassess in AM * Receiving Ancef postoperatively * Novolog inititated at a weight based stress of 2-3 PLAN FOR INPATIENT GLYCEMIC CONTROL: * Hold outpatient oral diabetes medications * Basal insulin * Hold basal insulin, reassess in AM * Bolus insulin * NovoLog per scale ACHS or Q6hrs while NPO * Goal Range: Low 110 mg/dL - High 140 mg/dL * Correction Factor: 25 mg/dL/unit * Nutritional / Prandial insulin per carb ratio of 1 unit per 8 grams CHO consumed
[2023-03-19] MEDS: ACETAMINOPHEN 500 MG TAB PO SCH ×2 (15:02→21:23)
[2023-03-19] MEDS: SODIUM CHLORIDE 0.9% 1,000 ML IV SCH (15:02)
[2023-03-19] MEDS: KETOROLAC TROMETHAMINE 15 MG/ML VIAL IV SCH ×2 (15:03→21:23)
[2023-03-19] MEDS: INSULIN ASPART PER UNIT CHARGE SC SCH ×2 (17:23→21:23)
[2023-03-19] MEDS: ceFAZolin 2000MG 2,000 MG/15 ML SYR IV SCH (17:23)
[2023-03-19] MEDS: oxyCODONE HCL IR 5 MG TAB (IMMEDIATE RELEASE) PO PRN (18:42)
[2023-03-19] MEDS ORDERED: SENNA 8.6 MG TAB PO SCH (21:00)
[2023-03-19] MEDS ORDERED: metFORMIN HCL 500 MG TAB PO SCH (21:00)
[2023-03-19] MEDS: DOCUSATE SODIUM 100 MG CAP PO SCH (21:28)
[2023-03-20] MEDS: ceFAZolin 2000MG 2,000 MG/15 ML SYR IV SCH (01:46)
[2023-03-20] MEDS: KETOROLAC TROMETHAMINE 15 MG/ML VIAL IV SCH ×2 (01:47→09:39)
[2023-03-20] MEDS: oxyCODONE HCL IR 5 MG TAB (IMMEDIATE RELEASE) PO PRN ×3 (02:50→08:54)
[2023-03-20] MEDS: SODIUM CHLORIDE 0.9% 1,000 ML IV SCH (03:53)
[2023-03-20] MEDS: ACETAMINOPHEN 500 MG TAB PO SCH (06:01)
[2023-03-20] MEDS: INSULIN ASPART PER UNIT CHARGE SC SCH (08:53)
[2023-03-20] MEDS ORDERED: metFORMIN HCL 500 MG TAB PO SCH (09:00)
[2023-03-20] MEDS ORDERED: MULTIVITAMIN TAB PO SCH (09:00)
[2023-03-20] MEDS ORDERED: FUROSEMIDE 20 MG TAB PO SCH (09:00)
[2023-03-20] MEDS ORDERED: METOPROLOL SUCC 25MG EXT REL TAB PO SCH (09:00)
[2023-03-20] MEDS ORDERED: ATORVASTATIN 40 MG TAB PO SCH (09:00)
--- NOTE | 2023-03-20 09:13 | Orthopedic Progress Note ---
Date of Service March 20, 2023 Assessment & Plan (1) Status post right knee replacement: Overall he is doing very well today with good pain control to the right knee. He will work with physical therapy today for ambulation and range of motion exercises. He was started on Eliquis for DVT prophylaxis. He can be discharged home later today. He will follow-up with orthopedics in 2 weeks for postoperative care. Subjective . Dillon was examined at bedside today resting comfortably in no apparent distress. He states that his pain is well-controlled to his right knee. He has been up and ambulating to the bathroom. He has no other complaints today. Review of Systems All systems reviewed & are unremarkable except as noted in HPI & below. Physical Exam . On physical examination, right knee, dressings are clean, dry, and intact. His leg is out in full extension. He has active dorsiflexion plantarflexion of the right ankle. +2 DP and PT pulses. Less than 2-second capillary refill. Normal sensation. Neurovascular intact. Results & Data Results & Data Laboratory Results . Diagnostic Findings . Postoperative x-rays of the right knee show prosthesis to be in anatomical alignment with no signs of fracture complication or loosening. PG Care Time/CCT Total # of Minutes Spent Total Time Spent with Patient: Total time spent is greater than 50% in coordination of care (as documented) at patient's floor/unit and/or counseling patient: Coding Level of Care Code 21701 Post Operative Follow-Up Diagnoses Status post right knee replacement Z96.651
--- NOTE | 2023-03-20 09:15 | Discharge Summary ---
Date of Service March 20, 2023 Admission HPI (Per Admitting) Heron is a 67-year-old male with pretty severe medial compartment osteoarthritis of right knee. Has been treating conservatively with injections over the past few years. Recently he had bypass surgery as well as aortic valve replacement in June of this year. He recovered well and is doing well with that. He had recently obtained cardiac clearance. He is still dealing with a lot of knee pain. After failing conservative treatment, he has elected to proceed with a right total knee arthroplasty.. Admission Exam (Per Admitting) On physical examination the right knee, he has a varus deformity. He has tenderness palpation of the distal medial femoral condyle and over the medial joint line.. Principal Diagnosis Same as "Discharge Diagnosis" noted below under Discharge Instructions. Discharge Exam . On physical examination, right knee, dressings are clean, dry, and intact. His leg is out in full extension. He has active dorsiflexion plantarflexion of the right ankle. +2 DP and PT pulses. Less than 2-second capillary refill. Normal sensation. Neurovascular intact. Discharge Data Procedures Performed Operation Date: 03/19/23 10:00 Actual Procedures p Right Total Knee Arthroplasty(Right) - William Leslie DO Ordered Studies 03/19/23 09:43 US - OR guided needle placemen Routine Hospital Course (1) Status post right knee replacement: On March 19, 2023 Dillon arrived at [facility] orthopedics and underwent a right total knee replacement without complications. He had a spinal anesthetic. Postoperatively, he was started on Eliquis for DVT prophylaxis and transferred to the general orthopedic floor in stable condition. His hospital course was uneventful. On postoperative day #1, his vital signs were stable and his pain was well-controlled. He was able to participate well with physical therapy doing ambulation and range of motion exercises. He was then discharged home. He will follow-up with orthopedics in 2 weeks for postoperative care. PG Care Time/CCT Total # of Minutes Spent Total Time Spent with Patient: Total time spent is greater than 50% in coordination of care (as documented) at patient's floor/unit and/or counseling patient: Discharge Plan Discharge Items Patient Disposition: Home - Home Health Services Reason For Visit: Right Knee Degenerative Joint Disease Discharge Diagnosis: Right knee replacement Activity: Per Instructions section Non-emergency contact: Surgeon Call non-emergency contact if: your wound has increased redness and your wound has increased drainage Follow-up/Referrals: Spencer Smith MD [Primary Care Provider] - Diet: Carb Consistent or DM2 Addtl Attending Provider Instructions: Activity and Therapy Recommendations: * If you are using [facility] then therapy will be provided at your home until they feel you have accomplished all of your goals. * If you are using [facility] then Physical Therapy will be provided until they feel you are ready to start Outpatient Physical Therapy. * If you are not using home therapy then Outpatient Physical Therapy should start about 3-5 days from your day of surgery. Therapy will last about 6-10 weeks * It is important not to put a pillow under your knee when you are relaxing or sleeping. It is just as important to make sure you are getting your knee perfectly straight as it is to regain your knee bend. * You were shown a series of exercises in the hospital. Do these exercises three times each day including the exercises you were shown in physical therapy. * Get up and walk several times each day. For the first four weeks, try not to stand or walk for more than one hour at a time. If you do stand or walk for more than one hour, you will not hurt anything, but your leg will likely swell. * As you feel comfortable, you may change from the walker or crutches to a cane and then to independent walking. Medications: * Narcotic You will likely be sent home from the hospital with a prescription for the narcotic pain medication that worked best throughout your stay. * Cefadroxil -take the antibiotic twice a day for 10 days to help prevent infection. * Aspirin Most patients will be required to take Aspirin 81mg twice a day for 6 weeks after surgery. This is obtained [id number] and a prescription is not necessary. * Other medications may be prescribed for specific circumstances. If you have any questions, please call the office at . * Resume previous home medications unless otherwise instructed TEDs/Elastic Stockings: The white elastic stockings help limit swelling and prevent blood clots from forming in your legs.~ The more you wear them, the more they work. Wear them for six weeks. Dressing Care: The dressing can be changed after physical therapy on postop day #1. Daily dry dressing changes for a few days, especially if the incision is still draining some. If the incision is not draining then you may leave the kary open to air. If there is a little bit of drainage or if the kary are getting stuck on your clothing then cover the incision with a dry dressing. The kary will be removed at your 2 week follow-up appointment. Showering: You may shower 5 days from the day of surgery as long as the incision is no longer draining. You may shower with the kary exposed. Let soapy water run over the kary and pat them dry. Do not scrub or soak the incision. Things To Watch For: * Drainage from the incision site that occurs more than one week after your surgery. * Increased redness at the incision site. * Fever above 102 degrees Fahrenheit. * Unusual chest pain or shortness of breath. * Call [facility] at with any of the above problems Follow-Up Visit: Follow-up with Dr. Leslie's PA (William Baig) 2-3 weeks after your day of surgery. He will remove your kary and answer any questions. If you have any additional questions or concerns, Dr Leslie is usually in the office at the same time and will be available An appointment was probably scheduled when you signed-up for surgery in the office. If you have any questions call Office Instructions: More detailed instructions as well as Frequently Asked Questions were provided in a folder by our office when you signed-up for surgery. Please review these instructions when you get home. If you have any further questions or concerns, please feel free to call the office at [phone] Pending Studies at Discharge: No Stand-Alone Forms: [facility], Smoking Cessation Medications and DC Order Prescriptions: New Eliquis 2.5 mg Tablet 2.5 mg PO BID 10 Days Qty: 20 0RF oxycodone 5 mg Tablet 5 - 10 mg PO Q6 PRN (Reason: pain) Qty: 30 0RF Rx Instructions: For continued therapy cefadroxil 500 mg capsule 500 mg PO BID 10 Days Qty: 20 0RF Continued metformin 500 mg tablet 500 mg PO BID Qty: 180 0RF Systane (propylene glycol) 0.4-0.3 % drops 1 drops OP DAILY PRN (Reason: Dry Eyes) (DME) lancets misc See Dose Instructions .ROUTE .MEDSUPPLY Qty: 50 Rx Instructions: 4 times daily (DME) blood sugar diagnostic strip See Dose Instructions .ROUTE .MEDSUPPLY Qty: 10 Rx Instructions: tests 4 times daily ferrous sulfate [Iron (ferrous sulfate)] 325 mg (65 mg iron) tablet 325 mg PO UD Rx Instructions: twice weekly gabapentin 300 mg capsule 300 mg PO BID metoprolol succinate 25 mg tablet extended release 24 hr 25 mg PO QAM furosemide [Lasix] 20 mg tablet 20 mg PO QAM multivitamin Tablet 1 tab PO QAM triamcinolone acetonide [Triderm] 0.1 % cream 1 applic topical BID PRN (Reason: flaring) Rx Instructions: Apply to areas of the trunk twice daily as needed for flaring. atorvastatin 40 mg tablet 40 mg PO QAM Held aspirin [Adult Aspirin Regimen] 81 mg tablet,delayed release (DR/EC) 81 mg PO QAM Hold Instructions: Resume on 03/30/23. May resume whenever finished with 10 days of Eliquis. Admission Data Admit Date/Time: 03/19/23 11:36 Attending Provider: William Leslie Admit Provider: William Leslie Primary Care Provider: Spencer Smith Other Providers: [facility],Home Health
[2023-03-20] MEDS: DOCUSATE SODIUM 100 MG CAP PO SCH (09:40)
[2023-03-20] MEDS ORDERED: APIXABAN 2.5 MG TAB PO SCH (12:00)
== END 2023-03-20 12:10 | disposition home health service (06) ==
LOC: ASU 08:24 → 3W 08:24

== ENCOUNTER 2023-09-10 10:15 | Observation (INO) ==
--- NOTE | 2023-08-09 09:44 | PAT Medication Instructions ---
Medication Instructions Date of Service August 09, 2023 Home Medications Medication Instructions Recorded metformin 500 mg tablet 500 mg PO BID #180 tabs 09/20/20 aspirin 81 mg tablet,delayed release (Adult Aspirin Regimen) 81 mg PO QAM peg 400-propylene glycol 0.4 %-0.3 % eye drops (Systane (propylene glycol)) 1 drops ophthalmic (eye) DAILY PRN Dry Eyes metformin 500 mg tablet 500 mg PO BID ferrous sulfate 325 mg (65 mg iron) tablet (Iron (ferrous sulfate)) 325 mg PO WK gabapentin 300 mg capsule 300 mg PO BID furosemide 20 mg tablet (Lasix) 20 mg PO QAM multivitamin 1 tab PO QAM metoprolol succinate 25 mg tablet,extended release 24 hr 25 mg PO QAM triamcinolone acetonide 0.1 % topical cream (Triderm) 1 applic topical BID PRN flaring atorvastatin 40 mg tablet 40 mg PO QAM ASK your prescriber and surgeon aspirin 81 mg tablet,delayed release (Adult Aspirin Regimen) 81 mg PO QAM STOP taking 24 hours before surgery triamcinolone acetonide 0.1 % topical cream (Triderm) 1 applic topical BID PRN flaring DO NOT take the morning of surgery metformin 500 mg tablet 500 mg PO BID ferrous sulfate 325 mg (65 mg iron) tablet (Iron (ferrous sulfate)) 325 mg PO WK furosemide 20 mg tablet (Lasix) 20 mg PO QAM multivitamin 1 tab PO QAM Take morning of surgery With a small sip of water, OTHERWISE NOTHING TO EAT OR DRINK AFTER MIDNIGHT: peg 400-propylene glycol 0.4 %-0.3 % eye drops (Systane (propylene glycol)) 1 drops ophthalmic (eye) DAILY PRN Dry Eyes (if needed) gabapentin 300 mg capsule 300 mg PO BID metoprolol succinate 25 mg tablet,extended release 24 hr 25 mg PO QAM atorvastatin 40 mg tablet 40 mg PO QAM Take evening before surgery peg 400-propylene glycol 0.4 %-0.3 % eye drops (Systane (propylene glycol)) 1 drops ophthalmic (eye) DAILY PRN Dry Eyes (if needed) metformin 500 mg tablet 500 mg PO BID gabapentin 300 mg capsule 300 mg PO BID Other Notes If you have any questions please call us at [phone] or [phone] or [phone] or [phone]
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
[~2023-09-10 10:15] MED LIST changes: -ACETAMINOPHEN 500 MG TAB PO SCH; -FAMOTIDINE 20 MG TAB PO SCH; -GABAPENTIN 300 MG CAP PO SCH; -Ketorolac (*for OR use only*) 30 MG, dexAMETHasone 4 MG, KETAMINE HCL (**OR use only) 1... INFIL SCH; -LR 500ML BOLUS, THEN 15ML/HR IV SCH; -LR 60ML/HR IV SCH; -MIDAZOLAM HCL 1 MG/ML 2ML VIAL ONE; -ORTHO JOINT MIX INFIL SCH; -TRANEXAMIC ACID 1,000 MG **IV Intra-op IV SCH; -TRANEXAMIC ACID 1,000 MG **IV Pre-op IV SCH; -ceFAZolin 2000MG 2,000 MG/15 ML SYR IV SCH; -dexAMETHasone 4 MG TAB PO SCH
[2023-09-10] MEDS ORDERED: fentaNYL citrate PF 100 MCG/2 ML VIAL IV PRN (10:44)
[2023-09-10] MEDS ORDERED: ONDANSETRON INJ 2 MG/ML 2 ML VIAL IV PRN ×2 (10:44→14:04)
[2023-09-10] MEDS ORDERED: ATROPINE SULFATE 0.1 MG/ML 10ML SYR IV PRN (10:44)
[2023-09-10] MEDS ORDERED: ePHEDrine sulfate 50 MG/ML AMP IV PRN (10:44)
[2023-09-10] MEDS ORDERED: MIDAZOLAM HCL 1 MG/ML 2ML VIAL ONE (10:48)
[2023-09-10] MEDS ORDERED: fentaNYL citrate PF 100 MCG/2 ML VIAL ONE (10:48)
--- NOTE | 2023-09-10 10:50 | History & Physical Bridge Note ---
Date of Service September 10, 2023 History & Physical Bridge Note I have examined the patient, reviewed the History & Physical and in the interval since the performance of the History & Physical I have noted the following changes of clinical significance: no changes noted
[2023-09-10] MEDS: ACETAMINOPHEN 500 MG TAB PO SCH ×2 (10:59→14:37)
[2023-09-10] MEDS: LR 500ML BOLUS, THEN 15ML/HR IV SCH (10:59)
[2023-09-10] MEDS: dexAMETHasone**PF** 10 MG/ML VIAL IV SCH (11:00)
[2023-09-10] MEDS: FAMOTIDINE 20 MG TAB PO SCH (11:00)
[2023-09-10] MEDS: GABAPENTIN 300 MG CAP PO SCH ×2 (11:05→21:28)
[2023-09-10] MEDS: LR 60ML/HR IV SCH (11:06)
[2023-09-10] MEDS: TRANEXAMIC ACID 1,000 MG **IV Pre-op IV SCH (11:27)
[2023-09-10] MEDS ORDERED: PROPOFOL IV EMULSION 10 MG/ML 20 ML VIAL IV ONE (11:50)
[2023-09-10] MEDS ORDERED: ONDANSETRON INJ 2 MG/ML 2 ML VIAL ONE (11:50)
[2023-09-10] MEDS ORDERED: ePHEDrine sulfate 50 MG/5 ML SYR ONE (12:02)
[2023-09-10] MEDS: ROPIV 0.5% 246mg, Ketorolac 30mg, EPINEPHrine 0.5mg in NSS INFIL SCH (12:35)
[2023-09-10] MEDS: TRANEXAMIC ACID 1,000 MG **IV Intra-op IV SCH (12:42)
--- NOTE | 2023-09-10 13:32 | XRay Report ---
LEFT KNEE 2 VIEWS History: Left total knee arthroplasty. Degenerative arthritis. Postop. FINDINGS: The patient is status post a left total knee arthroplasty. The hardware is intact. No fract ure or dislocation. Skin kary are in place. IMPRESSION: Left total knee arthroplasty. No evidence for hardware complication. ACT 112: Negative or not required by law. Electronically signed by: José Singh M.D. 09/10/2023 1:31 PM
--- NOTE | 2023-09-10 13:58 | Anesthesiology Progress Note ---
Date of Service September 10, 2023 Anesthesia Post Procedure Vital Signs Vital Signs: Temp Pulse Resp BP Pulse Ox O2 Del Method O2 Flow Rate 09/10/23 13:35 36.5 C 72 13 142/66 H 95 Room Air 09/10/23 13:25 36.5 C 77 17 142/70 H 99 Oxymask 3 09/10/23 13:15 72 14 141/69 H 100 Oxymask 5 09/10/23 13:06 36.6 C 78 16 150/65 H 98 Oxymask 5 09/10/23 10:47 37.0 C 75 18 170/75 H 94 Room Air Pain Intensity Left Knee: Pain Intensity: 3 Transfer of Care Handoff Completed per policy Notes Mental Status: alert / awake / arousable and participated in evaluation Patient Amnestic to Procedure: Yes Nausea / Vomiting: adequately controlled Pain: adequately controlled Airway Patency, RR, SpO2: stable & adequate BP & HR: stable & adequate Hydration State: stable & adequate Neuraxial Anesthesia: was administered and sensory block is resolving Anesthetic Complications: no major complications apparent and Pt Satisfied with anesthetic care
[2023-09-10] MEDS ORDERED: PHARMACY GLYCEMIC MGMT CONSULT PRN (14:04)
[2023-09-10] MEDS ORDERED: MAGNESIUM HYDROXIDE SUSP 30 ML UDC PO PRN (14:04)
[2023-09-10] MEDS ORDERED: NALOXONE HCL 0.4 MG/1 ML VIAL/CARP IV PRN (14:04)
[2023-09-10] MEDS ORDERED: METOCLOPRAMIDE HCL INJ 5 MG/ML 2 ML VIAL IV PRN (14:04)
[2023-09-10] MEDS ORDERED: bisacodyL 10 MG SUPP PR PRN (14:04)
[2023-09-10] MEDS ORDERED: ARTIFICIAL TEARS OP PRN (14:14)
--- NOTE | 2023-09-10 14:26 | Pharmacy Report ---
Pharmacy Glycemic Short Note 2 - Date of Service September 10, 2023 - Glycemic Short BSG Results (Last 24 hours): 09/10/23 09/10/23 10:42 13:08 POC Glucose 113 H 124 H OUTPATIENT ANTIDIABETIC REGIMEN: * Metformin 500 mg PO BID * A1c 5.9% 08/15/23 ASSESSMENT: * Patient admitted following Left TKA, post op BSG 124 mg/dL * Received 10 mg IV dexamethasone preop, reviewed previous visit for R TKA- patient had received PO dex at that visit * Will give 1x dose of 10 units of lantus * Between weight based stress of 1 and 2 novolog PLAN FOR INPATIENT GLYCEMIC CONTROL: * Hold outpatient oral diabetes medications * Basal insulin * Lantus 10 units x1 * Bolus insulin * NovoLog per scale ACHS or Q6hrs while NPO * Goal Range: Low 110 mg/dL - High 140 mg/dL * Correction Factor: 30 mg/dL/unit * Nutritional / Prandial insulin per carb ratio of 1 unit per 10 grams CHO consumed
[2023-09-10] MEDS: ORTHO JOINT ANESTHETIC ONE (14:29)
[2023-09-10] MEDS: ceFAZolin 2000MG 2,000 MG/15 ML SYR IV SCH ×2 (14:30→18:33)
[2023-09-10] MEDS: SODIUM CHLORIDE 0.9% 1,000 ML IV SCH (14:36)
[2023-09-10] MEDS: KETOROLAC TROMETHAMINE 15 MG/ML VIAL IV SCH (14:38)
[2023-09-10] MEDS: LANTUS PER UNIT CHARGE SC ONE (14:40)
[2023-09-10] MEDS: INSULIN ASPART PER UNIT CHARGE SC SCH (17:30)
[2023-09-10] MEDS: oxyCODONE HCL IR 5 MG TAB (IMMEDIATE RELEASE) PO PRN (19:30)
[2023-09-10] MEDS: ASPIRIN 81 MG ECTAB PO SCH (21:29)
[2023-09-10] MEDS: SENNA 8.6 MG TAB PO SCH (21:29)
[2023-09-10] MEDS: DOCUSATE SODIUM 100 MG CAP PO SCH (21:32)
[2023-09-10] MEDS: HYDROmorphone INJ 0.5 MG/0.5 ML SYR IV PRN (21:46)
[2023-09-11] MEDS: INSULIN ASPART PER UNIT CHARGE SC ONE (02:55)
--- NOTE | 2023-09-11 07:41 | Operative Report ---
PG Post Operative Report Pre & Post Diagnosis Operation Date: 09/10/23 12:00 Pre-Op Diagnosis: Left Knee Degenerative Joint Disease Post-Op Diagnosis: Left Knee Degenerative Joint Disease I identified the patient and participated in the time-out.: Yes Procedure Operation Date: 09/10/23 12:00 Actual Procedures p Left Total Knee Arthroplasty(Left) - William Leslie DO Surgeon William Leslie DO Car Framer William Baig PA-C Estimated Blood Loss 30 Findings Consistent with Post-Op Diagnosis Specimens Left femoral tibial bone Description of Procedure Implants used: I used a [employer] total knee arthroplasty system with a size 8 standard femur, D tibia, 28 oval patella, and a size 13 medial congruent polyethylene bearing. All components were cemented in place with Biomet cement. Heron arrived [facility] for the above procedure. He was seen in the preoperative holding area and the operative extremity was identified and signed. He was given a preoperative antibiotic, TXA, a spinal anesthetic and an adductor nerve block. He was taken back to the operating room and laid on the table in supine position. He was given basic sedation. The operative knee was then prepped and draped in sterile fashion. A timeout was done, and the patient and the operative extremity was properly identified. A midline incision was made directly over the patella. Dissection was taken down to the extensor mechanism. A midvastus arthrotomy was used. The medial retinaculum was released and the fat pad was mostly excised. The knee was flexed and the ACL, PCL, and meniscus were removed. A drill was sent down the center of the femoral canal followed by an intramedullary kandice. Off that kandice a distal femoral cutting block was placed. 9 mm was resected off the distal femur at 5 of valgus. A posterior referencing AP sizing guide was then placed on the distal femur. The femur measured to be a size 8. 2 drill holes were placed in 3 of external rotation. A 4-in-1 cutting block was then impacted into place. Anterior, posterior, and chamfer cuts were then made. The proximal tibia was then exposed. An external tibial alignment guide was placed. A tibial cut guide was then anchored in place and the proximal tibia was then resected. The posterior aspect of the knee was then opened up and any additional meniscus fragments and osteophytes were removed. The tibia measured to be a size D. The tibial plate was then placed in the appropriate rotation and the tibia was drilled and punched. Trial components were then placed. I used a size 13 medial congruent polyethylene insert. The knee was brought through a full range of motion and felt to be stable. The peg holes for the femoral component were then drilled. The patella was then everted and 9 mm was resected off the posterior aspect of the patella. The patella measured to be a size 28 oval. 3 peg holes were then drilled. A trial patella was placed. The knee was once again brought through a full range of motion and felt to be stable. Trial components were then removed. The surrounding soft tissues were injected with 100 cc of an orthopedic pain control cocktail. All components were then cemented into place with Biomet cement. The final polyethylene insert was then snapped into place. Once cement was dry the tourniquet was deflated. Hemostasis was obtained. A dilute betadyne lavage was then done for 3 minutes. The joint was then irrigated with normal saline solution. The midvastus arthrotomy was then closed with #1 Vicryl suture. The skin was closed with 2-0 Vicryl, 3-0V lock suture, and kary. A soft compressive dressing was placed. He was then transferred to a hospital bed and taken to the postanesthesia care unit in stable condition. He tolerated the procedure well. William Baig PA-C, was present for the entire procedure. He was critical for patient positioning, prepping, draping, retraction exposure, wound closure and application of sterile dressing. I attest to the content of the Intraoperative Record and any orders documented therein. Any exceptions are noted below.
[2023-09-11] MEDS: METOPROLOL SUCC 25MG EXT REL TAB PO SCH (08:18)
[2023-09-11] MEDS: FUROSEMIDE 20 MG TAB PO SCH (08:18)
[2023-09-11] MEDS: MULTIVITAMIN TAB PO SCH (08:18)
[2023-09-11] MEDS: ATORVASTATIN 40 MG TAB PO SCH (08:18)
--- NOTE | 2023-09-11 09:59 | Orthopedic Progress Note ---
Date of Service September 11, 2023 Assessment & Plan (1) Status post left knee replacement: (2) Left knee DJD: Plan 68-year-old gentleman POD# 1 s/p left total knee replacement, doing well overall. Pain is well-controlled. Medically stable. Postop x-rays well- appearing. He is neurologically intact. Plan: 1. DVT prophylaxis w/ TEDs, SCDs, ASA 81 mg BID. 2. PT/OT as tolerated. WBAT on the left LE. Encourage heel slides, SLR, full knee extension w/ quad sets. 3. Pain control doing well with current pain regimen. 4. Dressing change by nursing after PT/OT, prior to discharge. Do not get dressing wet for 5 days. 5. Disposition - plan to D/C home w/ home health later today once cleared by PT/OT. 6. F/u 2 weeks post-op w/ orthopedics (Dr. Leslie's team), or as previously scheduled, for first post-op visit. Admission and Anticipated Discharge Date Admission Date: September 10, 2023 Subjective Patient is POD #1 s/p left total knee arthroplasty by Dr. Leslie on 09/10/2023. Patient says his pain is well-controlled this morning. Denies CP, SOB, N/V, LLE paresthesia. He has home health care arranged to come to the house for therapy. Patient says that he will be ready to go home today. Physical Exam Physical Exam: GENERAL: AA&Ox3, NAD. Pleasant, affect is calm. Sitting in bedside chair and appears comfortable. RESPIRATORY: Normal respiratory effort with no signs of distress. CHEST/AXILLA: Chest movement symmetrical. No deformities noted. CARDIOVASCULAR: No edema noted. SKIN: [place], warm and dry. MS/EXTREMITY: Left knee dressing c/d/i. SUNNY hose donned to contralateral LE. + ankle dorsi/plantarflexion. Neurologically intact. Calf soft/NT. PT/DP intact. Results & Data Vital Signs (Past 12 Hours) Vital Signs Temp Pulse Resp BP Pulse Ox O2 Del Method 09/11/23 07:20 Room Air 09/11/23 06:56 36.8 C 64 16 135/65 93 Room Air 09/11/23 02:50 36.5 C 66 17 143/69 H 93 Room Air 09/10/23 22:34 36.4 C L 68 17 146/73 H 94 Room Air Laboratory Results Laboratory Results - last 48 hr 09/10/23 09/10/23 09/10/23 10:42 13:08 14:34 POC Glucose 113 H 124 H 124 H 09/10/23 09/10/23 09/11/23 16:31 20:34 02:45 POC Glucose 161 H 166 H 151 H 09/11/23 07:49 POC Glucose 120 H Diagnostic Findings Knee X-Ray 09/10/23 13:04 LEFT KNEE 2 VIEWS History: Left total knee arthroplasty. Degenerative arthritis. Postop. FINDINGS: The patient is status post a left total knee arthroplasty. The hardware is intact. No fracture or dislocation. Skin kary are in place. IMPRESSION: Left total knee arthroplasty. No evidence for hardware complication. ACT 112: Negative or not required by law. Electronically signed by: José Singh M.D. 09/10/2023 1:31 PM
--- NOTE | 2023-09-11 10:27 | Discharge Summary ---
Date of Service September 11, 2023 Admission HPI Per Admitting Provider 08/15/23: "Dillon is a pleasant 68-year-old male who I did a right knee replacement on about 6 months ago. He has done very well with that. Unfortunately, he is now struggling with the left knee. He is using a cane because of his left knee pain. He has trouble going long distances. He presents to the office today for evaluation." Admission Exam (Per Admitting) Constitutional This is a well-developed, well-nourished male in no apparent distress.Physical exam of his left knee shows slight varus deformity. Tenderness to palpation over the distal medial femoral condyle and over the medial joint line. Discharge Data Procedures Performed Operation Date: 09/10/23 12:00 Actual Procedures p Left Total Knee Arthroplasty(Left) - William Leslie DO Hospital Course (1) Status post left knee replacement: (2) Left knee DJD: Plan 68-year-old gentleman POD# 1 s/p left total knee replacement, doing well overall. Pain is well-controlled. Medically stable. Postop x-rays well- appearing. He is neurologically intact. Plan: 1. DVT prophylaxis w/ TEDs, SCDs, ASA 81 mg BID. 2. PT/OT as tolerated. WBAT on the left LE. Encourage heel slides, SLR, full knee extension w/ quad sets. 3. Pain control doing well with current pain regimen. 4. Dressing change by nursing after PT/OT, prior to discharge. Do not get dressing wet for 5 days. 5. Disposition - plan to D/C home w/ home health later today once cleared by PT/OT. 6. F/u 2 weeks post-op w/ orthopedics (Dr. Leslie's team), or as previously scheduled, for first post-op visit.
--- NOTE | 2023-09-11 12:25 | Discharge Summary ---
Date of Service September 11, 2023 Admission HPI Per Admitting Provider 08/15/23: "Dillon is a pleasant 68-year-old male who I did a right knee replacement on about 6 months ago. He has done very well with that. Unfortunately, he is now struggling with the left knee. He is using a cane because of his left knee pain. He has trouble going long distances. He presents to the office today for evaluation." Admission Exam Per Admitting Provider This is a well-developed, well-nourished male in no apparent distress.Physical exam of his left knee shows slight varus deformity. Tenderness to palpation over the distal medial femoral condyle and over the medial joint line. Principal Diagnosis Same as "Discharge Diagnosis" noted below under Discharge Instructions. Discharge Exam GENERAL: AA&Ox3, NAD. Pleasant, affect is calm. Sitting in bedside chair and appears comfortable. RESPIRATORY: Normal respiratory effort with no signs of distress. CHEST/AXILLA: Chest movement symmetrical. No deformities noted. CARDIOVASCULAR: No edema noted. SKIN: [place], warm and dry. MS/EXTREMITY: Left knee dressing c/d/i. SUNNY hose donned to contralateral LE. + ankle dorsi/plantarflexion. Neurologically intact. Calf soft/NT. PT/DP intact. Discharge Data Allergies Allergy/AdvReac Type Severity Reaction Status Date / Time daptomycin Allergy Intermediate Rash Verified 09/10/23 10:43 sulfamethoxazole Allergy Mild Itchy back Verified 09/10/23 10:43 trimethoprim Allergy Mild Itchy back Verified 09/10/23 10:43 Procedures Performed Operation Date: 09/10/23 12:00 Actual Procedures p Left Total Knee Arthroplasty(Left) - William Leslie DO Ordered Studies 09/10/23 05:00 US - [facility] Rout[facility] Hospital Course (1) Status post left knee replacement: On September 10, 2023 Dillon arrived at [facility] operating room and underwent a left total knee replacement without complications. He had a spinal anesthetic for the procedure. Postoperatively, he was transferred to the general orthopedic floor in stable condition and eventually started onto aspirin 81 mg twice daily for DVT prophylaxis as appropriate. His hospital course was uneventful. On postoperative day #1, his vital signs were stable and his pain was well-controlled. He was able to participate well with physical therapy, performing the necessary ambulation and range of motion exercises. He was then discharged home in stable condition, with home health care services to begin. He will follow-up with orthopedics in 2 to 3 weeks for postoperative care. Total Time Total Time Spent Total Time Spent (In Minutes): Total Time Spent with Patient: Total time spent is greater than 50% in coordination of care (as documented) at patient's floor/unit and/or counseling patient: Discharge Plan Discharge Items Patient Disposition: Home - Home Health Services Reason For Visit: Left Knee Degenerative Joint Disease Discharge Diagnosis: Left knee replacement Activity: Per Instructions section Non-emergency contact: Surgeon Call non-emergency contact if: your wound has increased redness and your wound has increased drainage Follow-up/Referrals: Spencer Smith MD [Primary Care Provider] - Diet: Regular Addtl Attending Provider Instructions: Activity and Therapy Recommendations: * If you are using [facility] then therapy will be provided at your home until they feel you have accomplished all of your goals. * If you are using [facility] then Physical Therapy will be provided until they feel you are ready to start Outpatient Physical Therapy. * If you are not using home therapy then Outpatient Physical Therapy should start about 3-5 days from your day of surgery. Therapy will last about 6-10 weeks * It is important not to put a pillow under your knee when you are relaxing or sleeping. It is just as important to make sure you are getting your knee perfectly straight as it is to regain your knee bend. * You were shown a series of exercises in the hospital. Do these exercises three times each day including the exercises you were shown in physical therapy. * Get up and walk several times each day. For the first four weeks, try not to stand or walk for more than one hour at a time. If you do stand or walk for more than one hour, you will not hurt anything, but your leg will likely swell. * As you feel comfortable, you may change from the walker or crutches to a cane and then to independent walking. Medications: * Narcotic You will likely be sent home from the hospital with a prescription for the narcotic pain medication that worked best throughout your stay. * Cefadroxil -take the antibiotic twice a day for 10 days to help prevent infection. * Aspirin Most patients will be required to take Aspirin 81mg twice a day for 6 weeks after surgery. This is obtained [id number] and a prescription is not necessary. * Other medications may be prescribed for specific circumstances. If you have any questions, please call the office at . * Resume previous home medications unless otherwise instructed TEDs/Elastic Stockings: The white elastic stockings help limit swelling and prevent blood clots from forming in your legs.~ The more you wear them, the more they work. Wear them for six weeks. Dressing Care: The dressing can be changed after physical therapy on postop day #1. Daily dry dressing changes for a few days, especially if the incision is still draining some. If the incision is not draining then you may leave the kary open to air. If there is a little bit of drainage or if the kary are getting stuck on your clothing then cover the incision with a dry dressing. The kary will be removed at your 2 week follow-up appointment. Showering: You may shower 5 days from the day of surgery as long as the incision is no longer draining. You may shower with the kary exposed. Let soapy water run over the kary and pat them dry. Do not scrub or soak the incision. Things To Watch For: * Drainage from the incision site that occurs more than one week after your surgery. * Increased redness at the incision site. * Fever above 102 degrees Fahrenheit. * Unusual chest pain or shortness of breath. * Call [facility] at with any of the above problems Follow-Up Visit: Follow-up with Dr. Leslie's PA (William Baig) 2-3 weeks after your day of surgery. He will remove your kary and answer any questions. If you have any additional questions or concerns, Dr Leslie is usually in the office at the same time and will be available An appointment was probably scheduled when you signed-up for surgery in the office. If you have any questions call Office Instructions: More detailed instructions as well as Frequently Asked Questions were provided in a folder by our office when you signed-up for surgery. Please review these instructions when you get home. If you have any further questions or concerns, please feel free to call the office at [phone] Pending Studies at Discharge: No Stand-Alone Forms: [facility], Sm[facility] Cess[facility] Medications and DC Order Prescriptions: New oxycodone 5 mg tablet 5 mg PO Q6H PRN (Reason: pain) Qty: 30 0RF cefadroxil 500 mg capsule 500 mg PO BID 10 Days Qty: 20 0RF Continued metformin 500 mg tablet 500 mg PO BID Qty: 180 0RF Systane (propylene glycol) 0.4-0.3 % drops 1 drops OP DAILY PRN (Reason: Dry Eyes) (DME) lancets misc See Dose Instructions .ROUTE .MEDSUPPLY Qty: 50 Rx Instructions: 4 times daily (DME) blood sugar diagnostic strip See Dose Instructions .ROUTE .MEDSUPPLY Qty: 10 Rx Instructions: tests 4 times daily ferrous sulfate [Iron (ferrous sulfate)] 325 mg (65 mg iron) tablet 325 mg PO WK gabapentin 300 mg capsule 300 mg PO BID metoprolol succinate 25 mg tablet extended release 24 hr 25 mg PO QAM furosemide [Lasix] 20 mg tablet 20 mg PO QAM multivitamin Tablet 1 tab PO QAM triamcinolone acetonide [Triderm] 0.1 % cream 1 applic topical BID PRN (Reason: flaring) Rx Instructions: Apply to areas of the trunk twice daily as needed for flaring. atorvastatin 40 mg tablet 40 mg PO QAM Changed aspirin [Adult Aspirin Regimen] 81 mg tablet,delayed release (DR/EC) 81 mg PO BID 42 Days Qty: 0 0RF Admission Data Admit Date/Time: 09/10/23 13:04 Attending Provider: William Leslie Admit Provider: William Leslie Primary Care Provider: Spencer Smith Other Providers: [facility] Other Interventions: Discharge Summary Assessment (RN) Last Done: 09/11/23 08:58
[2023-09-12] MEDS ORDERED: FERROUS SULFATE 325 MG TAB PO SCH (09:00)
== END 2023-09-11 11:45 | disposition home health service (06) ==
LOC: 3E 10:15 → ASU 10:15

== ENCOUNTER 2023-12-14 19:15 | Inpatient (IN) ==
[2023-12-14 19:22] VITALS: TEMP 97.7
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
[2023-12-14] MEDS: ACETAMINOPHEN 500 MG TAB PO STA (22:28)
[2023-12-14] MEDS: oxyCODONE HCL IR 5 MG TAB (IMMEDIATE RELEASE) PO STA (22:28)
[2023-12-14] MEDS: SODIUM CHLORIDE 0.9% 1,000 ML IV ONE (22:28)
[2023-12-14] MEDS: KETOROLAC TROMETHAMINE 15 MG/ML VIAL IV ONE (22:28)
[2023-12-14 22:45] LABS: Basophils # (auto) 0.03 K/uL (0.00-0.20); Basophils % (auto) 0.4 %; Eosinophils # (auto) 0.21 K/uL (0.00-0.50); Eosinophils % (auto) 2.6 %; Hematocrit (blood only) 34.7 % (42.0-52.0); Hemoglobin 11.5 g/dl (14.0-18.0); Immature Granulocytes # (auto) 0.02 K/uL (0.01-0.20); Immature Granulocytes % (auto) 0.2 %; Lymphocytes # (auto) 1.46 K/uL (1.20-3.40); Lymphocytes % (auto) 17.9 %; Mean Corpuscular Hemoglobin 30.3 pg (25.0-34.0); Mean Corpuscular Hgb Conc 33.1 g/dL (32.0-36.0); Mean Corpuscular Volume 91.3 fL (80.0-100.0); Mean Platelet Volume 10.6 fL (9.4-12.4); Monocytes # (auto) 0.88 K/uL (0.11-0.59); Monocytes % (auto) 10.8 %; Neutrophils # (auto) 5.56 K/uL (1.40-6.50); Neutrophils % (auto) 68.1 %; Platelet Count 156 K/uL (130-400); RDW Coefficient of Variation 14.8 % (11.5-14.5); RDW Standard Deviation 49.6 fL (36.4-46.3); White Blood Count 8.16 K/ul (4.8-10.8)
[2023-12-14 23:02] LABS: Alanine Aminotransferase 16 U/L (7-52); Albumin Globulin Ratio 1.5 (0.9-2); Albumin Level 4.3 gm/dl (3.4-5.0); Alkaline Phosphatase 119 U/L (34-104); Anion Gap 9 (3-11); Aspartate Aminotransferase 20 U/L (13-39); BUN Creatinine Ratio 24.8 (10-20); Bilirubin,Total 0.5 mg/dl (0.2-1.0); Blood Urea Nitrogen 30 mg/dl (6-23); C Reactive Protein 5.91 mg/dl (0-0.5); Calcium 9.7 mg/dl (8.6-10.3); Carbon Dioxide 29 mmol/L (21-32); Chloride 101 mmol/L (98-107); Est GFR (African American) 69.9 ml/min; Est GFR (Non-African American) 60.3 ml/min; Globulin 2.9 gm/dl (2.5-4.0); Glucose 94 mg/dl (70-99(Fasting)); Potassium 4.2 mmol/L (3.5-5.1); Sodium 139 mmol/L (136-145); Total Protein 7.2 gm/dl (6.0-8.3)
--- OUTSIDE RECORDS SUMMARY | 2023-12-14 23:11 | External Medical Summary | Summary of Care ---
Author Name Unknown Organization [facility] Address [address] [place] [address] Phone [phone] Care Team Providers Care Terminal Block Assembler Name Role Phone Spencre Smith MD Primary Care Provider + Encounter Details Date Type Department Care Team (Late st Contact Info) Description 12/05/2023 Population Health External Data Unspecified Department Allergies Active Allergy Reactions Criticality Noted Date Comments Bactrim 08/22/2013 Itching Daptomycin High 05/18/2022 Other reaction(s): RASHES Trimethoprim Low 05/18/2022 Other reaction(s): ITCHY BACK documented as of this encounter (statuses as of 12/05/2023) Medications Medication Sig Dispensed Refills Start Date End Date Status ONETOUCH ULTRA SYSTEM W/DEVICE KITIndications:DM type 2, goal A1c below 7 Use up to four times a day -Type II diabetes- #250.00 1 Kit 0 04/06/2011 Active SYSTANE 0.4-0.3 % OP SOLN one drop both eyes as needed Active Glucose Blood (ONETOUCH ULTRA BLUE) STRP Dx: E11.9 100 Strip 11 03/21/2016 Active ONETOUCH ULTRASOFT LANCETS MISC Use up to four times a day -Type II diabetes- Dx: E11.9 1 Box Dosing Unit 11 03/21/2016 Active Aspirin 81 MG Oral Tablet Delayed Release Take 1 Tablet by mouth in the morning. Active Multivitamin Adult Oral Tablet Take by mouth. Active CPAP every night at bedtime. Active Tamsulosin HCl 0.4 MG Oral Capsule (Flomax) Take 1 Capsule by mouth in the morning. 30 Capsule 1 09/10/2022 Active Additional Information Patient not taking.Reported on 02/14/2023 Allopurinol 300 MG Oral Tablet (Zyloprim) Take 1 Tablet by mouth in the morning. 30 Tablet 5 12/26/2022 Active Sildenafil Citrate 20 MG Oral Tablet (Revatio) Take 1-5 Tablets by mouth daily as needed for Erectile Dysfunction. 60 Tablet 11 01/23/2023 Active Additional Information Patient not taking.Reported on 02/14/2023 glipiZIDE 5 MG Oral Tablet (Glucotrol)Indicatio ns:Hives Take 1 Tablet by mouth in the morning. 30 minutes before largest meal, only while on prednisone. Watch for low sugars.. 10 Tablet 1 05/03/2023 Active Additional Information Patient not taking.Reported on 06/14/2023 metFORMIN HCl 500 MG Oral Tablet (Glucophage)Indicati ons:Type 2 diabetes mellitus with hemoglobin A1c goal of less than 7.0% (HCC) TAKE ONE TABLET BY MOUTH TWICE A DAY WITH FOOD 180 Tablet 2 05/24/2023 5 Active Furosemide 20 MG Oral Tablet (Lasix)Indications:E rosanne TAKE 1 TABLET BY MOUTH DAILY 100 Tablet 2 05/24/2023 5 Active Famotidine 20 MG Oral Tablet (Pepcid)Indications: Hives Take 1 Tablet by mouth in the morning and 1 Tablet before bedtime. 60 Tablet 2 05/30/2023 Active Triamcinolone Acetonide 0.1 % External Ointment (Aristocort)Indicati ons:Asteatotic eczema,Nummular dermatitis Apply 2x daily to rash on trunk/arms and legs as instructed on printed checkout sheet 454 g 06/21/2023 Active Colchicine 0.6 MG Oral Tablet Take 1 Tablet by mouth in the morning and 1 Tablet before bedtime. 60 Tablet 5 09/19/2023 Active Atorvastatin Calcium 40 MG Oral Tablet (Lipitor) TAKE ONE TABLET BY MOUTH EVERY DAY 90 Tablet 10/15/2023 Active predniSONE 10 MG Oral Tablet (Deltasone)Indicatio ns:Hives Take 5 tabs for 2 days, 4 tabs for 2 days, 3 tabs for 2 days, 2 tabs for 2 days 1 tab for 2 days 30 Tablet 10/16/2023 Active Gabapentin 300 MG Oral Capsule (Neurontin)Indicatio ns:Diabetic polyneuropathy associated with type 2 diabetes mellitus (HCC) TAKE 1 CAPSULE BY MOUTH TWICE A DAY 180 Capsule 1 11/06/2023 Active Metoprolol Succinate ER 25 MG Oral Tablet Extended Release 24 Hour (toPROL XL) Take 1 Tablet by mouth in the morning. 100 Tablet 11/27/2023 Active documented as of this encounter (statuses as of 12/05/2023) Active Problems Problem Noted Date Diagnosed Date [...] then Dr Diallo [facility] PCP (insurance change). 06/08/22 Cardiac cath Severe early-mid RCA stenosis. Dr Rajat Harris @[facility] 05/01 TTE [facility] --Reviewed [facility] TTE 04/12/22. Normal ejection fraction 50-55%, grade [...] May 2020 clinical [facility] uro yearly--considering follow Dr Villanueva to [place]. Request colon, echo, carotid US, reports. Needs DEXA Lung CA screen 10/25 [facility]--rec yearly through 2021. (15y post quit date)_ Colon 10/18/16 [facility] +adenoma dominick 5y. EKGD 11/23 antral mass benign. 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 Asymptomatic stenosis of right carotid artery Overview: [facility] Nonrheumatic mitral valve regurgitation 02/03/20 20 PMR (polymyalgia rheumatica) 05/27/2015 [facility] current use of systemic steroids 05/27 History [...] as of this encounter (statuses as of 12/05/2023) Resolved Problems Problem Noted Date Diagnosed Date [...] as of this encounter (statuses as of 12/05/2023) Immunizations Name Administration Dates Next Due COVID-19 [...] Split, I IV3, With Preserve, Inj 12/11/2014,01/08/2014,04/06/2011,04/15 TDAP, Age 7 and older, IM (Adacel) 08/25/2010 Varicella Zoster Vaccine (Adult) 01/08/2014 documented as of this encounter Social History Tobacco Use Types Packs/Day Years Used Date Smoking Tobacco: Former Cigarettes 1 38 0 06/07/1968 - 06/07/2006 Passive Smoke Exposure: Never Smokeless Tobacco: Never Comments:starting smoking la te teen, smokes 5-6 cigs per wk; peak use was one ppd , Alcohol Use Standard Drinks/Week Comments No 11.7 (1 standard drink = 0.6 oz pure alcohol) quit 2015 Utilities Answer Date Recorded Do you have trouble paying y our heating, water, or electric bill? (Adult - for ages 18 years and over) Not on file 09/25/2023 Is your family able to pay t he heat, water, or electric bill? (Household - for ages 0-17 years) Not on file 09/25/2023 Does your family have access to good internet? (Household - for ages 0-17 years) Not on file 09/25/2023 Social Connections Answer Date Recorded How often do you feel lonely or isolated from those around you? (Adult - for ages 18 years and over) Not on file 09/25/2023 Sex and Gender Information Value Date Recorded [...] Care Team (Late st Contact Info) Description 12/13/2023 3:00 PM EDT Office Visit Family Practice [facility] [address] [place] [address] Oralia Cruz CRNP [address] [place] [address] 01/07/2024 10:40 AM EDT Office Visit Rheumatology [place] [id number] [place] [address] William Devine MD [facility] [place] [address] Scheduled Procedures Name Priority Associated Diagnoses Date/Ti me COLONOSCOPY FLEXIBLE PROXIMAL DIAGNOSTIC Recall History of colon polyps Health Maintenance Due Date Last Done Comments Cologuard 1998 Fecal Occult Blood Test 1998 Sigmoidoscopy 1998 Zoster Vaccines (1 of 2) 03/05/2014 01/08/2014 Depression Screening 03/14/2017 03/14/2016 Adult Wellness Visit 2019 DTap/Tdap Vaccines (2 - Td or Tdap) 08/25/2020 08/25/2010, 01/05/2005, 10/07/1997 Diabetic Foot Exam 05/12/2021 05/12/2020, 0 12/11/2014, 01/08/2014, Additional history exists COVID-19 Vaccine ( season) 2022 01/12/2022, 08/17/2021, 01/31/2021, Additional history exists Diabetic Eye Exam 10/13/2023 10/12/2022, , 09/18/2022, Additional history exists Influenza Vaccine (FLU shot) (#1) 2023 02/09/2023, 01/07/2022, 02/21/2021, Additional history exists HbA1c 12/29/2023 06/28/2023, 08/07, 03/25/2022, Additional history exists Colonoscopy 01/01/2024 12/31/2020, 12/09, 09/26/2016, Additional history exists Colorectal Cancer Screening 01/01/2024 Albumin/Creatinine Ratio 02/23/2024 023, 02/03/2020, 03/17/2015, Additional history exists B-12 11/13/2024 11/14/2023, 09/07, 08/17/2022, Additional history exists GFR 11/13/2024 11/14/2023, 09/07, 09/10/2022, Additional history exists AAA Screening Completed 01/21/2015, 05/10, 07/13/2011, Additional history exists Pneumococcal Vaccine: 65+ Years Completed 11/10/2020, 02/03/2020, 05/05/2011 RETIRED - COLONOSCOPY-EVERY 5 YRS AGES 18-100 Discontinued 12/31/2020, 12/31/2020, 09/26/2016, Additional history exists HPV (Gardasil) Vaccine Aged Out No lo nger eligible based on patient's age to complete this topic Hepatitis B Vaccine Aged Out No longe r eligible based on patient's age to complete this topic MENINGOCOCCAL (MENACTRA/MENVEO) Aged Out No longer eligible based on patient's age to complete this topic documented as of this encounter Medical Devices Implanted Type Area Retail Wireless Sales Consultant Device Identifier Shelf Expiration Date Model / Serial / Lot Lens 19.0 Sn60wf - [id number] Implanted:Qty : 1 on 03/11/2014 by Nakul Benz MD at OR [facility] Left: Eye [employer] 12/07/2018 SN60WF.19 0 / [id number] / Lens 20.0 Sn60wf - [id number] - [id number] Implanted:Qty : 1 on 03/24/2016 by Tommy العلي MD at OR [facility] Right: Eye ERIN : SURGICAL 12/07/2020 SN60WF.2 0 0 / [id number] / Valve Aortic Avalus 23mm - [id number] - [id number] Implanted:Qty : 1 on 09/05/2022 [place] Bandar Estrada [place] [facility] [place]: Heart [employer] [id number] 11/17/2024 [id number] / [id number] / [id number] Suture Steel 6 B&S19 M654g - [id number] Implanted:Qty : 8 on 09/05/2022 by Bandar Estrada MD [place] [facility] [place]/A: Sternum JNJ : [employer] 06/07/2027 M654G / / [id number] Marker Coronary - [id number] Implanted:Qty : 1 on 09/05/2022 by Bandar Estrada MD [place] [facility] [place]/A: Heart [employer] 07/07/2025 [facility] / / [id number] documented as of this encounter Advance Directives * Full Code (Latest Code Status on File) Date Activated Date Inactivated Comments 09/05/2022 1:30 PM 09/10/2022 3:16 PM Question Answer Comments Discussion of Advance Direct radha occurred with: Not Discussed due to patient's condition * Full Code Date Activated Date Inactivated Comments 03/24/2016 9:01 AM 03/24/2016 3:15 PM This order reflects the patients wishes and were consensually agreed upon. * Full Code Date Activated Date Inactivated Comments 03/11/2014 11:06 AM 03/11/2014 5:17 PM This order reflects the patients wishes and were consensually agreed upon. * Full Code Date Activated Date Inactivated Comments 06/08/2010 7:01 AM 06/08/2010 3:26 PM This order ref lects the patients wishes and were consensually agreed upon. * Full Code Date Activated Date Inactivated Comments 02/16/2010 9:33 AM 02/16/2010 7:14 PM This order reflects the patients wishes and were consensually agreed upon. Care Teams Terminal Block Assembler Relationship Specialty Start Date End Date Spencer Smith MD [address] [place] [address] PCP - General Family Medicine 02/03/20 documented as of this encounter
--- OUTSIDE RECORDS SUMMARY | 2023-12-14 23:11 | External Medical Summary ---
Author Name Unknown Address Unknown Organization [id number]:LABORATORY [facility] [place] - [address] [place] [address] Laboratory Report Ordering Provider Test Date Status HERMINIA GARNER 11/14/2023 12:04:07 Final Observation Date Value Abnormality Reference (Units ) Status Vitamin B12 11/14/2023 12:04:07 [phone] (pg/mL) Final Performing Location LABORATORY [facility] - [address] [place] [address]
--- OUTSIDE RECORDS SUMMARY | 2023-12-14 23:11 | External Medical Summary | Summary of Care ---
Author Name Unknown Organization [facility] Address [address] [place] [address] Phone [phone] Care Team Providers Care Trouble Shooting Mechanic Name Role Phone Spencer Pryor MD Primary Care Provider + Reason for Visit * Reason Comments Medication Refill Encounter Details Date Type Department Care Team (Late st Contact Info) Description 11/25/2023 Refill Family Practice [facility] [address] [place] [id number] Spencer Pryor MD [address] [place] [address] Allergies Active Allergy Reactions Criticality Noted Date Comments Bactrim 08/22/2013 Itching Daptomycin High 05/18/2022 Other reaction(s): RASHES Trimethoprim Low 05/18/2022 Other reaction(s): ITCHY BACK documented as of this encounter (statuses as of 11/27/2023) Medications Medication Sig Dispensed Refills Start Date [...] on 02/14/2023 glipiZIDE 5 MG Oral Tablet (Glucotrol)Indicati ons:Hives Take 1 Tablet by mouth in the morning. 30 minutes before largest meal, only while on prednisone. Watch for low sugars.. 10 Tablet 1 05/03/2023 Active Additional Information Patient not taking.Reported on 06/14/2023 metFORMIN HCl 500 MG Oral Tablet (Glucophage)Indicat ions:Type 2 diabetes mellitus with hemoglobin A1c goal of less than 7.0% (HCC) TAKE ONE TABLET BY MOUTH TWICE A DAY WITH FOOD 180 Tablet 2 05/24/2023 05/23/19 25 Active Furosemide 20 MG Oral Tablet (Lasix)Indications: Edema TAKE 1 TABLET BY MOUTH DAILY 100 Tablet 2 05/24/2023 05/23/19 25 Active Famotidine 20 MG Oral Tablet (Pepcid)Indications :Hives Take 1 Tablet by mouth in the morning and 1 Tablet before bedtime. 60 Tablet 2 05/30/2023 Active Triamcinolone Acetonide 0.1 % External Ointment (Aristocort)Indicat ions:Asteatotic eczema,Nummular dermatitis Apply 2x daily to rash [...] 10/15/2023 Active predniSONE 10 MG Oral Tablet (Deltasone)Indicati ons:Hives Take 5 tabs for 2 days, 4 tabs for 2 days, 3 tabs for 2 days, 2 tabs for 2 days 1 tab for 2 days 30 Tablet 10/16/2023 Active Gabapentin 300 MG Oral Capsule (Neurontin)Indicati ons:Diabetic polyneuropathy associated with type 2 diabetes mellitus (HCC) TAKE 1 CAPSULE BY MOUTH TWICE A DAY 180 Capsule 1 11/06/2023 11/06/19 25 Active Metoprolol Succinate ER 25 MG Oral Tablet Extended Release 24 Hour (toPROL XL) Take 1 Tablet by mouth in the morning. 100 Tablet 11/27/2023 Active Metoprolol Succinate ER 25 MG Oral Tablet Extended Release 24 Hour (toPROL XL) Take 1 Tablet by mouth in the morning. 100 Tablet 1 05/14/2023 11/25/19 24 Discontinu ed(Refill) documented as of this encounter (statuses as of 11/27/2023) Active Problems Problem Noted Date Diagnosed Date [...] [facility]--considering follow Dr Rich Soto. Request colon, echo, carotid US, reports. Needs DEXA Lung CA screen 10/25 [facility]--rec yearly through 2021. (15y post quit date)_ Colon 10/18/16 [facility] +adenoma dominick 5y. EKGD 11/23 antral mass benign. 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 Asymptomatic stenosis of right carotid artery Overview: [facility] Nonrheumatic mitral valve regurgitation 02/03/20 20 PMR (polymyalgia rheumatica) 05/27/2015 nursing home current use of systemic steroids 05/27 History [...] as of this encounter (statuses as of 11/27/2023) Resolved Problems Problem Noted Date Diagnosed Date [...] as of this encounter (statuses as of 11/27/2023) Immunizations Name Administration Dates Next Due COVID-19 [...] encounter Miscellaneous Notes * Telephone Encounter - Stephanie Grace [facility] - 11/27/2023 5:38 AM EDTSigned Prescriptions: Disp Refills Metoprolol Succinate ER 25 MG Oral Tablet *100 Ta*0 Sig: Take 1Tablet by mouth in the morning.Authorizing Provider: SPENCER PRYOR User: STEPHANIE GRACE documented in this encounter Plan of Treatment Upcoming Encounters Date Type Department Care Team (Late st Contact Info) Description 12/13/2023 3:00 PM EDT Office Visit Family Practice [facility] [address] [place] [address] Oralia Cruz CRNP [address] [place] [address] 01/07/2024 10:40 AM EDT Office [address] [place] [address] William Devine MD [address] [place] [address] [place] [address] Scheduled Procedures Name Priority Associated Diagnoses Date/Ti me COLONOSCOPY FLEXIBLE PROXIMAL DIAGNOSTIC Recall History of colon polyps Health Maintenance Due Date Last Done Comments Cologuard 1998 Fecal Occult Blood Test 1998 Sigmoidoscopy 1998 Zoster Vaccines (1 of 2) 03/05/2014 01/08/2014 Depression Screening 03/14/2017 03/14/2016 Adult Wellness Visit 2019 DTaP,Tdap,and Td Vaccines (2 - Td or [...] this encounter Medical Devices Implanted Type Area Billet Sawyer Device Identifier Shelf Expiration Date Model / Serial / Lot Lens 19.0 Sn60wf - [id number] Implanted:Qty : 1 on 03/11/2014 by Nakul Benz MD at OR [facility] Left: Eye [employer] 12/07/2018 SN60WF.19 0 / [id number] / Lens 20.0 Sn60wf - [id number] - [id number] Implanted:Qty : 1 on 03/24/2016 by Tommy العلي MD at OR [facility] Right: Eye [employer] : SURGICAL 12/07/2020 SN60WF.2 0 0 / [id number] / Valve Aortic Avalus 23mm - [id number] - [id number] Implanted:Qty : 1 on 09/05/2022 by Bandar Estrada MD [place] [facility] [place] N/A: Heart [employer] [id number] 11/17/2024 64798 / [id number] / [id number] Suture Steel 6 B&S19 M654g - [id number] Implanted:Qty : 8 on 09/05/2022 by Bandar Estrada MD [place] [facility] [place] N/A: Sternum JNJ : [employer] 06/07/2027 M654G / / TCBDSD Marker Coronary - [id number] Implanted:Qty : 1 on 09/05/2022 by Bandar Estrada MD [place] [facility] [place] N/A: Heart [employer] 07/07/2025 [facility] / / [id number] documented as of this encounter Advance Directives [...] and were consensually agreed upon. Care Teams Trouble Shooting Mechanic Relationship Specialty Start Date End Date Spencer Pryor MD [address] [id number] PCP - General Family Medicine 02/03/20 documented as of this encounter
--- OUTSIDE RECORDS SUMMARY | 2023-12-14 23:11 | External Medical Summary ---
Author Name Unknown Address Unknown Organization K01:[place] [facility] [place] [address] [place] [address] Laboratory Report Ordering Provider Test Date Status HERMINIA GARNER 11/14/2023 12:04:07 Final Observation Date Value Abnormality Reference (Units ) Status WBC, Total 11/14/2023 12:04:07 7.10 4.00-10.80 (K/uL) Final RBC 11/14/2023 12:04:07 3.69 4.50-5.25 (M/uL) Final Hemoglobin 11/14/2023 12:04:07 11.2 Below low normal 14.0-16.8 (g/dL) Final HCT 11/14/2023 12:04:07 35.0 Below low normal 40.0-48.4 (%) Final MCV 11/14/2023 12:04:07 94.9 82.0-99.5 (fL) Final MCH 11/14/2023 12:04:07 30.4 27.0-34.0 (pg) Final MCHC 11/14/2023 12:04:07 32.0 32.0-36.0 (g/dL) Final RDW 11/14/2023 12:04:07 14.6 11.5-15.5 (%) Final Platelets 11/14/2023 12:04:07 177 140-400 (K/uL) Final MPV 11/14/2023 12:04:07 10.4 6.6-11.1 (fL) Final Nucleated erythrocytes/100 leukocytes [Ratio] in Blood by Automated count 11/14/2023 12:04:07 0 <=0 (/100 WBCs) Final Performing Location [place] [facility] [place] [address] [place] [address]
--- OUTSIDE RECORDS SUMMARY | 2023-12-14 23:11 | External Medical Summary | Summary of Care ---
Author Name Unknown Organization [facility] Address [address] [place] [address] Phone [phone] Care Team Providers Care Glass Grinder Name Role Phone Spencer Smith MD Primary Care Provider + Reason for Referral * Evaluate & Treat - Unlimited Visits (Within 10 days (routine)) - Authorized Specialty Diagnoses / Procedures Referred By Contac t Referred To Contact Orthopaedic Surgery / Orthopedics Diagnoses Numbness and tingling in both hands Oralia Cruz CRNP [address] [address] Referral ID Status Reason Start Date Expiration Date Visits Requested Visits Authorized [id number] Authorized Specialty Services Required 12/13/[phone] Question Answer Referral Priority Within 10 days (routine) Where should this appointment be scheduled? [facility] What body part is the patient being seen for? Hand What condition is the patient being seen for? Weakness/Numbness/Tingling * Evaluate & Treat - Unlimited Visits (Within 30 days (routine)) - Authorized Specialty Diagnoses / Procedures Referred By Contac t Referred To Contact Physical Therapy / Physical Medicine And Rehab Diagnoses Benign paroxysmal positional vertigo, unspecified laterality Oralia Cruz CRNP [address] [place] [address] Referral ID Status Reason Start Date Expiration Date Visits Requested Visits Authorized [id number] Authorized Specialty Services Required 12/13/[phone] Question Answer Referral Priority Within 30 days (routine) Where should this appointment be scheduled? [facility] Reason for Visit * Reason Comments Physical-Exam Patient has multiple things to discuss Encounter Details Date Type Department Care Team (Late st Contact Info) Description 12/13/2023 3:00 PM EDT Office Visit Family [facility] [address] [place] [address] Oralia Cruz CRNP [address] [place] [address] Numbness and tingling in both hands*; Benign paroxysmal positional vertigo, unspecified laterality; HTN, goal below 140/90; Cervical spinal stenosis; Generalized osteoarthritis; PMR (polymyalgia rheumatica) ([facility]) Allergies Active Allergy Reactions Criticality Noted Date Comments Bactrim 08/22/2013 Itching Daptomycin High 05/18/2022 Other reaction(s): RASHES Trimethoprim Low 05/18/2022 Other reaction(s): ITCHY BACK documented as of this encounter (statuses as of 12/14/2023) Medications Medication Sig Dispensed Refills Start Date End Date Status [employer]UCH ULTRA SYSTEM W/DEVICE KITIndications:DM type 2, goal A1c below 7 Use up to four times a day -Type II diabetes- #250.00 1 Kit 0 04/06/2011 Active SYSTANE 0.4-0.3 % OP SOLN Instill into eye. Active Glucose Blood (ONETOUCH ULTRA BLUE) STRP [...] before bedtime. 60 Tablet 2 05/30/2023 Active Additional Information Patient not taking.Reported on 12/13/2023 Triamcinolone Acetonide 0.1 % External Ointment (Aristocort)Indicati ons:Asteatotic eczema,Nummular dermatitis Apply 2x daily to rash on trunk/arms and legs as instructed on printed checkout sheet 454 g 06/21/2023 Active Colchicine 0.6 MG Oral Tablet Take 1 Tablet by mouth in the morning and 1 Tablet before bedtime. 60 Tablet 5 09/19/2023 Active Additional Information Patient not taking.Reported on 12/13/2023 Atorvastatin Calcium 40 MG Oral Tablet (Lipitor) TAKE ONE TABLET BY MOUTH EVERY DAY 90 Tablet 10/15/2023 Active predniSONE 10 MG Oral Tablet (Deltasone)Indicatio ns:Hives Take 5 tabs for 2 days, 4 tabs for 2 days, 3 tabs for 2 days, 2 tabs for 2 days 1 tab for 2 days 30 Tablet 10/16/2023 Active Additional Information Patient not taking.Reported on 12/13/2023 Gabapentin 300 MG Oral Capsule (Neurontin)Indicatio ns:Diabetic polyneuropathy associated with type 2 diabetes mellitus (HCC) TAKE 1 CAPSULE BY MOUTH TWICE A DAY 180 Capsule 1 11/06/2023 Active Metoprolol Succinate ER 25 MG Oral Tablet Extended Release 24 Hour (toPROL XL) Take 1 Tablet by mouth in the morning. 100 Tablet 11/27/2023 Active documented as of this encounter (statuses as of 12/14/2023) Active Problems Problem Noted Date Diagnosed Date [...] gastric fold-removal Coronary artery disease invo lving [place] coronary artery of [place] heart with angina pectoris 02/03/2020 Overview: [address]. 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 current use of systemic steroids 05/27 History [...] as of this encounter (statuses as of 12/14/2023) Resolved Problems Problem Noted Date Diagnosed Date [...] as of this encounter (statuses as of 12/14/2023) Immunizations Name Administration Dates Next Due COVID-19 [...] lent, No Preserve, IM 02/08/2016 Seasonal Influenza, Trivalen t, (IIV3), with Preserv, (Fluzone) 12/11/2014,01/08/2014,04/06/2011,04/15 TDAP, Age 7 and older, IM [...] = 0.6 oz pure alcohol) quit 2015 Hunger Vital Sign Answer Date Recorded Within the past 12 months, y ou worried that your food would run out before you got the money to buy more. Never true 12/13/19 24 Within the past 12 months, t he food you bought just didn't last and you didn't have money to get more. Never true 12/13/2023 Childcare Answer Date Recorded Do you feel overwhelmed with taking care of a child, family member or friend? No 12/13/2023 Does your family need help f inding childcare? (Household - for ages 0-17 years) Not on file 12/13/2023 Clothing Answer Date Recorded Have you been unable to get clothing when it was really needed? No 12/13/2023 Is your family able to get c lothes or diapers when needed? (Household - for ages 0-17 years) Not on file 12/13/2023 Personal Safety Answer Date Recorded Do you feel unsafe or have concerns for your saf ety? No 12/13/2023 Do you have concerns for you r family's safety? (Household - for ages 0-17 years) Not on file 12/13/2023 Utilities Answer Date Recorded Do you have trouble paying y our heating, water, or electric bill? No 12/13/2023 Is your family able to pay t he heat, water, or electric bill? (Household - for ages 0-17 years) Not on file 12/13/2023 Does your family have access to good internet? (Household - for ages 0-17 years) Not on file 12/13/2023 Employment Status Answer Date Recorded Are you unemployed or without regular income? No 12/13/2023 Does the household have a re gular source of income? (Household - for ages 0-17 years) Not on file 12/13/2023 Social Connections Answer Date Recorded How often do you feel lonely or isolated from th ose around you? Never 12/13/2023 Financial Resource Strain Answer Date R ecorded Do you have any trouble payi ng for your medications, or do you think you might in the future? No 12/13/2023 Does your family have troubl e paying for medicine? (Household - for ages 0-17 years) Not on file 12/13/2023 Transportation Needs Answer Date Record ed Do you have trouble getting a ride to medical visits or work? (Adult - for ages 18 years and over) Not on file 12/13/2023 Does your family have a hard time getting a ride to doctors visits? (Household - for ages 0-17 years) Not on file 12/13/2023 Has lack of transportation k ept you from medical appointments, meetings, work, or from getting things needed for daily living? Check all that apply. No 12/13/2023 Do you (or your family) have trouble finding or paying for a ride (transportation)? (Household - for ages 0-17 years) Not on file 12/13/2023 Housing Stability Answer Date Recorded Do you currently live in a s helter or have no steady place to sleep at night? No 12/13/2023 Do you think you are at risk of becoming homeless? (Adult - for ages 18 years and over) Not on file 12/13/2023 Does your family worry about paying for your home or becoming homeless? (Household - for ages 0-17 years) Not on file 0 12/13/2023 Are you homeless or worried that you might be in the future? No 12/13/2023 Are you (or your family) nadja eless or worried that you might be in the future? (Household - for ages 0-17 years) Not on file Food Insecurity Answer Date Recorded Do you need food for this week? No 12/13/2023 Are you able to get enough f ood for your family? (Household - for ages 0-17 years) Not on file 12/13/2023 Does your family need food t his week? (Household - for ages 0-17 years) Not on file 12/13/2023 Do you always have enough fo od for your family? (Household - for ages 0-17 years) Not on file 12/13/2023 Sex and Gender Information Value Date Recorded Sex Assigned at Male 05/12/2020 12:21 PM EST Gender Identity Male 05/12/2020 12:21 PM EST Sexual Orientation Straight 05/12/2020 12 :21 PM EST Job Start Date Occupation Industry Not on file Not on file Not on file documented as of this encounter Last Filed Vital Signs Vital Sign Reading Time Taken Comments Blood Pressure 110/54 12/13/2023 2:56 PM EDT Pulse 80 12/13/2023 2:56 PM EDT Temperature 37 C (98.6 F) 12/13/2023 2:56 PM EDT Respiratory Rate 14 12/13/2023 2:56 PM EDT Oxygen Saturation - - Inhaled Oxygen Concentration - - Weight 102.2 kg (225 lb 3.2 oz) 12/13/2023 2:56 PM EDT Height 166.6 cm (5' 5.59") 12/13/2023 2:56 PM ED T Body Mass Index 36.8 12/13/2023 2:56 PM EDT documented in this encounter Functional Status [...] as of this encounter Progress Notes * Oralia Cruz CRNP - 12/13/2023 3:05 PM EDT Images from the original note were not included. Follow up Family Medicine Visit History of Present Illness Heron Aguila is a pleasant 68 year old male with PMH listed below presenting with multiple issues. Slept in a wrong position about 1 month ago, neck pain slightly improved after PT, but still bothersome. Tingling sensation and weakness in bilateral fingers. Worse R>L, also developed nodules in right 2nd and 3rd fingers and left 2nd finger DIP joint. C/o intermittent dizziness more pronounced when getting up from the bed. Room spinning. Also had knee surgery 3 months ago. +swelling and pain. 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 Employer: [employer] Tobacco Use Smoking status: Former Current packs/day: 0.00 Average packs/day: 1 pack/day for 38.0 years (38.0 ttl pk-yrs) Types: Cigarettes Start date: 06/07/1968 Quit date: 06/07/2006 Years since quittin.5 Passive exposure: Never Smokeless tobacco: Never Tobacco comments: starting smoking late teen, smokes 5-6 cigs per wk; peak use was one ppd , Substance and Sexual Activity Alcohol use: No Alcohol/week: 11.7 standard drinks of alcohol Types: 14 1.5 oz of liquor per [...] Social Determinants of Health Financial Resource Strain: Low Risk (12/13/2023) Financial Resource Strain Do you have any trouble paying for your medications, or do you think you might in the future? (Adult - for ages 18 years and over): No Does your family have trouble paying for medicine? (Household - for ages 0-17 years): Not on file Food Insecurity: No Food Insecurity (12/13/2023) Food Insecurity Do you need food for this week? (Adult - for ages 18 years and over): No Are you able to get enough food for your family? (Household - for ages 0-17 years): Not on file Does your family need food this week? (Household - for ages 0-17 years): Not on file Do you always have enough food for your family? (Household - for ages 0-17 years): Not on file Transportation Needs: No Transportation Needs (12/13/2023) Transportation Needs Do you have trouble getting a ride to medical visits or work? (Adult - for ages 18 years and over):Not on file Does your family have a hard time getting a ride to doctors visits? (Household - for ages 0-17 years): Not on file Has lack of transportation kept you from medical appointments, meetings, work, or from getting things needed for daily living? Check all that apply. (Adult - for ages 18 years and over): No Do you (or your family) have trouble finding or paying for a ride (transportation)? (Household - for ages 0-17 years): Not on file Social Connections: Socially Integrated (12/13/2023) Social Connections How often do you feel lonely or isolated from those around you? (Adult - for ages 18 years and over): Never Housing Stability: Low Risk (12/13/2023) Housing Stability Do you currently live in a long term or have no steady place to sleep at night? (Adult - for ages 18 years and over): No Do you think you are at risk of becoming homeless? (Adult - for ages 18 years and over): Not on file Does your family worry about paying for your home or becoming homeless? (Household - for ages 0-17 years): Not on file Are you homeless or worried that you might be in the future? (Adult - for ages 18 years and over): No Are you (or your family) homeless or worried that you might be in the future? (Household - for ages0-17 years): Not on file PMH: Past Medical History: Diagnosis Date 5 cm [...] stenosis 06/30/202106/28 MRI Coronary artery disease involving potter [place] coronary artery of [place] heart without angina pectoris 02/03/2020 2019 noted [...] by Clay Peña MD at ENDOSCOPY [facility] COLONOSCOPY/REMOVE LESION 07/19/2010 adenomatous/repeat colnooscopy in 3 yra CORONARY ARTERY BYPASS, SINGLE N/A 09/05/2022 CORONARY ARTERY BYPASS GRAFT WITH 1 VEIN GRAFT performed by Bandar Estrada MD at [place] [facility] CYSTOSCOPY 01/04/2010 tumor found CYSTOSCOPY 09/20/2010 ansong CYSTOSCOPY 01/03/2011 neg CYSTOSCOPY 04/20/2011 CYSTOSCOPY 07/18/2011 no recurrence CYSTOSCOPY 11/21/2011 CYSTOSCOPY 03/19/2012 CYSTOSCOPY 07/16/2012 CYSTOSCOPY CYSTOSCOPY 03/25/2013 CYSTOSCOPY 10/13/2013 CYSTOSCOPY 05/25/2014 CYSTOSCOPY 01/04/[address] Worley [facility] CYSTOSCOPY/TREAT LGE BLADDER TUMOR 02/16/2010 CYSTOURETHROSCOPY WITH FULGURATION LARGE BLADDER TUMOR performed by RUSS BRAVO at [facility] CYSTOSCOPY/TREAT SML BLADDER TUMOR 06/08/2010 CYSTOURETHROSCOPY WITH FULGURATION SMALL BLADDER TUMOR performed by RUSS BRAVO at [place] [facility] EGD, FLEXIBLE, DIAGNOSTIC 03/20/2013 UPPER GI ENDOSCOPY DIAGNOSTIC performed by Micky Edwards MD at ENDOSCOPY [facility] ENDO,VIDEO ASSIST HARVEST NOHEMI N/A 09/05/2022 ENDOSCOPY VIDEO ASSISTED HARVEST VEIN performed by Bandar Estrada MD at [place] [facility] EXERCISE ECHO 10/07/2002 No evidence for ischemic [...] BIOPSY performed by RUSS TOLENTINO at RADIOLOGY [facility] REMOVAL OF BLADDER TUMOR 01/12/2010 Cystotomy, Excision Bladder Tumor high grade muscle involved REMOVAL OF TONSILS, UNDER AGE 12 age 4 REMOVE CATARACT, INSERT LENS PROSTH Left 03/11/2014 EXTRACAPSULAR CATARACT REMOVAL WITH INTRAOCULAR LENS performed by Nakul Benz MD at OR [facility] REPAIR NECK SPINE FX/DISLOCATION 04/09/1988 C-1 fracture; mandibular/dental fractures REPLACEMENT AORTIC VALVE, BYPASS WITH PROSTHETIC VALVE N/A 09/05/2022 WITH REPLACEMENT AORTIC VALVE performed by Bandar Estrada MD at [place] [facility] REVISE UPPER EYELID 11/07/2013 Current Outpatient Medications Medication Sig Dispense Refill Metoprolol Succinate ER 25 MG Oral Tablet Extended Release 24 Hour (toPROL XL) Take 1 Tablet by mouth in the morning. 100 Tablet 0 Gabapentin 300 MG Oral Capsule (Neurontin) TAKE 1 CAPSULE BY MOUTH TWICE A DAY 180 Capsule 1 Atorvastatin Calcium 40 MG Oral Tablet (Lipitor) TAKE ONE TABLET BY MOUTH EVERY DAY 90 Tablet 0 Triamcinolone Acetonide 0.1 % External Ointment (Aristocort) Apply 2x daily to rash on trunk/arms and legs as instructed on printed checkout sheet 454 g 0 Furosemide 20 MG Oral Tablet (Lasix) TAKE 1 TABLET BY MOUTH DAILY 100 Tablet 2 metFORMIN HCl 500 MG Oral Tablet (Glucophage) TAKE ONE TABLET BY MOUTH TWICE A DAY WITH FOOD 180 Tablet 2 Allopurinol 300 MG Oral Tablet (Zyloprim) Take 1 Tablet by mouth in the morning. 30 Tablet 5 CPAP every night at bedtime. Multivitamin Adult Oral Tablet Take by mouth. Aspirin 81 MG Oral Tablet Delayed Release Take 1 Tablet by mouth in the morning. Glucose Blood (Optimus3TOUCH ULTRA BLUE) STRP Dx: E11.9 100 Strip 11 Optimus3TOUCH ULTRASOFT LANCETS MISC Use up to four times a day -Type II diabetes- Dx: E11.9 1 Box Dosing Unit 11 SYSTANE 0.4-0.3 % OP SOLN Instill into eye. [employer] ULTRA SYSTEM W/DEVICE KIT Use up to four times a day -Type II diabetes- #250.00 1 Kit 0 predniSONE 10 MG Oral Tablet (Deltasone) Take 5 tabs for 2 days, 4 tabs for 2 days, 3 tabs for 2 days, 2 tabs for 2 days 1 tab for 2 days (Patient not taking: Reported on 12/13/2023) 30 Tablet 0 Colchicine 0.6 MG Oral Tablet Take 1 Tablet by mouth in the morning and 1 Tablet before bedtime. (Patient not taking: Reported on 12/13/2023) 60 Tablet 5 Famotidine 20 MG Oral Tablet (Pepcid) Take 1 Tablet by mouth in the morning and 1 Tablet before bedtime. (Patient not taking: Reported on 12/13/2023) 60 Tablet 2 glipiZIDE 5 MG Oral Tablet (Glucotrol) Take 1 Tablet by mouth in the morning. 30 minutes before largest meal, only while on prednisone. Watch for low sugars.. (Patient not taking: Reported on 06/14/2023) 10 Tablet 1 Sildenafil Citrate 20 MG Oral Tablet (Revatio) Take 1-5 Tablets by mouth daily as needed for Erectile Dysfunction. (Patient not taking: Reported on 02/14/2023) 60 Tablet 11 Tamsulosin HCl 0.4 MG Oral Capsule (Flomax) Take 1 Capsule by mouth in the morning. (Patient not taking: Reported on 02/14/2023) 30 Capsule 1 No current facility-administered medications for this visit. Review of patient's allergies indicates: Allergen Reactions Daptomycin Other reaction(s): RASHES Bactrim Itching Trimethoprim Other reaction(s): ITCHY BACK Most Recent Immunizations Administered Date(s) Administered COVID-19 mRNA, LNP-s, No Preserve, 2-Dose Series (Moderna) 01/31/2021 COVID-19, mRNA, LNP-s, PF, Booster, 100mcg/0.5mg (Moderna) 08/17/2021 Covid-19, Mrna, Lnp-s, Pf, Bivalent, 50 Mcg, IM, 12 yrs and above (Moderna) 01/12/2022 Pneumococcal Conjugate Vacc, 13 Valent (Prevnar) 02/03/2020 Pneumococcal Polysaccharide PPV23 (Pneumovax) 11/10/2020 Season Influenza, Quad, PF, Adjuvanted, 65+ Yrs, IM (FLUAD) 02/03/2020 Seasonal Influenza, Quadrivalent Hd, 65+ Yrs 01/07/2022 Seasonal Influenza, Quadrivalent, No Preserve, IM 02/08/2016 Seasonal Influenza, Trivalent, (IIV3), with Preserv, (Fluzone) 12/11/2014 TD - Tetanus/Diptheria (ADULT) 10/07/1997 TD, Preservative Free 01/05/2005 TDAP, Age 7 and older, IM (Adacel) 08/25/2010 Varicella Zoster Vaccine (Adult) 01/08/2014 Review of Systems: Physical Exam BP 110/54 (BP Site: Left Arm, BP Position: Sitting, BP Cuff Size: Large) | Pulse 80 | Temp 37 C (98.6 F) (Tympanic) | Resp 14 | Ht 1.666 m (5' 5.59") | Wt 102.2 kg (225 lb 3.2 oz) | BMI 36.80 kg/m | BSA 2.17 m Physical Exam Constitutional: Appearance: Normal appearance. HENT: Head: Normocephalic. Neck: Comments: Denies cervical radiculopathy, tenderness reproduced at the base of head with palpation Cardiovascular: Rate and Rhythm: Normal rate and regular rhythm. Pulmonary: Effort: Pulmonary effort is normal. Breath sounds: Normal breath sounds. Musculoskeletal: General: Swelling present. Right hand: Decreased strength. There is no disruption of two-point discrimination. Normal capillary refill. Normal pulse. Left hand: Decreased strength. There is no disruption of two-point discrimination. Normal capillaryrefill. Normal pulse. Hands: Cervical back: Full passive range of motion without pain and neck supple. Left knee: No swelling or erythema. Tenderness present. Comments: Flesh color nodules noted (?RA), +tingling Lymphadenopathy: Cervical: No cervical adenopathy. Skin: General: Skin is warm. Neurological: Mental Status: He is alert and oriented to person, place, and time. Cranial Nerves: No facial asymmetry. Sensory: Sensation is intact. Motor: Motor function is intact. Gait: Gait normal. Comments: Positive Lane Hallpike today Psychiatric: Mood and Affect: Mood normal. Assessment and Plan 1. Numbness and tingling in both hands +Multiple lumps, RA vs OA - XR HAND 3 OR MORE VIEWS - ORTHOPAEDICS REFERRAL OP 2. Benign paroxysmal positional vertigo, unspecified laterality Nystagmus/dizziness produced - PHYSICAL THERAPY REFERRAL OP 3. HTN, goal below 140/90 stable 4. Cervical spinal stenosis F/u PT 5. Generalized osteoarthritis 6. PMR (polymyalgia rheumatica) (HCC) F/u with rheum Wrap-Up I have advised the patient to call our office with any worsening or new symptoms. I spent a total of 30-39 minutes (exact time 38 mins) on the date of service in preparation, delivery, and documentation of the care provided to Heron Aguila excluding any time spent in the performance of separately billed services. Oralia Cruz, DIXON, JAZMYNE [facility] documented in this encounter Nursing Notes * Ruben Contreras RN - 12/13/2023 2:59 PM EDT Chief Complaint Patient presents with Physical-Exam Patient has multiple things to discuss documented in this encounter Plan of Treatment Upcoming Encounters Date Type Department Care Team (Late st Contact Info) Description 01/07/2024 10:40 AM EDT Office Visit Rheumatology [place] [id number] [place] [address] William Devine MD [address] [place] [id number] 02/13/2024 2:00 PM EST Office Visit Orthopaedics [facility] [address] [facility] [place] [address] Jose Enrique Jaeger MD [address] [place] [address] Pending Results Name Type Priority Associated Diagnoses Date /Time XR HAND 3 OR MORE VIEWS Medical Imaging Routine Numbness and tingling in both hands 12/13/2023 3:43 PM EDT Scheduled Procedures Name Priority Associated Diagnoses Date/Ti me COLONOSCOPY FLEXIBLE PROXIMAL DIAGNOSTIC Recall History of colon polyps Scheduled Referrals Name Type Priority Associated Diagnoses Orde r Schedule PHYSICAL THERAPY REFERRAL OP Referral Within 30 days (routine) Benign paroxysmal positional vertigo, unspecified laterality Ordered: 12/13/2023 ORTHOPAEDICS REFERRAL OP Referral Within 10 days (routine) Numbness and tingling in both hands Ordered: 12/13/2023 Health Maintenance Due Date Last Done Comments Cologuard 1998 Fecal Occult Blood Test 1998 Sigmoidoscopy 1998 Zoster Vaccines (1 of 2) 03/05/2014 01/08/2014 Depression Screening 03/14/2017 03/14/2016 Adult Wellness Visit 2019 DTap/Tdap Vaccines (2 - Td or Tdap) 08/25/2020 08/25/2010, 01/05/2005, 10/07/1997 Diabetic Foot Exam 05/12/2021 05/12/2020, 0 12/11/2014, 01/08/2014, Additional history exists Diabetic Eye Exam 10/13/2023 10/12/2022, , 09/18/2022, Additional history exists COVID-19 Vaccine ( season) 2023 01/12/2022, 08/17/2021, 01/31/2021, Additional history exists Influenza Vaccine (FLU shot) (#1) 2023 02/09/2023, 01/07/2022, 02/21/2021, Additional history exists HbA1c 12/29/2023 06/28/2023, 08/07, 03/25/2022, Additional history exists Colonoscopy 01/01/2024 12/31/2020, 12/09, 09/26/2016, Additional history exists Colorectal Cancer Screening 01/01/2024 Albumin/Creatinine Ratio 02/23/202402/22/2 023, 02/03/2020, 03/17/2015, Additional history exists B-12 [...] this encounter Medical Devices Implanted Type Area Supervisor Patching Device Identifier Shelf Expiration Date Model / Serial / Lot Lens 19.0 Sn60wf - [id number] Implanted:Qty : 1 on 03/11/2014 by Nakul Benz MD at OR [facility] Left: Eye [employer] 12/07/2018 SN60WF.19 0 / [id number] / Lens 20.0 Sn60wf - [id number] - [id number] Implanted:Qty : 1 on 03/24/2016 by Tommy العلي MD at OR [facility] Right: Eye [employer] : SURGICAL 12/07/2020 SN60WF.2 0 0 / [id number] / Valve Aortic Avalus 23mm - [id number] - [id number] Implanted:Qty : 1 on 09/05/2022 by Bandar Estrada MD at [place] [facility] N/A: Heart [employer] [id number] 11/17/2024 06924 / [id number] / [id number] Suture Steel 6 B&S19 M654g - [id number] Implanted:Qty : 8 on 09/05/2022 by Bandar Estrada MD at [place] [facility] N/A: Sternum JNJ : [employer] 06/07/2027 M654G / / [id number] Marker Coronary - [id number] Implanted:Qty : 1 on 09/05/2022 by Bandar Estrada MD at [place] [facility] N/A: Heart [employer] 07/07/2025 [facility] / / [id number] documented as of this encounter Visit Diagnoses Diagnosis Numbness and tingling in both hands- Primary Benign paroxysmal positional vertigo, unspecified laterality HTN, goal below 140/90 Unspecified essential hypertension Cervical spinal stenosis Spinal stenosis in cervical region Generalized osteoarthritis Generalized osteoarthrosis, unspecified site PMR (polymyalgia rheumatica) ([facility]) Polymyalgia rheumatica documented in this encounter Advance Directives * Full Code [...] and were consensually agreed upon. Care Teams Glass Grinder Relationship Specialty Start Date End Date Spencer Smith MD [address] [facility] [place] [address] PCP - General Family Medicine 02/03/20 documented as of this encounter
--- OUTSIDE RECORDS SUMMARY | 2023-12-14 23:11 | External Medical Summary ---
Author Name Unknown Address Unknown Organization K01:[facility] [place] [address] [place] [address] Laboratory Report Ordering Provider Test Date Status HERMINIA GARNER 11/14/2023 12:04:07 Final Observation Date Value Abnormality Reference (Units ) Status BUN 11/14/2023 12:04:07 20 6-20 (mg/dL) Final Creatinine 11/14/2023 12:04:07 1.0 0.6-1.2 (mg/dL) Final Glomerular filtration rate/1.73 sq M.predicted [Volume Rate/Area] in Serum, Plasma or Blood by Creatinine-based formula (CKD-EPI) 11/14/2023 12:04:07 81 >=60 (mL/min) Final eGFR is calculated based on the CKD-EPI 2020 equation. Sodium 11/14/2023 12:04:07 144 135-146 (m mol/L) Final Potassium 11/14/2023 12:04:07 4.4 3.5-5.1 (m mol/L) Final Cl 11/14/2023 12:04:07 105 98-107 (mm ol/L) Final CO2 11/14/2023 12:04:07 26 22-32 (mmo l/L) Final Anion gap 11/14/2023 12:04:07 13 7-15 (mmol /L) Final Glucose 11/14/2023 12:04:07 67 Below low normal 70- 120 (mg/dL) Final Albumin 11/14/2023 12:04:07 4.4 3.8-5.0 (g /dL) Final AST (Aspartate aminotransferase) 11/14/2023 12:04:07 25 10-50 (U/L) Fin al Alk Phos 11/14/2023 12:04:07 128 35-130 (U/ L) Final Bilirubin, Total 11/14/2023 12:04:07 0.3 <=1 .2 (mg/dL) Final Calcium 11/14/2023 12:04:07 10.3 Above high normal 8. 4-10.2 (mg/dL) Final Protein 11/14/2023 12:04:07 6.7 6.0-8.3 (g /dL) Final ALT (Alanine aminotransferase) 11/14/2023 12:04:07 21 10-50 (U/L) Wolf merino Performing Location [facility] [place] [address] [facility] [address]
--- OUTSIDE RECORDS SUMMARY | 2023-12-14 23:11 | External Medical Summary | Summary of Care ---
Author Name Unknown Organization [facility] Address [address] [place] [address] Phone [phone] Care Team Providers Care Tablet Making Machine Operator Name Role Phone Spencer Smith MD Primary Care Provider + Reason for Visit * Reason Comments Outpatient Testing Encounter Details Date Type Department Care Team (Late st Contact Info) Description 11/14/2023 12:00 PM EDT Laboratory Laboratory, [place] [address] [place] [address] [place], [facility] [address], [place] [id number] Encounter for long-term (current) use of medications; HTN, goal below 140/90 Allergies Active Allergy Reactions Criticality Noted Date Comments Bactrim 08/22/2013 Itching Daptomycin High 05/18/2022 Other reaction(s): RASHES Trimethoprim Low 05/18/2022 Other reaction(s): ITCHY BACK documented as of this encounter (statuses as of 11/14/2023) Medications Medication Sig Dispensed Refills Start Date End Date Status GoodzerTOUCH ULTRA SYSTEM W/DEVICE KITIndications:DM type 2, goal A1c below 7 Use up to four times a day -Type II diabetes- #250.00 1 Kit 0 04/06/2011 Active SYSTANE 0.4-0.3 % OP SOLN one drop both eyes as needed Active Glucose Blood (ONETOUCH ULTRA BLUE) STRP Dx: E11.9 100 Strip 11 03/21/2016 Active ONETOUCH ULTRASOFT LANCETS [facility] [place] Use up to four times a day [...] Additional Information Patient not taking.Reported on 06/14/2023 Metoprolol Succinate ER 25 MG Oral Tablet Extended Release 24 Hour (toPROL XL) Take 1 Tablet by mouth in the morning. 100 Tablet 1 05/14/2023 Active metFORMIN HCl 500 MG Oral Tablet [...] TWICE A DAY 180 Capsule 1 11/06/2023 5 Active documented as of this encounter (statuses as of 11/14/2023) Active Problems Problem Noted Date Diagnosed Date [...] Dr Arevalo, then Dr Diallo [facility] PCP (insurance change). 06/08/22 Cardiac cath Severe early-mid RCA stenosis. Dr Rajat Harris @[facility] 05/01 TTE [facility] --Reviewed [facility] TTE 04/12/22. Normal ejection fraction 50-55%, grade [...] mammo/US Wnl-dominick May 2020 clinical [facility] uro yearly--considering follow Dr Rich Soto. Request colon, echo, carotid US, reports. Needs DEXA Lung CA screen 10/25 [facility]--rec yearly through 2021. (15y post quit date)_ Colon 10/18/16 [facility] +adenoma dominick 5y. EKGD 11/23 antral mass benign. 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 Asymptomatic stenosis of right carotid artery Overview: [facility] Nonrheumatic mitral valve regurgitation 02/03/20 20 PMR (polymyalgia rheumatica) 05/27/2015 [facility] current use of systemic steroids 05/27 History [...] as of this encounter (statuses as of 11/14/2023) Resolved Problems Problem Noted Date Diagnosed Date [...] as of this encounter (statuses as of 11/14/2023) Immunizations Name Administration Dates Next Due COVID-19 [...] drink = 0.6 oz pure alcohol) quit 2016 Utilities Answer Date Recorded Do you have [...] 01/07/2024 10:40 AM EDT Office Visit Rheumatology [facility] [address] [place] [address] William Devine MD [address] [place] [address] Pending Results Name Type Priority Associated Diagnoses Date /Time COMPREHENSIVE METABOLIC PANEL Lab Routine Encounter for long-term (current) use of medications HTN, goal below 140/90 11/14/2023 12:04 PM EDT VITAMIN B12 Lab Routine Encounter for long-term (current) use of medications 11/14/2023 12:04 PM EDT CBC Lab Routine Encounter for long-term (current) use of medications 11/14/2023 12:04 PM EDT Scheduled Procedures Name Priority Associated [...] 2022 01/12/2022, 08/17/2021, 01/31/2021, Additional history exists B-12 09/21/2023 09/20/2022, 08/07, [...] 02/23/2024 023, 02/03/2020, 03/17/2015, Additional history exists AAA Screening Completed 01/21/2015, [...] this encounter Medical Devices Implanted Type Area Orthodontic Laboratory Technician Device Identifier Shelf Expiration Date Model / Serial / Lot Lens 19.0 Sn60wf - [id number] Implanted:Qty : 1 on 03/11/2014 by Nakul Benz MD at OR [facility] Left: Eye [employer] 12/07/2018 SN60WF.19 0 / [id number] / Lens 20.0 Sn60wf - [id number] - [id number] Implanted:Qty : 1 on 03/24/2016 by Tommy العلي MD at OR [facility] Right: Eye ERIN : SURGICAL 12/07/2020 SN60WF.2 0 0 / [id number] / Valve Aortic Avalus 23mm - [id number] - [id number] Implanted:Qty : 1 on 09/05/2022 [place] Bandar E[place]ada [place] [facility] [place] Heart [employer] [id number] 11/17/2024 [id number] / [id number] / [id number] Suture Steel 6 B&S19 M654g - [id number] Implanted:Qty : 8 on 09/05/2022 by Bandar Estrada [place] [facility] [place]A: Sternum JNJ : [employer] 06/07/2027 M654G / / TCBDSD Marker Coronary - [id number] Implanted:Qty : 1 on 09/05/2022 by Bandar Estrada [place] [facility] [place]A: Heart [employer] 07/07/2025 [facility] / / [id number] documented as of this encounter Visit Diagnoses Diagnosis Encounter for long-term (current) use of medications Encounter for long-term (current) use of other medications HTN, goal below 140/90 Unspecified essential hypertension documented in this encounter Advance Directives * [...] and were consensually agreed upon. Care Teams Tablet Making Machine Operator Relationship Specialty Start Date End Date Spencer Smith MD [address] [facility] [place] [address] PCP - General Family Medicine 02/03/20 documented as of this encounter
--- OUTSIDE RECORDS SUMMARY | 2023-12-14 23:12 | External Medical Summary | Summary of Care ---
Author Name Unknown Organization [facility] Address [address] [place] [address] Phone [phone] Care Team Providers Care Traffic Operations Engineer Name Role Phone Spencer Pryor MD Primary Care Provider + Reason for Visit * Reason Onset Date Comments Medication Refill Status Check 11/03/2023 Encounter Details Date Type Department Care Team (Late st Contact Info) Description 11/03/2023 Refill Family Practice [facility] [address] [place] [address] Spencer Pryor MD [address] [facility] [place] [address] Diabetic polyneuropathy associated with type 2 diabetes mellitus (HCC) Allergies Active Allergy Reactions Criticality Noted Date Comments Bactrim 08/22/2013 Itching Daptomycin High 05/18/2022 Other reaction(s): RASHES Trimethoprim Low 05/18/2022 Other reaction(s): ITCHY BACK documented as of this encounter (statuses as of 11/06/2023) Medications Medication Sig Dispensed Refills Start Date End Date Status CloudFactoryTOUCH ULTRA SYSTEM W/DEVICE KITIndications:DM type 2, goal A1c below 7 Use up to four times a day -Type II diabetes- #250.00 1 Kit 0 04/06/2011 Active SYSTANE 0.4-0.3 % OP SOLN one drop both eyes as needed Active Glucose Blood (ONETOUCH ULTRA BLUE) STRP Dx: E11.9 100 Strip 11 03/21/2016 Active ONETOUCH ULTRASOFT LANCETS [facility] Use up to four [...] 180 Capsule 1 11/06/2023 11/06/19 25 Active Gabapentin 300 MG Oral Capsule (Neurontin)Indicati ons:Diabetic polyneuropathy associated with type 2 diabetes mellitus (HCC) TAKE 1 CAPSULE BY MOUTH TWICE A DAY 180 Capsule 1 05/11/2023 11/03/19 24 Discontinu ed(Refill) documented as of this encounter (statuses as of 11/06/2023) Active Problems Problem Noted Date Diagnosed Date [...] Overview: Previous Dr Arevalo, then Dr Diallo [facility] PCP (insurance change). 06/08/22 Cardiac cath Severe early-mid RCA stenosis. Dr Rajat Harris @[facility] 05/01 TTE [facility] --Reviewed [facility] TTE 04/12/22. Normal ejection fraction [...] 3y 02/26 mammo/US Wnl-dominick May 2020 clinical [facility] uro yearly--considering follow Dr Rich Soto. Request colon, echo, carotid US, reports. Needs DEXA Lung CA screen 10/25 [facility]--rec yearly through 2021. 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 EKGD 11/23 antral mass benign. 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 05/27 History [...] as of this encounter (statuses as of 11/06/2023) Resolved Problems Problem Noted Date Diagnosed Date [...] as of this encounter (statuses as of 11/06/2023) Immunizations Name Administration Dates Next Due COVID-19 [...] Telephone Encounter - Spencer Pryor MD - 11/06/2023 9:09 PM EDTSigned Prescriptions: Disp Refills Gabapentin 300 MG Oral Capsule (Neurontin) 180 Ca*1 Sig: TAKE 1 CAPSULE BY MOUTH TWICE A DAY Authorizing Provider: SPENCER PRYOR * Telephone Encounter - Erika Hauser LPN - 11/06/2023 7:32 AM EDTPending Prescriptions: Disp Refills Gabapentin 300 MG Oral Capsule (Neurontin) 180 Ca*1 Sig: TAKE 1 CAPSULE BY MOUTH TWICE A DAY * Telephone Encounter - Erika Hauser LPN - 11/06/2023 7:32 AM EDT Message sent to pt py par staff. Pended medication needs signed for refill. TY * Telephone Encounter - Senia Benson OSA - 11/06/2023 7:08 AM EDTPending Prescriptions: Disp Refills Gabapentin 300 MG Oral Capsule (Neurontin) 180 Ca*1 Sig: TAKE 1 CAPSULE BY MOUTH TWICE A DAY * Telephone Encounter - Senia Benson OSA - 11/06/2023 7:08 AM EDT My g sent * Telephone Encounter - Spencer Pryor MD - 11/05/2023 4:09 PM EDT Pending Prescriptions: Disp Refills Gabapentin 300 MG Oral Capsule (Neurontin) 180 Ca*1 Sig: TAKE 1 CAPSULE BY MOUTH TWICE A DAY * Telephone Encounter - Spencer Pryor MD - 11/05/2023 4:08 PM EDT Refill sent. Schedule CPE /DM visit with Michelle Cruz * Telephone Encounter - Aparna Martin CPhT - 11/05/2023 2:32 PM EDT Pharmacy calling to check on status of gabapentin 300. Caller can be reached at [phone]. Thank you, Aparna Martin CPhT [facility] [address] [place] [address], [address] [place] [address] MC [id number] * Telephone Encounter - Sabrina Freeman LPN - 11/05/2023 9:06 AM EDTPending Prescriptions: Disp Refills Gabapentin 300 MG Oral Capsule (Neurontin) 180 Ca*1 Sig: TAKE 1 CAPSULE BY MOUTH TWICE A DAY * Telephone Encounter - Sabrina Freeman LPN - 11/05/2023 9:06 AM EDT Did you pend patient's preferred pharmacy and medication before forwarding?yes Pharmacy: [facility] Pending Prescriptions: Disp Refills Gabapentin 300 MG Oral Capsule (Neurontin)180 Ca*1 Sig: TAKE 1 CAPSULE BY MOUTH TWICE A DAY Last Visit: 09/20/2022 (in office), 03/24/2022 (telemedicine) Next Visit: Visit date not found If no future appointments scheduled, and last appointment is greater than a year ago, please schedule patient for a follow-up appointment Last date the medication was ordered: 05/11/23 Is this request for a controlled substance? Urine Drug Screen:No results found. However, due [...] AM POTASSIUM 4.8 02/03/2020 03:56 PM TSH 3.18 02/22/2023 11:05 AM TSH 3.12 09/09/2014 12:21 PM LDLCALC 63 11/03/2020 09:09 AM LDLCALC 74 10/22/2018 12:00 AM LDLCALC 54 12/07/2015 11:16 AM LDLDIRECT 72 06/28/2023 02:46 PM LDLDIRECT 71 02/03/2020 03:56 PM LDLDIRECT 140 (H) 02/25/2014 10:08 AM ALT 25 08/17/2022 01:04 PM ALT 23 09/18/2019 04:26 PM HGBA1C 6.2 (H) 06/28/2023 02:46 PM HGBA1C 6.1 (H) 02/03/2020 03:56 PM * Telephone Encounter - Virginia Duncan - 11/03/2023 5:42 AM EDTPending Prescriptions: Disp Refills Gabapentin 300 MG Oral Capsule (Neurontin) 180 Ca*1 Sig: TAKE 1CAPSULE BY MOUTH TWICE A DAY documented in this encounter Plan of Treatment Upcoming Encounters Date Type Department Care Team (Late st Contact Info) Description 01/07/2024 10:40 AM EDT Office Visit Rheumatology [address] [place] [address] William Devine MD [address] [place] [address] [place] [address] Scheduled Procedures Name Priority Associated Diagnoses Date/Ti me COLONOSCOPY FLEXIBLE PROXIMAL DIAGNOSTIC Recall History of colon polyps Health Maintenance Due Date Last Done Comments Cologuard 1998 Fecal Occult Blood Test 1998 Sigmoidoscopy 1998 Zoster Vaccines (1 of 2) 03/05/2014 01/08/2014 Depression Screening 03/14/2017 03/14/2016 DTaP,Tdap,and Td Vaccines (2 - Td or Tdap) 08/25/2020 08/25/2010, 01/05/2005, 10/07/1997 Diabetic Foot Exam 05/12/2021 05/12/2020, 0 12/11/2014, 01/08/2014, Additional history exists COVID-19 Vaccine (2022- season) 2022 01/12/2022, 08/17/2021, 01/31/2021, Additional history [...] 02/23/2024 023, 02/03/2020, 03/17/2015, Additional history exists Hepatitis C Screening Completed 05/27/2012, 008 AAA Screening Completed 01/21/2015, 05/10, 07/13/2011, Additional history exists Pneumococcal Vaccine: 65+ Years Completed 11/10/2020, 02/03/2020, 05/05/2011 RETIRED - COLONOSCOPY-EVERY 5 YRS AGES 18-100 Discontinued 12/31/2020, 12/31/2020, 09/26/2016, Additional history exists *BASELINE EKG FOR HTN Completed 09/20/2022 , 09/06/2022, 09/06/2022, Additional history exists HPV (Gardasil) Vaccine Aged Out No lo nger eligible based on patient's age to complete this topic Hepatitis B Vaccine Aged Out No longe r eligible based on patient's age to complete this topic MENINGOCOCCAL (MENACTRA/MENVEO) Aged Out No longer eligible based on patient's age to complete this topic documented as of this encounter Medical Devices Implanted Type Area Foil Cutter Device Identifier Shelf Expiration Date Model / Serial / Lot Lens 19.0 Sn60wf - [id number] Implanted:Qty : 1 on 03/11/2014 by Nakul Benz MD at OR [facility] Left: Eye [employer] 12/07/2018 SN60WF.19 0 / [id number] / Lens 20.0 Sn60wf - [id number] - [id number] Implanted:Qty : 1 on 03/24/2016 by Tommy العلي MD at OR [facility] Right: Eye ERIN : SURGICAL 12/07/2020 SN60WF.2 0 0 / [id number] / Valve Aortic Avalus 23mm - [id number] - [id number] Implanted:Qty : 1 on 09/05/2022 by Bandar Estrada MD at [place] [facility] [place] N/A: Heart [employer] [id number] 11/17/2024 [id number] / [id number] / [id number] Suture Steel 6 B&S19 M654g - [id number] Implanted:Qty : 8 on 09/05/2022 by Bandar Estrada MD at [place] [facility] [place] N/A: Sternum JNJ : [employer] 06/07/2027 M654G / / TCBDSD Marker Coronary - [id number] Implanted:Qty : 1 on 09/05/2022 by Bandar Estrada MD at [place] [facility] [place] N/A: Heart [employer] 07/07/2025 [facility] / / [id number] documented as of this encounter Visit Diagnoses Diagnosis Diabetic polyneuropathy associated with type 2 diabetes mellitus (HCC) documented in this encounter Advance Directives * [...] and were consensually agreed upon. Care Teams Traffic Operations Engineer Relationship Specialty Start Date End Date Spencer Pryor MD [address] [place] [address] PCP - General Family Medicine 02/03/20 documented as of this encounter
--- OUTSIDE RECORDS SUMMARY | 2023-12-14 23:12 | External Medical Summary | Summary of Care ---
Author Name Unknown Organization [facility] Address [address] [facility] [place] [address] Phone [phone] Care Team Providers Care Procedures Nurse Name Role Phone Spencer Smith MD Primary Care Provider + Reason for Visit * Reason Onset Date Comments Health Maintenance 11/06/2023 Encounter Details Date Type Department Care Team (Late st Contact Info) Description 11/06/2023 Telephone Family Practice [facility] [address] [place] [address] Spencer Smith MD [address] [place] [address] Health Maintenance Allergies Active Allergy Reactions Criticality Noted Date [...] Additional Information Patient not taking.Reported on 06/14/2023 Gabapentin 300 MG Oral Capsule (Neurontin)Indicatio ns:Diabetic polyneuropathy associated with type 2 diabetes mellitus (HCC) TAKE 1 CAPSULE BY MOUTH TWICE A DAY 180 Capsule 1 05/11/2023 5 Active Metoprolol Succinate ER 25 MG Oral [...] for 2 days 30 Tablet 10/16/2023 Active documented as of this encounter (statuses [...] Previous Dr Arevalo, then Dr Diallo [facility] PCP (insurance change). 06/08/22 Cardiac cath Severe early-mid RCA stenosis. Dr Rajat Harris @[facility] 05/01 TTE [facility] --Reviewed [facility] TTE 04/12/22. Normal ejection fraction [...] 02/26 mammo/US Wnl-dominick May 2020 clinical [facility] uro yearly--considering follow Dr Villanueva to [place]. Request colon, echo, carotid US, reports. Needs DEXA Lung CA screen 10/25 [facility]--rec yearly through 2021. 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 EKGD 11/23 antral mass benign. 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 Asymptomatic stenosis of right carotid artery Overview: [facility] Nonrheumatic mitral valve regurgitation 02/03/20 [...] encounter Miscellaneous Notes * Telephone Encounter - Galina Renner LPN - 11/06/2023 2:34 PM EDT Care Gaps Comprehensive Care Outreach Last Office/Telemedicine Visit: 09/20/2022 (in office), 03/24/2022 (telemedicine) Next Office Visit: Visit date not found Hemoglobin AIC Results: Lab Results Component Value Date/Time HEMOGLOBIN A1C - [facility] 6.2 (H) 06/28/2023 02:46 PM HEMOGLOBIN A1C - [facility] 5.9 (H) 08/17/2022 01:04 PM HEMOGLOBIN A1C - [facility] 5.8 (H) 03/25/2022 12:12 PM HEMOGLOBIN A1C - [facility] 6.1 (H) 02/03/2020 03:56 PM HEMOGLOBIN A1C - [facility] 5.2 12/07/2015 11:16 AM HEMOGLOBIN A1C - [facility] 5.7 07/25/2015 08:36 AM BP Readings from Last 1 Encounters: 06/14/23 140/84 Reviewed Health Maintenance below: Health Maintenance Topic Date Due Zoster Vaccines (1 of 2) 03/05/2014 Depression Screening 03/14/2017 DTaP,Tdap,and Td Vaccines (2 - Td or Tdap) 08/25/2020 Diabetic Foot Exam 05/12/2021 COVID-19 Vaccine ( season) 2022 GFR 09/21/2023 B-12 09/21/2023 Diabetic Eye Exam 10/13/2023 Colorectal Cancer Screening 01/01/2024 Influenza Vaccine (FLU shot) (1) 12/09/2023 HbA1c 12/29/2023 Albumin/Creatinine Ratio 02/23/2024 Recapture Ov Labs Eye pa retina colon Care Gap Outreach Action Taken: Left message documented in this encounter Plan of Treatment Upcoming Encounters Date Type Department Care Team (Late st Contact Info) Description 01/07/2024 10:40 AM EDT Office Visit Rheumatology [facility] [address] [place] [address] William Devine MD [address] [place] [address] Scheduled Procedures Name Priority Associated Diagnoses Date/Ti [...] this encounter Medical Devices Implanted Type Area Serology Teacher Device Identifier Shelf Expiration Date Model / Serial / Lot Lens 19.0 Sn60wf - [id number] Implanted:Qty : 1 on 03/11/2014 by Nakul Benz MD at OR [facility] Left: Eye [employer] 12/07/2018 SN60WF.19 0 / [id number] / Lens 20.0 Sn60wf - [id number] 010 - [id number] Implanted:Qty : 1 on 03/24/2016 by Tommy العلي MD at OR [facility] Right: Eye ERIN : SURGICAL 12/07/2020 SN60WF.2 0 0 / [id number] 010 / Valve Aortic Avalus 23mm - [id number] - [id number] Implanted:Qty : 1 on 09/05/2022 by Bandar Estrada MD at [place] [facility] [place] N/A: Heart [employer] [id number] 11/17/2024 [address]5610 / [id number] / [id number] Suture Steel 6 B&S19 M654g - [id number] Implanted:Qty : 8 on 09/05/2022 by Bandar Estrada MD at [place] [facility] [place] N/A: Sternum JNJ : [employer] 06/07/2027 M654G / / TCBDSD Marker Coronary - [id number] Implanted:Qty : 1 on 09/05/2022 by Bandar Estrada MD at [place] [facility] [place] N/A: Heart [employer] 07/07/2025 [facility] / / [id number] documented as of this encounter Advance Directives [...] and were consensually agreed upon. Care Teams Procedures Nurse Relationship Specialty Start Date End Date Spencer Smith MD [address] [place] [address] PCP - General Family Medicine 02/03/20 documented as of this encounter
--- NOTE | 2023-12-15 00:21 | Emergency Department Note ---
ED Visit Note I was consulted by the Advanced Practice Provider, JAZMYNE Ng. I performed a substantive portion of the visit. This includes aspects of: History: Patient is a 68-year-old male presenting with left knee pain. Patient reports he has been having pain in his left knee over the last week. Patient reports that pain became significantly worse today and he was unable to bear weight without significant pain. He has pain with passive range of motion of the knee. 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 MDM: - Laboratory workup interpreted by myself showed normal WBC; stable electrolytes; elevated BUN (30); elevated CRP; elevated ESR - US lower extremity negative for DVT, per radiology. Noted to have a fluid collection to the anterior lateral knee concerning for bursal fluid collection - Xray left knee noted to have effusion superior to the patella, per my interpretation - Patient given 1g IV tylenol in ER. Given 5 mg PO roxicodone for pain control and 15 mg IV toradol. Given 1L NS and 2g IV rocephin. - Orthopedist loss control technician, Dr. Valdez, consulted. - Patient to be admitted to inpatient [facility] service for further evaluation and management. .
[2023-12-15 00:26] VITALS: RESP 18
--- NOTE | 2023-12-15 00:33 | Ultrasound Report ---
Exam(s): US VENOUS LEFT LOWER EXTREMITY EXAM: US Duplex Left Lower Extremity Veins CLINICAL HISTORY: Reason for exam: sweliing, pain. TECHNIQUE: Real-time duplex ultrasound scan of the left lower extremity veins integrating B-mode two-dimensional vascular structure, Doppler spectral analysis, color flow Doppler imaging and compression. COMPARISON: No relevant prior studies available. FINDINGS: Deep veins: Unremarkable. No DVT in the visualized common femoral, femoral, proximal deep femoral or popliteal veins. The veins demonstrate normal color flow, are normally compressible, with normal phasic flow and/or augmentation response. Superficial veins: Unremarkable. No thrombus in the visualized great saphenous vein. Soft tissues: Soft tissue edema. Fluid collection anterolateral left knee measuring 5.5 x 1.3 x 5.4 cm. IMPRESSION: Fluid collection anterolateral left knee measuring 5.5 x 1.3 x 5.4 cm. This could represent a bursal fluid collection at the knee or potentially a hematoma if there were history of trauma. Correlate clinically. No visible DVT. Electronically signed by: Piotr Hughes M.D. 12/15/23 00:32 AM
[2023-12-15] MEDS: cefTRIAXone SODIUM 2,000 MG/50 ML BAG IV STA (01:18)
[2023-12-15] MEDS: DOXYCYCLINE HYCLATE 100 MG in DEXTROSE 5% MINI-B 100 ML IV STA (02:26)
[2023-12-15] MEDS: METOPROLOL SUCC 25MG EXT REL TAB PO STA (02:27)
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
[2023-12-15] MEDS ORDERED: PROMETHAZINE 6.25 MG/50.25 ML BAG IV PRN (02:42)
[2023-12-15] MEDS ORDERED: MoRPHine SULFATE 4 MG/ML 1 ML CARP\\VIAL IV PRN (02:42)
[2023-12-15] MEDS ORDERED: ACETAMINOPHEN 325 MG TAB PO PRN (02:42)
[2023-12-15] MEDS: OPTIRAY 320 100ml IV ONE (03:42)
[2023-12-15] MEDS ORDERED: GLUCOSE 40% GEL 15 GM TUBE PO PRN (04:36)
[2023-12-15] MEDS ORDERED: GLUCAGON FOR INJ 1 MG VIAL SQ PRN (04:36)
[2023-12-15] MEDS ORDERED: CARBOHYDRATES FOR HYPOGLYCEMIA PO PRN (04:36)
[2023-12-15] MEDS ORDERED: DEXTROSE 50% 50 ML SYRINGE IV PRN (04:36)
[2023-12-15] MEDS ORDERED: GLUCOSE 10 TAB/TUBE PO PRN (04:36)
[2023-12-15 05:13] LABS: Basophils # (auto) 0.02 K/uL (0.00-0.20); Basophils % (auto) 0.3 %; Eosinophils # (auto) 0.18 K/uL (0.00-0.50); Eosinophils % (auto) 2.9 %; Hematocrit (blood only) 31.2 % (42.0-52.0); Immature Granulocytes # (auto) 0.02 K/uL (0.01-0.20); Immature Granulocytes % (auto) 0.3 %; Lymphocytes # (auto) 1.41 K/uL (1.20-3.40); Lymphocytes % (auto) 22.8 %; Mean Corpuscular Hemoglobin 29.9 pg (25.0-34.0); Mean Corpuscular Hgb Conc 32.1 g/dL (32.0-36.0); Mean Corpuscular Volume 93.1 fL (80.0-100.0); Mean Platelet Volume 10.8 fL (9.4-12.4); Monocytes # (auto) 0.79 K/uL (0.11-0.59); Monocytes % (auto) 12.8 %; Neutrophils # (auto) 3.76 K/uL (1.40-6.50); Neutrophils % (auto) 60.9 %; Platelet Count 122 K/uL (130-400); RDW Coefficient of Variation 14.7 % (11.5-14.5); RDW Standard Deviation 49.6 fL (36.4-46.3); Red Blood Count 3.35 M/uL (4.70-6.10); White Blood Count 6.18 K/ul (4.8-10.8)
[2023-12-15 05:26] LABS: Anion Gap 6 (3-11); BUN Creatinine Ratio 25.5 (10-20); Blood Urea Nitrogen 28 mg/dl (6-23); Calcium 8.6 mg/dl (8.6-10.3); Carbon Dioxide 27 mmol/L (21-32); Chloride 104 mmol/L (98-107); Est GFR (African American) 78.4 ml/min; Est GFR (Non-African American) 67.7 ml/min; Glucose 131 mg/dl (70-99(Fasting)); Potassium 3.9 mmol/L (3.5-5.1); Sodium 137 mmol/L (136-145)
[2023-12-15] MEDS: SODIUM CHLORIDE 0.9% 1,000 ML IV ONE (06:15)
[2023-12-15] MEDS: INSULIN ASPART PER UNIT CHARGE SC SCH (06:16)
--- NOTE | 2023-12-15 06:35 | Communication Note ---
Date of Service: December 15, 2023
--- NOTE | 2023-12-15 06:55 | CT Scan Report ---
Exam(s): CT LEFT KNEE With Contrast IV Amt: 94 ml EXAM: CT Left Lower Extremity With Intravenous Contrast, Knee CLINICAL HISTORY: Swelling, concern for abscess. TECHNIQUE: Axial computed tomography images of the left knee with intravenous contrast. CTDI is 14.02 mGy and DLP is 324.38 mGy-cm. Automated exposure control was utilized for the study. A dose lowering technique was utilized adhering to the principles of ALARA. CONTRAST: Patient received 94 ml of IV contrast COMPARISON: Knee radiograph 09/10/2023 FINDINGS: Bones/joints: There is a moderate knee joint effusion with thickened rind. There is a left knee arthroplasty. This results in significant streak artifact limits evaluation. No dislocation. No fracture. Soft tissues: Marked nonspecific subcutaneous edema. Vasculature: Mild atherosclerosis. IMPRESSION: 1. There is a moderate knee joint effusion with markedly thickened rind. This is concerning for septic arthritis. 2. Marked nonspecific subcutaneous edema. 3. There is a left knee arthroplasty. This results in significant streak artifact limits evaluation. Electronically signed by: Sara Serrato MD 12/15/23 06:55 AM
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
[2023-12-15] MEDS: ATORVASTATIN 40 MG TAB PO SCH (08:12)
[2023-12-15] MEDS: MULTIVITAMIN TAB PO SCH (08:13)
[2023-12-15] MEDS: GABAPENTIN 300 MG CAP PO SCH (08:13)
[2023-12-15] MEDS: METOPROLOL SUCC 25MG EXT REL TAB PO SCH (08:13)
[2023-12-15] MEDS: oxyCODONE HCL IR 5 MG TAB (IMMEDIATE RELEASE) PO PRN (08:15)
--- NOTE | 2023-12-15 09:18 | XRay Report ---
XR knee RT 1 or 2V routine HISTORY: 68 years-old Male knee replacement/ pain acute left knee pain COMPARISON: CT left knee obtained today TECHNIQUE: 2 views of the left knee FINDINGS: Total joint arthroplasty with patellar resurfacing. No acute fracture, dislocation or osseous erosion . Arterial calcifications. Surgical clips of the lower leg. Moderate soft tissue swelling with small to moderate joint effusion. IMPRESSION: 1. No acute osseous abnormality. 2. Soft tissue swelling with small to moderate joint effusion. ACT 112: Negative or not required by law. The above report was generated using voice recognition software. It may contain grammatical, syntax o r spelling errors. Electronically signed by: Jozef Quick M.D. 12/15/2023 9:16 AM
--- NOTE | 2023-12-15 12:22 | Discharge Summary ---
Date of Service December 15, 2023 Admission HPI Per Admitting Provider History obtained from patient and records. Medical history significant for CAD status post CABG, valvular heart disease (severe status post bioprosthetic AVR, mild MR, TTE 2022), postop A-fib, PVD, hypertension, hyperlipidemia, JACK on CPAP, difficult intubation as per records, DM2 on oral medications, chronic anemia (baseline hemoglobin of 11), episodic thrombocytopenia, PMR, GERD, bladder cancer status post surgery/BCG chemotherapy, gout, past tobacco/alcohol abuse. Last confinement September 2023 under Orthopedics service for elective left total knee arthroplasty. Uneventful hospital course as per documentation. Patient doing well on follow-up at [facility] therapeutic specialist's office 5 weeks ago. Patient noted different pain on left knee about 2 nights ago. No fever, no chills. May may be related to recent PT session. Patient denies chest pain, SOB. IV ceftriaxone administered at the ER. Medical History as above Surgical History : Family History : Personal/Social history : Admission Exam Per Admitting Provider n/a at the time of discharge Principal Diagnosis Left knee swelling Discharge Exam GENERAL: Alert and oriented x3. NAD, on RA. Obese class III. HEENT: No pallor, no icterus. Pupils equal, round and reactive to light. Oral mucosa moist. NECK: No JVD, no neck masses. HEART: S1 and S2 heard. Regular rate and rhythm. No murmur, no gallop. RESPIRATORY SYSTEM: Normal AP diameter. No accessory muscle use. No wheezing, no crackles. ABDOMEN: Soft, bowel sounds present, nontender, no distention. CENTRAL NERVOUS SYSTEM: No facial droop. Speech is clear. Obeys simple commands. Moves extremities. EXTREMITIES: No edema, no erythema seen. bl knee w/ healed surgical scar. Lt knee swelling noted, no erythema/no warmth/no tenderness overall. Some tenderness at medial side, decreased/mildly painful rom. Pain didn't seem out of proportion at all. Discharge Data Allergies Allergy/AdvReac Type Severity Reaction Status Date / Time daptomycin Allergy Intermediate Rash Verified 10/31/23 11:18 sulfamethoxazole Allergy Mild Itchy back Verified 10/31/23 11:18 trimethoprim Allergy Mild Itchy back Verified 10/31/23 11:18 Consultations 12/15/23 01:14 Consult Orthopedic Surgery Stat Ordered Studies 12/14/23 21:32 US venous doppler LE LT Stat 12/15/23 02:41 CT knee LT w con Stat Hospital Course (1) Swollen L knee: Per prior attending with addendum: Left knee fluid collection possible bursitis rule out hematoma History left TKR (September 2023) No sepsis for now CAD status post CABG/PVD valvular heart disease (severe status post bioprosthetic AVR, mild MR, TTE 2022) postop A-fib as per records hypertension, elevated secondary discomfort hyperlipidemia on statin Rx JACK on CPAP, difficult intubation as per records DM2 on oral medications, well-controlled as of recent hemoglobin A1c of 6.09 June 2023 chronic anemia, hemoglobin at baseline hx PMR, currently not on steroid Rx bladder cancer status post surgery/BCG chemotherapy past tobacco/alcohol abuse Admit to F Doxycycline CT left knee rule out abscess/hematoma Hold home aspirin for now until hematoma ruled out Orthopedics consult Re: Left knee swelling (ED provider already in touch with Dr. Valdez.) N.p.o. until patient seen by orthopedics. ISS BG of 1 10-1 40, carb count coverage DVT prophylaxis. SCDs Full code Addendum send 12/15/2023: Patient was seen and examined at bedside. Left knee does not look infected per orthopedics who evaluated and discussed with patient regarding possibility of going home today. Patient agreeable to go home today on pain management. Patient requested few days worth of oxycodone be sent. Oxycodone has been sent. Patient advised to utilize diclofenac gel. Patient advised to return to the hospital or call orthopedic office if worsening swelling/appearance of redness or warmth or increased pain. At bedside exam, patient reported significant improvement in his knee pain. He is being discharged with following instruction at the point of discharge: Follow-up with your primary care physician within a week time and likely you will need labs CBC/CMP/magnesium/phosphorus. You were evaluated for your left knee pain/effusion by orthopedics. He will be discharged on on pain medications, follow-up with orthopedics on Sunday. If you have any redness or increasing swelling or increasing pain to your left knee, or if you have fever, call your orthopedic office immediately or to emergency immediately. Take your medications as prescribed. Please make sure that you are able to get your medications today by calling your pharmacy before you leave the hospital so that your treatment continuity is not broken. at Time spent: 35 minutes. Text document was generated using [employer] voice recognition software. It may contain grammatical or spelling errors. Kindly contact undersigned for clarification of any documentation item in question. Home Health Attestation I certify that this patient is under my care and that I, or a physicians first assistant working with me, had a face to-face encounter that meets the home health [id number] encounter requirements with this patient. The encounter with the patient was in whole, or in part, for the following medical condition, which is the primary reason for home health care (list medical condition): I certify that, based on my findings, the following services are medically necessary home health services: My clinical findings support the need for the above services because: Further, I certify that my clinical findings support that this patient is homebound (i.e. absences from home require considerable and taxing effort and are for medical reasons or faith services or infrequently or of short duration when for other reasons) because: Certification for Home Health Services: Based on the above findings, I certify that this patient is confined to the home and needs intermittent assisted care, physical therapy and/or speech therapy or continues to need occupational therapy. The patient is under my care, and I have initiated the establishment of the plan of care. This patient will be followed by a physician who will periodically review the plan of care. Total Time Total Time Spent Total Time Spent (In Minutes): 35 Discharge Plan Discharge Items Patient Disposition: Home - Self-Care Reason For Visit: L KNEE INFECTION Discharge Diagnosis: Status post left knee replacement Left knee pain and effusion Activity: As commented below Activity Comment: continue with physical therapy Non-emergency contact: Primary Care Provider Call non-emergency contact if: you have any medication questions and your pain is unusual for you Follow-up/Referrals: Spencer Smith MD [Primary Care Provider] - Diet: Carb Consistent or DM2 and Heart Healthy Addtl Attending Provider Instructions: Follow-up with your primary care physician within a week time and likely you will need labs CBC/CMP/magnesium/phosphorus. You were evaluated for your left knee pain/effusion by orthopedics. He will be discharged on on pain medications, follow-up with orthopedics on Sunday. If you have any redness or increasing swelling or increasing pain to your left knee, or if you have fever, call your orthopedic office immediately or to emergency immediately. Take your medications as prescribed. Please make sure that you are able to get your medications today by calling your pharmacy before you leave the hospital so that your treatment continuity is not broken. Pending Studies at Discharge: No Stand-Alone Forms: My [facility], Smoking Cessation Medications and DC Order Prescriptions: New diclofenac sodium 1 % kit 4 g topical QID PRN (Reason: left knee pain) Qty: 1 0RF Rx Instructions: apply to single knee, ankle, foot; for foot includes sole/toes/top of foot Continued metformin 500 mg tablet 500 mg PO BID Qty: 180 0RF Systane (propylene glycol) 0.4-0.3 % drops 1 drops OP DAILY PRN (Reason: Dry Eyes) (DME) lancets misc See Dose Instructions .ROUTE .MEDSUPPLY Qty: 50 Rx Instructions: 4 times daily (DME) blood sugar diagnostic strip See Dose Instructions .ROUTE .MEDSUPPLY Qty: 10 Rx Instructions: tests 4 times daily gabapentin 300 mg capsule 300 mg PO BID furosemide [Lasix] 20 mg tablet 20 mg PO QAM multivitamin Tablet 1 tab PO QAM triamcinolone acetonide [Triderm] 0.1 % cream 1 applic topical BID PRN (Reason: flaring) Rx Instructions: Apply to areas of the trunk twice daily as needed for flaring. atorvastatin 40 mg tablet 40 mg PO QAM aspirin [Adult Aspirin Regimen] 81 mg tablet,delayed release (DR/EC) 81 mg PO BID 42 Days Qty: 0 0RF metoprolol succinate 25 mg tablet extended release 24 hr 25 mg PO DAILY Changed oxycodone 5 mg tablet 5 mg PO Q6H Qty: 12 0RF Discontinued oxycodone 5 mg tablet 5 mg PO Q6H PRN (Reason: pain) Qty: 30 0RF oxycodone 5 mg tablet 5 mg PO Q6H PRN (Reason: pain) Qty: 20 0RF oxycodone 5 mg tablet 5 mg PO Q6H PRN (Reason: pain) Qty: 30 0RF Discharge Orders: Discharge Order (Routine); Ordered 12/15/23 Ordered By: Malika Bush Admission Data Admit Date/Time: 12/15/23 02:41 Attending Provider: Malika Bush Admit Provider: Moe Chun Primary Care Provider: Spencer Smith Other Providers: Luther Valdez
[2023-12-15 12:59] VITALS: BP 167/89; PULSE 69; O2SAT 98
[2023-12-15] MEDS ORDERED: DOXYCYCLINE HYCLATE 100 MG CAP PO SCH (21:00)
== END 2023-12-15 12:57 | disposition home or self-care (01) | DRG 558 ==
LOC: ED 19:15 → EDINP 12-15 02:41